=== PATIENT | female | born 1945 | race Caucasian/White ===

== ENCOUNTER 2017-01-15 17:28 | Inpatient (IN) | payer MEDICARE ==
--- NOTE | 2017-01-15 18:01 | ED ---
General Adult HPI - General Source: patient Mode of arrival: EMS Limitations: no limitations <Jerry Roblero - Last Filed: 01/15/17 18:01> <Darryl Dallas - Last Filed: 01/15/17 20:20> - General Chief complaint: Chest Pain Stated complaint: chest pain - Related Data Home Medications Medication Instructions Recorded Confirmed Metoprolol Tartrate [Lopressor] 25 mg PO BID 07/21/15 01/15/17 Previous Rx's Medication Instructions Recorded Atorvastatin [Lipitor] 40 mg PO DAILY #30 tab 04/12/15 Lisinopril [Zestril] 10 mg PO BID #60 tab 06/15/15 Aspirin EC [Ecotrin Low Dose] 81 mg PO DAILY #30 tablet. 07/23/15 Nitroglycerin Sl Tabs [Nitrostat] 0.4 mg SUBLINGUAL Q5M PRN #30 tab 07/23/15 Allergies Allergy/AdvReac Type Severity Reaction Status Date / Time No Known Allergies Allergy Verified 01/15/17 18:16 Review of Systems ROS Other: All systems not noted in ROS Statement are negative. <Jerry Roblero - Last Filed: 01/15/17 18:01> ROS Other: All systems not noted in ROS Statement are negative. <Darryl Dallas - Last Filed: 01/15/17 20:20> ROS Statement: Those systems with pertinent positive or pertinent negative responses have been documented in the HPI. Past Medical History Past Medical History: Atrial Fibrillation, Coronary Artery Disease (CAD), Cancer , Heart Failure, COPD, Diabetes Mellitus, Hyperlipidemia, Hypertension, Myocardial Infarction (ND) Additional Past Medical History / Comment(s): 06/13/15 Pt presented to [facility] ER via EMS with L sided chest pain which began around 7PM last nite. She took nig which did not provide relief. When the pain worsened she phoned EMS. Pt states she is suppose to plan to have a stent placement but nothing set up yet. Pt last admitted to [facility] on 04/05/15-04/12/15 for NSTEMI/CHF, UTI with klebsiella pneumoniae, acute kidney injury which improved, and medical debility. She had cardiac catheterization and plan at that time was to tx medically. Echo done 04/05/15 showed severely impaired L venttricular systolic function with EF 20-25%. 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 Last Myocardial Infarction Date:: 2014 History of Any Multi-Drug Resistant Organisms: None Reported Past Surgical History: Appendectomy, Bariatric Surgery, Cholecystectomy, Coronary Bypass/CABG, Heart Catheterization, Hysterectomy, Tonsillectomy Additional Past Surgical History / Comment(s): 04/11/15 cardiac cath- tx medically, 02/03/2006 CABG-5 vessel with MVR, port-a-cath insertion and removal, colonoscopies with last one about 1 yr ago which was normal, gastric bypass. Past Anesthesia/Blood Transfusion Reactions: No Reported Reaction Past Psychological History: No Psychological Hx Reported Additional Psychological History / Comment(s): Pt's son lives with her in her home. She is fairly independent. She uses no assistive device or home care agency. She no longer drives much- her children take her to her appts. Her family is very supportive. She has a glucose monitor at home. Smoking Status: Former smoker Past Alcohol Use History: None Reported Additional Past Alcohol Use History / Comment(s): Pt states she started smoking around 1960 and quit in 2012. Past Drug Use History: None Reported - Past Family History Father Family Medical History: Cancer Mother Family Medical History: Congestive Heart Failure (CHF), Coronary Artery Disease (CAD) <Jerry Roblero - Last Filed: 01/15/17 18:01> General Exam Limitations: no limitations <Jerry Roblero - Last Filed: 01/15/17 18:01> EKG Findings - EKG Comments: EKG Findings:: EKG shows sinus tachycardia rate 103, W[place] 136, QRS 100, QTC 476 <Jerry Roblero - Last Filed: 01/15/17 18:01> Medical Decision Making - Lab Data Result diagrams: 01/15/17 17:45 01/15/17 17:45 <Darryl Dallas - Last Filed: 01/15/17 20:20> - Lab Data Lab Results 03/24/17 03/24/17 03/24/17 Range/Units 17:45 17:45 17:45 WBC 7.8 (3.8-10.6) k/uL RBC 3.76 L (3.80-5.40) m/uL Hgb 9.7 L (11.4-16.0) gm/dL Hct 31.7 L (34.0-46.0) % MCV 84.4 (80.0-100.0) fL MCH 25.7 (25.0-35.0) pg MCHC 30.5 L (31.0-37.0) g/dL RDW 15.8 H (11.5-15.5) % Plt Count 259 (150-450) k/uL Neutrophils % 82 % Lymphocytes % 11 % Monocytes % 4 % Eosinophils % 2 % Basophils % 1 % Neutrophils # 6.4 (1.3-7.7) k/uL Lymphocytes # 0.8 L (1.0-4.8) k/uL Monocytes # 0.3 (0-1.0) k/uL Eosinophils # 0.1 (0-0.7) k/uL Basophils # 0.1 (0-0.2) k/uL Hypochromasia Marked PT (9.0-12.0) sec INR (<1.1) APTT (22.0-30.0) sec D-Dimer (<0.60) mg/L FEU Sodium 139 (137-145) mmol/L Potassium 3.8 (3.5-5.1) mmol/L Chloride 102 (98-107) mmol/L Carbon Dioxide 22 (22-30) mmol/L Anion Gap 15 mmol/L BUN 17 (7-17) mg/dL Creatinine 1.05 H (0.52-1.04) mg/dL Est GFR (MDRD) Af Amer >60 (>60 ml/min/1.73 sqM) Est GFR (MDRD) Non-Af 51 (>60 ml/min/1.73 sqM) Glucose 497 H* (74-99) mg/dL POC Glucose (mg/dL) (75-99) mg/dL POC Glu Senior Training Specialist ID Calcium 8.7 (8.4-10.2) mg/dL Magnesium 1.4 L (1.6-2.3) mg/dL Total Bilirubin 0.6 (0.2-1.3) mg/dL AST 15 (14-36) U/L ALT 19 (9-52) U/L Alkaline Phosphatase 95 (38-126) U/L Total Creatine Kinase 29 L (30-135) U/L CK-MB (CK-2) 1.0 (0.0-2.4) ng/mL CK-MB (CK-2) Rel Index 3.4 Troponin I <0.012 (0.000-0.034) ng/mL NT-Pro-B Natriuret Pep pg/mL Total Protein 7.4 (6.3-8.2) g/dL Albumin 3.7 (3.5-5.0) g/dL Lipase 230 (23-300) U/L 01/15/17 01/15/17 01/15/17 Range/Units 17:45 17:45 19:27 WBC (3.8-10.6) k/uL RBC (3.80-5.40) m/uL Hgb (11.4-16.0) gm/dL Hct (34.0-46.0) % MCV (80.0-100.0) fL MCH (25.0-35.0) pg MCHC (31.0-37.0) g/dL RDW (11.5-15.5) % Plt Count (150-450) k/uL Neutrophils % % Lymphocytes % % Monocytes % % Eosinophils % % Basophils % % Neutrophils # (1.3-7.7) k/uL Lymphocytes # (1.0-4.8) k/uL Monocytes # (0-1.0) k/uL Eosinophils # (0-0.7) k/uL Basophils # (0-0.2) k/uL Hypochromasia PT 10.1 (9.0-12.0) sec INR 1.0 (<1.1) APTT 21.2 L (22.0-30.0) sec D-Dimer 0.84 H (<0.60) mg/L FEU Sodium (137-145) mmol/L Potassium (3.5-5.1) mmol/L Chloride (98-107) mmol/L Carbon Dioxide (22-30) mmol/L Anion Gap mmol/L BUN (7-17) mg/dL Creatinine (0.52-1.04) mg/dL Est GFR (MDRD) Af Amer (>60 ml/min/1.73 sqM) Est GFR (MDRD) Non-Af (>60 ml/min/1.73 sqM) Glucose (74-99) mg/dL POC Glucose (mg/dL) 445 H (75-99) mg/dL POC Glu Senior Training Specialist ID Jennifer Mack Calcium (8.4-10.2) mg/dL Magnesium (1.6-2.3) mg/dL Total Bilirubin (0.2-1.3) mg/dL AST (14-36) U/L ALT (9-52) U/L Alkaline Phosphatase (38-126) U/L Total Creatine Kinase (30-135) U/L CK-MB (CK-2) (0.0-2.4) ng/mL CK-MB (CK-2) Rel Index Troponin I (0.000-0.034) ng/mL NT-Pro-B Natriuret Pep 1700 pg/mL Total Protein (6.3-8.2) g/dL Albumin (3.5-5.0) g/dL Lipase (23-300) U/L Disposition <Jerry Roblero - Last Filed: 01/15/17 18:01> <Darryl Dallas - Last Filed: 01/15/17 20:20> Clinical Impression: Chest pain Disposition: ADMITTED IP TO THIS HOSP Condition: Fair
[2017-01-15] MEDS ORDERED: SODIUM CHLORIDE 0.9% 1,000 ML IV STA (18:06)
[2017-01-15] MEDS ORDERED: MORPHINE SULFATE 4 MG/ML SYRINGE IV STA (18:06)
[2017-01-15] MEDS ORDERED: IPRATROPIUM-ALBUTEROL 3 ML NEB INHALATION STA (18:07)
[2017-01-15 18:18] LABS: Basophils # (A) 0.1 k/uL (0-0.2); Basophils % (A) 1 %; CH 25.2; CHCM 29.9; Eosinophils # (A) 0.1 k/uL (0-0.7); Eosinophils % (A) 2 %; HCT 31.7 % (34.0-46.0); HDW 3.32; HGB 9.7 gm/dL (11.4-16.0); Hypochromasia Marked; Luc # (Auto) 0.09; Luc % (Auto) 1; Lymphocytes # (A) 0.8 k/uL (1.0-4.8); Lymphocytes % (A) 11 %; MCH 25.7 pg (25.0-35.0); MCHC 30.5 g/dL (31.0-37.0); MCV 84.4 fL (80.0-100.0); Mean Platelet Volume 7.2; Monocytes # (A) 0.3 k/uL (0-1.0); Monocytes % (A) 4 %; Neutrophils # (A) 6.4 k/uL (1.3-7.7); Neutrophils % (A) 82 %; RBC 3.76 m/uL (3.80-5.40); RDW 15.8 % (11.5-15.5); WBC 7.8 k/uL (3.8-10.6); WBC (Perox) 8.12
[2017-01-15 18:32] LABS: ALT 19 U/L (9-52); AST 15 U/L (14-36); Alkaline Phosphatase 95 U/L (38-126); Anion Gap 15 mmol/L; Blood Urea Nitrogen 17 mg/dL (7-17); Calcium 8.7 mg/dL (8.4-10.2); Carbon Dioxide 22 mmol/L (22-30); Chloride 102 mmol/L (98-107); Magnesium 1.4 mg/dL (1.6-2.3); Non-African American GFR(MDRD) 51 (>60 ml/min/1.73 sqM); Potassium 3.8 mmol/L (3.5-5.1); Prothrombin Time 10.1 sec (9.0-12.0); Sodium 139 mmol/L (137-145); Total Bilirubin 0.6 mg/dL (0.2-1.3); Total Protein 7.4 g/dL (6.3-8.2)
[2017-01-15 18:34] LABS: Glucose 497 mg/dL (74-99)
[2017-01-15 18:43] LABS: Creatine Kinase 29 U/L (30-135); Partial Thromboplastin Time 21.2 sec (22.0-30.0)
[2017-01-15] MEDS ORDERED: ASPIRIN 81 MG CHEW PO STA (18:51)
[2017-01-15] MEDS ORDERED: NITROGLYCERIN SL TABS 0.4 MG TAB SUBLINGUAL PRN (18:51)
[2017-01-15] MEDS ORDERED: HEPARIN SODIUM,PORCINE 5,000 UNIT/ML 1 ML VIAL IV PRN (18:51)
[2017-01-15] MEDS ORDERED: HEPARIN SODIUM,PORCINE 5,000 UNIT/ML 1 ML VIAL IV ONE (18:51)
--- NOTE | 2017-01-15 18:51 | XR ---
EXAMINATION TYPE: XR chest 2V DATE OF EXAM: 01/15/2017 6:39 PM COMPARISON: 07/20/2015 HISTORY: Chest pain TECHNIQUE: Frontal and lateral views of the chest are obtained. FINDINGS: There is mild pulmonary vascular congestion. There are sternal wires. There is a prosthesi s. There is a left axillary pacemaker with the lead tips in the right ventricle. There are chest lead s. There is slight blunting of costophrenic angles. IMPRESSION: There is evidence of mild heart failure that is new or increased compared to last exam.
[2017-01-15] MEDS ORDERED: RX INFO: IV CONTRAST WAS GIVEN 1 EACH MISC MISCELLANE PRN (18:52)
[2017-01-15 18:55] LABS: Troponin I <0.012 ng/mL (0.000-0.034)
[2017-01-15] MEDS ORDERED: HEPARIN SODIUM,PORCINE/D5W PMX 25,000 UNIT in DEXTROSE/WATER 1 500ML.BAG IV SCH (19:00)
[2017-01-15] MEDS ORDERED: NITROGLYCERIN SL TABS 0.4 MG TAB SUBLINGUAL STA (19:18)
[2017-01-15 19:28] LABS: Glucose,Whole Blood 445 mg/dL (75-99)
[2017-01-15] MEDS: SODIUM CHLORIDE 0.9% 1,000 ML IV SCH (19:28)
[2017-01-15] MEDS: INSULIN LISPRO (humaLOG) 300 UNIT/3 ML VIAL SQ SCH ×2 (19:50→21:55)
--- NOTE | 2017-01-15 19:58 | CT ---
EXAMINATION TYPE: CT angio chest DATE OF EXAM: 01/15/2017 7:27 PM COMPARISON: 04/05/2015 HISTORY: Pt states of chest pain x1 week. CT DLP: 311.8 mGycm Automated exposure control for dose reduction was used. CONTRAST: CTA scan of the thorax is performed with IV Contrast, patient injected with 55 mL of Visipaque 320, p ulmonary embolism protocol. . FINDINGS: There are 3-D post processed images. The lungs are clear of consolidation. There is groundglass interstitial density in the mid and lower lung sims and worse on the right side. There is mild subpleural interstitial density in the lower l obes. There is no pleural effusion. Heart is enlarged. I see no filling defects in the pulmonary lisa jason. Thoracic aorta is atheromatous. There is no sign of dissection. Ascending aorta measures 4 cm. There is a hiatal hernia. There is no mediastinal adenopathy. There are no hilar masses. IMPRESSION: NO EVIDENCE OF PULMONARY EMBOLISM. 4 CM ANEURYSM OF THE ASCENDING AORTA. CARDIOMEGALY. THERE IS CLEARING OF THE PLEURAL FLUID COMPARED TO LAST EXAM. PULMONARY INTERSTITIAL PNEUMONIA. MILD FIBROTIC CHANGES.
[2017-01-15 20:23] LABS: Hemoglobin A1C 10.8 % (4.2-6.1)
[2017-01-15 21:47] LABS: Glucose,Whole Blood 446 mg/dL (75-99)
[2017-01-15 23:58] LABS: Glucose,Whole Blood 387 mg/dL (75-99)
[2017-01-16 02:10] LABS: Creatine Kinase MB 2.6 ng/mL (0.0-2.4); Troponin I 0.362 ng/mL (0.000-0.034)
[2017-01-16] MEDS ORDERED: Magnesium Replacement Protocol 1 EACH MISC MISCELLANE PRN (02:26)
[2017-01-16] MEDS: MAGNESIUM SULFATE-D5W PMX 1 GM in DEXTROSE/WATER 1 100ML.BAG IVPB SCH ×3 (03:03→05:13)
[2017-01-16 06:55] LABS: Glucose,Whole Blood 368 mg/dL (75-99)
[2017-01-16 07:12] LABS: Mean Platelet Volume 8.3
[2017-01-16 07:32] LABS: Cholesterol 104 mg/dL (<200); HDL Cholesterol 45 mg/dL (40-60); Triglycerides 54 mg/dL (<150)
[2017-01-16 08:08] LABS: Creatine Kinase MB 3.6 ng/mL (0.0-2.4); Troponin I 0.449 ng/mL (0.000-0.034)
[2017-01-16 09:01] VITALS: BMI 31.0
[2017-01-16] MEDS: LISINOPRIL 10 MG TAB PO SCH ×2 (11:07→19:59)
[2017-01-16] MEDS: FUROSEMIDE 20 MG TAB PO SCH (11:07)
[2017-01-16] MEDS: METOPROLOL TARTRATE 25 MG TAB PO SCH ×2 (11:07→19:59)
[2017-01-16] MEDS: ASPIRIN 325 MG TAB PO SCH (11:07)
[2017-01-16] MEDS: SPIRONOLACTONE 25 MG TAB PO SCH (11:07)
[2017-01-16] MEDS: ATORVASTATIN 40 MG TAB PO SCH (11:07)
[2017-01-16] MEDS: ISOSORBIDE MONONITRATE ER 60 MG TAB.ER.24H PO SCH (11:17)
[2017-01-16 12:01] LABS: Glucose,Whole Blood 333 mg/dL (75-99)
[2017-01-16] MEDS: INSULIN LISPRO (humaLOG) 300 UNIT/3 ML VIAL SQ SCH ×3 (12:36→20:35)
--- NOTE | 2017-01-16 12:53 | CONS ---
Mrs. Hernandez is a 71-year-old female who is admitted to the hospital with the complaint of epigastric discomfort. Patient has a known history of coronary artery disease with a prior history of coronary artery bypass surgery and mitral valve repair. Patient had a cardiac catheterization done in March 2015. At that time, patient was found to have vein grafts closed and FUNEZ graft to the LAD was patent. Patient's ejection fraction was 20% to 25% and has been treated medically. Patient subsequently had an AICD placed. She had been doing fairly well. She had pain at rest. Pain was in epigastric area with slight nausea. She did not have any significant shortness of breath. As the pain persisted, the patient came to the emergency room and subsequently is admitted. Patient usually is able to walk around and remains in functional class III. Past medical history includes history of appendectomy, bariatric surgery, coronary artery bypass surgery, cardiac catheterization, AICD placement. Patient also has squamous cell cancer and the patient had radiation and chemotherapy. There is a questionable history of atrial fibrillation. She not exactly aware of it, but she has not been on Coumadin. SOCIAL HISTORY: Patient is a former smoker. Physical examination at present reveals a 71-year-old female who does not appear to be in any acute distress at present. Blood pressure is 140/70 mmHg, oxygen saturation is 90%. Patient is afebrile. HEENT is negative. Neck is supple. Jugular venous pressure is mildly elevated. Both the carotid pulses are felt. There is no bruit. Chest is symmetrical. HEART: The PMI is not felt. First and second heart sounds are normal. No significant murmurs are noted. Lungs are clinically clear to auscultation and percussion. Abdomen is soft. Liver and spleen are not enlarged. Bowel sounds are heard. EXTREMITIES: Peripheral pulsations are 1+. Initial troponin was less than 0.012. Subsequent troponins are 0.49 and 0.362. Patient's electrolytes are normal. Creatinine is 1.05. Chest x-ray suggestive of possible mild congestive heart failure. CT scan was negative for pulmonary embolism. EKG shows evidence of sinus tachycardia with mild ST-T changes noted in leads I, aVL and V5 and V6, which could be suggestive of ischemia versus a strain pattern. FINAL IMPRESSION: 1. This patient has presented with epigastric discomfort with mild elevation in the troponin suggestive of a non-Q-wave myocardial infarction. 2. Patient has a history of ischemic cardiomyopathy with status post coronary artery bypass surgery. Last cardiac catheterization revealed all the vein grafts were closed and patient was not considered any candidate for any kind of intervention. 3. Patient has ischemic cardiomyopathy. RECOMMENDATIONS: We will obtain EKGs. Echo and Doppler study will be obtained and at present, I will continue the medical treatment. If patient remains stable, we will maximize the medical treatment. Patient's overall long-term prognosis is guarded.
--- NOTE | 2017-01-16 14:37 | HP ---
DATE OF ADMISSION: 01/15/2017 PRESENTING COMPLAINT: Chest pain. HISTORY OF PRESENTING COMPLAINT: This is a pleasant 71-year-old patient of Dr. Soni whose chronic stable medical conditions include atrial fibrillation, congestive heart failure; EF 20% to 25%, COPD, diabetes type 2, hyperlipidemia, hypertension. Patient also has an AICD. Last time she was here was in July 2015 with unstable angina. She was felt to be a medical management candidate. Patient presents with chest pressure, lasting for a day off and on. There is no shortness of breath. No dizziness. Patient had episodes of perspiration. No radiation. Patient did not have any nitro and decided to come in, admitted with unstable angina. REVIEW OF SYSTEMS: CONSTITUTIONAL: Tired. HEENT: None. RESPIRATORY: As above. CARDIOVASCULAR: As above. GASTROINTESTINAL: None. GENITOURINARY: None. MUSCULOSKELETAL: Pain in the joints. DERMATOLOGICAL: None. HEMATOLOGICAL: None. PSYCHIATRIC: None. LYMPHATICS: None. Past medical history of atrial fibrillation, coronary artery disease, rectal cancer treated with chemo and radiation, CHF, EF 20% to 25%, COPD, diabetes mellitus type 2, hyperlipidemia, hypertension, squamous cell cancer of the anal canal. PAST SURGICAL HISTORY: Appendectomy, bariatric surgery, cholecystectomy, hysterectomy, tonsillectomy, mitral valve replacement and also gastric bypass surgery. SOCIAL HISTORY: Son lives with her. Patient smoked up until about 6 to 7 years ago. PAST SURGICAL HISTORY: AICD, appendectomy, bariatric surgery, cholecystectomy, coronary artery bypass, cardiac cath in March 2015 to be managed medically and in 2005, the patient had a coronary artery bypass, 5 vessels with mitral valve replacement. SOCIAL HISTORY: The patient did smoke for about 53 years, stopped in 2012. FAMILY HISTORY: Cancer. HOME MEDICATIONS: 1. Nitrostat 0.4 sublingual q.5 p.r.n. 2. Lopressor 25 mg b.i.d. 3. Zestril 10 mg p.o. b.i.d. 4. Lipitor 40 mg p.o. daily. 5. Aspirin 81 mg daily. ALLERGIES: None. On examination, temperature 97.8, pulse 55, respirations 18, blood pressure 140/73, pulse ox 98% on room air. GENERAL APPEARANCE: Elderly lady lying in bed, tired-appearing. EYES: Pupils equal. Conjunctivae normal. HEENT: Oral cavity normal. NECK: JVD not raised. Mass not palpable. RESPIRATORY: Effort normal. LUNGS: Slight decreased breath sounds. CARDIOVASCULAR: First and second sounds normal. No edema. ABDOMEN: Soft, nontender. Liver and spleen not palpable. LYMPHATIC: No lymph node palpable in neck or axillae. PSYCHIATRY: Alert and oriented x3. Mood and affect normal. NEUROLOGICAL: Pupils equal. Cranial nerves grossly intact. Power and sensation grossly intact. INVESTIGATIONS: White count 7.8, hemoglobin 9.7. Potassium 3.8, glucose 497, HbA1c 10.8. Troponin 0.012, 0.362, 0.449. EKG shows ST segment depression in V5, V6, I, aVL. ASSESSMENT: 1. Acute non-Q-wave myocardial infarction in a patient with known coronary artery disease, not a candidate for coronary intervention per cardiac catheterization in 2014. 2. Coronary artery disease with prior history of coronary artery bypass. 3. History of atrial fibrillation. 4. Chronic obstructive pulmonary disease in an ex-smoker. 5. Hyperlipidemia. 6. Essential hypertension. 7. Chronic congestive heart failure from systolic dysfunction; ejection fraction 20% to 25% from underlying coronary artery disease. 8. Paroxysmal atrial fibrillation. 9. History of anal cancer. 10. Automatic implantable cardioverter-defibrillator. PLAN: Home medications are resumed. Cardiology was consulted. Patient is on VIKTOR inhibitors, Lipitor, aspirin. Overall prognosis is guarded. Patient's dose of nitrates will be increased. Will see how the patient does. Given acute ME, patient will need to be in hospital at least for 48 hours and see how she does.
--- NOTE | 2017-01-16 15:37 | ECHOF ---
Referral Reason:cp MEASUREMENTS -------- HEIGHT: 157.5 cm WEIGHT: 76.7 kg BP: 140/70 IVSd: 1.3 cm (0.6 - 1.1) LVIDd: 4.2 cm (3.9 - 5.3) LVPWd: 1.3 cm (0.6 - 1.1) LVIDs: 3.8 cm LA Diam: 3.5 cm (2.7 - 3.8) RVIDd: 3.1 cm (< 3.3) LAESV Index (A-L): 26.63 ml/m Ao Diam: 3.8 cm (2.0 - 3.7) AV Cusp: 2.0 cm (1.5 - 2.6) EPSS: 0.9 cm MV E Eulalio: 2.54 m/s MV DecT: 242 ms MV A Eulalio: 2.11 m/s MV E/A Ratio: 1.20 RAP: 5.00 mmHg RVSP: 60.31 mmHg MV EF SLOPE: 13.79 mm/s (70 - 150) MV EXCURSION: 13.88 mm (> 18.000) FINDINGS -------- Sinus rhythm. This was a technically good study. The left ventricular size is normal. There is mild concentric left ventricular hypertrophy. Overall left ventricular systolic function is mild-moderately impaired with, an EF between 40 - 45 %. Basal inferior LV wall motion is hypokinetic. Basal inferoseptal LV wall motion is hypokinetic. Apical inferior LV wall motion is hypokinetic. Apical septum LV wall motion is hypokinetic. The right ventricle is normal in size. Normal LA size by volume 22+/-6 ml/m2. The right atrium is normal in size. There is mild aortic valve sclerosis. There is mild aortic regurgitation. The mitral valve leaflets are mildly thickened. Mild mitral annular calcification present. Mild mitral regurgitation is present. The peak and mean MV gradients are 23.93mmHg 11.39mmHg as measured by doppler , with a MVA of 2.4cm (by planimetry) [id number] tricuspid regurgitation present. There is severe pulmonary hypertension. The right ventricular systolic pressure, as measured by Doppler, is 60.31mmHg. Moderate pulmonic regurgitation. The aortic root is dilated measuring 3.8cm. The inferior vena cava is mildly dilated. There is no pericardial effusion. CONCLUSIONS -------- 1. Sinus rhythm. 2. The right ventricle is normal in size. 3. Normal LA size by volume 22+/-6 ml/m2. 4. There is mild aortic valve sclerosis. 5. There is mild aortic regurgitation. 6. The mitral valve leaflets are mildly thickened. 7. Mild mitral annular calcification present. 8. Mild mitral regurgitation is present. 9. The peak and mean MV gradients are 23.93mmHg 11.39mmHg as measured by doppler. 10. , with a MVA of 2.4cm (by planimetry) 11. Gicb-ik-kjhcttnx tricuspid regurgitation present. 12. This was a technically good study. 13. There is severe pulmonary hypertension. 14. The right ventricular systolic pressure, as measured by Doppler, is 60.31mmHg. 15. Moderate pulmonic regurgitation. 16. The aortic root is dilated measuring 3.8cm. 17. The inferior vena cava is mildly dilated. 18. There is no pericardial effusion. 19. The left ventricular size is normal. 20. There is mild concentric left ventricular hypertrophy. 21. Overall left ventricular systolic function is mild-moderately impaired with, an EF between 40 - 45 %. 22. Basal inferior LV wall motion is hypokinetic. 23. Basal inferoseptal LV wall motion is hypokinetic. 24. Apical inferior LV wall motion is hypokinetic. 25. Apical septum LV wall motion is hypokinetic. COLLEGE ASSOCIATE: Sue Louis RDCS
[2017-01-16 17:05] LABS: Glucose,Whole Blood 257 mg/dL (75-99)
[2017-01-16 20:09] LABS: Glucose,Whole Blood 264 mg/dL (75-99)
[2017-01-17 07:15] LABS: Glucose,Whole Blood 269 mg/dL (75-99)
[2017-01-17 07:40] LABS: Mean Platelet Volume 7.3
[2017-01-17] MEDS: SODIUM CHLORIDE 0.9% 1,000 ML IV SCH ×2 (08:20→14:14)
[2017-01-17] MEDS: METOPROLOL TARTRATE 25 MG TAB PO SCH (08:30)
[2017-01-17] MEDS: LISINOPRIL 10 MG TAB PO SCH (08:30)
[2017-01-17] MEDS: SPIRONOLACTONE 25 MG TAB PO SCH (08:30)
[2017-01-17] MEDS: ATORVASTATIN 40 MG TAB PO SCH (08:30)
[2017-01-17] MEDS: ASPIRIN 325 MG TAB PO SCH (08:31)
[2017-01-17] MEDS: FUROSEMIDE 20 MG TAB PO SCH (08:31)
[2017-01-17] MEDS: ISOSORBIDE MONONITRATE ER 60 MG TAB.ER.24H PO SCH (08:31)
[2017-01-17] MEDS: INSULIN LISPRO (humaLOG) 300 UNIT/3 ML VIAL SQ SCH ×2 (08:31→13:51)
[2017-01-17 12:15] LABS: Glucose,Whole Blood 299 mg/dL (75-99)
[2017-01-17 12:50] VITALS: BP 118/65; PULSE 83; RESP 16; TEMP 98.1
--- NOTE | 2017-01-17 13:17 | PN ---
This patient was admitted with epigastric discomfort. Patient had a mild elevation in her troponin, which could be suggestive of possible small non-Q wave myocardial infarction. Patient is known to have ischemic cardiomyopathy with status post coronary artery bypass surgery. Medical treatment is recommended. Patient's echocardiogram shows ejection fraction in the range of 40%. Patient's vital signs are stable. She is being ambulated, her epigastric pain is improved. Patient can be discharged home on the medical treatment.
--- NOTE | 2017-01-18 18:08 | DS ---
DATE OF ADMISSION: 01/16/2017 DATE OF DISCHARGE: 01/17/2017 FINAL DIAGNOSES: 1. Acute non-Q-wave myocardial infarction. 2. Known coronary disease with prior history of coronary artery bypass grafting. 3. History of atrial fibrillation. 4. Chronic obstructive pulmonary disease in an ex-smoker. 5. Hyperlipidemia. 6. Essential hypertension. 7. Chronic congestive heart failure from systolic dysfunction; ejection fraction 20% to 25%, underlying coronary artery disease. 8. Paroxysmal atrial fibrillation. 9. History of anal cancer. 10. AICD. HOSPITAL COURSE: This patient with known coronary artery disease is not amenable to further intervention per previous cardiac cath presented with acute UT , medications being adjusted, doing better at the time of discharge, up and about. No further chest pain with ambulation. 2-D echo shows EF of 40% to 45%. CONSULTATIONS: Dr. Arsen Galicia, cardiology. On exam, lungs are clear. CARDIOVASCULAR: First and second sounds normal. DISCHARGE MEDICATIONS: 1. Zestril 10 mg b.i.d. 2. Lopressor 25 mg b.i.d. 3. Aspirin 81 mg b.i.d. 4. Lipitor 80 mg q.h.s. 5. Imdur 60 mg a day. 6. Nitrostat 0.4 sublingual q.5 p.r.n. 7. Aldactone 25 mg a day. Follow up with Dr. Yin in 2 weeks, Dr. Soni in 3 days.
== END 2017-01-17 16:05 | disposition home or self-care (01) | DRG 281 ==
LOC: EC 17:28 → 3OBS 18:51 → OBSVTOIN 01-16 17:54
PROVIDERS: ADMIT Hospitalist; ATTEND Hospitalist
DX: I21.4 Non-ST elevation (NSTEMI) myocardial infarction (principal); I50.22 Chronic systolic (congestive) heart failure; I11.0 Hypertensive heart disease with heart failure; I48.0 Paroxysmal atrial fibrillation; J44.9 Chronic obstructive pulmonary disease, unspecified; I25.110 Atherosclerotic heart disease of native coronary artery with unstable angina pectoris; I25.5 Ischemic cardiomyopathy; E11.9 Type 2 diabetes mellitus without complications; Z95.1 Presence of aortocoronary bypass graft; Z87.891 Personal history of nicotine dependence; E78.5 Hyperlipidemia, unspecified; Z95.2 Presence of prosthetic heart valve; Z85.048 Personal history of other malignant neoplasm of rectum, rectosigmoid junction, and anus; Z82.49 Family history of ischemic heart disease and other diseases of the circulatory system; Z95.810 Presence of automatic (implantable) cardiac defibrillator; Z90.49 Acquired absence of other specified parts of digestive tract; Z98.84 Bariatric surgery status; Z92.21 Personal history of antineoplastic chemotherapy; Z92.3 Personal history of irradiation; I25.2 Old myocardial infarction; Z79.82 Long term (current) use of aspirin; Z79.899 Other long term (current) drug therapy
CPT/HCPCS: 36415; 71020; 71275; 80053; 80061; 82550; 82553; 83036; 83690; 83735; 83880; 84484; 85025; 85049; 85379; 85610; 85730; 93005; 93306; 94640; 96361; 96365; 96366; 96368; 96375; 96376; 99285

== ENCOUNTER 2018-11-22 15:10 | Inpatient (IN) | payer MEDICARE ==
[2018-11-22 16:52] LABS: Albumin 3.1 g/dL (3.5-5.0); Calcium 8.8 mg/dL (8.4-10.2); Potassium 4.8 mmol/L (3.5-5.1); Total Bilirubin 0.8 mg/dL (0.2-1.3); Total Protein 6.6 g/dL (6.3-8.2)
--- NOTE | 2018-11-22 16:59 | XR ---
EXAMINATION TYPE: XR foot complete LT DATE OF EXAM: 11/22/2018 COMPARISON: NONE HISTORY: Foot pain and redness TECHNIQUE: 3 views FINDINGS: There is soft tissue swelling of the foot. There is a plantar calcaneal spur. Metatarsals a re intact. I see no fracture nor dislocation. There are vascular surgical clips. IMPRESSION: Soft tissue swelling. No evidence of osteomyelitis. No fracture.
--- NOTE | 2018-11-22 17:00 | XR ---
EXAMINATION TYPE: XR tibia fibula LT DATE OF EXAM: 11/22/2018 COMPARISON: NONE HISTORY: Nonhealing wounds. Knee redness. TECHNIQUE: 4 views FINDINGS: There is subcutaneous edema. There is surgical clips. The tibia and fibula appear intact wi thout evidence of focal bone destruction. IMPRESSION: Soft tissue extensive edema. No evidence of osteomyelitis or fracture.
[2018-11-22 17:05] LABS: Anisocytosis Moderate; Basophils % (A) 1 %; Eosinophils # (A) 0.1 k/uL (0-0.7); Eosinophils % (A) 1 %; HCT 22.3 % (34.0-46.0); Hypochromasia Marked; Lymphocytes # (A) 0.5 k/uL (1.0-4.8); Lymphocytes % (A) 7 %; MCHC 28.4 g/dL (31.0-37.0); MCV 73.9 fL (80.0-100.0); Mean Platelet Volume 6.5; Microcytosis Marked; Monocytes # (A) 0.4 k/uL (0-1.0); Monocytes % (A) 6 %; Neutrophils # (A) 5.5 k/uL (1.3-7.7); Neutrophils % (A) 83 %; Platelet Count 184 k/uL (150-450); Poikilocytosis Slight; RBC 3.01 m/uL (3.80-5.40); RDW 21.8 % (11.5-15.5); WBC 6.6 k/uL (3.8-10.6)
[2018-11-22 17:08] LABS: HGB 6.3 gm/dL (11.4-16.0)
[2018-11-22 17:18] LABS: INR 1.1 (<1.2); Partial Thromboplastin Time 23.1 sec (22.0-30.0)
[2018-11-22 17:29] LABS: Ovalocytes Present
[2018-11-22] MEDS ORDERED: VANCOMYCIN IV PER PHARMACY 1 EACH MISC MISCELLANE PRN (17:44)
[2018-11-22] MEDS ORDERED: cefTRIAXone 2,000 MG in SODIUM CHLORIDE 0.9% 100 ML IVPB STA (17:45)
--- NOTE | 2018-11-22 18:07 | ED ---
General Adult HPI - General Chief complaint: Extremity Problem,Nontraumatic Stated complaint: Swelling legs Time Seen by Provider: 11/22/18 15:19 Source: EMS Mode of arrival: EMS Limitations: physical limitation - History of Present Illness Initial comments: 73-year-old female past medical history of coronary artery disease status post CABG 2015 on aspirin, hypertension presenting today for chief complaint of ulcers of the legs bilaterally and bilateral lower extremity edema. Patient states she has had for over one month ulcers on the legs, with worsening ulcer of the left lower extremity posterior aspect. In addition patient states for over a month she has had bilateral lower extremity edema, alongside mild erythema. Patient was concerned for a developing cellulitis. Patient denies a history of peripheral artery disease, diabetes. Patient denies any numbness, tingling, loss sensation, pallor or coolness of extremities. Patient denies any pain of the lower extremities or pain with ambulation. Patient states that the ulcers "do not bug her" her however sometimes they do itch. Remainder of ROS negative, patient denies any recent fever, chills, shortness of breath, chest pain, back pain, abdominal pain, nausea or vomiting, numbness or tingling , dysuria or hematuria, constipation or diarrhea, headaches or visual changes, or any other complaints. Upon arrival patient's vital signs within acceptable limits. Patient does not appear overtly toxic. - Related Data Home Medications Medication Instructions Recorded Confirmed Metoprolol Tartrate [Lopressor] 25 mg PO BID 07/21/15 11/22/18 Aspirin EC [Ecotrin Low Dose] 81 mg PO DAILY 11/22/18 11/22/18 Furosemide [Lasix] 40 mg PO DAILY 11/22/18 11/22/18 Lisinopril [Zestril] 10 mg PO BID 11/22/18 11/22/18 Previous Rx's Medication Instructions Recorded Isosorbide Mononitrate ER [Imdur] 60 mg PO DAILY #30 tab.er.24h 01/17/17 Nitroglycerin Sl Tabs [Nitrostat] 0.4 mg SUBLINGUAL Q5M PRN #25 tab 12/04/17 Allergies Allergy/AdvReac Type Severity Reaction Status Date / Time No Known Allergies Allergy Verified 11/22/18 15:42 Review of Systems ROS Statement: Those systems with pertinent positive or pertinent negative responses have been documented in the HPI. ROS Other: All systems not noted in ROS Statement are negative. Past Medical History Past Medical History: Atrial Fibrillation, Coronary Artery Disease (CAD), Cancer , Heart Failure, COPD, Diabetes Mellitus, Hyperlipidemia, Hypertension, Myocardial Infarction ([place]) Additional Past Medical History / Comment(s): Ischemic heart disease, cardiomyopathy, MIs, chronic CHF, chronic L leg edema, cat scan today showed AAA -stable, squamous cell skin cancer with removal, anal cancer with radiation/ chemo, IDDM type II, UTI with klebsiella pneumoniae, 2015 fall with CHI. Last Myocardial Infarction Date:: 01/16/17 History of Any Multi-Drug Resistant Organisms: None Reported Past Surgical History: AICD, Appendectomy, Bariatric Surgery, Cholecystectomy, Coronary Bypass/CABG, Heart Catheterization, Hysterectomy, Tonsillectomy Additional Past Surgical History / Comment(s): 04/11/15 cardiac cath- tx medically, 02/03/2006 CABG-5 vessel with MVR, AICD 07/16/15, port-a-cath insertion and removal, colonoscopies, gastric bypass, skin cancer removal. Past Anesthesia/Blood Transfusion Reactions: No Reported Reaction Type of Cardiac Device: AICD Device Placement Date:: 2014 Past Psychological History: No Psychological Hx Reported Smoking Status: Former smoker Past Alcohol Use History: None Reported Past Drug Use History: None Reported - Past Family History Father Family Medical History: Cancer Additional Family Medical History / Comment(s): ?stomach cancer. Mother Family Medical History: Congestive Heart Failure (CHF), Coronary Artery Disease (CAD) General Exam - General Exam Comments Initial Comments: General: The patient is awake and alert, in no distress, and does not appear acutely ill. Pallor noted. Eye: Pupils are equal, round and reactive to light, extra-ocular movements are intact. No nystagmus. There is normal conjunctiva bilaterally. No signs of icterus. Ears, nose, mouth and throat: There are moist mucous membranes and no oral lesions. Neck: The neck is supple, there is no tenderness or JVD. Cardiovascular: There is a regular rate and rhythm. No murmur, rub or gallop is appreciated. Respiratory: Lungs are clear to auscultation, respirations are non-labored, breath sounds are equal. No wheezes, stridor, rales, or rhonchi. Gastrointestinal: No noted diaphoresis, jaundice, pallor, protecting postures or squirming. Symmetrical pigmentation of abdomen without signs of inflammation.. Umbilicus mildline, inverted without swelling. No dilated veins. Abdomen contour obese, no noted abdominal distention. No visible masses. No peristalsis, aortic pulsations, or ventral hernia. Bowel sounds audible in all 4 quadrants, unremarkable. No friction rubs or venous hums. No epigastic, hepatic or abdominal bruits. No tenderness to light or deep palpation. Liver edge, not palpable. Spleen edge, right and left kidney not palpable. Superior bladder margin non-tender. Special Testing: Negative [place], Rovsing, McBurney, Macho, cutaneous hyperesthesia. Iliopsoas and obturator tests negative bilaterally. Negative Heel Jar test. BHUPENDRA revealed excoration of skin surrounding rectum. Small hernia noted, external non thrombosed. Stool on pad in underwear and around rectum. No suzie blood. Negative gold turners or cullens sign Musculoskeletal: Normal ROM, no tenderness. Strength 5/5. Sensation intact. Radial pulses equal bilaterally 2+. Able to get strong posterior tibial pulses with doppler b/l. Clavicular lower extremity edema equal bilaterally. Pitting +2. No palpable DP, faint doppler DP pulses b/l. Slight coolness of RLE in comparison with right. Capillary refill intact of the great toe b/l of the feet. Neurological: A&O x 3. CN II-XII intact, There are no obvious motor or sensory deficits. Coordination appears grossly intact. Speech is normal. Skin: Skin is warm and dry. Excoriation of the upper arms bilaterally. Alternating lesions of the lower extremities, right greater than left. Eschar present. Pressure ulceration of the right heel. Mild surrounding erythema and warmth to palpation near the ulcers. Psychiatric: Cooperative, appropriate mood & affect, normal judgment. Limitations: physical limitation Course Vital Signs 11/22/18 11/22/18 15:13 18:28 Temperature 97.9 F Pulse Rate 95 98 Respiratory 18 15 Rate Blood Pressure 104/71 105/61 O2 Sat by Pulse 100 100 Oximetry Medical Decision Making - Medical Decision Making 73-year-old female presenting for ulceration of legs bilaterally as well as bilateral lower extremity edema and has been ongoing for past month. Upon physical examination is difficult to palpate dorsalis pedis or posterior tibial pulses. Doppler revealed strong posterior tibial as well as faint dorsalis pedis pulses bilaterally. I feel at this time the significant lower extremity edema is obscuring examination of dorsalis pedis pulses. Capillary refill is about 3 seconds of the lower extremities equal bilaterally. Patient does have mild coolness in comparison to right extremity of the left. Patient is intact to touch of the lower extremity is bilaterally. There is mild surrounding soft tissue erythema of the ulcerated lesions on the legs bilaterally. There is a pressure ulcer of the right posterior heel, x-ray negative for osteomyelitis. No free air or osteomyelitis noted upon foot and tibia and fibula x-ray. However lower extremity edema was noted. Upon laboratory studies this revealed significantly elevated glucose, negative urine ketones. Patient denies history of diabetes however she has not seen a primary care provider in quite some time. Patient has significant cardiac history, BNP elevated as well as creatinine. No overt signs or symptoms concerning for acute congestive heart failure exacerbation. Patient denies any shortness of breath, there is no abnormal chest x-ray findings concerning for acute exacerbation. Findings appear chronic. Creatinine elevation is only mildly increase in comparison with previous values upon chart review. Guille scrotal in addition to patient' s creatinine and BNP, hemoglobin was 6.3. Occult blood negative. Patient type and screened, received 1 unit of red blood cells. Lower extremity exam were concerning for chronic venous stasis edema with ulceration. However there is some findings concerning for lower extremity cellulitis left leg greater than right. With concurrent anemia we feel patient should be admitted for further evaluation, as well as treatment of lower extremity cellulitis. Patient was evaluated in person by attending provider Dr. Zayas, who also performed Doppler testing of posterior tibial and dorsalis pedis pulses, agrees with impression. Dr. Figueredo except admission after speaking with attending provider. Patient transferred to the floor appeared stable no further orders from attending provider or admitting addition. Pt started on intravenous abx, blood cultures pending. - Lab Data Result diagrams: 11/22/18 16:18 11/22/18 16:18 Lab Results 11/22/18 11/22/18 11/22/18 Range/Units 16:18 16:18 16:18 WBC 6.6 (3.8-10.6) k/uL RBC 3.01 L (3.80-5.40) m/uL Hgb 6.3 L* (11.4-16.0) gm/dL Hct 22.3 L (34.0-46.0) % MCV 73.9 L (80.0-100.0) fL MCH 21.0 L (25.0-35.0) pg MCHC 28.4 L (31.0-37.0) g/dL RDW 21.8 H (11.5-15.5) % Plt Count 184 (150-450) k/uL Neutrophils % 83 % Lymphocytes % 7 % Monocytes % 6 % Eosinophils % 1 % Basophils % 1 % Neutrophils # 5.5 (1.3-7.7) k/uL Lymphocytes # 0.5 L (1.0-4.8) k/uL Monocytes # 0.4 (0-1.0) k/uL Eosinophils # 0.1 (0-0.7) k/uL Basophils # 0.0 (0-0.2) k/uL Manual Slide Review Performed Hypochromasia Marked Poikilocytosis Slight Anisocytosis Moderate Microcytosis Marked Ovalocytes Present PT (9.0-12.0) sec INR (<1.2) APTT (22.0-30.0) sec Sodium 136 L (137-145) mmol/L Potassium 4.8 (3.5-5.1) mmol/L Chloride 109 H (98-107) mmol/L Carbon Dioxide 15 L (22-30) mmol/L Anion Gap 12 mmol/L BUN 61 H (7-17) mg/dL Creatinine 1.66 H (0.52-1.04) mg/dL Est GFR (CKD-EPI)AfAm 35 (>60 ml/min/1.73 sqM) Est GFR (CKD-EPI)NonAf 30 (>60 ml/min/1.73 sqM) Glucose 365 H (74-99) mg/dL Calcium 8.8 (8.4-10.2) mg/dL Total Bilirubin 0.8 (0.2-1.3) mg/dL AST 34 (14-36) U/L ALT 29 (9-52) U/L Alkaline Phosphatase 152 H (38-126) U/L NT-Pro-B Natriuret Pep 41835 pg/mL Total Protein 6.6 (6.3-8.2) g/dL Albumin 3.1 L (3.5-5.0) g/dL Stool Occult Blood (Negative) 11/22/18 11/22/18 Range/Units 16:56 17:35 WBC (3.8-10.6) k/uL RBC (3.80-5.40) m/uL Hgb (11.4-16.0) gm/dL Hct (34.0-46.0) % MCV (80.0-100.0) fL MCH (25.0-35.0) pg MCHC (31.0-37.0) g/dL RDW (11.5-15.5) % Plt Count (150-450) k/uL Neutrophils % % Lymphocytes % % Monocytes % % Eosinophils % % Basophils % % Neutrophils # (1.3-7.7) k/uL Lymphocytes # (1.0-4.8) k/uL Monocytes # (0-1.0) k/uL Eosinophils # (0-0.7) k/uL Basophils # (0-0.2) k/uL Manual Slide Review Hypochromasia Poikilocytosis Anisocytosis Microcytosis Ovalocytes PT 12.0 (9.0-12.0) sec INR 1.1 (<1.2) APTT 23.1 (22.0-30.0) sec Sodium (137-145) mmol/L Potassium (3.5-5.1) mmol/L Chloride (98-107) mmol/L Carbon Dioxide (22-30) mmol/L Anion Gap mmol/L BUN (7-17) mg/dL Creatinine (0.52-1.04) mg/dL Est GFR (CKD-EPI)AfAm (>60 ml/min/1.73 sqM) Est GFR (CKD-EPI)NonAf (>60 ml/min/1.73 sqM) Glucose (74-99) mg/dL Calcium (8.4-10.2) mg/dL Total Bilirubin (0.2-1.3) mg/dL AST (14-36) U/L ALT (9-52) U/L Alkaline Phosphatase (38-126) U/L NT-Pro-B Natriuret Pep pg/mL Total Protein (6.3-8.2) g/dL Albumin (3.5-5.0) g/dL Stool Occult Blood Negative (Negative) Disposition Clinical Impression: Stasis edema with ulcer of both lower extremities, Anemia, Elevated brain natriuretic peptide (BNP) level, Cellulitis, Pressure ulcer Disposition: ADMITTED IP TO THIS HOSP Condition: Stable Is patient prescribed a controlled substance at d/c from ED?: No Time of Disposition: 18:10 Decision to Admit Reason: Admit from EC Decision Date: 11/22/18 Decision Time: 18:10
[2018-11-22] MEDS ORDERED: NALOXONE 0.4 MG/ML 1 ML VIAL IV PRN (18:10)
[2018-11-22] MEDS ORDERED: SODIUM CHLORIDE 0.9% 1,000 ML IV SCH (18:15)
[2018-11-22] MEDS ORDERED: VANCOMYCIN 1,250 MG in SODIUM CHLORIDE 0.9% 250 ML IVPB ONE (18:30)
[2018-11-22 18:44] LABS: Appearance,Urine Cloudy (Clear); Bacteria,Urine Many /hpf; Bilirubin,Urine Negative (Negative); Blood,Urine Trace (Negative); Color,Urine Yellow; Glucose,Urine (UA) Trace (Negative); Ketones,Urine Negative (Negative); Leukocyte Esterase,Urine Large (Negative); Mucus,Urine Rare /hpf; Nitrite,Urine Negative (Negative); PH, Urine 5.5 (5.0-8.0); Protein,Urine 1+ (Negative); Specific Gravity,Urine 1.015 (1.001-1.035); Urobilinogen,Urine <2.0 mg/dL (<2.0); WBC,Urine 24 /hpf (0-5)
--- NOTE | 2018-11-22 18:53 | XR ---
EXAMINATION TYPE: XR chest 2V DATE OF EXAM: 11/22/2018 COMPARISON: December 01, 2017 HISTORY: Chest pain TECHNIQUE: Frontal and lateral views of the chest are obtained. FINDINGS: Heart is enlarged. There is no heart failure. There is left axillary pacemaker with the le ad tips in the right ventricle. There are sternal wires. There is no pleural effusion. IMPRESSION: Cardiomegaly. No heart failure. There is clearing of the pulmonary edema compared to las t exam.
[2018-11-22 21:55] LABS: Glucose,Whole Blood 302 mg/dL (75-99)
[2018-11-22] MEDS: METOPROLOL TARTRATE 25 MG TAB PO SCH (22:40)
[2018-11-22] MEDS: INSULIN ASPART 100 UNIT/ML 1 ML 10 ML VIAL SQ SCH (23:05)
[2018-11-23 07:14] LABS: Glucose,Whole Blood 187 mg/dL (75-99)
[2018-11-23] MEDS: INSULIN ASPART 100 UNIT/ML 1 ML 10 ML VIAL SQ SCH ×4 (08:05→21:47)
[2018-11-23] MEDS ORDERED: LISINOPRIL 10 MG TAB PO SCH (09:00)
[2018-11-23 09:14] LABS: Anisocytosis Moderate; Basophils % (A) 0 %; Eosinophils # (A) 0.1 k/uL (0-0.7); Eosinophils % (A) 1 %; HCT 27.8 % (34.0-46.0); Hypochromasia Marked; Lymphocytes # (A) 0.5 k/uL (1.0-4.8); Lymphocytes % (A) 4 %; MCH 21.3 pg (25.0-35.0); MCHC 27.9 g/dL (31.0-37.0); MCV 76.4 fL (80.0-100.0); Mean Platelet Volume 8.3; Microcytosis Marked; Monocytes # (A) 0.7 k/uL (0-1.0); Monocytes % (A) 6 %; Neutrophils # (A) 10.8 k/uL (1.3-7.7); Neutrophils % (A) 88 %; Platelet Count 152 k/uL (150-450); Poikilocytosis Slight; RBC 3.65 m/uL (3.80-5.40); RDW 22.8 % (11.5-15.5); WBC 12.3 k/uL (3.8-10.6)
[2018-11-23 09:19] LABS: HGB 7.8 gm/dL (11.4-16.0)
[2018-11-23 09:25] LABS: Albumin 2.5 g/dL (3.5-5.0); Calcium 8.6 mg/dL (8.4-10.2); Potassium 4.5 mmol/L (3.5-5.1); Total Protein 5.8 g/dL (6.3-8.2)
[2018-11-23] MEDS: METOPROLOL TARTRATE 25 MG TAB PO SCH ×2 (09:25→21:46)
[2018-11-23] MEDS ORDERED: FUROSEMIDE 40 MG TAB PO SCH (09:30)
--- NOTE | 2018-11-23 11:47 | ECHOF ---
Referral Reason:elev bnp, lower ext swelling MEASUREMENTS -------- HEIGHT: 157.5 cm WEIGHT: 65.8 kg BP: 94/54 RVIDd: 4.1 cm (< 3.3) IVSd: 1.8 cm (0.6 - 1.1) LVIDd: 5.1 cm (3.9 - 5.3) LVPWd: 1.4 cm (0.6 - 1.1) IVSs: 1.8 cm LVIDs: 4.8 cm LVPWs: 1.6 cm LA Diam: 4.5 cm (2.7 - 3.8) Ao Diam: 3.5 cm (2.0 - 3.7) AV Cusp: 2.3 cm (1.5 - 2.6) EPSS: 1.5 cm MV E Eulalio: 1.28 m/s MV DecT: 294 ms MV A Eulalio: 1.05 m/s MV E/A Ratio: 1.21 RAP: 15.00 mmHg RVSP: 50.17 mmHg MV EF SLOPE: 18.80 mm/s (70 - 150) MV EXCURSION: 1.30 cm (> 18.000) FINDINGS -------- Sinus rhythm. This was a technically adequate study. The left ventricular size is normal. There is severe concentric left ventricular hypertrophy. Ove rall left ventricular systolic function is severely impaired with, an EF between 20 - 25 %. The right ventricle is moderately enlarged. The left atrium is markedly dilated. The right atrium is normal in size. Aortic valve is trileaflet and is moderately thickened. The mitral valve leaflets are mildly thickened. Mild mitral annular calcification present. Modera te mitral regurgitation is present. Severe tricuspid regurgitation present. There is moderate pulmonary hypertension. Moderate pulmonic regurgitation. The aortic root size is normal. The inferior vena cava is dilated with no significant inspiratory collapse which is consistent estima radha right atrial pressure of >15 mmHg. There is no pericardial effusion. CONCLUSIONS -------- 1. Sinus rhythm. 2. This was a technically adequate study. 3. The left ventricular size is normal. 4. There is severe concentric left ventricular hypertrophy. 5. Overall left ventricular systolic function is severely impaired with, an EF between 20 - 25 %. 6. The right ventricle is moderately enlarged. 7. The left atrium is markedly dilated. 8. The right atrium is normal in size. 9. Aortic valve is trileaflet and is moderately thickened. 10. The mitral valve leaflets are mildly thickened. 11. Mild mitral annular calcification present. 12. Moderate mitral regurgitation is present. 13. Severe tricuspid regurgitation present. 14. There is moderate pulmonary hypertension. 15. Moderate pulmonic regurgitation. 16. The aortic root size is normal. 17. The inferior vena cava is dilated with no significant inspiratory collapse which is consistent es timated right atrial pressure of >15 mmHg. 18. There is no pericardial effusion. PATHOLOGY MANAGER: JUAN F Pal
[2018-11-23 11:53] LABS: Glucose,Whole Blood 217 mg/dL (75-99)
[2018-11-23] MEDS ORDERED: VANCOMYCIN 1,250 MG in SODIUM CHLORIDE 0.9% 250 ML IVPB ONE (12:00)
--- NOTE | 2018-11-23 12:51 | P.CRDCN ---
History of Present Illness History of present illness: This is a pleasant 73-year-old female past medical history significant for coronary artery disease s/p bypass grafting with severe underlying triple vessel disease and occluded SVG, ischemic cardiomyopathy s/p AICD implantation, valvular heart disease s/p mitral ring annuloplasty, hypertension, dyslipidemia, COPD, chronic systolic heart failure and chronic kidney disease. She follows in the office with Dr. Yin. We have been asked to see her for lower extremity edema and elevated NTproBNP. She presented to the hospital for bilateral lower extremity ulcerations and edema. She states these have been there for approximately 1-month. She denies any significant shortness of breath. No chest pain, dizziness, palpitations or diaphoresis. She also denies any PND, orthopnea or cough. She is seen and examined sitting up in bed in no acute distress. Chest x-ray is negative for an acute cardiopulmonary process with no evidence of acute heart failure with clearing pulmonary edema compared to last exam. Laboratory data reviewed, WBC 12.3, hemoglobin up to 7.8 from 6.3 on admission status post blood transfusion, platelets 152, sodium 136, potassium 4.5, creatinine 1.66, and Cipro BNP on admission 17,800. Most recent catheterization performed in 2014 reveals left main artery with no significant obstructive disease, LAD is totally occluded in the midsegment, proximal LAD. Calcified with a long tubular lesion 70%, circumflex is totally occluded proximally with no significant antegrade flow, RCA totally approximately with no antegrade flow. FUNEZ to LAD is patent with no evidence of stenosis. SVG occluded. Most recent echocardiogram obtained November 2017 reveals impaired LV systolic function with ejection fraction 35-40%, mitral regurgitation, tricuspid regurgitation, mitral stenosis with a mean gradient across the valve of 10 mmHg his history of mitral ring annuloplasty. At the time of my exam: CONSTITUTIONAL: Denies fever. Denies chills. EYES: Denies blurred vision. Denies vision changes. Denies eye pain. EARS, NOSE, MOUTH & THROAT: Denies headache. Denies sore throat. Denies ear pain. CARDIOVASCULAR: Denies chest pain. Denies shortness of breath. Denies orthopnea. Denies PND. Denies palpitations. RESPIRATORY: Denies cough. GASTROINTESTINAL: Denies abdominal pain. Denies diarrhea. Denies constipation. Denies nausea. Denies vomiting. MUSCULOSKELETAL: Denies myalgias. INTEGUMENTARY: Denies pruitis. Denies rash. NEUROLOGIC: Denies numbness. Denies tingling. Denies weakness. PSYCHIATRIC: Denies anxiety. Denies depression. ENDOCRINE: Denies fatigue. Denies weight change. Denies polydipsia. Denies polyurina. GENITOURINARY: Denies burning, hematuria or urgency with micturation. HEMATOLOGIC: Denies history of anemia. Denies bleeding. Blood pressure 109/68 heart rate 94 afebrile maintaining oxygen saturation on room air GENERAL: This is a 73-year-old female in no apparent distress at the time of my examination. HEENT: Head is atraumatic, normocephalic. Pupils are equal, round. Sclerae anicteric. Conjunctivae are clear. Mucous membranes of the mouth are moist. Neck is supple. There is no jugular venous distention. No carotid bruit is heard. LUNGS: Clear to auscultation no wheezes, rales or rhonchi. No chest wall tenderness is noted on palpation or with deep breathing. HEART: Regular rate and rhythm with murmur at the left sternal border, no rubs or gallops. S1 and S2 heard. ABDOMEN: Soft, nontender. Bowel sounds are heard. No organomegaly noted. EXTREMITIES: Significant 1-2+ lower extremity edema bilaterally with multiple wounds noted with scabs, no active lesion. VASCULAR: Radial and dorsalis pedis pulses palpated, no evidence of clubbing. NEUROLOGIC: Patient is awake, alert and oriented x3. ASSESSMENT Bilateral lower extremity cellulitis Leukocytosis Anemia status post blood transfusion Chronic kidney disease Ischemic cardiomyopathy Chronic systolic heart failure Status post dual-chamber ICD implantation, [facility] 2014 History of coronary artery disease status post three-vessel bypass grafting 2005 COPD Hypertension Dyslipidemia Former nicotine dependence PLAN 2-D echocardiogram obtained and reviewed. Resume lopressor and lisinopril. IV lasix can be used to decrease swelling. Clinically she does not appear to be in heart failure despite an elevated NTproBNP. Lungs are clear, there is no orthopnea or shortness of breath. Lower extremity edema related to cellulitus and venous insufficiency. Ongoing medical management per primary care team. Follow up with Dr. Yin upon discharge at next schedule appointment. Thank you kindly for this consultation. Nurse Practitioner note has been reviewed, I agree with a documented findings and plan of care. Patient was seen and examined. Past Medical History Past Medical History: Atrial Fibrillation, Coronary Artery Disease (CAD), Cancer , Heart Failure, COPD, Diabetes Mellitus, Hyperlipidemia, Hypertension, Myocardial Infarction ([place]) Additional Past Medical History / Comment(s): Ischemic heart disease, cardiomyopathy, MIs, chronic CHF, chronic L leg edema, cat scan today showed AAA -stable, squamous cell skin cancer with removal, anal cancer with radiation/ chemo, IDDM type II, UTI with klebsiella pneumoniae, 2015 fall with [facility]. Last Myocardial Infarction Date:: 01/16/17 History of Any Multi-Drug Resistant Organisms: None Reported Past Surgical History: AICD, Appendectomy, Bariatric Surgery, Cholecystectomy, Coronary Bypass/CABG, Heart Catheterization, Hysterectomy, Tonsillectomy Additional Past Surgical History / Comment(s): 04/11/15 cardiac cath- tx medically, 02/03/2006 CABG-5 vessel with MVR, AICD 07/16/15, port-a-cath insertion and removal, colonoscopies, gastric bypass, skin cancer removal. Past Anesthesia/Blood Transfusion Reactions: No Reported Reaction Type of Cardiac Device: AICD Device Placement Date:: 2014 Past Psychological History: No Psychological Hx Reported Additional Psychological History / Comment(s): Pt's son lives with her in her home. Patient reports that she no longer moves around. Patient used a cane previously. She has a glucose monitor at home. Smoking Status: Former smoker Past Alcohol Use History: None Reported Additional Past Alcohol Use History / Comment(s): Pt states she started smoking around 1960 and quit in 2012. Past Drug Use History: None Reported - Past Family History Father Family Medical History: Cancer Additional Family Medical History / Comment(s): ?stomach cancer. Mother Family Medical History: Congestive Heart Failure (CHF), Coronary Artery Disease (CAD) Medications and Allergies Home Medications Medication Instructions Recorded Confirmed Type Metoprolol Tartrate [Lopressor] 25 mg PO BID 07/21/15 11/22/18 History Isosorbide Mononitrate ER [Imdur] 60 mg PO DAILY #30 tab.er.24h 01/17/17 Rx Nitroglycerin Sl Tabs [Nitrostat] 0.4 mg SUBLINGUAL Q5M PRN #25 tab 12/04/17 Rx Aspirin EC [Ecotrin Low Dose] 81 mg PO DAILY 11/22/18 11/22/18 History Furosemide [Lasix] 40 mg PO DAILY 11/22/18 11/22/18 History Lisinopril [Zestril] 10 mg PO BID 11/22/18 11/22/18 History Allergies Allergy/AdvReac Type Severity Reaction Status Date / Time No Known Allergies Allergy Verified 11/22/18 15:42 Physical Exam Vitals: Vital Signs Temp Pulse Pulse Resp BP BP Pulse Ox 11/23/18 07:00 98.3 F 91 16 94/54 98 11/23/18 02:00 97.4 F L 14 114/74 99 11/23/18 00:45 98.3 F 94 16 109/68 97 11/22/18 23:06 97.5 F L 74 18 104/59 100 11/22/18 22:36 97.8 F 75 18 108/64 97 11/22/18 22:26 97.7 F 75 18 115/48 97 11/22/18 21:30 17 11/22/18 19:47 98.3 F 101 H 18 119/72 100 11/22/18 18:28 98 15 105/61 100 11/22/18 15:13 97.9 F 95 18 104/71 100 Intake and Output 11/22/18 11/23/18 11/23/18 22:59 06:59 14:59 Intake Total 0 310 Balance 0 310 Intake: Blood Product 0 310 Rc As-1 Unit 0 310 [id number] Other: Voiding Method Diaper Incontinent # Voids 1 2 Weight 65.771 kg Results 11/23/18 08:57 11/23/18 08:57 Cardiac Enzymes 11/22/18 Range/Units 16:18 AST 34 (14-36) U/L Coagulation 11/22/18 Range/Units 16:56 PT 12.0 (9.0-12.0) sec APTT 23.1 (22.0-30.0) sec CBC 11/22/18 Range/Units 16:18 WBC 6.6 (3.8-10.6) k/uL RBC 3.01 L (3.80-5.40) m/uL Hgb 6.3 L* (11.4-16.0) gm/dL Hct 22.3 L (34.0-46.0) % Plt Count 184 (150-450) k/uL Comprehensive Metabolic Panel 11/22/18 Range/Units 16:18 Sodium 136 L (137-145) mmol/L Potassium 4.8 (3.5-5.1) mmol/L Chloride 109 H (98-107) mmol/L Carbon Dioxide 15 L (22-30) mmol/L BUN 61 H (7-17) mg/dL Creatinine 1.66 H (0.52-1.04) mg/dL Glucose 365 H (74-99) mg/dL Calcium 8.8 (8.4-10.2) mg/dL AST 34 (14-36) U/L ALT 29 (9-52) U/L Alkaline Phosphatase 152 H (38-126) U/L Total Protein 6.6 (6.3-8.2) g/dL Albumin 3.1 L (3.5-5.0) g/dL Current Medications Generic Name Dose Route Start Last Admin Trade Name Freq PRN Reason Stop Dose Admin Vancomycin HCl 1,250 mg/ 250 mls @ 125 mls/hr 11/23/18 12:00 Sodium Chloride IVPB 11/23/18 13:59 ONCE ONE Sodium Chloride 1,000 mls @ 50 mls/hr 11/22/18 18:15 11/22/18 18:56 Saline 0.9% IV 50 mls/hr .Q20H SHREE Administration Insulin Aspart 0 unit 11/22/18 22:31 11/23/18 08:05 Novolog SQ 2 unit ACHS SHREE Administration Protocol Lisinopril 10 mg 11/23/18 09:00 11/23/18 08:11 Zestril PO Not Given BID SHREE Metoprolol Tartrate 25 mg 11/22/18 21:15 11/22/18 22:40 Lopressor PO 25 mg BID SHREE Administration Miscellaneous Information 1 each 11/22/18 17:44 Pharmacy To Dose Iv Vancomycin MISCELLANE DIRECTED PRN Per Protocol Naloxone HCl 0.2 mg 11/22/18 18:10 Narcan IV Q2M PRN Opioid Reversal Intake and Output 11/22/18 11/23/18 11/23/18 22:59 06:59 14:59 Intake Total 0 310 Balance 0 310 Intake: Blood Product 0 310 Rc As-1 Unit 0 310 [id number] Other: Voiding Method Diaper Incontinent # Voids 1 2 Weight 65.771 kg 11/22/18 16:18 11/22/18 16:18
[2018-11-23 14:32] LABS: Hemoglobin A1C 10.8 % (4.0-6.0)
--- NOTE | 2018-11-23 15:36 | P.HPIM ---
History of Present Illness 73-year-old pleasant female with baseline poor functional status lives with the her son history of coronary artery bypass grafting with saphenous venous grafts and cardiomyopathy ejection fraction of 20-25% came in with bilateral pedal edema possible cellulitis and multiple venous ulcerations in both legs and also found to be anemic, microcytic anemia probably iron deficiency. During IV Lasix. Patient doesn't have any pulmonary edema on the chest x-ray, patient denied any orthopnea or paroxysmal nocturnal dyspnea. Denied any fever chills patient does have some leukocytosis today patient is a monitor blood transfusion after which her hemoglobin went up to 7.8 I'm opting ferritin levels. Patient was initially started on vancomycin which was switched to Unasyn by infectious disease. Review of Systems REVIEW OF SYSTEMS: CONSTITUTIONAL: No fever, no malaise, no fatigue. HEENT: No recent visual problems or hearing problems. Denied any sore throat. CARDIOVASCULAR: No chest pain, orthopnea, PND, no palpitations, no syncope. PULMONARY: No shortness of breath, no cough, no hemoptysis. GASTROINTESTINAL: No diarrhea, no nausea, no vomiting, no abdominal pain. NEUROLOGICAL: No headaches, no weakness, no numbness. HEMATOLOGICAL: Denies any bleeding or petechiae. GENITOURINARY: Denies any burning micturition, frequency, or urgency. MUSCULOSKELETAL/RHEUMATOLOGICAL: Denies any joint pain, swelling, or any muscle pain. ENDOCRINE: Denies any polyuria or polydipsia. The rest of the 14-point review of systems is negative. Past Medical History Past Medical History: Atrial Fibrillation, Coronary Artery Disease (CAD), Cancer , Heart Failure, COPD, Diabetes Mellitus, Hyperlipidemia, Hypertension, Myocardial Infarction ([place]) Additional Past Medical History / Comment(s): Ischemic heart disease, cardiomyopathy, MIs, chronic CHF, chronic L leg edema, cat scan today showed AAA -stable, squamous cell skin cancer with removal, anal cancer with radiation/ chemo, IDDM type II, UTI with klebsiella pneumoniae, 2014 fall with [facility]. Last Myocardial Infarction Date:: 01/16/17 History of Any Multi-Drug Resistant Organisms: None Reported Past Surgical History: AICD, Appendectomy, Bariatric Surgery, Cholecystectomy, Coronary Bypass/CABG, Heart Catheterization, Hysterectomy, Tonsillectomy Additional Past Surgical History / Comment(s): 04/11/15 cardiac cath- tx medically, 02/03/2006 CABG-5 vessel with MVR, AICD 07/16/15, port-a-cath insertion and removal, colonoscopies, gastric bypass, skin cancer removal. Past Anesthesia/Blood Transfusion Reactions: No Reported Reaction Type of Cardiac Device: AICD Device Placement Date:: 2014 Past Psychological History: No Psychological Hx Reported Additional Psychological History / Comment(s): Pt's son lives with her in her home. Patient reports that she no longer moves around. Patient used a cane previously. She has a glucose monitor at home. Smoking Status: Former smoker Past Alcohol Use History: None Reported Additional Past Alcohol Use History / Comment(s): Pt states she started smoking around 1960 and quit in 2012. Past Drug Use History: None Reported - Past Family History Father Family Medical History: Cancer Additional Family Medical History / Comment(s): ?stomach cancer. Mother Family Medical History: Congestive Heart Failure (CHF), Coronary Artery Disease (CAD) Medications and Allergies Home Medications Medication Instructions Recorded Confirmed Type Metoprolol Tartrate [Lopressor] 25 mg PO BID 07/21/15 11/22/18 History Isosorbide Mononitrate ER [Imdur] 60 mg PO DAILY #30 tab.er.24h 01/17/17 Rx Nitroglycerin Sl Tabs [Nitrostat] 0.4 mg SUBLINGUAL Q5M PRN #25 tab 12/04/17 Rx Aspirin EC [Ecotrin Low Dose] 81 mg PO DAILY 11/22/18 11/22/18 History Furosemide [Lasix] 40 mg PO DAILY 11/22/18 11/22/18 History Lisinopril [Zestril] 10 mg PO BID 11/22/18 11/22/18 History Allergies Allergy/AdvReac Type Severity Reaction Status Date / Time No Known Allergies Allergy Verified 11/22/18 15:42 Physical Exam Vitals: Vital Signs Temp Pulse Pulse Resp BP BP Pulse Ox 11/23/18 14:03 98.5 F 90 109/68 100 11/23/18 08:30 91 16 11/23/18 07:00 98.3 F 91 16 94/54 98 11/23/18 02:00 97.4 F L 14 114/74 99 11/23/18 00:45 98.3 F 94 16 109/68 97 11/22/18 23:06 97.5 F L 74 18 104/59 100 11/22/18 22:36 97.8 F 75 18 108/64 97 11/22/18 22:26 97.7 F 75 18 115/48 97 11/22/18 21:30 17 11/22/18 19:47 98.3 F 101 H 18 119/72 100 11/22/18 18:28 98 15 105/61 100 Intake and Output 11/23/18 11/23/18 11/23/18 06:59 14:59 22:59 Intake Total 310 Balance 310 Intake: Blood Product 310 Rc As-1 Unit 310 [id number] Other: Voiding Method Diaper Incontinent # Voids 2 Weight 65.771 kg PHYSICAL EXAMINATION: GENERAL: The patient is alert and oriented x3, not in any acute distress. Well developed, well nourished. HEENT: Pupils are round and equally reacting to light. EOMI. No scleral icterus. No conjunctival pallor. Normocephalic, atraumatic. No pharyngeal erythema. No thyromegaly. CARDIOVASCULAR: S1 and S2 present. No murmurs, rubs, or gallops. PULMONARY: Chest is clear to auscultation, no wheezing or crackles. ABDOMEN: Soft, nontender, nondistended, normoactive bowel sounds. No palpable organomegaly. MUSCULOSKELETAL: No joint swelling or deformity. EXTREMITIES: No cyanosis, clubbing, NEUROLOGICAL: Gross neurological examination did not reveal any focal deficits. SKIN: Multiple venous ulcers at awaiting stages in both bilateral lower extremities with pedal edema, some venous stasis dermatosis Results CBC & Chem 7: 11/23/18 08:57 11/23/18 08:57 Labs: Abnormal Lab Results - Last 24 Hours (Table) 11/22/18 11/22/18 11/22/18 Range/Units 16:18 16:18 16:18 WBC (3.8-10.6) k/uL RBC 3.01 L (3.80-5.40) m/uL Hgb 6.3 L* (11.4-16.0) gm/dL Hct 22.3 L (34.0-46.0) % MCV 73.9 L (80.0-100.0) fL MCH 21.0 L (25.0-35.0) pg MCHC 28.4 L (31.0-37.0) g/dL RDW 21.8 H (11.5-15.5) % Neutrophils # (1.3-7.7) k/uL Lymphocytes # 0.5 L (1.0-4.8) k/uL Sodium 136 L (137-145) mmol/L Chloride 109 H (98-107) mmol/L Carbon Dioxide 15 L (22-30) mmol/L BUN 61 H (7-17) mg/dL Creatinine 1.66 H (0.52-1.04) mg/dL Glucose 365 H (74-99) mg/dL POC Glucose (mg/dL) (75-99) mg/dL Hemoglobin A1c 10.8 H (4.0-6.0) % AST (14-36) U/L ALT (9-52) U/L Alkaline Phosphatase 152 H (38-126) U/L Total Protein (6.3-8.2) g/dL Albumin 3.1 L (3.5-5.0) g/dL Urine Appearance (Clear) Urine Protein (Negative) Urine Glucose (UA) (Negative) Urine Blood (Negative) Ur Leukocyte Esterase (Negative) Urine WBC (0-5) /hpf Urine Bacteria (None) /hpf Urine Mucus (None) /hpf Crossmatch 11/22/18 11/22/18 11/22/18 Range/Units 18:25 18:25 21:53 WBC (3.8-10.6) k/uL RBC (3.80-5.40) m/uL Hgb (11.4-16.0) gm/dL Hct (34.0-46.0) % MCV (80.0-100.0) fL MCH (25.0-35.0) pg MCHC (31.0-37.0) g/dL RDW (11.5-15.5) % Neutrophils # (1.3-7.7) k/uL Lymphocytes # (1.0-4.8) k/uL Sodium (137-145) mmol/L Chloride (98-107) mmol/L Carbon Dioxide (22-30) mmol/L BUN (7-17) mg/dL Creatinine (0.52-1.04) mg/dL Glucose (74-99) mg/dL POC Glucose (mg/dL) 302 H (75-99) mg/dL Hemoglobin A1c (4.0-6.0) % AST (14-36) U/L ALT (9-52) U/L Alkaline Phosphatase (38-126) U/L Total Protein (6.3-8.2) g/dL Albumin (3.5-5.0) g/dL Urine Appearance Cloudy H (Clear) Urine Protein 1+ H (Negative) Urine Glucose (UA) Trace H (Negative) Urine Blood Trace H (Negative) Ur Leukocyte Esterase Large H (Negative) Urine WBC 24 H (0-5) /hpf Urine Bacteria Many H (None) /hpf Urine Mucus Rare H (None) /hpf Crossmatch See Detail 11/23/18 11/23/18 11/23/18 Range/Units 07:12 08:57 08:57 WBC 12.3 H (3.8-10.6) k/uL RBC 3.65 L (3.80-5.40) m/uL Hgb 7.8 L D (11.4-16.0) gm/dL Hct 27.8 L (34.0-46.0) % MCV 76.4 L (80.0-100.0) fL MCH 21.3 L (25.0-35.0) pg MCHC 27.9 L (31.0-37.0) g/dL RDW 22.8 H (11.5-15.5) % Neutrophils # 10.8 H (1.3-7.7) k/uL Lymphocytes # 0.5 L (1.0-4.8) k/uL Sodium 136 L (137-145) mmol/L Chloride 111 H (98-107) mmol/L Carbon Dioxide 17 L (22-30) mmol/L BUN 58 H (7-17) mg/dL Creatinine 1.66 H (0.52-1.04) mg/dL Glucose 207 H (74-99) mg/dL POC Glucose (mg/dL) 187 H (75-99) mg/dL Hemoglobin A1c (4.0-6.0) % AST 107 H (14-36) U/L ALT 73 H (9-52) U/L Alkaline Phosphatase 238 H (38-126) U/L Total Protein 5.8 L (6.3-8.2) g/dL Albumin 2.5 L (3.5-5.0) g/dL Urine Appearance (Clear) Urine Protein (Negative) Urine Glucose (UA) (Negative) Urine Blood (Negative) Ur Leukocyte Esterase (Negative) Urine WBC (0-5) /hpf Urine Bacteria (None) /hpf Urine Mucus (None) /hpf Crossmatch 11/23/18 Range/Units 11:51 WBC (3.8-10.6) k/uL RBC (3.80-5.40) m/uL Hgb (11.4-16.0) gm/dL Hct (34.0-46.0) % MCV (80.0-100.0) fL MCH (25.0-35.0) pg MCHC (31.0-37.0) g/dL RDW (11.5-15.5) % Neutrophils # (1.3-7.7) k/uL Lymphocytes # (1.0-4.8) k/uL Sodium (137-145) mmol/L Chloride (98-107) mmol/L Carbon Dioxide (22-30) mmol/L BUN (7-17) mg/dL Creatinine (0.52-1.04) mg/dL Glucose (74-99) mg/dL POC Glucose (mg/dL) 217 H (75-99) mg/dL Hemoglobin A1c (4.0-6.0) % AST (14-36) U/L ALT (9-52) U/L Alkaline Phosphatase (38-126) U/L Total Protein (6.3-8.2) g/dL Albumin (3.5-5.0) g/dL Urine Appearance (Clear) Urine Protein (Negative) Urine Glucose (UA) (Negative) Urine Blood (Negative) Ur Leukocyte Esterase (Negative) Urine WBC (0-5) /hpf Urine Bacteria (None) /hpf Urine Mucus (None) /hpf Crossmatch Thrombosis Risk Factor Assmnt - Choose All That Apply Any of the Below Risk Factors Present?: Yes Each Factor Represents 1 point: Abnormal pulmonary function (COPD), Obesity ( BMI >25) Other Risk Factors: Yes Each Risk Factor Represents 3 Points: Age 75 years or older Thrombosis Risk Factor Assessment Total Risk Factor Score: 5 Thrombosis Risk Factor Assessment Level: High Risk Assessment and Plan Plan: -Multiple venous ulcers, with possible cellulitis surrounding it wound cultures were obtained: Infectious disease is following the patient antibiotics as per them patient was started on Lasix. -Bilateral pedal edema secondary to venous stasis rather than congestive heart failure exacerbation patient will be continued on IV Lasix -Congestive heart chronic systolic dysfunction ischemic cardiomyopathy not in acute exacerbation -Anemia chronic appears to be iron deficiency we'll obtain ferritin levels -Coronary artery disease with CABG in the past -Chronic kidney disease stage III y patient's creatinine is at her baseline of 11.6 -Hypertension -COPD without any acute exacerbation -Metabolic acidosis secondary to hyperchloremia Will need pharmacologic GI and DVT prophylaxis
[2018-11-23 16:50] LABS: Glucose,Whole Blood 233 mg/dL (75-99)
[2018-11-23] MEDS: AMPICILLIN-SULBACTAM 3 GM in SODIUM CHLORIDE 0.9% 100 ML IVPB SCH (17:01)
[2018-11-23 21:23] LABS: Glucose,Whole Blood 194 mg/dL (75-99)
[2018-11-23] MEDS ORDERED: INSULIN ASPART 100 UNIT/ML 1 ML 10 ML VIAL SQ SCH (21:38)
[2018-11-23] MEDS: FUROSEMIDE 10 MG/ML 4 ML VIAL IV SCH (21:46)
[2018-11-23] MEDS: FAMOTIDINE 20 MG TAB PO SCH (21:46)
[2018-11-23] MEDS: HEPARIN SODIUM,PORCINE 5,000 UNIT/ML 1 ML VIAL SQ SCH (21:46)
[2018-11-24] MEDS: AMPICILLIN-SULBACTAM 3 GM in SODIUM CHLORIDE 0.9% 100 ML IVPB SCH ×3 (00:11→21:12)
--- NOTE | 2018-11-24 06:17 | CONS ---
CONSULTATION DATE OF SERVICE: 11/23/2018 REASON FOR CONSULTATION: Bilateral lower extremity wound and cellulitis. HISTORY OF PRESENT ILLNESS: The patient is a 73-year-old female presenting to the ER at [facility] yesterday afternoon with chief complaints of increasing swelling in her legs and wounds. The patient has been complaining of the legs have been getting more swollen with some superficial ulceration from ruptured blister that had been going on for almost a month now. The patient had been complaining of pain to the leg wound area. Pain is described to be of a more dull aching to sharp 6 to 7 out of 10 and no radiation with some surrounding redness, minimal drainage though. The patient did have some chills but denies any high-grade fever with concern for worsening swelling, redness and pain. The patient presented to the [facility] ER. The patient was evaluated by the ER physician. The patient did have x-rays of the foot, right tibia and fibula that showed some soft tissue swelling but no evidence of osteomyelitis or bony fracture. The patient on admission has been afebrile. However, her white count was elevated to 12.3. The patient also noticed to have a positive UA with large leukocyte esterase with many bacteria and the patient did have slight elevated liver enzymes as well as creatinine. The patient was started on vancomycin pharmacy to dose. Infectious Disease was consulted for further recommendation regarding antibiotic therapy. REVIEW OF SYSTEMS: Positive points have been mentioned in HPI. Rest of the systems has been negative. PAST MEDICAL HISTORY: Coronary artery disease, atrial fibrillation, heart failure, COPD, diabetes mellitus, hypertension, hyperlipidemia, ND. PAST SURGICAL HISTORY: AICD, appendectomy, bariatric surgery, cholecystectomy, coronary artery bypass grafting, heart catheterization, hysterectomy, tonsillectomy. SOCIAL HISTORY: Remote history of smoking. Quit back in 2012. No drinking or drug use. FAMILY HISTORY: Father history of stomach cancer. Mother history of coronary artery disease. ALLERGIES: No known drug allergies. MEDICATIONS: The patient is currently on vancomycin pharmacy to dose. She is on Narcan, Lopressor, NovoLog, heparin, Lasix, Pepcid. PHYSICAL EXAMINATION: On examination, blood pressure is 109/68 with a pulse of 90, temperature 98.5. She is 100% on room air. General description is an elderly female, lying in bed in no distress. No tachypnea or accessory muscle of respiration use. HEENT examination shows pallor no scleral icterus. Oral mucous membrane is dry. No pharyngeal erythema or thrush. NECK: Trachea central. No thyromegaly. LUNGS: Unlabored breathing with decreased breath sounds at the bases. No wheeze or crackle. HEART: S1, S2. Regular rate and rhythm. ABDOMEN: Soft, no tenderness. EXTREMITIES: Bilateral extremity with 2+ edema of feet. The patient did have some superficial wounds with slough tissue at the base. Minimal surrounding erythema. Also the wound to the left posterior heel area. No foul smelling drainage. NEUROLOGICAL: Patient is awake, alert, oriented x3. Mood and affect normal. LABS: Hemoglobin 7.8, white count 12.3 with a BUN of 58, creatinine 1.66. Mildly elevated liver enzymes. UA has been positive. DIAGNOSTIC IMPRESSION AND PLAN: 1. Patient admitted to the hospital with extensive swelling in both legs, more likely cardiac in etiology with some superficial ulceration, more likely from ruptured blister with secondary cellulitis with significant slough tissue at the base of these wounds, the likely organism gram-positive skin amie less likely gram- negative infection. 2. The patient noted to have positive with concern for possibly a gram-negative urinary tract infection, likely from enteric gram-negative pathogen. 3. Patient who did have a borderline kidney function is high risk of nephrotoxicity from vancomycin and clinical suspicion for methicillin-resistant Staphylococcus aureus. PLAN: 1. We will discontinue the vancomycin. 2. Will do Medihoney to wound with slough tissue followed by Neno wrap to keep the swelling down. 3. We will add Unasyn 3 gram q.8 hours to cover both for cellulitis and possible UTI. 4. We will follow up on clinical condition and culture to further adjust medication if needed. Thank you for this consultation. Will follow this patient along with you. MMODL / IJN: [id number] /
[2018-11-24 07:05] LABS: Glucose,Whole Blood 127 mg/dL (75-99)
[2018-11-24 07:58] LABS: Anisocytosis Moderate; HCT 30.9 % (34.0-46.0); HGB 8.4 gm/dL (11.4-16.0); Hypochromasia Marked; MCH 21.1 pg (25.0-35.0); MCHC 27.2 g/dL (31.0-37.0); MCV 77.6 fL (80.0-100.0); Microcytosis Moderate; Platelet Count 188 k/uL (150-450); Poikilocytosis Slight; RBC 3.98 m/uL (3.80-5.40); RDW 22.8 % (11.5-15.5)
[2018-11-24 08:08] LABS: Calcium 8.8 mg/dL (8.4-10.2); Potassium 4.6 mmol/L (3.5-5.1)
[2018-11-24 09:05] LABS: Vancomycin,Random 15.3 ug/mL
[2018-11-24] MEDS: INSULIN ASPART 100 UNIT/ML 1 ML 10 ML VIAL SQ SCH ×4 (09:53→21:12)
[2018-11-24] MEDS: FUROSEMIDE 10 MG/ML 4 ML VIAL IV SCH ×2 (09:54→21:11)
[2018-11-24] MEDS: HEPARIN SODIUM,PORCINE 5,000 UNIT/ML 1 ML VIAL SQ SCH ×2 (09:54→21:11)
[2018-11-24] MEDS: METOPROLOL TARTRATE 25 MG TAB PO SCH ×2 (09:55→21:12)
[2018-11-24] MEDS: FAMOTIDINE 20 MG TAB PO SCH (09:55)
[2018-11-24 11:29] LABS: Glucose,Whole Blood 152 mg/dL (75-99)
[2018-11-24] MEDS: SPIRONOLACTONE 25 MG TAB PO SCH (16:09)
[2018-11-24 16:27] LABS: Glucose,Whole Blood 319 mg/dL (75-99)
[2018-11-24] MEDS: traMADol 50 MG TAB PO PRN (19:01)
[2018-11-24 20:50] LABS: Glucose,Whole Blood 290 mg/dL (75-99)
--- NOTE | 2018-11-24 21:04 | P.PN ---
Subjective Progress Note Date: 11/24/18 Interval history: 73-year-old pleasant female with baseline poor functional status lives with the her son history of coronary artery bypass grafting with saphenous venous grafts and cardiomyopathy ejection fraction of 20-25% came in with bilateral pedal edema possible cellulitis and multiple venous ulcerations in both legs and also found to be anemic, microcytic anemia probably iron deficiency. During IV Lasix. Patient doesn't have any pulmonary edema on the chest x-ray, patient denied any orthopnea or paroxysmal nocturnal dyspnea. Denied any fever chills patient does have some leukocytosis today patient is a monitor blood transfusion after which her hemoglobin went up to 7.8 I'm opting ferritin levels. Patient was initially started on vancomycin which was switched to Unasyn by infectious disease. 11/24/2018 Evaluated by infectious disease, maintained on Unasyn. Medihoney to leg wounds. afebrile, WBC 12. Diuresing well on Lasix IV push with 24-hour I& O reflecting a negative fluid balance. Creatinine remains at 1.66. Hemoglobin 8.4. Denies chest pain, palpitations or increasing shortness of breath. Maintaining O2 sats in the high 90s on room air. Diet intake poor, consuming 25 -50%. Blood sugars uncontrolled. Requires 1 person assist. REVIEW OF SYSTEMS: CONSTITUTIONAL: No fever, no malaise, no fatigue. HEENT: No recent visual problems or hearing problems. Denied any sore throat. CARDIOVASCULAR: No chest pain, orthopnea, PND, no palpitations, no syncope. PULMONARY: No shortness of breath, no cough, no hemoptysis. GASTROINTESTINAL: No diarrhea, no nausea, no vomiting, no abdominal pain. NEUROLOGICAL: No headaches, no weakness, no numbness. HEMATOLOGICAL: Denies any bleeding or petechiae. GENITOURINARY: Denies any burning micturition, frequency, or urgency. MUSCULOSKELETAL/RHEUMATOLOGICAL: Denies any joint pain, swelling, or any muscle pain. ENDOCRINE: Denies any polyuria or polydipsia. The rest of the 14-point review of systems is negative. Active Medications Famotidine (Pepcid) 20 mg PO DAILY SHREE Furosemide (Lasix) 40 mg IV Q12HR [facility] Last Admin: 11/24/18 09:54 Dose: 40 mg Heparin Sodium (Porcine) (Heparin) 5,000 unit SQ Q12HR [facility] Last Admin: 11/24/18 09:54 Dose: 5,000 unit Ampicillin Sodium/Sulbactam (Sodium 3 gm/ Sodium Chloride) 100 mls @ 200 mls/ hr IVPB Q12HR [facility] Insulin Aspart (Novolog) 0 unit SQ ACHS [facility]; Protocol Last Admin: 11/24/18 17:43 Dose: 5 unit Isosorbide Mononitrate (Imdur) 60 mg PO DAILY [facility] Metoprolol Tartrate (Lopressor) 25 mg PO BID [facility] Last Admin: 11/24/18 09:55 Dose: 25 mg Naloxone HCl (Narcan) 0.2 mg IV Q2M PRN PRN Reason: Opioid Reversal Spironolactone (Aldactone) 25 mg PO DAILY [facility] Last Admin: 11/24/18 16:09 Dose: 25 mg Tramadol HCl (Ultram) 50 mg PO TID PRN PRN Reason: Mild to Moderate Pain Last Admin: 11/24/18 19:01 Dose: 50 mg Objective - Vital Signs Vital signs: Vital Signs Temp 98.0 F 11/24/18 15:00 Pulse 91 11/24/18 15:00 Resp 18 11/24/18 16:15 BP 100/62 11/24/18 15:00 Pulse Ox 97 11/24/18 15:00 Intake & Output 11/24/18 11/24/18 11/25/18 06:59 18:59 06:59 Intake Total 350 718 Output Total 1300 700 Balance -950 18 Weight 52 kg Intake: Intake, IV Titration 100 Amount Ampicillin-Sulbactam 3 gm 100 In Sodium Chloride 0.9% 100 ml @ 200 mls/hr IVPB Q8HR [facility] Rx#:[id number] Oral 250 718 Output: Urine 1300 700 Other: # Voids 2 # Bowel Movements 2 - Exam GENERAL: The patient is sitting up in bed, alert and oriented x3, no acute distress. HEENT: Pupils are round and equally reacting to light. EOMI. No scleral icterus. No conjunctival pallor. Normocephalic, atraumatic. CARDIOVASCULAR: S1 and S2 present. Systolic murmur,no rubs, or gallops. PULMONARY: Chest is clear to auscultation, no wheezing or crackles. ABDOMEN: Soft, nontender, nondistended, normoactive bowel sounds. No palpable organomegaly. MUSCULOSKELETAL: No joint swelling or deformity. EXTREMITIES: No cyanosis, clubbing, NEUROLOGICAL: Gross neurological examination did not reveal any focal deficits. SKIN: Bilateral lower extremity Neno wraps clean dry and intact - Labs CBC & Chem 7: 11/24/18 07:09 11/24/18 07:09 Labs: Abnormal Lab Results - Last 24 Hours (Table) 11/23/18 11/24/18 11/24/18 Range/Units 21:22 07:03 07:09 WBC (3.8-10.6) k/uL Hgb (11.4-16.0) gm/dL Hct (34.0-46.0) % MCV (80.0-100.0) fL MCH (25.0-35.0) pg MCHC (31.0-37.0) g/dL RDW (11.5-15.5) % Chloride 113 H (98-107) mmol/L Carbon Dioxide 14 L (22-30) mmol/L BUN 55 H (7-17) mg/dL Creatinine 1.66 H (0.52-1.04) mg/dL Glucose 120 H (74-99) mg/dL POC Glucose (mg/dL) 194 H 127 H (75-99) mg/dL 11/24/18 11/24/18 11/24/18 Range/Units 07:09 11:28 16:25 WBC 12.0 H (3.8-10.6) k/uL Hgb 8.4 L (11.4-16.0) gm/dL Hct 30.9 L (34.0-46.0) % MCV 77.6 L (80.0-100.0) fL MCH 21.1 L (25.0-35.0) pg MCHC 27.2 L (31.0-37.0) g/dL RDW 22.8 H (11.5-15.5) % Chloride (98-107) mmol/L Carbon Dioxide (22-30) mmol/L BUN (7-17) mg/dL Creatinine (0.52-1.04) mg/dL Glucose (74-99) mg/dL POC Glucose (mg/dL) 152 H 319 H (75-99) mg/dL Microbiology - Last 24 Hours (Table) 11/22/18 16:18 Blood Culture - Preliminary Blood No Growth after 24 hours Assessment and Plan Assessment: -Multiple venous ulcers, with possible cellulitis. -Possible acute UTI -Bilateral pedal edema secondary to venous stasis rather than congestive heart failure exacerbation -Congestive heart chronic systolic dysfunction ischemic cardiomyopathy not in acute exacerbation -Anemia chronic appears to be iron deficiency -Coronary artery disease with CABG in the past -Chronic kidney disease stage III , patient's creatinine is at her baseline of 1.6 -Hypertension -COPD without any acute exacerbation -Metabolic acidosis secondary to hyperchloremia -Diabetes mellitus, uncontrolled, hyperglycemic, hemoglobin A1c 10.8 Plan: Continue current medication regime ,monitoring and symptomatic treatment. Maintain IV antibiotic/Wound Care as per infectious disease. PT/OT ordered. Potential subacute rehab at discharge. Close monitoring of renal function,hgb, lfts and electrolytes with repeat labs ordered for a.m. GI and DVT prophylaxis in place. Levemir added to diabetic med regime, Close monitoring of Accu-Cheks. The impression and plan of care has been dictated as directed. : I performed a history and examination of this patient, discussed the same with the dictator. I agree with the dictator's note ,documented as a scribe. Any additional findings or plans will be noted.
[2018-11-24] MEDS: INSULIN DETEMIR 100 UNIT/ML 10 ML VIAL SQ SCH (21:48)
--- NOTE | 2018-11-24 22:35 | PN ---
PROGRESS NOTE DATE OF SERVICE: 11/24/2018. REASON FOR FOLLOWUP: Bilateral lower extremity wound and cellulitis. INTERVAL HISTORY: The patient is currently afebrile. She is breathing comfortably. The patient neck swelling and pain has improved significantly. Denies any chest pain, shortness of breath or cough. No abdominal pain, no diarrhea. PHYSICAL EXAMINATION: Blood pressure 100/52, pulse of 90, temperature 98, she is 97% on room air. GENERAL DESCRIPTION: An elderly female lying in bed in no distress. RESPIRATORY SYSTEM: Unlabored breathing. Clear to auscultation anteriorly. HEART: S1, S2. ABDOMEN: Soft. LEGS: No edema. LABS: Hemoglobin 8.4, white count 9.0, BUN 55, creatinine 1.66. Blood culture so far negative. DIAGNOSTIC IMPRESSION AND PLAN: Patient with bilateral lower extremity wound cellulitis and also possibly component of urinary tract infection. Patient is currently covered with Unasyn. Waiting for the culture to finalize. Continue local wound care with Medihoney. Continue supportive care. MMODL / IJN: [id number] /
[2018-11-25 02:47] LABS: Glucose,Whole Blood 221 mg/dL (75-99)
[2018-11-25 06:56] LABS: Glucose,Whole Blood 221 mg/dL (75-99)
[2018-11-25] MEDS: INSULIN ASPART 100 UNIT/ML 1 ML 10 ML VIAL SQ SCH ×4 (07:38→21:02)
[2018-11-25] MEDS: AMPICILLIN-SULBACTAM 3 GM in SODIUM CHLORIDE 0.9% 100 ML IVPB SCH ×2 (08:50→21:03)
[2018-11-25] MEDS: FUROSEMIDE 10 MG/ML 4 ML VIAL IV SCH ×2 (08:51→21:02)
[2018-11-25] MEDS: ISOSORBIDE MONONITRATE ER 60 MG TAB.ER.24H PO SCH (08:51)
[2018-11-25] MEDS: HEPARIN SODIUM,PORCINE 5,000 UNIT/ML 1 ML VIAL SQ SCH ×2 (08:51→21:02)
[2018-11-25] MEDS: METOPROLOL TARTRATE 25 MG TAB PO SCH ×2 (08:51→21:03)
[2018-11-25] MEDS: FAMOTIDINE 20 MG TAB PO SCH (08:51)
[2018-11-25] MEDS: SPIRONOLACTONE 25 MG TAB PO SCH (08:51)
[2018-11-25 09:05] LABS: Anisocytosis Moderate; Basophils # (A) 0.1 k/uL (0-0.2); Basophils % (A) 1 %; Eosinophils # (A) 0.1 k/uL (0-0.7); Eosinophils % (A) 1 %; HCT 29.9 % (34.0-46.0); HGB 8.6 gm/dL (11.4-16.0); Hypochromasia Marked; Lymphocytes # (A) 0.8 k/uL (1.0-4.8); Lymphocytes % (A) 7 %; MCHC 28.9 g/dL (31.0-37.0); MCV 75.9 fL (80.0-100.0); Mean Platelet Volume 6.8; Microcytosis Marked; Monocytes # (A) 0.8 k/uL (0-1.0); Monocytes % (A) 7 %; Neutrophils # (A) 9.3 k/uL (1.3-7.7); Neutrophils % (A) 81 %; Platelet Count 202 k/uL (150-450); Poikilocytosis Slight; RBC 3.94 m/uL (3.80-5.40); RDW 22.7 % (11.5-15.5); WBC 11.5 k/uL (3.8-10.6)
[2018-11-25 09:07] LABS: Albumin 2.7 g/dL (3.5-5.0); Calcium 8.7 mg/dL (8.4-10.2); Total Bilirubin 0.7 mg/dL (0.2-1.3); Total Protein 6.1 g/dL (6.3-8.2)
[2018-11-25 11:47] LABS: Glucose,Whole Blood 258 mg/dL (75-99)
[2018-11-25] MEDS: traMADol 50 MG TAB PO PRN (14:14)
--- NOTE | 2018-11-25 15:14 | P.DS ---
Providers Date of admission: 11/22/18 17:58 Attending physician: Dallas Figueredo Consults: 11/22/18 18:10 Consult Physician Routine Consulting Provider: Jadon Mcgee Consult Reason/Comments: history of CABG b/l edema with elevation of BNP Do you want consulting provider notified?: Yes 11/23/18 09:18 Consult Physician Routine Consulting Provider: Veronica Mayers Consult Reason/Comments: venous ulcers bilateral lower extremities and coccyx Do you want consulting provider notified?: Yes Primary care physician: [facility] Course: 73-year-old pleasant female with baseline poor functional status lives with the her son history of coronary artery bypass grafting with saphenous venous grafts and cardiomyopathy ejection fraction of 20-25% came in with bilateral pedal edema possible cellulitis and multiple venous ulcerations in both legs and also found to be anemic, microcytic anemia probably iron deficiency. During IV Lasix. Patient doesn't have any pulmonary edema on the chest x-ray, patient denied any orthopnea or paroxysmal nocturnal dyspnea. Denied any fever chills patient does have some leukocytosis today patient is a monitor blood transfusion after which her hemoglobin went up to 7.8 I'm opting ferritin levels. Patient was initially started on vancomycin which was switched to Unasyn by infectious disease. 11/24/2018 Evaluated by infectious disease, maintained on Unasyn. Medihoney to leg wounds. afebrile, WBC 12. Diuresing well on Lasix IV push with 24-hour I& O reflecting a negative fluid balance. Creatinine remains at 1.66. Hemoglobin 8.4. Denies chest pain, palpitations or increasing shortness of breath. Maintaining O2 sats in the high 90s on room air. Diet intake poor, consuming 25 -50%. Blood sugars uncontrolled. Requires 1 person assist. 11/25/2018 Patient is clinically doing well overnight events patient will be discharged today patient's Lasix will be switched to 40 oral twice a day. Patient has poor ejection fraction of 20-25%. Bilateral venous ulcerations. Patient's potassium is 5 because of which I cannot start the patient on lisinopril patient is already on Aldactone which she will continue and recheck basic metabolic profile in the 2-3 days at long-term. Patient is already on isosorbide mononitrate, will add hydralazine instead of VIKTOR inhibitor. Patient will be discharged on Augmentin so far wound cultures are negative patient will follow-up with infectious disease as an outpatient and cardiology as an outpatient PHYSICAL EXAMINATION: GENERAL: The patient is alert and oriented x3, not in any acute distress. Well developed, well nourished. HEENT: Pupils are round and equally reacting to light. EOMI. No scleral icterus. No conjunctival pallor. Normocephalic, atraumatic. No pharyngeal erythema. No thyromegaly. CARDIOVASCULAR: S1 and S2 present. No murmurs, rubs, or gallops. PULMONARY: Chest is clear to auscultation, no wheezing or crackles. ABDOMEN: Soft, nontender, nondistended, normoactive bowel sounds. No palpable organomegaly. MUSCULOSKELETAL: No joint swelling or deformity. EXTREMITIES: No cyanosis, clubbing, NEUROLOGICAL: Gross neurological examination did not reveal any focal deficits. SKIN: Multiple venous ulcers at awaiting stages in both bilateral lower extremities with pedal edema, some venous stasis dermatosis Assessment and Plan Plan: -Multiple venous ulcers, with possible cellulitis surrounding it wound cultures were obtained: -Bilateral pedal edema secondary to venous stasis rather than congestive heart failure exacerbation -Congestive heart chronic systolic dysfunction ischemic cardiomyopathy not in acute exacerbation -Anemia chronic appears to be iron deficiency we'll obtain ferritin levels -Coronary artery disease with CABG in the past -Chronic kidney disease stage III y patient's creatinine is at her baseline of 11.6 -Hypertension -COPD without any acute exacerbation -Metabolic acidosis secondary to hyperchloremia Will need pharmacologic GI and DVT prophylaxis Patient Condition at Discharge: Stable Plan - Discharge Summary Discharge Rx Participant: Yes New Discharge Prescriptions: New Amoxic-Pot Clav 875-125Mg [Augmentin 875-125] 1 tab PO Q12HR #20 tablet Famotidine [Pepcid] 20 mg PO DAILY tab hydrALAZINE HCL [Apresoline] 25 mg PO QID #1 tab Insulin Detemir [Levemir] 15 unit SQ HS syr Spironolactone [Aldactone] 25 mg PO DAILY tab Continue Metoprolol Tartrate [Lopressor] 25 mg PO BID Isosorbide Mononitrate ER [Imdur] 60 mg PO DAILY #30 tab.er.24h Nitroglycerin Sl Tabs [Nitrostat] 0.4 mg SUBLINGUAL Q5M PRN #25 tab PRN Reason: Chest Pain Aspirin EC [Ecotrin Low Dose] 81 mg PO DAILY Changed Furosemide [Lasix] 40 mg PO BID #0 Discontinued Lisinopril [Zestril] 10 mg PO BID Discharge Medication List Metoprolol Tartrate [Lopressor] 25 mg PO BID 07/21/15 [History] Isosorbide Mononitrate ER [Imdur] 60 mg PO DAILY #30 tab.er.24h 01/17/17 [Rx] Nitroglycerin Sl Tabs [Nitrostat] 0.4 mg SUBLINGUAL Q5M PRN #25 tab 12/04/17 [Rx ] Aspirin EC [Ecotrin Low Dose] 81 mg PO DAILY 11/22/18 [History] Amoxic-Pot Clav 875-125Mg [Augmentin 875-125] 1 tab PO Q12HR #20 tablet [Rx] Famotidine [Pepcid] 20 mg PO DAILY tab 11/25/18 [Rx] Furosemide [Lasix] 40 mg PO BID #0 11/25/18 [Rx] Insulin Detemir [Levemir] 15 unit SQ HS syr 11/25/18 [Rx] Spironolactone [Aldactone] 25 mg PO DAILY tab 11/25/18 [Rx] hydrALAZINE HCL [Apresoline] 25 mg PO QID #1 tab 11/25/18 [Rx] Follow up Appointment(s)/Referral(s): Shaina Yin MD [STAFF PHYSICIAN] - 3 Weeks [facility], [NON-STAFF] - Ed Soni DO [Primary Care Provider] - 1-2 days Activity/Diet/Wound Care/Special Instructions: BMP in 2 days Discharge Disposition: TRANSFER TO SNF/ECF
--- NOTE | 2018-11-25 16:12 | PN ---
PROGRESS NOTE DATE OF SERVICE: 11/25/2018 REASON FOR FOLLOWUP: 1. Bilateral leg wounds with secondary cellulitis. 2. UTI. INTERVAL HISTORY: The patient is currently afebrile. She is breathing comfortably. Denies having any chest pain or cough. No abdominal pain or any worsening pain to the leg area. Rather, she said she has improvement in her pain to the legs. PHYSICAL EXAMINATION: Blood pressure 113/70 with a pulse of 85, temperature 98.1. She is 98% on room air. General description is an elderly female lying in bed in no distress. RESPIRATORY SYSTEM: Unlabored breathing. Clear to auscultation anteriorly. HEART: S1, S2. Regular rate and rhythm. ABDOMEN: Soft. No tenderness. BILATERAL LEGS: The redness has improved. She does have dried-out lesions on the anterior of the legs; however, on her left posterior leg the patient did have an elongated wound with slough tissue. No surrounding redness or any drainage. LABS: Hemoglobin is 8.6, white count 11.5 with a BUN of 58, creatinine 1.61. No urine cultures were done. Blood culture has been negative. DIAGNOSTIC IMPRESSION AND PLAN: Patient with bilateral lower extremity venostasis ulcers with secondary cellulitis. Overall improvement in cellulitis. The wounds on the anterior of the leg are drying out. They should be left alone without any local treatment. However, the left posterior leg wound did have slough tissue. That will be treated with Medihoney followed by moist dressing and Neno wrap. Antibiotic can be transitioned to Augmentin on discharge with close outpatient followup. Plan of care was discussed in detail with the admitting team. MMODL / IJN: [id number] /
[2018-11-25 16:59] LABS: Glucose,Whole Blood 275 mg/dL (75-99)
[2018-11-25 20:00] LABS: Glucose,Whole Blood 260 mg/dL (75-99)
[2018-11-25] MEDS: INSULIN DETEMIR 100 UNIT/ML 10 ML VIAL SQ SCH (21:02)
[2018-11-26 02:24] LABS: Glucose,Whole Blood 237 mg/dL (75-99)
[2018-11-26 06:56] LABS: Glucose,Whole Blood 278 mg/dL (75-99)
[2018-11-26] MEDS: HEPARIN SODIUM,PORCINE 5,000 UNIT/ML 1 ML VIAL SQ SCH ×2 (07:15→20:28)
[2018-11-26] MEDS: INSULIN ASPART 100 UNIT/ML 1 ML 10 ML VIAL SQ SCH ×4 (07:15→20:28)
[2018-11-26] MEDS: FAMOTIDINE 20 MG TAB PO SCH (07:17)
[2018-11-26] MEDS: METOPROLOL TARTRATE 25 MG TAB PO SCH ×2 (07:17→20:28)
[2018-11-26] MEDS: SPIRONOLACTONE 25 MG TAB PO SCH (07:17)
[2018-11-26] MEDS: AMPICILLIN-SULBACTAM 3 GM in SODIUM CHLORIDE 0.9% 100 ML IVPB SCH ×2 (07:17→20:27)
[2018-11-26] MEDS: ISOSORBIDE MONONITRATE ER 60 MG TAB.ER.24H PO SCH (07:17)
[2018-11-26] MEDS: FUROSEMIDE 10 MG/ML 4 ML VIAL IV SCH (07:17)
[2018-11-26 11:46] LABS: Glucose,Whole Blood 287 mg/dL (75-99)
--- NOTE | 2018-11-26 14:41 | P.PN ---
Subjective 73-year-old pleasant female with baseline poor functional status lives with the her son history of coronary artery bypass grafting with saphenous venous grafts and cardiomyopathy ejection fraction of 20-25% came in with bilateral pedal edema possible cellulitis and multiple venous ulcerations in both legs and also found to be anemic, microcytic anemia probably iron deficiency. During IV Lasix. Patient doesn't have any pulmonary edema on the chest x-ray, patient denied any orthopnea or paroxysmal nocturnal dyspnea. Denied any fever chills patient does have some leukocytosis today patient is a monitor blood transfusion after which her hemoglobin went up to 7.8 I'm opting ferritin levels. Patient was initially started on vancomycin which was switched to Unasyn by infectious disease. 11/24/2018 Evaluated by infectious disease, maintained on Unasyn. Medihoney to leg wounds. afebrile, WBC 12. Diuresing well on Lasix IV push with 24-hour I& O reflecting a negative fluid balance. Creatinine remains at 1.66. Hemoglobin 8.4. Denies chest pain, palpitations or increasing shortness of breath. Maintaining O2 sats in the high 90s on room air. Diet intake poor, consuming 25 -50%. Blood sugars uncontrolled. Requires 1 person assist. 11/25/2018 Patient is clinically doing well overnight events patient will be discharged today patient's Lasix will be switched to 40 oral twice a day. Patient has poor ejection fraction of 20-25%. Bilateral venous ulcerations. Patient's potassium is 5 because of which I cannot start the patient on lisinopril patient is already on Aldactone which she will continue and recheck basic metabolic profile in the 2-3 days at half-way. Patient is already on isosorbide mononitrate, will add hydralazine instead of VIKTOR inhibitor. Patient will be discharged on Augmentin so far wound cultures are negative patient will follow-up with infectious disease as an outpatient and cardiology as an outpatient 11/26/2018 No overnight events. Patient is awaiting disposition to subacute rehabilitation patient will be switched to oral Lasix will obtain a basic metabolic profile tomorrow. Constitutional: Denied any fatigue denied any fever. Cardio vascular: denied any chest pain, palpitations Gastrointestinal denied any nausea vomiting Pulmonary: Denied any shortness of breath cough Neurologic denied any new focal deficits All inpatient medications were reviewed and appropriate changes in these medications as dictated in the interval history and assessment and plan. Objective - Vital Signs Vital signs: Vital Signs Temp 97.4 F L 11/26/18 06:48 Pulse 96 11/26/18 06:48 Resp 18 11/26/18 07:24 BP 121/69 11/26/18 06:48 Pulse Ox 95 11/26/18 06:48 Intake & Output 11/25/18 11/26/18 11/26/18 18:59 06:59 18:59 Intake Total 550 890 240 Output Total 1300 600 Balance 550 -410 -360 Weight 70.4 kg Intake: Intake, IV Titration 100 100 Amount Ampicillin-Sulbactam 3 gm 100 100 In Sodium Chloride 0.9% 100 ml @ 200 mls/hr IVPB Q12HR [facility] Rx#:[id number] Oral 450 790 240 Output: Urine 1300 600 Other: Voiding Method Diaper Diaper Diaper Incontinent Incontinent Incontinent # Voids 900 # Bowel Movements 1 - Exam PHYSICAL EXAMINATION: GENERAL: The patient is alert and oriented x3, not in any acute distress. Well developed, well nourished. HEENT: Pupils are round and equally reacting to light. EOMI. No scleral icterus. No conjunctival pallor. Normocephalic, atraumatic. No pharyngeal erythema. No thyromegaly. CARDIOVASCULAR: S1 and S2 present. No murmurs, rubs, or gallops. PULMONARY: Chest is clear to auscultation, no wheezing or crackles. ABDOMEN: Soft, nontender, nondistended, normoactive bowel sounds. No palpable organomegaly. MUSCULOSKELETAL: No joint swelling or deformity. EXTREMITIES: No cyanosis, clubbing, NEUROLOGICAL: Gross neurological examination did not reveal any focal deficits. SKIN: Multiple venous ulcers at various stages in both bilateral lower extremities with pedal edema, some venous stasis dermatosis - Labs CBC & Chem 7: 11/25/18 07:13 11/25/18 07:13 Labs: Abnormal Lab Results - Last 24 Hours (Table) 11/25/18 11/25/18 11/26/18 Range/Units 16:45 19:59 02:23 POC Glucose (mg/dL) 275 H 260 H 237 H (75-99) mg/dL 11/26/18 11/26/18 Range/Units 06:54 11:45 POC Glucose (mg/dL) 278 H 287 H (75-99) mg/dL Microbiology - Last 24 Hours (Table) 11/22/18 16:18 Blood Culture - Preliminary Blood No Growth after 72 hours Assessment and Plan Plan: -Multiple venous ulcers, with possible cellulitis surrounding it wound cultures were obtained: Infectious disease is following the patient antibiotics as per them patient is on Lasix. -Bilateral pedal edema secondary to venous stasis rather than congestive heart failure exacerbation patient is on oral Lasix -Congestive heart chronic systolic dysfunction ischemic cardiomyopathy not in acute exacerbation -Anemia chronic appears to be iron deficiency, ferritin is low 22. Patient will require oral iron supplementation -Coronary artery disease with CABG in the past -Chronic kidney disease stage III y patient's creatinine is at her baseline of 11.6 -Hypertension -COPD without any acute exacerbation -Metabolic acidosis secondary to hyperchloremia Will need pharmacologic GI and DVT prophylaxis
[2018-11-26 16:48] LABS: Glucose,Whole Blood 305 mg/dL (75-99)
[2018-11-26] MEDS: FUROSEMIDE 40 MG TAB PO SCH (16:57)
[2018-11-26 20:05] LABS: Glucose,Whole Blood 306 mg/dL (75-99)
[2018-11-26] MEDS: INSULIN DETEMIR 100 UNIT/ML 10 ML VIAL SQ SCH (20:28)
[2018-11-27] MEDS: traMADol 50 MG TAB PO PRN ×2 (01:32→20:56)
[2018-11-27 01:37] LABS: Glucose,Whole Blood 188 mg/dL (75-99)
--- NOTE | 2018-11-27 02:16 | PN ---
PROGRESS NOTE DATE OF SERVICE: 11/26/2018. REASON FOR FOLLOWUP: Bilateral lower extremity venous stasis ulcer with cellulitis. INTERVAL HISTORY: The patient is currently afebrile. She is breathing comfortably. Denies any chest pain. No cough. No abdominal pain or any worsening pain to the leg area. PHYSICAL EXAMINATION: Blood pressure is 114/55 with a pulse of 104, temperature 98.2. She is 94% on room air. General description is an elderly female lying in bed in no distress. Respiratory system: Unlabored breathing. Clear to auscultation anteriorly. Heart S1, S2. Regular rate and rhythm. Abdomen soft, no tenderness. The legs are currently dressed up. No obvious drainage on the dressing. LABS: No new labs have been obtained today. Blood culture negative. DIAGNOSTIC IMPRESSION AND PLAN: Patient with bilateral lower extremity venous stasis ulcer with secondary cellulitis. The patient is currently covered with to continue to transition antibiotic to oral on discharge. Medihoney to the posterior leg wound area along with Neno wrap to keep the swelling down. Continue supportive care. MMODL / IJN: [id number] /
[2018-11-27 06:48] LABS: Glucose,Whole Blood 151 mg/dL (75-99)
[2018-11-27] MEDS: INSULIN ASPART 100 UNIT/ML 1 ML 10 ML VIAL SQ SCH ×4 (08:05→20:54)
[2018-11-27] MEDS: AMPICILLIN-SULBACTAM 3 GM in SODIUM CHLORIDE 0.9% 100 ML IVPB SCH ×2 (08:05→20:53)
[2018-11-27 08:59] LABS: Calcium 8.8 mg/dL (8.4-10.2); Potassium 5.3 mmol/L (3.5-5.1)
[2018-11-27] MEDS ORDERED: FUROSEMIDE 40 MG TAB PO SCH (09:00)
[2018-11-27] MEDS: ISOSORBIDE MONONITRATE ER 60 MG TAB.ER.24H PO SCH (09:37)
[2018-11-27] MEDS: METOPROLOL TARTRATE 25 MG TAB PO SCH ×2 (09:37→20:54)
[2018-11-27] MEDS: FAMOTIDINE 20 MG TAB PO SCH (09:37)
[2018-11-27] MEDS: SPIRONOLACTONE 25 MG TAB PO SCH (09:37)
[2018-11-27] MEDS: HEPARIN SODIUM,PORCINE 5,000 UNIT/ML 1 ML VIAL SQ SCH ×2 (09:38→20:54)
[2018-11-27] MEDS: FUROSEMIDE 40 MG TAB PO SCH ×2 (09:38→17:47)
--- NOTE | 2018-11-27 11:26 | P.PN ---
Subjective 73-year-old pleasant female with baseline poor functional status lives with the her son history of coronary artery bypass grafting with saphenous venous grafts and cardiomyopathy ejection fraction of 20-25% came in with bilateral pedal edema possible cellulitis and multiple venous ulcerations in both legs and also found to be anemic, microcytic anemia probably iron deficiency. During IV Lasix. Patient doesn't have any pulmonary edema on the chest x-ray, patient denied any orthopnea or paroxysmal nocturnal dyspnea. Denied any fever chills patient does have some leukocytosis today patient is a monitor blood transfusion after which her hemoglobin went up to 7.8 I'm opting ferritin levels. Patient was initially started on vancomycin which was switched to Unasyn by infectious disease. 11/24/2018 Evaluated by infectious disease, maintained on Unasyn. Medihoney to leg wounds. afebrile, WBC 12. Diuresing well on Lasix IV push with 24-hour I& O reflecting a negative fluid balance. Creatinine remains at 1.66. Hemoglobin 8.4. Denies chest pain, palpitations or increasing shortness of breath. Maintaining O2 sats in the high 90s on room air. Diet intake poor, consuming 25 -50%. Blood sugars uncontrolled. Requires 1 person assist. 11/25/2018 Patient is clinically doing well overnight events patient will be discharged today patient's Lasix will be switched to 40 oral twice a day. Patient has poor ejection fraction of 20-25%. Bilateral venous ulcerations. Patient's potassium is 5 because of which I cannot start the patient on lisinopril patient is already on Aldactone which she will continue and recheck basic metabolic profile [facility]. Patient is already on isosorbide mononitrate, will add hydralazine instead of VIKTOR inhibitor. Patient will be discharged on Augmentin so far wound cultures are negative patient will follow-up with infectious disease as an outpatient and cardiology as an outpatient 11/26/2018 No overnight events. Patient is awaiting disposition to subacute rehabilitation patient will be switched to oral Lasix will obtain a basic metabolic profile tomorrow. 11/27/2018 No overnight events patient has improved creatinine to 1.31. Patient was started on Aldactone and her potassium is 5.3 today continue with Aldactone repeat basic metabolic profile tomorrow if doesn't continue to go up Aldactone will be discontinued and patient was given Kayexalate Constitutional: Denied any fatigue denied any fever. Cardio vascular: denied any chest pain, palpitations Gastrointestinal denied any nausea vomiting Pulmonary: Denied any shortness of breath cough Neurologic denied any new focal deficits All inpatient medications were reviewed and appropriate changes in these medications as dictated in the interval history and assessment and plan. Objective - Vital Signs Vital signs: Vital Signs Temp 98.1 F 11/27/18 08:07 Pulse 99 11/27/18 08:07 Resp 16 11/27/18 08:07 BP 119/69 11/27/18 08:07 Pulse Ox 99 11/27/18 08:07 Intake & Output 11/26/18 11/27/18 11/27/18 18:59 06:59 18:59 Intake Total 1026 100 236 Output Total 2100 Balance -1074 100 236 Intake: Intake, IV Titration 100 100 Amount Ampicillin-Sulbactam 3 gm 100 100 In Sodium Chloride 0.9% 100 ml @ 200 mls/hr IVPB Q12HR [facility] Rx#:[id number] Oral 926 236 Output: Urine 2100 Other: Voiding Method Diaper Diaper Incontinent Incontinent # Voids 2 # Bowel Movements 2 - Exam PHYSICAL EXAMINATION: GENERAL: The patient is alert and oriented x3, not in any acute distress. Well developed, well nourished. HEENT: Pupils are round and equally reacting to light. EOMI. No scleral icterus. No conjunctival pallor. Normocephalic, atraumatic. No pharyngeal erythema. No thyromegaly. CARDIOVASCULAR: S1 and S2 present. No murmurs, rubs, or gallops. PULMONARY: Chest is clear to auscultation, no wheezing or crackles. ABDOMEN: Soft, nontender, nondistended, normoactive bowel sounds. No palpable organomegaly. MUSCULOSKELETAL: No joint swelling or deformity. EXTREMITIES: No cyanosis, clubbing, NEUROLOGICAL: Gross neurological examination did not reveal any focal deficits. SKIN: Multiple venous ulcers at various stages in both bilateral lower extremities with pedal edema, some venous stasis dermatosis - Labs CBC & Chem 7: 11/25/18 07:13 11/27/18 07:52 Labs: Abnormal Lab Results - Last 24 Hours (Table) 11/26/18 11/26/18 11/26/18 Range/Units 11:45 16:47 20:03 Potassium (3.5-5.1) mmol/L Chloride (98-107) mmol/L Carbon Dioxide (22-30) mmol/L BUN (7-17) mg/dL Creatinine (0.52-1.04) mg/dL Glucose (74-99) mg/dL POC Glucose (mg/dL) 287 H 305 H 306 H (75-99) mg/dL 11/27/18 11/27/18 11/27/18 Range/Units 01:35 06:46 07:52 Potassium 5.3 H (3.5-5.1) mmol/L Chloride 109 H (98-107) mmol/L Carbon Dioxide 20 L (22-30) mmol/L BUN 47 H (7-17) mg/dL Creatinine 1.31 H (0.52-1.04) mg/dL Glucose 163 H (74-99) mg/dL POC Glucose (mg/dL) 188 H 151 H (75-99) mg/dL Microbiology - Last 24 Hours (Table) 11/22/18 16:18 Blood Culture - Preliminary Blood No Growth after 96 hours Assessment and Plan Plan: -Multiple venous ulcers, with possible cellulitis surrounding it wound cultures were obtained: Infectious disease is following the patient antibiotics as per them patient is on Lasix. -Bilateral pedal edema secondary to venous stasis rather than congestive heart failure exacerbation patient is on oral Lasix -Congestive heart chronic systolic dysfunction ischemic cardiomyopathy not in acute exacerbation -Anemia chronic appears to be iron deficiency, ferritin is low 22. Patient will require oral iron supplementation -Coronary artery disease with CABG in the past -hyperkalemia: Secondary to Aldactone further management as mentioned above -Chronic kidney disease stage III y patient's creatinine is at her baseline -Hypertension -COPD without any acute exacerbation -Metabolic acidosis secondary to hyperchloremia Will need pharmacologic GI and DVT prophylaxis
[2018-11-27 11:53] LABS: Glucose,Whole Blood 203 mg/dL (75-99)
[2018-11-27 17:21] LABS: Glucose,Whole Blood 236 mg/dL (75-99)
[2018-11-27 20:01] LABS: Glucose,Whole Blood 255 mg/dL (75-99)
[2018-11-27] MEDS: INSULIN DETEMIR 100 UNIT/ML 10 ML VIAL SQ SCH (20:54)
--- NOTE | 2018-11-28 00:17 | PN ---
PROGRESS NOTE DATE OF SERVICE: 11/27/2018. REASON FOR FOLLOW UP: Bilateral lower extremity cellulitis. INTERVAL HISTORY: The patient is currently afebrile. She is breathing comfortably. Denies having any chest pain, cough. No abdominal pain or any worsening pain to the left leg area. No diarrhea with antibiotic therapy. PHYSICAL EXAMINATION: Blood pressure 118/67 with a pulse of 101, temperature 97.9. She is 94% on room air. General description is an elderly female, lying in bed in no distress. Respiratory system: Unlabored breathing. Clear to auscultation anteriorly. Heart S1, S2. Regular rate and rhythm. Abdomen soft, no tenderness. EXTREMITIES: Both legs are currently wrapped up. No obvious drainage on the dressing. LABS: BUN of 47, creatinine 1.31. DIAGNOSTIC IMPRESSION AND PLAN: Patient with bilateral lower extremity venous stasis ulcer with cellulitis mostly marked in the left leg with left posterior leg does have open area currently being treated with Medihoney. Keep the area off the pressure. On Unasyn short course of oral Augmentin with close outpatient followup. MMODL / IJN: [id number] /
[2018-11-28 01:43] LABS: Glucose,Whole Blood 202 mg/dL (75-99)
[2018-11-28 06:47] LABS: Glucose,Whole Blood 162 mg/dL (75-99)
[2018-11-28 06:59] LABS: Calcium 8.6 mg/dL (8.4-10.2); Potassium 4.5 mmol/L (3.5-5.1)
[2018-11-28 07:39] VITALS: BP 124/74; PULSE 99; RESP 17; TEMP 98.1
[2018-11-28] MEDS: SPIRONOLACTONE 25 MG TAB PO SCH (07:39)
[2018-11-28] MEDS: METOPROLOL TARTRATE 25 MG TAB PO SCH (07:40)
[2018-11-28] MEDS: FAMOTIDINE 20 MG TAB PO SCH (07:40)
[2018-11-28] MEDS: FUROSEMIDE 40 MG TAB PO SCH (07:40)
[2018-11-28] MEDS: INSULIN ASPART 100 UNIT/ML 1 ML 10 ML VIAL SQ SCH ×2 (07:40→11:58)
[2018-11-28] MEDS: ISOSORBIDE MONONITRATE ER 60 MG TAB.ER.24H PO SCH (07:40)
[2018-11-28] MEDS: HEPARIN SODIUM,PORCINE 5,000 UNIT/ML 1 ML VIAL SQ SCH (07:40)
[2018-11-28] MEDS: AMPICILLIN-SULBACTAM 3 GM in SODIUM CHLORIDE 0.9% 100 ML IVPB SCH (07:41)
[2018-11-28] MEDS: traMADol 50 MG TAB PO PRN (10:40)
[2018-11-28 11:17] LABS: Glucose,Whole Blood 222 mg/dL (75-99)
[2018-11-28 11:44] VITALS: BMI 25.2
--- NOTE | 2018-11-28 14:09 | PN ---
PROGRESS NOTE DATE OF SERVICE: 11/28/2018 REASON FOR FOLLOWUP: Bilateral lower extremity wound cellulitis. INTERVAL HISTORY: The patient is currently afebrile. She is breathing comfortably, did have some pain to the left leg after dressing changes, but no worsening, no chest pain. No abdominal pain and no diarrhea. PHYSICAL EXAMINATION: Blood pressure 124/74, pulse of 99, temperature 98.1, she is 95% on room air. General description is an elderly female, lying in bed in no distress. RESPIRATORY SYSTEM: Unlabored breathing, clear to auscultation anteriorly. HEART: S1, S2. Regular rate and rhythm. ABDOMEN: Soft, no tenderness. Left leg is currently dressed up, no obvious drainage on the dressing. LABS: BUN of 38, creatinine 1.40. DIAGNOSTIC IMPRESSION AND PLAN: Patient with left leg wound with secondary cellulitis. The patient seems to have shown clinical improvement as well as leg was reviewed earlier. Patient to continue local wound care to the left posterior leg with Medihoney, antibiotic transition to Augmentin for short course and close outpatient followup. MMODL / IJN: [id number] /
--- NOTE | 2018-11-28 15:51 | DS ---
DISCHARGE SUMMARY DATE OF ADMISSION: November 22, 2018. DATE OF DISCHARGE: November 28, 2018. FINAL DIAGNOSES: 1. Acute left lower extremity cellulitis secondary to venous stasis ulcers. 2. Left lower extremity venous stasis ulcer. 3. Coronary artery disease with prior history of myocardial infarction and bypass. 4. Chronic kidney disease stage 3 from nephrosclerosis. 5. Chronic congestive heart failure from systolic dysfunction EF 20-25% from underlying coronary artery disease. 6. Hypertensive heart disease with severe concentric left ventricular hypertrophy on 2D echo. 7. Moderate mitral regurgitation, severe tricuspid regurgitation, moderate pulmonic regurgitation, nonrheumatic. 8. Secondary pulmonary hypertension. 9. Persistent atrial fibrillation. 10.Essential hypertension. 11.Hyperlipidemia. 12.Diabetes mellitus type 2. 13.Abdominal aortic aneurysm. 14.AICD. 15.DO NOT RESUSCITATE. CONSULTATIONS: Dr. Mayers from Infectious Disease, Dr. Solis from Cardiology. HOSPITAL COURSE: This patient presented with left lower extremity venous ulcer secondary cellulitis. Blood cultures were negative. The wound doing much better. Treated with IV Unasyn. Seen by Dr. Mayers today who switched the patient to oral antibiotic. Okayed the patient's discharge. PHYSICAL EXAMINATION: Temperature 98.1, pulse 99, respiration 17, blood pressure 125/74, pulse ox 95% on room air. INVESTIGATIONS: BUN 38, creatinine 1.40. 2D echocardiogram EF of 20-25 percent, moderate mitral regurgitation, severe tricuspid regurgitation, moderate pulmonic regurgitation. DISCHARGE MEDICATIONS: 1. Lopressor 25 mg p.o. b.i.d. 2. Imdur ER 60 mg p.o. daily. 3. Nitrostat 0.4 sublingual q.5 p.r.n. 4. Aspirin 81 mg daily. 5. Augmentin 875 1 tablet p.o. q.12h, 20 tablets. 6. Pepcid 20 mg daily. 7. Lasix 40 mg b.i.d. 8. Levemir 15 units subcu at bedtime. 9. Aldactone 25 mg daily. 10.Hydralazine 25 mg p.o. q.i.d. 11.VIKTOR inhibitor held because of hyperkalemia. Care was discussed with the patient. DISPOSITION: [facility], labs, BMP in 2 days. FOLLOWUP: Follow up with Dr. Yin in 3 weeks. Follow up with Dr. Mayers in 1 week. Follow up with Dr. Soni after DC from the ECF. Follow up with Dr. Stafford at the [facility]. Copy to Dr. Stafford Discussion and discharge planning more than [address] Soni. MMODL / IJN: [id number] /
== END 2018-11-28 17:12 | DRG 603 ==
LOC: EC 15:10 → 4MS4W 17:58 → 4SSUR 18:28
PROVIDERS: ADMIT Hospitalist; ATTEND Hospitalist
DX: L03.116 Cellulitis of left lower limb (principal); L97.929 Non-pressure chronic ulcer of unspecified part of left lower leg with unspecified severity; I13.0 Hypertensive heart and chronic kidney disease with heart failure and stage 1 through stage 4 chronic kidney disease, or unspecified chronic kidney disease; I50.22 Chronic systolic (congestive) heart failure; I48.1 Persistent atrial fibrillation; E87.2 Acidosis; I25.810 Atherosclerosis of coronary artery bypass graft(s) without angina pectoris; N39.0 Urinary tract infection, site not specified; L97.919 Non-pressure chronic ulcer of unspecified part of right lower leg with unspecified severity; L03.115 Cellulitis of right lower limb; I87.2 Venous insufficiency (chronic) (peripheral); N18.3 Chronic kidney disease, stage 3 (moderate); E11.22 Type 2 diabetes mellitus with diabetic chronic kidney disease; I25.10 Atherosclerotic heart disease of native coronary artery without angina pectoris; I34.0 Nonrheumatic mitral (valve) insufficiency; I37.1 Nonrheumatic pulmonary valve insufficiency; I36.1 Nonrheumatic tricuspid (valve) insufficiency; Z92.3 Personal history of irradiation; E11.65 Type 2 diabetes mellitus with hyperglycemia; E78.5 Hyperlipidemia, unspecified; I25.82 Chronic total occlusion of coronary artery; I27.29 Other secondary pulmonary hypertension; I71.4 Abdominal aortic aneurysm, without rupture; I25.5 Ischemic cardiomyopathy; Z66 Do not resuscitate; J44.9 Chronic obstructive pulmonary disease, unspecified; D50.9 Iron deficiency anemia, unspecified; L89.622 Pressure ulcer of left heel, stage 2; I25.2 Old myocardial infarction; Z95.810 Presence of automatic (implantable) cardiac defibrillator; Z87.440 Personal history of urinary (tract) infections; Z98.84 Bariatric surgery status; Z90.710 Acquired absence of both cervix and uterus; Z85.828 Personal history of other malignant neoplasm of skin; Z80.0 Family history of malignant neoplasm of digestive organs; Z85.048 Personal history of other malignant neoplasm of rectum, rectosigmoid junction, and anus; Z92.21 Personal history of antineoplastic chemotherapy; Z79.899 Other long term (current) drug therapy; Z79.82 Long term (current) use of aspirin; Z79.4 Long term (current) use of insulin; Z82.49 Family history of ischemic heart disease and other diseases of the circulatory system
CPT/HCPCS: 36415; 71046; 80048; 80053; 80202; 81001; 82272; 82728; 83036; 83880; 85025; 85027; 85610; 85730; 86850; 86900; 86901; 86920; 87040; 93306; 99284

== ENCOUNTER 2018-12-25 02:39 | Emergency (ER) | payer MEDICARE ==
[2018-12-25 02:45] VITALS: TEMP 98
--- NOTE | 2018-12-25 02:52 | ED ---
Recheck HPI - General Chief Complaint: Recheck/Abnormal Lab/Rx Stated Complaint: GI Bleed Time Seen by Provider: 12/25/18 02:51 Source: patient Mode of arrival: EMS Limitations: no limitations - History of Present Illness Initial Comments: Belen is a pleasant 73-year-old female who presents the emergency department today via EMS from [facility]. Per EMS they were called for "large volume rectal bleeding" when they arrived the nurse was unable to quantify the amount of bleeding. Patient states that she had an itch in her perineum and scratched it, she believes that caused some bleeding. Patient is on aspirin. The patient denies any complaints aside from being annoyed that she had to come to the emergency department today. - Related Data Home Medications Medication Instructions Recorded Confirmed Metoprolol Tartrate [Lopressor] 25 mg PO BID 07/21/15 11/22/18 Aspirin EC [Ecotrin Low Dose] 81 mg PO DAILY 11/22/18 11/22/18 Previous Rx's Medication Instructions Recorded Isosorbide Mononitrate ER [Imdur] 60 mg PO DAILY #30 tab.er.24h 01/17/17 Nitroglycerin Sl Tabs [Nitrostat] 0.4 mg SUBLINGUAL Q5M PRN #25 tab 12/04/17 Amoxic-Pot Clav 875-125Mg 1 tab PO Q12HR #20 tablet 11/25/18 [Augmentin 875-125] Famotidine [Pepcid] 20 mg PO DAILY tab 11/25/18 Furosemide [Lasix] 40 mg PO BID #0 11/25/18 Insulin Detemir (Levemir) [Levemir] 15 unit SQ HS syr 11/25/18 Spironolactone [Aldactone] 25 mg PO DAILY tab 11/25/18 hydrALAZINE HCL [Apresoline] 25 mg PO QID #1 tab 11/25/18 Allergies Allergy/AdvReac Type Severity Reaction Status Date / Time No Known Allergies Allergy Verified 11/22/18 15:42 Review of Systems ROS Statement: Those systems with pertinent positive or pertinent negative responses have been documented in the HPI. ROS Other: All systems not noted in ROS Statement are negative. Past Medical History Past Medical History: Atrial Fibrillation, Coronary Artery Disease (CAD), Cancer , Heart Failure, COPD, Diabetes Mellitus, Hyperlipidemia, Hypertension, Myocardial Infarction (IA) Additional Past Medical History / Comment(s): Ischemic heart disease, cardiomyopathy, MIs, chronic CHF, chronic L leg edema, cat scan today showed AAA -stable, squamous cell skin cancer with removal, anal cancer with radiation/ chemo, IDDM type II, UTI with klebsiella pneumoniae, 2015 fall with [facility]. Last Myocardial Infarction Date:: 01/16/17 History of Any Multi-Drug Resistant Organisms: MRSA Date of last positivie culture/infection: 12/06/18 MDRO Source:: LEG Past Surgical History: AICD, Appendectomy, Bariatric Surgery, Cholecystectomy, Coronary Bypass/CABG, Heart Catheterization, Hysterectomy, Tonsillectomy Additional Past Surgical History / Comment(s): 04/11/15 cardiac cath- tx medically, 02/03/2006 CABG-5 vessel with MVR, AICD 07/16/15, port-a-cath insertion and removal, colonoscopies, gastric bypass, skin cancer removal. Past Anesthesia/Blood Transfusion Reactions: No Reported Reaction Type of Cardiac Device: AICD Device Placement Date:: 2014 Past Psychological History: No Psychological Hx Reported Smoking Status: Former smoker Past Alcohol Use History: None Reported Past Drug Use History: None Reported - Past Family History Father Family Medical History: Cancer Additional Family Medical History / Comment(s): ?stomach cancer. Mother Family Medical History: Congestive Heart Failure (CHF), Coronary Artery Disease (CAD) General Exam - General Exam Comments Initial Comments: Physical Exam GENERAL: Chronically ill-appearing elderly female in no acute distress HENT: Normocephalic, Atraumatic. EYES: PERRL, EOMI PULMONARY: Unlabored respirations. CARDIOVASCULAR: There is a regular rate and rhythm without any murmurs gallops or rubs. ABDOMEN: Soft and nontender with normal bowel sounds. SKIN: Perineum is noted to have some macerated skin and skin breakdown There is a small laceration approximately 3 mm in length at the 12 o'clock position of the anus, this is consistent with patient's history that she was itching and scratch this area : Normal external genitalia NEUROLOGIC: Patient is alert and oriented x3. Moving all extremities spontaneously MUSCULOSKELETAL: Normal extremities with adequate strength and full range of motion. No lower extremity swelling or edema. No calf tenderness. PSYCHIATRIC: Normal psychiatric evaluation. Limitations: no limitations Limitations: no limitations Course Vital Signs 12/25/18 12/25/18 02:42 03:20 Temperature 98.0 F Pulse Rate 81 89 Respiratory 13 16 Rate Blood Pressure 109/62 127/75 O2 Sat by Pulse 93 L 96 Oximetry Medical Decision Making - Medical Decision Making Patient was seen and evaluated history was obtained from EMS and the patient Patient was evaluated she was noted to have some bright red blood in her diaper , she does have a small laceration of the perineum consistent with her history of having scratched the area Rectal exam normal tone, there is firm stool in the rectal vault stool is dark in color Stool guaiac was negative Patient also has some skin breakdown of the perineum I did discuss this with the patient. The nurse did apply skin barrier and a clean diaper. At this time the patient hemodynamically stable I don't feel she would benefit from any further interventions patient is agreeable with the plan for discharge home. Disposition Clinical Impression: Abrasion Disposition: HOME SELF-CARE Condition: Good Instructions (If sedation given, give patient instructions): Abrasion (ED) Additional Instructions: Patient has maceration of the skin in the perineum with a very small laceration consistent with the patient's history of having scratched herself. There is mild venous oozing. This will resolve with time. I recommend better skin care of the perineum. Is patient prescribed a controlled substance at d/c from ED?: No Referrals: Parish Vasquez MD [Primary Care Provider] - 1-2 days
[2018-12-25 03:50] VITALS: BP 127/75; PULSE 89; RESP 16
== END 2018-12-25 03:47 | disposition home or self-care (01) ==
LOC: EC 02:39
DX: S31.831A Laceration without foreign body of anus, initial encounter (principal); I48.91 Unspecified atrial fibrillation; I25.10 Atherosclerotic heart disease of native coronary artery without angina pectoris; I11.0 Hypertensive heart disease with heart failure; I50.9 Heart failure, unspecified; I25.2 Old myocardial infarction; Z79.82 Long term (current) use of aspirin; Z79.899 Other long term (current) drug therapy; Z87.891 Personal history of nicotine dependence; Z95.810 Presence of automatic (implantable) cardiac defibrillator; Z95.1 Presence of aortocoronary bypass graft; Z98.84 Bariatric surgery status; Z85.828 Personal history of other malignant neoplasm of skin; Z85.048 Personal history of other malignant neoplasm of rectum, rectosigmoid junction, and anus; Z92.3 Personal history of irradiation; Z92.21 Personal history of antineoplastic chemotherapy; X58.XXXA Exposure to other specified factors, initial encounter
CPT/HCPCS: 99283

== ENCOUNTER 2019-04-27 15:28 | Inpatient (IN) | payer MEDICARE ==
[2019-04-27] MEDS ORDERED: SODIUM CHLORIDE 0.9% 1,000 ML IV ONE (16:01)
[2019-04-27] MEDS ORDERED: MORPHINE SULFATE 4 MG/ML SYRINGE IVP STA (16:01)
[2019-04-27] MEDS ORDERED: ONDANSETRON 4 MG/2 ML VIAL IVP STA (16:01)
--- NOTE | 2019-04-27 16:10 | ED ---
Female Urogenital HPI - General Chief complaint: Vaginal Bleeding Stated complaint: VAGINAL BLEEDING Time Seen by Provider: 04/27/19 15:44 Source: EMS, RN notes reviewed, old records reviewed Mode of arrival: EMS Limitations: physical limitation - History of Present Illness Initial comments: Patient is a 73-year-old female with history of complete hysterectomy. She presents emergency department today with vaginal bleeding and lower abdominal discomfort starting at 2 PM today. Patient reports she's never had these symptoms before. Patient reports that she is and neurological rehab for bilateral leg weakness. She also reports that she has an controllable bowel habits and incontinent. Patient states that she is not on any blood thinners. She denies any significant history of cancers. Patient states that she's had no vomiting fevers or chills. Patient states she's had a large amount of bleeding noted for the past 2 hours prior to arrival. Patient is a DO NOT RESUSCITATE. She was treated in October for left lower extremity venous stasis ulcers with cellulitis. Patient has a history of coronary artery disease, chronic kidney disease, CHF, hyperlipidemia, diabetes and abdominal aortic aneurysm. - Related Data Home Medications Medication Instructions Recorded Confirmed Metoprolol Tartrate [Lopressor] 25 mg PO BID 07/21/15 04/27/19 Aspirin EC [Ecotrin Low Dose] 81 mg PO DAILY 11/22/18 04/27/19 Acetaminophen-Codeine 300-30mg 1 tab PO Q8H PRN 04/27/19 04/27/19 [Tylenol w/codeine #3] Bisacodyl [Dulcolax] 10 mg RECTAL DAILY PRN 04/27/19 04/27/19 Dronabinol [Marinol] 2.5 mg PO BID 04/27/19 04/27/19 Ferrous Sulfate [Feosol] 325 mg PO BID 04/27/19 04/27/19 INSULIN LISPRO (humaLOG) [humaLOG] 5 units SQ AC-LUNCH 04/27/19 04/27/19 INSULIN LISPRO (humaLOG) [humaLOG] 7 units SQ AC-BRKFST 04/27/19 04/27/19 INSULIN LISPRO (humaLOG) [humaLOG] 8 units SQ AC-SUPPER 04/27/19 04/27/19 Lactulose 10 gm PO BID 04/27/19 04/27/19 Lidocaine 5% Cream 1 applic TOPICAL DAILY PRN 04/27/19 04/27/19 Mag Hydrox/Al Hydrox/Simeth 30 ml PO Q6H PRN 04/27/19 04/27/19 [Maalox] Magnesium Hydroxide [Milk of 7,200 mg PO DAILY PRN 04/27/19 04/27/19 Magnesia Concentrate] Menthol-Zinc Oxide Oint 1 applic TOPICAL Q6H PRN 04/27/19 04/27/19 [Calmoseptine Oint] Menthol-Zinc Oxide Oint 1 applic TOPICAL TID 04/27/19 04/27/19 [Calmoseptine Oint] Multivitamins, Thera [Multivitamin 1 tab PO DAILY 04/27/19 04/27/19 (formulary)] Na Phos,M-B/Na Phos,Di-Ba [Fleet 133 ml RECTAL ONCE PRN 04/27/19 04/27/19 Adult] Previous Rx's Medication Instructions Recorded Isosorbide Mononitrate ER [Imdur] 60 mg PO DAILY #30 tab.er.24h 01/17/17 Nitroglycerin Sl Tabs [Nitrostat] 0.4 mg SUBLINGUAL Q5M PRN #25 tab 12/04/17 Famotidine [Pepcid] 20 mg PO DAILY tab 11/25/18 Furosemide [Lasix] 40 mg PO BID #0 11/25/18 Insulin Detemir (Levemir) [Levemir] 15 unit SQ HS syr 11/25/18 Spironolactone [Aldactone] 25 mg PO DAILY tab 11/25/18 hydrALAZINE HCL [Apresoline] 25 mg PO QID #1 tab 11/25/18 Allergies Allergy/AdvReac Type Severity Reaction Status Date / Time No Known Allergies Allergy Verified 04/27/19 16:23 Review of Systems ROS Statement: Those systems with pertinent positive or pertinent negative responses have been documented in the HPI. ROS Other: All systems not noted in ROS Statement are negative. Past Medical History Past Medical History: Atrial Fibrillation, Coronary Artery Disease (CAD), Cancer, Heart Failure, COPD, Diabetes Mellitus, Hyperlipidemia, Hypertension, My ocardial Infarction ([place]) Additional Past Medical History / Comment(s): Ischemic heart disease, cardiomyopathy, MIs, chronic CHF, chronic L leg edema, cat scan today showed AAA -stable, squamous cell skin cancer with removal, anal cancer with radiation/chemo, IDDM type II, UTI with klebsiella pneumoniae, 2014 fall with [facility]. Last Myocardial Infarction Date:: 01/16/17 History of Any Multi-Drug Resistant Organisms: MRSA Date of last positivie culture/infection: 12/06/18 MDRO Source:: LEG Past Surgical History: AICD, Appendectomy, Bariatric Surgery, Cholecystectomy, Coronary Bypass/CABG, Heart Catheterization, Hysterectomy, Tonsillectomy Additional Past Surgical History / Comment(s): 04/11/15 cardiac cath- tx medically, 02/03/2006 CABG-5 vessel with MVR, AICD 07/16/15, port-a-cath insertion and removal, colonoscopies, gastric bypass, skin cancer removal. Past Anesthesia/Blood Transfusion Reactions: No Reported Reaction Type of Cardiac Device: AICD Device Placement Date:: 2014 Past Psychological History: No Psychological Hx Reported Smoking Status: Former smoker Past Alcohol Use History: None Reported Past Drug Use History: None Reported - Past Family History Father Family Medical History: Cancer Additional Family Medical History / Comment(s): ?stomach cancer. Mother Family Medical History: Congestive Heart Failure (CHF), Coronary Artery Disease (CAD) General Exam - General Exam Comments Initial Comments: This is a 73-year-old female. Alert and oriented 3. No significant distress. Limitations: physical limitation General appearance: alert, in no apparent distress Head exam: Present: atraumatic, normocephalic, normal inspection Eye exam: Present: normal appearance, PERRL, EOMI. Absent: scleral icterus, conjunctival injection, periorbital swelling ENT exam: Present: normal exam, mucous membranes moist Neck exam: Present: normal inspection. Absent: tenderness, meningismus, lymphadenopathy Respiratory exam: Present: normal lung sounds bilaterally. Absent: respiratory distress, wheezes, rales, rhonchi, stridor Cardiovascular Exam: Present: regular rate, normal rhythm, normal heart sounds. Absent: systolic murmur, diastolic murmur, rubs, gallop, clicks GI/Abdominal exam: Present: soft, normal bowel sounds, other (Lower abdominal mass.). Absent: distended, tenderness, guarding, rebound, rigid External exam: Present: normal external exam Speculum exam: Present: vaginal bleeding (Patient had clotting noted in vaginal vault. Patient had significant amount of bleeding when speculum was inserted. She appears to be bleeding from the urethra. ). Absent: normal speculum exam Extremities exam: Present: normal inspection, full ROM, normal capillary refill. Absent: tenderness, pedal edema, joint swelling, calf tenderness Back exam: Present: normal inspection Neurological exam: Present: alert, oriented X3, CN II-XII intact Psychiatric exam: Present: normal affect, normal mood Skin exam: Present: warm, dry, intact, normal color. Absent: rash Course Vital Signs 04/27/19 04/27/19 04/27/19 15:44 18:18 20:11 Temperature 98.6 F Pulse Rate 109 H 103 H 103 H Respiratory 18 18 18 Rate Blood Pressure 160/84 126/60 126/61 O2 Sat by Pulse 99 95 97 Oximetry 04/27/19 21:18 Temperature Pulse Rate 104 H Respiratory 18 Rate Blood Pressure 127/62 O2 Sat by Pulse 99 Oximetry Medical Decision Making - Medical Decision Making Is a 73-year-old female currently at [facility] presents emergency department for vaginal bleeding and lower suprapubic pain for 2 hours. Patient was found to have a large clot in the vaginal vault. This seemed to be obstructing near the urethra. Was removed Patient started to urinate and significant amount of blood was noted. Patient blood work was reviewed. Hemoglobin is 9.1. This is increased from her previous studies. Patient kidney function was reviewed and show some signs of dehydration. Patient reports she's had a hysterectomy many years ago does not know who her surgeon was. Computed tomography scan was completed without contrast. There is evidence of bilateral hydronephrosis with possible bladder mass. Likely Patient is bleeding from the bladder mass and clotting was to cause some urinary retention. After catheter is inserted Patient had approximate 500 mL of bloody urine removed. She didn't case with Dr. Snow. Stephen the Patient to urology for bladder mass hydronephrosis. - Lab Data Result diagrams: 04/27/19 15:34 04/27/19 15:34 Lab Results 04/27/19 04/27/19 04/27/19 Range/Units 15:34 15:34 15:34 WBC 11.3 H (3.8-10.6) k/uL RBC 3.08 L (3.80-5.40) m/uL Hgb 9.1 L (11.4-16.0) gm/dL Hct 27.4 L (34.0-46.0) % MCV 89.0 (80.0-100.0) fL MCH 29.4 (25.0-35.0) pg MCHC 33.1 (31.0-37.0) g/dL RDW 16.5 H (11.5-15.5) % Plt Count 390 (150-450) k/uL Neutrophils % 77 % Lymphocytes % 12 % Monocytes % 7 % Eosinophils % 1 % Basophils % 1 % Neutrophils # 8.6 H (1.3-7.7) k/uL Lymphocytes # 1.4 (1.0-4.8) k/uL Monocytes # 0.8 (0-1.0) k/uL Eosinophils # 0.2 (0-0.7) k/uL Basophils # 0.1 (0-0.2) k/uL Anisocytosis Slight PT 10.0 (9.0-12.0) sec INR 0.9 (<1.2) APTT 21.3 L (22.0-30.0) sec Sodium 135 L (137-145) mmol/L Potassium 5.0 (3.5-5.1) mmol/L Chloride 101 (98-107) mmol/L Carbon Dioxide 20 L (22-30) mmol/L Anion Gap 14 mmol/L BUN 61 H (7-17) mg/dL Creatinine 1.47 H (0.52-1.04) mg/dL Est GFR (CKD-EPI)AfAm 40 (>60 ml/min/1.73 sqM) Est GFR (CKD-EPI)NonAf 35 (>60 ml/min/1.73 sqM) Glucose 213 H (74-99) mg/dL Calcium 9.7 (8.4-10.2) mg/dL Total Bilirubin 0.4 (0.2-1.3) mg/dL AST 43 H (14-36) U/L ALT 39 (9-52) U/L Alkaline Phosphatase 250 H (38-126) U/L Total Protein 7.4 (6.3-8.2) g/dL Albumin 3.7 (3.5-5.0) g/dL Amylase 95 (30-110) U/L Lipase 125 (23-300) U/L Urine Color Urine Appearance (Clear) Urine RBC (0-5) /hpf Urine WBC (0-5) /hpf 04/27/19 Range/Units 18:21 WBC (3.8-10.6) k/uL RBC (3.80-5.40) m/uL Hgb (11.4-16.0) gm/dL Hct (34.0-46.0) % MCV (80.0-100.0) fL MCH (25.0-35.0) pg MCHC (31.0-37.0) g/dL RDW (11.5-15.5) % Plt Count (150-450) k/uL Neutrophils % % Lymphocytes % % Monocytes % % Eosinophils % % Basophils % % Neutrophils # (1.3-7.7) k/uL Lymphocytes # (1.0-4.8) k/uL Monocytes # (0-1.0) k/uL Eosinophils # (0-0.7) k/uL Basophils # (0-0.2) k/uL Anisocytosis PT (9.0-12.0) sec INR (<1.2) APTT (22.0-30.0) sec Sodium (137-145) mmol/L Potassium (3.5-5.1) mmol/L Chloride (98-107) mmol/L Carbon Dioxide (22-30) mmol/L Anion Gap mmol/L BUN (7-17) mg/dL Creatinine (0.52-1.04) mg/dL Est GFR (CKD-EPI)AfAm (>60 ml/min/1.73 sqM) Est GFR (CKD-EPI)NonAf (>60 ml/min/1.73 sqM) Glucose (74-99) mg/dL Calcium (8.4-10.2) mg/dL Total Bilirubin (0.2-1.3) mg/dL AST (14-36) U/L ALT (9-52) U/L Alkaline Phosphatase (38-126) U/L Total Protein (6.3-8.2) g/dL Albumin (3.5-5.0) g/dL Amylase (30-110) U/L Lipase (23-300) U/L Urine Color Red Urine Appearance Bloody H (Clear) Urine RBC >182 H (0-5) /hpf Urine WBC >182 H (0-5) /hpf 04/27/19 20:31 EKG performed at 1730 when she is sinus tachycardia with ventricular purchase the, degenerative 107 bpm. Since his most x-ray castration 120 ms. QT QTC 372/4 and 96 most seconds. - Radiology Data Radiology results: report reviewed Bilateral hydronephrosis and hydroureter new compared old exam. I attenuation dependent urinary bladder could relate hemorrhage in the bladder bladder mass that she can change compared old exam. Follow-up recommended. Extensive atherosclerotic vascular disease, previous abdominal wall surgery with vaginal hernia. Small amount of air within the biliary tree consistent with reflux. There is focal atelectasis in the right posterior lung base compared old exam. Hiatal hernia is unchanged. Disposition Clinical Impression: Bladder mass, Hematuria, Anemia, Coronary artery disease, CHF (congestive heart failure), Diabetes, Impaired ambulation Disposition: ADMITTED IP TO THIS HOSP Condition: Stable Is patient prescribed a controlled substance at d/c from ED?: No Time of Disposition: 20:13
[2019-04-27] MEDS: SODIUM CHLORIDE 0.9% 1,000 ML IV SCH (16:15)
[2019-04-27 16:31] LABS: Anisocytosis Slight; Basophils # (A) 0.1 k/uL (0-0.2); Basophils % (A) 1 %; Eosinophils # (A) 0.2 k/uL (0-0.7); Eosinophils % (A) 1 %; HCT 27.4 % (34.0-46.0); HGB 9.1 gm/dL (11.4-16.0); Lymphocytes # (A) 1.4 k/uL (1.0-4.8); Lymphocytes % (A) 12 %; MCH 29.4 pg (25.0-35.0); MCHC 33.1 g/dL (31.0-37.0); Mean Platelet Volume 7.1; Monocytes # (A) 0.8 k/uL (0-1.0); Monocytes % (A) 7 %; Neutrophils # (A) 8.6 k/uL (1.3-7.7); Neutrophils % (A) 77 %; Platelet Count 390 k/uL (150-450); RBC 3.08 m/uL (3.80-5.40); RDW 16.5 % (11.5-15.5); WBC 11.3 k/uL (3.8-10.6)
[2019-04-27 16:36] LABS: Albumin 3.7 g/dL (3.5-5.0); Calcium 9.7 mg/dL (8.4-10.2); Total Bilirubin 0.4 mg/dL (0.2-1.3); Total Protein 7.4 g/dL (6.3-8.2)
[2019-04-27 16:42] LABS: INR 0.9 (<1.2)
[2019-04-27 16:50] LABS: Partial Thromboplastin Time 21.3 sec (22.0-30.0)
[2019-04-27] MEDS ORDERED: HYDROmorphone 1 MG/ML 1 ML SYRINGE IVP STA (17:00)
--- NOTE | 2019-04-27 17:28 | CT ---
EXAMINATION TYPE: CT abdomen pelvis wo con DATE OF EXAM: 04/27/2019 COMPARISON: 02/03/2012 HISTORY: Lower abdominal pain. vaginal bleeding CT DLP: 389.4 mGycm Automated exposure control for dose reduction was used. TECHNIQUE: Helical acquisition of images was performed from the lung bases through the pelvis. FINDINGS: There is subsegmental atelectasis at the right lung base. There is hiatal hernia. Heart is enlarged. There is no pericardial effusion. There are surgical clips from apparent bariatric surgery on the sto mach. Spleen appears normal. There is extensive atherosclerotic vascular calcification. There are nani cified splenic granulomata. There is no evidence of pancreatic mass. Liver shows no focal defect. Clay e ducts are not dilated. There is small amount of air in the biliary tree. Gallbladder is absent. There is no adrenal mass. There is bilateral hydronephrosis and hydroureter. There is high attenuatio n in the deep ended urinary bladder. There are multiple diverticula in the sigmoid colon. There is mi ld perirectal fat stranding. Uterus appears absent. There is no free fluid in the pelvis. There is no mesenteric edema. There is ventral hernia that contains fat. There is previous surgery on the anteri or abdominal wall. There are some spondylotic changes in the lumbar spine. There is 15% anterior wedg ing of T12 vertebra . Unchanged compared to 02/03/2012 exam. IMPRESSION: THERE IS BILATERAL HYDRONEPHROSIS AND HYDROURETER THAT IS NEW COMPARED TO OLD EXAM. HIGH ATTENUATION IN THE DEPENDENT URINARY BLADDER COULD RELATE TO HEMORRHAGE IN THE BLADDER AND BLADDER MASS THAT IS A CHANGE COMPARED TO OLD EXAM. FOLLOW-UP RECOMMENDED. EXTENSIVE ATHEROSCLEROTIC VASCULAR DISEASE. PREVIOUS ABDOMINAL WALL SURGERY WITH VENTRAL HERNIA NOT S IGNIFICANTLY DIFFERENT. SMALL AMOUNT OF AIR IN THE BILIARY TREE CONSISTENT WITH REFLUX. THERE IS NEW MILD FOCAL ATELECTASIS R IGHT POSTERIOR LUNG BASE COMPARED TO OLD EXAM. HIATAL HERNIA UNCHANGED.
[2019-04-27 18:34] LABS: Color,Urine Red; RBC,Urine >182 /hpf (0-5); WBC,Urine >182 /hpf (0-5)
[2019-04-27 18:35] LABS: Appearance,Urine Bloody (Clear)
[2019-04-27] MEDS ORDERED: METOCLOPRAMIDE 5 MG/ML 2 ML VIAL IVP STA (18:54)
[2019-04-27] MEDS ORDERED: diphenhydrAMINE 50 MG/ML 1 ML VIAL IVP STA (18:54)
[2019-04-27] MEDS ORDERED: HYDROmorphone 0.5 MG/0.5 ML SYRINGE IVP PRN (20:13)
[2019-04-27] MEDS ORDERED: NALOXONE 0.4 MG/ML 1 ML VIAL IV PRN (20:13)
[2019-04-27] MEDS ORDERED: IBUPROFEN 400 MG TAB PO PRN (20:13)
[2019-04-27] MEDS ORDERED: ACETAMINOPHEN TAB 325 MG TAB PO PRN (20:13)
[2019-04-27] MEDS ORDERED: LORazepam 2 MG/ML INJ IV PRN (20:13)
[2019-04-27] MEDS ORDERED: ONDANSETRON 4 MG/2 ML VIAL IVP PRN (20:13)
--- NOTE | 2019-04-27 21:29 | P.GSCN ---
History of Present Illness Consult date: 04/27/19 History of present illness: The patient is in the 73-year-old female who came to the hospital today because of weakness abdominal pain and what she thought was vaginal bleeding. She was evaluated in the emergency room and found to have gross hematuria. The patient is status post hysterectomy for benign disease many years ago. She was evaluated with a computed tomography scan which showed a full bladder, bilateral hydronephrosis secondarily and a possible mass in the bladder be a clot or tumor. For this reason we are asked see the patient. She had a urinalysis identifying 187 White 187 reds. She has no history of infections. She has not been on anticoagulation. There is no urinary tract history. There is no history of stones. She has had a hysterectomy. She states that she's been urinating without difficulty. She does have chronic anemia. She was in the hospital back in October and received 3 transfusions. She states she does not have a primary doctor and did not follow-up since then. However reliability of this history is indeterminate and there is no other family member with her. Review of Systems - Constitutional Reports anorexia, Reports chronic pain, Reports lethargy - Gastrointestinal Reports bloating - Genitourinary Genitourinary: Reports as per HPI Past Medical History Past Medical History: Atrial Fibrillation, Coronary Artery Disease (CAD), Cancer, Heart Failure, COPD, Diabetes Mellitus, Hyperlipidemia, Hypertension, Myocardial Infarction ([place]) Additional Past Medical History / Comment(s): Ischemic heart disease, cardiomyopathy, MIs, chronic CHF, chronic L leg edema, cat scan today showed AAA-stable, squamous cell skin cancer with removal, anal cancer with radiation/chemo, IDDM type II, UTI with klebsiella pneumoniae, 2014 fall with [facility]. Last Myocardial Infarction Date:: 01/16/17 History of Any Multi-Drug Resistant Organisms: MRSA Year Discovered:: 12/06/18 MDRO Source:: LEG Past Surgical History: AICD, Appendectomy, Bariatric Surgery, Cholecystectomy, Coronary Bypass/CABG, Heart Catheterization, Hysterectomy, Tonsillectomy Additional Past Surgical History / Comment(s): 04/11/15 cardiac cath- tx medically, 02/03/2006 CABG-5 vessel with MVR, AICD 07/16/15, port-a-cath insertion and removal, colonoscopies, gastric bypass, skin cancer removal. Past Anesthesia/Blood Transfusion Reactions: No Reported Reaction Type of Cardiac Device: AICD Device Placement Date:: 2014 Past Psychological History: No Psychological Hx Reported Smoking Status: Former smoker Past Alcohol Use History: None Reported Past Drug Use History: None Reported - Past Family History Father Family Medical History: Cancer Additional Family Medical History / Comment(s): ?stomach cancer. Mother Family Medical History: Congestive Heart Failure (CHF), Coronary Artery Disease (CAD) Medications and Allergies Home Medications Medication Instructions Recorded Confirmed Type Metoprolol Tartrate [Lopressor] 25 mg PO BID 07/21/15 04/27/19 History Isosorbide Mononitrate ER [Imdur] 60 mg PO DAILY #30 tab.er.24h 01/17/17 04/27/19 Rx Nitroglycerin Sl Tabs [Nitrostat] 0.4 mg SUBLINGUAL Q5M PRN #25 tab 12/04/17 04/27/19 Rx Aspirin EC [Ecotrin Low Dose] 81 mg PO DAILY 11/22/18 04/27/19 History Famotidine [Pepcid] 20 mg PO DAILY tab 11/25/18 04/27/19 Rx Furosemide [Lasix] 40 mg PO BID #0 11/25/18 04/27/19 Rx Insulin Detemir (Levemir) [Levemir] 15 unit SQ HS syr 11/25/18 04/27/19 Rx Spironolactone [Aldactone] 25 mg PO DAILY tab 11/25/18 04/27/19 Rx hydrALAZINE HCL [Apresoline] 25 mg PO QID #1 tab 11/25/18 04/27/19 Rx Acetaminophen-Codeine 300-30mg 1 tab PO Q8H PRN 04/27/19 04/27/19 History [Tylenol w/codeine #3] Bisacodyl [Dulcolax] 10 mg RECTAL DAILY PRN 04/27/19 04/27/19 History Dronabinol [Marinol] 2.5 mg PO BID 04/27/19 04/27/19 History Ferrous Sulfate [Feosol] 325 mg PO BID 04/27/19 04/27/19 History INSULIN LISPRO (humaLOG) [humaLOG] 5 units SQ AC-LUNCH 04/27/19 04/27/19 History INSULIN LISPRO (humaLOG) [humaLOG] 7 units SQ AC-BRKFST 04/27/19 04/27/19 History INSULIN LISPRO (humaLOG) [humaLOG] 8 units SQ AC-SUPPER 04/27/19 04/27/19 History Lactulose 10 gm PO BID 04/27/19 04/27/19 History Lidocaine 5% Cream 1 applic TOPICAL DAILY PRN 04/27/19 04/27/19 History Mag Hydrox/Al Hydrox/Simeth 30 ml PO Q6H PRN 04/27/19 04/27/19 History [Maalox] Magnesium Hydroxide [Milk of 7,200 mg PO DAILY PRN 04/27/19 04/27/19 History Magnesia Concentrate] Menthol-Zinc Oxide Oint 1 applic TOPICAL Q6H PRN 04/27/19 04/27/19 History [Calmoseptine Oint] Menthol-Zinc Oxide Oint 1 applic TOPICAL TID 04/27/19 04/27/19 History [Calmoseptine Oint] Multivitamins, Thera [Multivitamin 1 tab PO DAILY 04/27/19 04/27/19 History (formulary)] Na Phos,M-B/Na Phos,Di-Ba [Fleet 133 ml RECTAL ONCE PRN 04/27/19 04/27/19 History Adult] Allergies Allergy/AdvReac Type Severity Reaction Status Date / Time No Known Allergies Allergy Verified 04/27/19 16:23 Surgical - Exam Vital Signs Temp Pulse Resp BP Pulse Ox 98.6 F 109 H 18 160/84 99 04/27/19 15:44 04/27/19 15:44 04/27/19 15:44 04/27/19 15:44 04/27/19 15:44 - General well developed, cachectic, chronically ill - Eyes PERRL - ENT no hearing loss - Neck no masses - Respiratory normal expansion, normal respiratory effort - Cardiovascular Rhythm: regular - Abdomen Abdomen: soft, non tender - Integumentary no growths - Neurologic normal coordination, normal sensation - Musculoskeletal normal posture - Psychiatric oriented to time, oriented to person, oriented to place, speech is normal, memory intact Results - Labs 04/27/19 15:34 04/27/19 15:34 Abnormal Lab Results - Last 24 Hours (Table) 04/27/19 04/27/19 04/27/19 Range/Units 15:34 15:34 15:34 WBC 11.3 H (3.8-10.6) k/uL RBC 3.08 L (3.80-5.40) m/uL Hgb 9.1 L (11.4-16.0) gm/dL Hct 27.4 L (34.0-46.0) % RDW 16.5 H (11.5-15.5) % Neutrophils # 8.6 H (1.3-7.7) k/uL APTT 21.3 L (22.0-30.0) sec Sodium 135 L (137-145) mmol/L Carbon Dioxide 20 L (22-30) mmol/L BUN 61 H (7-17) mg/dL Creatinine 1.47 H (0.52-1.04) mg/dL Glucose 213 H (74-99) mg/dL AST 43 H (14-36) U/L Alkaline Phosphatase 250 H (38-126) U/L Urine Appearance (Clear) Urine RBC (0-5) /hpf Urine WBC (0-5) /hpf 04/27/19 Range/Units 18:21 WBC (3.8-10.6) k/uL RBC (3.80-5.40) m/uL Hgb (11.4-16.0) gm/dL Hct (34.0-46.0) % RDW (11.5-15.5) % Neutrophils # (1.3-7.7) k/uL APTT (22.0-30.0) sec Sodium (137-145) mmol/L Carbon Dioxide (22-30) mmol/L BUN (7-17) mg/dL Creatinine (0.52-1.04) mg/dL Glucose (74-99) mg/dL AST (14-36) U/L Alkaline Phosphatase (38-126) U/L Urine Appearance Bloody H (Clear) Urine RBC >182 H (0-5) /hpf Urine WBC >182 H (0-5) /hpf Diabetes panel 04/27/19 Range/Units 15:34 Sodium 135 L (137-145) mmol/L Potassium 5.0 (3.5-5.1) mmol/L Chloride 101 (98-107) mmol/L Carbon Dioxide 20 L (22-30) mmol/L BUN 61 H (7-17) mg/dL Creatinine 1.47 H (0.52-1.04) mg/dL Glucose 213 H (74-99) mg/dL Calcium 9.7 (8.4-10.2) mg/dL AST 43 H (14-36) U/L ALT 39 (9-52) U/L Alkaline Phosphatase 250 H (38-126) U/L Total Protein 7.4 (6.3-8.2) g/dL Albumin 3.7 (3.5-5.0) g/dL Calcium panel 04/27/19 Range/Units 15:34 Calcium 9.7 (8.4-10.2) mg/dL Albumin 3.7 (3.5-5.0) g/dL Pituitary panel 04/27/19 Range/Units 15:34 Sodium 135 L (137-145) mmol/L Potassium 5.0 (3.5-5.1) mmol/L Chloride 101 (98-107) mmol/L Carbon Dioxide 20 L (22-30) mmol/L BUN 61 H (7-17) mg/dL Creatinine 1.47 H (0.52-1.04) mg/dL Glucose 213 H (74-99) mg/dL Calcium 9.7 (8.4-10.2) mg/dL Adrenal panel 04/27/19 Range/Units 15:34 Sodium 135 L (137-145) mmol/L Potassium 5.0 (3.5-5.1) mmol/L Chloride 101 (98-107) mmol/L Carbon Dioxide 20 L (22-30) mmol/L BUN 61 H (7-17) mg/dL Creatinine 1.47 H (0.52-1.04) mg/dL Glucose 213 H (74-99) mg/dL Calcium 9.7 (8.4-10.2) mg/dL Total Bilirubin 0.4 (0.2-1.3) mg/dL AST 43 H (14-36) U/L ALT 39 (9-52) U/L Alkaline Phosphatase 250 H (38-126) U/L Total Protein 7.4 (6.3-8.2) g/dL Albumin 3.7 (3.5-5.0) g/dL - Imaging CT scan - abdomen: report reviewed, image reviewed CT scan - pelvis: report reviewed, image reviewed Assessment and Plan Assessment: Impression: Gross hematuria with urine retention and secondary bilateral hydronephrosis. Bladder mass possibly clot or tumor. Possible urinary tract infection. Multiple medical illnesses. Recommendation: The urine has old blood within. I reviewed the computed tomography scan and the hydronephrosis is secondary to the retention. Whether this is a tumor or clot is indeterminate. There may be a urine infection as th ere are a lot of white blood cells as well as red blood cells in the urine. I will repeat his CBC in the morning. I will culture her urine and start her on antibiotics. Depending on how the urine clears as to when she did require cystoscopy. Hemoglobin of 9 is probably as much chronic as it is acute.
[2019-04-27] MEDS: HYDROmorphone 1 MG/ML 1 ML SYRINGE IVP PRN (22:37)
[2019-04-27 23:32] LABS: Glucose,Whole Blood 391 mg/dL (75-99)
[2019-04-28] MEDS: INSULIN DETEMIR (LEVEMIR) 100 UNIT/ML SYR SQ SCH ×2 (00:49→22:13)
[2019-04-28] MEDS: INSULIN ASPART (NovoLOG) 100 UNIT/ML VIAL SQ SCH ×7 (00:49→22:13)
[2019-04-28] MEDS: SODIUM CHLORIDE 0.9% 1,000 ML IV SCH ×3 (02:52→22:14)
[2019-04-28] MEDS: HYDROmorphone 1 MG/ML 1 ML SYRINGE IVP PRN (06:17)
[2019-04-28 07:11] LABS: Glucose,Whole Blood 253 mg/dL (75-99)
[2019-04-28] MEDS ORDERED: PANTOPRAZOLE 40 MG/10 ML VIAL IV SCH (09:00)
[2019-04-28 09:45] LABS: Anisocytosis Slight; Basophils # (A) 0.1 k/uL (0-0.2); Basophils % (A) 0 %; Eosinophils % (A) 0 %; HCT 20.6 % (34.0-46.0); Hypochromasia Moderate; Lymphocytes # (A) 0.9 k/uL (1.0-4.8); Lymphocytes % (A) 5 %; MCH 28.2 pg (25.0-35.0); MCHC 30.5 g/dL (31.0-37.0); MCV 92.4 fL (80.0-100.0); Mean Platelet Volume 7.9; Monocytes # (A) 1.2 k/uL (0-1.0); Monocytes % (A) 8 %; Neutrophils # (A) 13.6 k/uL (1.3-7.7); Neutrophils % (A) 85 %; Platelet Count 344 k/uL (150-450); RBC 2.23 m/uL (3.80-5.40); RDW 16.5 % (11.5-15.5)
[2019-04-28 10:05] LABS: HGB 6.3 gm/dL (11.4-16.0)
[2019-04-28 11:35] LABS: Glucose,Whole Blood 236 mg/dL (75-99)
--- NOTE | 2019-04-28 11:54 | P.PN ---
Subjective Progress Note Date: 04/28/19 The patients catheter has clotted off HEr hgb has dropped to 6.3 Shew is going to be transfused. I will do an anesthetic cysto, evacuation of clot , fulgaration of bleeding or resection of bladder tumor this afternoon. Objective - Vital Signs Vital signs: Vital Signs Temp 97.7 F 04/28/19 05:48 Pulse 104 H 04/28/19 05:48 Resp 16 04/28/19 05:48 BP 120/72 04/28/19 05:48 Pulse Ox 97 04/28/19 05:48 Intake & Output 04/27/19 04/28/19 04/28/19 18:59 06:59 18:59 Intake Total 800 Output Total 200 400 Balance -200 400 Weight 58.513 kg Intake: Intake, IV Titration 800 Amount Sodium Chloride 0.9% 1, 800 000 ml @ 100 mls/hr IV . Q10H [facility] Rx#:[id number] Output: Urine 200 400 Coude 200 - Labs CBC & Chem 7: 04/28/19 09:31 04/27/19 15:34 Labs: Abnormal Lab Results - Last 24 Hours (Table) 04/27/19 04/27/19 04/27/19 Range/Units 15:34 15:34 15:34 WBC 11.3 H (3.8-10.6) k/uL RBC 3.08 L (3.80-5.40) m/uL Hgb 9.1 L (11.4-16.0) gm/dL Hct 27.4 L (34.0-46.0) % MCHC (31.0-37.0) g/dL RDW 16.5 H (11.5-15.5) % Neutrophils # 8.6 H (1.3-7.7) k/uL Lymphocytes # (1.0-4.8) k/uL Monocytes # (0-1.0) k/uL APTT 21.3 L (22.0-30.0) sec Sodium 135 L (137-145) mmol/L Carbon Dioxide 20 L (22-30) mmol/L BUN 61 H (7-17) mg/dL Creatinine 1.47 H (0.52-1.04) mg/dL Glucose 213 H (74-99) mg/dL POC Glucose (mg/dL) (75-99) mg/dL AST 43 H (14-36) U/L Alkaline Phosphatase 250 H (38-126) U/L Urine Appearance (Clear) Urine RBC (0-5) /hpf Urine WBC (0-5) /hpf 04/27/19 04/27/19 04/28/19 Range/Units 18:21 23:31 06:56 WBC (3.8-10.6) k/uL RBC (3.80-5.40) m/uL Hgb (11.4-16.0) gm/dL Hct (34.0-46.0) % MCHC (31.0-37.0) g/dL RDW (11.5-15.5) % Neutrophils # (1.3-7.7) k/uL Lymphocytes # (1.0-4.8) k/uL Monocytes # (0-1.0) k/uL APTT (22.0-30.0) sec Sodium (137-145) mmol/L Carbon Dioxide (22-30) mmol/L BUN (7-17) mg/dL Creatinine (0.52-1.04) mg/dL Glucose (74-99) mg/dL POC Glucose (mg/dL) 391 H 253 H (75-99) mg/dL AST (14-36) U/L Alkaline Phosphatase (38-126) U/L Urine Appearance Bloody H (Clear) Urine RBC >182 H (0-5) /hpf Urine WBC >182 H (0-5) /hpf 04/28/19 04/28/19 Range/Units 09:31 11:23 WBC 16.0 H (3.8-10.6) k/uL RBC 2.23 L (3.80-5.40) m/uL Hgb 6.3 L* D (11.4-16.0) gm/dL Hct 20.6 L (34.0-46.0) % MCHC 30.5 L (31.0-37.0) g/dL RDW 16.5 H (11.5-15.5) % Neutrophils # 13.6 H (1.3-7.7) k/uL Lymphocytes # 0.9 L (1.0-4.8) k/uL Monocytes # 1.2 H (0-1.0) k/uL APTT (22.0-30.0) sec Sodium (137-145) mmol/L Carbon Dioxide (22-30) mmol/L BUN (7-17) mg/dL Creatinine (0.52-1.04) mg/dL Glucose (74-99) mg/dL POC Glucose (mg/dL) 236 H (75-99) mg/dL AST (14-36) U/L Alkaline Phosphatase (38-126) U/L Urine Appearance (Clear) Urine RBC (0-5) /hpf Urine WBC (0-5) /hpf
[2019-04-28] MEDS ORDERED: LIDOCAINE 2% GEL 30 ML TUBE TOPICAL PRN (12:28)
[2019-04-28] MEDS ORDERED: MAG HYDROX/AL HYDROX/SIMETH 30 ML CUP PO PRN (12:28)
[2019-04-28] MEDS ORDERED: MAGNESIUM HYDROXIDE 2,400 MG/10 ML CUP PO PRN (12:28)
--- NOTE | 2019-04-28 12:33 | P.HPIM ---
History of Present Illness This is a pleasant 73 years old female with past medical history of cardiomyopathy, coronary artery disease, atrial fibrillation, COPD, diabetes mellitus, hypertension, chronic leg edema history of anal cancer status post radiation and chemotherapy. History of hysterectomy for benign reasons. sHe presents with lower abdominal pain and tenderness and hematuria. Patient found to have urinary retention and bilateral hydronephrosis her creatinine is on admission is 1.4 which is at baseline of 1.3-1.6. However she has drop of her hemoglobin from 9 down to 6.3 today. She is getting 1 unit of blood transfusion. Her leukocytosis elevated at 11.3 and today 16 K. Urine cultures pending and patient was started on Rocephin already. Platelet within normal limits. INR 0.9. Sugar but on the high side. EKG: Sinus tachycardia at 107, LVH. CT of the abdomen: Bilateral hydronephrosis and hydroureter and attenuation in the lower bladder could be a clot or mass. Review of Systems CONSTITUTIONAL: No fever, no malaise, no fatigue. HEENT: No recent visual problems or hearing problems. Denied any sore throat. CARDIOVASCULAR: No orthopnea, PND, no palpitations, no syncope. PULMONARY: No shortness of breath, no cough, no hemoptysis. GASTROINTESTINAL: No diarrhea, no nausea, no vomiting, no abdominal pain. Normoactive bowel sounds. NEUROLOGICAL: No headaches, no weakness, no numbness. HEMATOLOGICAL: Denies any bleeding or petechiae. GENITOURINARY: Denies any burning micturition, frequency, or urgency. MUSCULOSKELETAL/RHEUMATOLOGICAL: Denies any joint pain, swelling, or any muscle pain. ENDOCRINE: Denies any polyuria or polydipsia. 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 Last Myocardial Infarction Date:: 01/16/17 History of Any Multi-Drug Resistant Organisms: MRSA Date of last positivie culture/infection: 12/06/18 MDRO Source:: LEG Past Surgical History: AICD, Appendectomy, Bariatric Surgery, Cholecystectomy, Coronary Bypass/CABG, Heart Catheterization, Hysterectomy, Tonsillectomy Additional Past Surgical History / Comment(s): 04/11/15 cardiac cath- tx medically, 02/03/2006 CABG-5 vessel with MVR, AICD 07/16/15, port-a-cath insertion and removal, colonoscopies, gastric bypass, skin cancer removal. Past Anesthesia/Blood Transfusion Reactions: No Reported Reaction Type of Cardiac Device: AICD Device Placement Date:: 2014 Past Psychological History: No Psychological Hx Reported Additional Psychological History / Comment(s): Pt's son lives with her in her home. Patient reports that she no longer moves around. Patient used a cane previously. She has a glucose monitor at home. Smoking Status: Former smoker Past Alcohol Use History: None Reported Additional Past Alcohol Use History / Comment(s): Pt states she started smoking around 1960 and quit in 2012. Past Drug Use History: None Reported - Past Family History Father Family Medical History: Cancer Additional Family Medical History / Comment(s): ?stomach cancer. Mother Family Medical History: Congestive Heart Failure (CHF), Coronary Artery Disease (CAD) Medications and Allergies Home Medications Medication Instructions Recorded Confirmed Type Metoprolol Tartrate [Lopressor] 25 mg PO BID 07/21/15 04/27/19 History Isosorbide Mononitrate ER [Imdur] 60 mg PO DAILY #30 tab.er.24h 01/17/17 04/27/19 Rx Nitroglycerin Sl Tabs [Nitrostat] 0.4 mg SUBLINGUAL Q5M PRN #25 tab 12/04/17 04/27/19 Rx Aspirin EC [Ecotrin Low Dose] 81 mg PO DAILY 11/22/18 04/27/19 History Famotidine [Pepcid] 20 mg PO DAILY tab 11/25/18 04/27/19 Rx Furosemide [Lasix] 40 mg PO BID #0 11/25/18 04/27/19 Rx Insulin Detemir (Levemir) [Levemir] 15 unit SQ HS syr 11/25/18 04/27/19 Rx Spironolactone [Aldactone] 25 mg PO DAILY tab 11/25/18 04/27/19 Rx hydrALAZINE HCL [Apresoline] 25 mg PO QID #1 tab 11/25/18 04/27/19 Rx Acetaminophen-Codeine 300-30mg 1 tab PO Q8H PRN 04/27/19 04/27/19 History [Tylenol w/codeine #3] Bisacodyl [Dulcolax] 10 mg RECTAL DAILY PRN 04/27/19 04/27/19 History Dronabinol [Marinol] 2.5 mg PO BID 04/27/19 04/27/19 History Ferrous Sulfate [Feosol] 325 mg PO BID 04/27/19 04/27/19 History INSULIN LISPRO (humaLOG) [humaLOG] 5 units SQ AC-LUNCH 04/27/19 04/27/19 History INSULIN LISPRO (humaLOG) [humaLOG] 7 units SQ AC-BRKFST 04/27/19 04/27/19 History INSULIN LISPRO (humaLOG) [humaLOG] 8 units SQ AC-SUPPER 04/27/19 04/27/19 History Lactulose 10 gm PO BID 04/27/19 04/27/19 History Lidocaine 5% Cream 1 applic TOPICAL DAILY PRN 04/27/19 04/27/19 History Mag Hydrox/Al Hydrox/Simeth 30 ml PO Q6H PRN 04/27/19 04/27/19 History [Maalox] Magnesium Hydroxide [Milk of 7,200 mg PO DAILY PRN 04/27/19 04/27/19 History Magnesia Concentrate] Menthol-Zinc Oxide Oint 1 applic TOPICAL Q6H PRN 04/27/19 04/27/19 History [Calmoseptine Oint] Menthol-Zinc Oxide Oint 1 applic TOPICAL TID 04/27/19 04/27/19 History [Calmoseptine Oint] Multivitamins, Thera [Multivitamin 1 tab PO DAILY 04/27/19 04/27/19 History (formulary)] Na Phos,M-B/Na Phos,Di-Ba [Fleet 133 ml RECTAL ONCE PRN 04/27/19 04/27/19 History Adult] Allergies Allergy/AdvReac Type Severity Reaction Status Date / Time No Known Allergies Allergy Verified 04/27/19 16:23 Physical Exam Vitals: Vital Signs Temp Pulse Pulse Resp BP BP Pulse Ox 04/28/19 05:48 97.7 F 104 H 16 120/72 97 04/27/19 23:50 106 H 16 04/27/19 22:29 97.4 F L 106 H 16 129/77 98 04/27/19 21:18 104 H 18 127/62 99 04/27/19 20:11 103 H 18 126/61 97 04/27/19 18:18 103 H 18 126/60 95 04/27/19 15:44 98.6 F 109 H 18 160/84 99 Intake and Output 04/27/19 04/28/19 04/28/19 22:59 06:59 14:59 Intake Total 800 Output Total 200 400 Balance -200 400 Intake: Intake, IV Titration 800 Amount Sodium Chloride 0.9% 1, 800 000 ml @ 100 mls/hr IV . Q10H [facility] Rx#:[id number] Output: Urine 200 400 Coude 200 Other: Weight 58.513 kg GENERAL: The patient is alert and oriented x3, not in any acute distress. Well developed, well nourished. HEENT: Pupils are round and equally reacting to light. EOMI. No scleral icterus. No conjunctival pallor. Normocephalic, atraumatic. No pharyngeal erythema. No t hyromegaly. CARDIOVASCULAR: S1 and S2 present. No murmurs, rubs, or gallops. PULMONARY: Chest is clear to auscultation, no wheezing or crackles. -ABDOMEN: Soft, suprapubic tenderness, nondistended, normoactive bowel sounds. No palpable organomegaly. Wood catheter is in place MUSCULOSKELETAL: No joint swelling or deformity. EXTREMITIES: No cyanosis, clubbing, or pedal edema. NEUROLOGICAL: Gross neurological examination did not reveal any focal deficits. SKIN: No rashes. Results CBC & Chem 7: 04/28/19 09:31 04/27/19 15:34 Labs: Abnormal Lab Results - Last 24 Hours (Table) 04/27/19 04/27/19 04/27/19 Range/Units 15:34 15:34 15:34 WBC 11.3 H (3.8-10.6) k/uL RBC 3.08 L (3.80-5.40) m/uL Hgb 9.1 L (11.4-16.0) gm/dL Hct 27.4 L (34.0-46.0) % MCHC (31.0-37.0) g/dL RDW 16.5 H (11.5-15.5) % Neutrophils # 8.6 H (1.3-7.7) k/uL Lymphocytes # (1.0-4.8) k/uL Monocytes # (0-1.0) k/uL APTT 21.3 L (22.0-30.0) sec Sodium 135 L (137-145) mmol/L Carbon Dioxide 20 L (22-30) mmol/L BUN 61 H (7-17) mg/dL Creatinine 1.47 H (0.52-1.04) mg/dL Glucose 213 H (74-99) mg/dL POC Glucose (mg/dL) (75-99) mg/dL AST 43 H (14-36) U/L Alkaline Phosphatase 250 H (38-126) U/L Urine Appearance (Clear) Urine RBC (0-5) /hpf Urine WBC (0-5) /hpf 04/27/19 04/27/19 04/28/19 Range/Units 18:21 23:31 06:56 WBC (3.8-10.6) k/uL RBC (3.80-5.40) m/uL Hgb (11.4-16.0) gm/dL Hct (34.0-46.0) % MCHC (31.0-37.0) g/dL RDW (11.5-15.5) % Neutrophils # (1.3-7.7) k/uL Lymphocytes # (1.0-4.8) k/uL Monocytes # (0-1.0) k/uL APTT (22.0-30.0) sec Sodium (137-145) mmol/L Carbon Dioxide (22-30) mmol/L BUN (7-17) mg/dL Creatinine (0.52-1.04) mg/dL Glucose (74-99) mg/dL POC Glucose (mg/dL) 391 H 253 H (75-99) mg/dL AST (14-36) U/L Alkaline Phosphatase (38-126) U/L Urine Appearance Bloody H (Clear) Urine RBC >182 H (0-5) /hpf Urine WBC >182 H (0-5) /hpf 04/28/19 04/28/19 Range/Units 09:31 11:23 WBC 16.0 H (3.8-10.6) k/uL RBC 2.23 L (3.80-5.40) m/uL Hgb 6.3 L* D (11.4-16.0) gm/dL Hct 20.6 L (34.0-46.0) % MCHC 30.5 L (31.0-37.0) g/dL RDW 16.5 H (11.5-15.5) % Neutrophils # 13.6 H (1.3-7.7) k/uL Lymphocytes # 0.9 L (1.0-4.8) k/uL Monocytes # 1.2 H (0-1.0) k/uL APTT (22.0-30.0) sec Sodium (137-145) mmol/L Carbon Dioxide (22-30) mmol/L BUN (7-17) mg/dL Creatinine (0.52-1.04) mg/dL Glucose (74-99) mg/dL POC Glucose (mg/dL) 236 H (75-99) mg/dL AST (14-36) U/L Alkaline Phosphatase (38-126) U/L Urine Appearance (Clear) Urine RBC (0-5) /hpf Urine WBC (0-5) /hpf Microbiology - Last 24 Hours (Table) 04/27/19 18:21 Urine Culture - Preliminary Urine,Catheterized Thrombosis Risk Factor Assmnt - Choose All That Apply Any of the Below Risk Factors Present?: No Each Risk Factor Represents 2 Points: Malignancy Each Risk Factor Represents 3 Points: Age 75 years or older Other congenital or acquired thrombophilia - If yes, enter type in comment: No Thrombosis Risk Factor Assessment Total Risk Factor Score: 5 Thrombosis Risk Factor Assessment Level: High Risk Assessment and Plan Assessment: Acute urinary retention, with urinary bladder hemorrhage or mass Bilateral hydroureter and hydronephrosis Acute hematuria Acute blood loss anemia secondary to above History of cardiomyopathy, coronary artery disease and atrial fibrillation on anticoagulation. COPD, not in acute exacerbation Diabetes mellitus Hypertension Chronic leg edema History of anal cancer status post radiochemotherapy History of hysterectomy Plan: This is a pleasant 73 years old female who presents with hematuria with possible urinary bladder mass and bilateral Chaplin nephrosis. Urology has already evaluated the patient and then 4 cystoscopy. Patient has Wood catheter. Transfuse blood to keep hemoglobin more than 7. Continue with antibiotics and follow-up urine culture. Labs and medication were reviewed.. Continue same treatment. Continue with symptomatic treatment. Resume home medication. Monitor lytes and vitals. DVT and GI prophylaxis. Further recommendations of the clinical course of the patient DVT prophylaxis: No heparin in view of hematuria GI Prophylaxis: Pepcid CODE STATUS, DO NOT RESUSCITATE, confirmed with patient Prognosis is guarded
[2019-04-28] MEDS: hydrALAZINE HCL 25 MG TAB PO SCH ×3 (13:53→22:38)
[2019-04-28] MEDS ORDERED: SODIUM CHLORIDE 0.9% 1,000 ML IV ONE (14:56)
[2019-04-28 15:19] LABS: Glucose,Whole Blood 215 mg/dL (75-99)
[2019-04-28] MEDS ORDERED: MIDAZOLAM 2 MG/2 ML VIAL ONE (15:30)
[2019-04-28] MEDS ORDERED: ALBUMIN HUMAN 5% (12.5gm) 250 ML BOTTLE IVPB ONE (15:30)
[2019-04-28] MEDS ORDERED: PROPOFOL 10 MG/ML 20 ML VIAL IV ONE (15:30)
[2019-04-28] MEDS ORDERED: fentaNYL (PF) 50 MCG/ML 2 ML AMP ONE (15:30)
[2019-04-28] MEDS ORDERED: PHENYLEPHRINE-0.9% NACL SYG 1 MG/10 ML SYRINGE ONE (15:30)
[2019-04-28] MEDS ORDERED: SUCCINYLCHOLINE CHLORIDE 100 MG/5 ML SYR IV ONE (15:30)
[2019-04-28] MEDS ORDERED: SODIUM CHLORIDE 0.9% 500 ML 500 ML IV ONE (16:11)
--- NOTE | 2019-04-28 17:04 | P.OP ---
Date of Procedure: 04/28/19 Preoperative Diagnosis: Gross hematuria with clot urinary retention and secondary anemia Postoperative Diagnosis: Same secondary to hemorrhagic cystitis possible radiation cystitis Procedure(s) Performed: Cystoscopy evacuation of large amount of clot, fulguration of bleeding, biopsy multiple of bladder wall, placement of 3-way irrigation Anesthesia: EDUARDO Surgeon: Lukas Chow Estimated Blood Loss (ml): 250 Pathology: other (Biopsies of bladder) Condition: critical Disposition: ICU Indications for Procedure: The patient is 73. She is admitted to the hospital by medical staff with gross hematuria and clot retention. I saw the patient and found that her bladder urine was quite inflamed however hemoglobin the by this morning it dropped a 6. She still had a large amount of grossly bloody urine in the catheter. She has bilateral hydronephrosis due to retention. Due to her anemia of 6 the persistent bleeding she will come for cystoscopy evacuation of clot and assessment of her lower urinary tract. Operative Findings: The patient large amount of clot, greater than 2 L. Diffuse cystitis hemorrhagic Description of Procedure: The patient is brought to the operating suite. She is given a general anesthetic. She's been transfused 1 unit and is receiving a second unit. I first passed the resectoscope into the bladder. Through the sheath I irrigate a very large volume of clot out of the bladder. Over 2 L of clot is obtained. I finally evacuated the bladder of clot. I inspect the bladder in its entirety and there is diffuse hemorrhagic bleeding throughout which is worse on the floor the bladder. Whether this is due to radiation or not is indeterminate.. There is a history of anal carcinoma with urination therapy. 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 I resected several areas of surface epithelium to see if this would help control bleeding as well as biopsies to see if this is just a hemorrhagic cystitis or is this due to perhaps carcinoma in situ. I finally elected terminate the procedure. I'm not going to control the bleeding completely. A 22-Vietnamese three-way catheter introduced the bladder with a medium rate irrigation with pink urine return. The patient's is awakened and returned abril very room. She'll go to ICU. Her condition is serious. Pending the biopsies and clinical course as to further recommendations.
[2019-04-28] MEDS: FUROSEMIDE 40 MG TAB PO SCH (17:56)
--- NOTE | 2019-04-28 18:03 | XR ---
EXAMINATION TYPE: XR chest 1V portable DATE OF EXAM: 04/28/2019 COMPARISON: 11/22/2018 HISTORY: Central line placement TECHNIQUE: Single frontal view of the chest is obtained. FINDINGS: There is a right subclavian catheter with the tip in the superior vena cava. There is left axillary pacemaker. Heart is enlarged. There is no pneumothorax. There are sternal wires. There is n o gross heart failure. IMPRESSION: No active cardiopulmonary disease. Cardiomegaly. No change compared to old exam.
[2019-04-28 18:16] LABS: Glucose,Whole Blood 187 mg/dL (75-99)
[2019-04-28 18:57] LABS: Glucose,Whole Blood 200 mg/dL (75-99)
[2019-04-28] MEDS ORDERED: LACTULOSE 200 GM/300 ML (FROM 1/2 GAL JUG) PO SCH (21:00)
[2019-04-28 21:25] LABS: Glucose,Whole Blood 212 mg/dL (75-99)
[2019-04-28] MEDS: LACTULOSE 20 GM/30 ML CUP PO SCH (22:00)
[2019-04-28] MEDS: DRONABINOL 2.5 MG CAP PO SCH (22:00)
[2019-04-28] MEDS: FERROUS SULFATE 325 MG TAB PO SCH (22:00)
[2019-04-28] MEDS: FAMOTIDINE 20 MG/2 ML VIAL IV SCH (22:00)
[2019-04-28] MEDS: METOPROLOL TARTRATE 25 MG TAB PO SCH (22:00)
[2019-04-28 23:16] LABS: Anisocytosis Slight; Basophils # (A) 0.1 k/uL (0-0.2); Basophils % (A) 0 %; Eosinophils % (A) 0 %; HCT 23.5 % (34.0-46.0); HGB 7.6 gm/dL (11.4-16.0); Hypochromasia Slight; Lymphocytes # (A) 0.9 k/uL (1.0-4.8); Lymphocytes % (A) 6 %; MCH 28.5 pg (25.0-35.0); MCHC 32.5 g/dL (31.0-37.0); MCV 87.7 fL (80.0-100.0); Mean Platelet Volume 7.7; Monocytes % (A) 7 %; Neutrophils # (A) 12.8 k/uL (1.3-7.7); Neutrophils % (A) 86 %; Platelet Count 248 k/uL (150-450); RBC 2.68 m/uL (3.80-5.40); RDW 16.8 % (11.5-15.5)
[2019-04-29 06:29] LABS: Anisocytosis Slight; HCT 21.2 % (34.0-46.0); Hypochromasia Slight; MCH 29.2 pg (25.0-35.0); MCHC 33.2 g/dL (31.0-37.0); MCV 87.8 fL (80.0-100.0); Mean Platelet Volume 7.7; Platelet Count 216 k/uL (150-450); RBC 2.42 m/uL (3.80-5.40); RDW 16.9 % (11.5-15.5); WBC 13.1 k/uL (3.8-10.6)
[2019-04-29 06:36] LABS: Albumin 2.7 g/dL (3.5-5.0); Potassium 4.8 mmol/L (3.5-5.1); Total Bilirubin 0.4 mg/dL (0.2-1.3); Total Protein 5.6 g/dL (6.3-8.2)
[2019-04-29] MEDS ORDERED: PANTOPRAZOLE 40 MG TABLET PO SCH (07:30)
[2019-04-29 08:51] LABS: Glucose,Whole Blood 99 mg/dL (75-99)
[2019-04-29] MEDS: INSULIN ASPART (NovoLOG) 100 UNIT/ML VIAL SQ SCH ×7 (08:59→21:55)
[2019-04-29] MEDS: FUROSEMIDE 40 MG TAB PO SCH ×2 (09:26→17:24)
[2019-04-29] MEDS: SPIRONOLACTONE 25 MG TAB PO SCH (09:26)
[2019-04-29] MEDS: hydrALAZINE HCL 25 MG TAB PO SCH ×4 (09:26→22:06)
[2019-04-29] MEDS: FERROUS SULFATE 325 MG TAB PO SCH ×2 (09:26→21:49)
[2019-04-29] MEDS: METOPROLOL TARTRATE 25 MG TAB PO SCH ×2 (09:26→21:49)
[2019-04-29] MEDS: ASPIRIN 81 MG PO SCH (09:26)
[2019-04-29] MEDS: SODIUM CHLORIDE 0.9% 1,000 ML IV SCH ×2 (09:27→21:50)
[2019-04-29] MEDS: FAMOTIDINE 20 MG/2 ML VIAL IV SCH (09:27)
[2019-04-29] MEDS: LACTULOSE 20 GM/30 ML CUP PO SCH ×2 (09:27→21:48)
[2019-04-29] MEDS: DRONABINOL 2.5 MG CAP PO SCH ×2 (09:27→21:49)
[2019-04-29] MEDS ORDERED: SODIUM CHLORIDE 0.9% IRRIGATIO 3,000 ML IRRIGATION PRN (10:00)
--- NOTE | 2019-04-29 12:02 | P.PN ---
Subjective Progress Note Date: 04/29/19 The patient underwent a cystoscopy evacuation of a large volume of blood clot and fulguration of bleeding and biopsy of bladder yesterday. There is no distinct tumor. The patient is awake and alert this morning. I asked her about the radiation therapy that was mentioned in the chart. She states she has never had any radiation therapy. She has not had anal carcinoma. Her urine culture grew strep agalactia which is of questionable significance. Her urine is clearing up. I will continue with irrigation another 24 hours. Hemoglobin was 7. Her white count is down to 13,000. We'll see if the biopsies show. Objective - Vital Signs Vital signs: Vital Signs Temp 97.9 F 04/29/19 04:00 Pulse 63 04/29/19 11:00 Resp 17 04/29/19 11:00 BP 85/46 04/29/19 11:00 Pulse Ox 97 04/29/19 11:00 Intake & Output 04/28/19 04/29/19 04/29/19 18:59 06:59 18:59 Intake Total 2730 2020 650 Output Total 2 2710 2500 Balance 2728 -690 -1850 Weight 59.3 kg Intake: IV 1000 2020 650 Bladder irrigation fluid 770 650 Sodium Chloride 0.9% 1, 1200 000 ml @ 100 mls/hr IV . Q10H [facility] Rx#:[id number] cefTRIAXone 1 gm In 50 Sodium Chloride 0.9% 50 ml @ 100 mls/hr IVPB Q12HR [facility] Rx#:[id number] Intake, IV Titration 800 Amount Sodium Chloride 0.9% 1, 750 000 ml @ 100 mls/hr IV . Q10H [facility] Rx#:[id number] cefTRIAXone 1 gm In 50 Sodium Chloride 0.9% 50 ml @ 100 mls/hr IVPB Q12HR [facility] Rx#:[id number] Blood Product 930 Rc As-1 Unit 310 [id number] Rc As-3 Unit 310 [id number] Output: Urine 2710 2500 Estimated Blood Loss 2 Other: Voiding Method Indwelling Catheter Indwelling Catheter - Labs CBC & Chem 7: 04/29/19 06:10 04/29/19 06:10 Labs: Abnormal Lab Results - Last 24 Hours (Table) 04/28/19 04/28/19 04/28/19 Range/Units 11:46 14:52 18:13 WBC (3.8-10.6) k/uL RBC (3.80-5.40) m/uL Hgb (11.4-16.0) gm/dL Hct (34.0-46.0) % RDW (11.5-15.5) % Neutrophils # (1.3-7.7) k/uL Lymphocytes # (1.0-4.8) k/uL Chloride (98-107) mmol/L Carbon Dioxide (22-30) mmol/L BUN (7-17) mg/dL Creatinine (0.52-1.04) mg/dL POC Glucose (mg/dL) 215 H 187 H (75-99) mg/dL Calcium (8.4-10.2) mg/dL Alkaline Phosphatase (38-126) U/L Total Protein (6.3-8.2) g/dL Albumin (3.5-5.0) g/dL Crossmatch See Detail 04/28/19 04/28/19 04/28/19 Range/Units 18:41 21:20 23:07 WBC 15.0 H (3.8-10.6) k/uL RBC 2.68 L (3.80-5.40) m/uL Hgb 7.6 L (11.4-16.0) gm/dL Hct 23.5 L (34.0-46.0) % RDW 16.8 H (11.5-15.5) % Neutrophils # 12.8 H (1.3-7.7) k/uL Lymphocytes # 0.9 L (1.0-4.8) k/uL Chloride (98-107) mmol/L Carbon Dioxide (22-30) mmol/L BUN (7-17) mg/dL Creatinine (0.52-1.04) mg/dL POC Glucose (mg/dL) 200 H 212 H (75-99) mg/dL Calcium (8.4-10.2) mg/dL Alkaline Phosphatase (38-126) U/L Total Protein (6.3-8.2) g/dL Albumin (3.5-5.0) g/dL Crossmatch 04/29/19 04/29/19 Range/Units 06:10 06:10 WBC 13.1 H (3.8-10.6) k/uL RBC 2.42 L (3.80-5.40) m/uL Hgb 7.0 L (11.4-16.0) gm/dL Hct 21.2 L (34.0-46.0) % RDW 16.9 H (11.5-15.5) % Neutrophils # (1.3-7.7) k/uL Lymphocytes # (1.0-4.8) k/uL Chloride 109 H (98-107) mmol/L Carbon Dioxide 21 L (22-30) mmol/L BUN 52 H (7-17) mg/dL Creatinine 1.56 H (0.52-1.04) mg/dL POC Glucose (mg/dL) (75-99) mg/dL Calcium 8.0 L (8.4-10.2) mg/dL Alkaline Phosphatase 128 H (38-126) U/L Total Protein 5.6 L (6.3-8.2) g/dL Albumin 2.7 L (3.5-5.0) g/dL Crossmatch Microbiology - Last 24 Hours (Table) 04/27/19 18:21 Urine Culture - Final Urine,Catheterized Strep agalactiae - (group b)
[2019-04-29 12:53] LABS: Glucose,Whole Blood 87 mg/dL (75-99)
[2019-04-29] MEDS: ISOSORBIDE MONONITRATE ER 60 MG TAB.ER.24H PO SCH (13:01)
--- NOTE | 2019-04-29 13:26 | P.CNPUL ---
History of Present Illness Consult date: 04/29/19 Chief complaint: Hematuria History of present illness: The patient is in the 73-year-old female who came to the hospital today because of weakness abdominal pain and what she thought was vaginal bleeding. She was evaluated in the emergency room and found to have gross hematuria. The patient is status post hysterectomy for benign disease many years ago. She was evaluated with a computed tomography scan which showed a full bladder, bilateral hydronephrosis secondarily and a possible mass in the bladder be a clot or tumor. She had a urinalysis identifying 187 White 187 reds. She has no history of infections. She has not been on anticoagulation. There is no urinary tract history. There is no history of stones. She has had a hys terectomy. She states that she's been urinating without difficulty. She does have chronic anemia. She was in the hospital back in October and received 3 transfusions. She states she does not have a primary doctor and did not follow- up since then. The patient was taken to the operating room for gross hematuria with clots and secondary anemia. The patient underwent a cystoscopy evaluation where large amount of blood was identified. Biopsies of the bladder was also taken and 3 way irrigation system was applied. Following that the patient was brought back to the intensive care unit. A triple lumen catheter was inserted. On today's evaluation the patient is feeling better. The output from the Wood catheter is minimally blood-tinged. The urine is growing strep agalactiae,. The urine itself is clearing up. Hemodynamically stable. She is got an extensive cardiac history including coronary artery bypass surgery, ischemic cardiomyopathy with ejection fraction of less than 20% and previous history of mitral valve repair and the patient has a pacer/AICD in place. She is also pawan betic. Review of Systems Constitutional: Reports weakness Eyes: denies blurred vision, denies bulging eye, denies decreased vision Ears: deny: decreased hearing, ear discharge, earache, tinnitus Ears, nose, mouth and throat: Reports as per HPI Cardiovascular: Reports decreased exercise tolerance Respiratory: Reports dyspnea Gastrointestinal: Reports as per HPI Genitourinary: Reports hematuria Menstruation: Reports as per HPI Musculoskeletal: Reports as per HPI Musculoskeletal: absent: ankle pain, ankle stiffness, ankle swelling Integumentary: Reports as per HPI Neurological: Reports as per HPI Psychiatric: Reports as per HPI Endocrine: Reports as per HPI Past Medical History Past Medical History: Atrial Fibrillation, Coronary Artery Disease (CAD), Cancer, Heart Failure, COPD, Diabetes Mellitus, Hyperlipidemia, Hypertension, Myocardial Infarction (SC) Additional Past Medical History / Comment(s): Coronary artery disease, previous bypass surgery, ischemic cardiomyopathy with an ejection fraction of less than 20%, history of mitral valve repair, history of chronic kidney disease, ascending aortic aneurysm measuring 4.2 cm, squamous cell carcinoma of the skin resected, insulin-dependent diabetes mellitus, previous history of UTI with subsequent on pneumoniae, history of fall, hyperlipidemia, hypertension Last Myocardial Infarction Date:: 01/16/17 History of Any Multi-Drug Resistant Organisms: MRSA Date of last positivie culture/infection: 12/06/18 MDRO Source:: LEG Past Surgical History: AICD, Appendectomy, Bariatric Surgery, Cholecystectomy, Coronary Bypass/CABG, Heart Catheterization, Hysterectomy, Tonsillectomy Additional Past Surgical History / Comment(s): 04/11/15 cardiac cath- tx medically, 02/03/2006 CABG-5 vessel with MVR, AICD 07/16/15, port-a-cath insertion and removal, colonoscopies, gastric bypass, skin cancer removal. Past Anesthesia/Blood Transfusion Reactions: No Reported Reaction Type of Cardiac Device: AICD Device Placement Date:: 2014 Past Psychological History: No Psychological Hx Reported Additional Psychological History / Comment(s): Pt's son lives with her in her home. Patient reports that she no longer moves around. Patient used a cane previously. She has a glucose monitor at home. Smoking Status: Former smoker Past Alcohol Use History: None Reported Additional Past Alcohol Use History / Comment(s): Pt states she started smoking around 1960 and quit in 2012. Past Drug Use History: None Reported - Past Family History Father Family Medical History: Cancer Additional Family Medical History / Comment(s): ?stomach cancer. Mother Family Medical History: Congestive Heart Failure (CHF), Coronary Artery Disease (CAD) Medications and Allergies Home Medications Medication Instructions Recorded Confirmed Type Metoprolol Tartrate [Lopressor] 25 mg PO BID 07/21/15 04/27/19 History Isosorbide Mononitrate ER [Imdur] 60 mg PO DAILY #30 tab.er.24h 01/17/17 04/27/19 Rx Nitroglycerin Sl Tabs [Nitrostat] 0.4 mg SUBLINGUAL Q5M PRN #25 tab 12/04/17 04/27/19 Rx Aspirin EC [Ecotrin Low Dose] 81 mg PO DAILY 11/22/18 04/27/19 History Famotidine [Pepcid] 20 mg PO DAILY tab 11/25/18 04/27/19 Rx Furosemide [Lasix] 40 mg PO BID #0 11/25/18 04/27/19 Rx Insulin Detemir (Levemir) [Levemir] 15 unit SQ HS syr 11/25/18 04/27/19 Rx Spironolactone [Aldactone] 25 mg PO DAILY tab 11/25/18 04/27/19 Rx hydrALAZINE HCL [Apresoline] 25 mg PO QID #1 tab 11/25/18 04/27/19 Rx Acetaminophen-Codeine 300-30mg 1 tab PO Q8H PRN 04/27/19 04/27/19 History [Tylenol w/codeine #3] Bisacodyl [Dulcolax] 10 mg RECTAL DAILY PRN 04/27/19 04/27/19 History Dronabinol [Marinol] 2.5 mg PO BID 04/27/19 04/27/19 History Ferrous Sulfate [Feosol] 325 mg PO BID 04/27/19 04/27/19 History INSULIN LISPRO (humaLOG) [humaLOG] 5 units SQ AC-LUNCH 04/27/19 04/27/19 History INSULIN LISPRO (humaLOG) [humaLOG] 7 units SQ AC-BRKFST 04/27/19 04/27/19 History INSULIN LISPRO (humaLOG) [humaLOG] 8 units SQ AC-SUPPER 04/27/19 04/27/19 History Lactulose 10 gm PO BID 04/27/19 04/27/19 History Lidocaine 5% Cream 1 applic TOPICAL DAILY PRN 04/27/19 04/27/19 History Mag Hydrox/Al Hydrox/Simeth 30 ml PO Q6H PRN 04/27/19 04/27/19 History [Maalox] Magnesium Hydroxide [Milk of 7,200 mg PO DAILY PRN 04/27/19 04/27/19 History Magnesia Concentrate] Menthol-Zinc Oxide Oint 1 applic TOPICAL Q6H PRN 04/27/19 04/27/19 History [Calmoseptine Oint] Menthol-Zinc Oxide Oint 1 applic TOPICAL TID 04/27/19 04/27/19 History [Calmoseptine Oint] Multivitamins, Thera [Multivitamin 1 tab PO DAILY 04/27/19 04/27/19 History (formulary)] Na Phos,M-B/Na Phos,Di-Ba [Fleet 133 ml RECTAL ONCE PRN 04/27/19 04/27/19 History Adult] Allergies Allergy/AdvReac Type Severity Reaction Status Date / Time No Known Allergies Allergy Verified 04/27/19 16:23 Physical Exam Vitals: Vital Signs Temp Pulse Pulse Pulse Resp BP BP 04/29/19 13:00 87 23 92/62 04/29/19 12:00 98.7 F 91 18 90/45 04/29/19 11:00 63 17 85/46 04/29/19 10:00 87 10 L 97/55 04/29/19 09:00 91 19 96/45 04/29/19 08:00 91 15 90/46 04/29/19 07:39 04/29/19 07:00 89 20 96/42 04/29/19 06:00 91 19 100/53 04/29/19 05:00 101 H 17 89/45 04/29/19 04:00 97.9 F 90 20 90/45 04/29/19 03:00 86 20 93/56 04/29/19 02:00 84 16 92/40 04/29/19 01:00 85 12 92/40 04/29/19 00:00 98.2 F 98 12 93/46 04/28/19 23:00 105 H 14 110/51 04/28/19 22:00 97 13 116/55 04/28/19 21:01 93 04/28/19 20:00 97.6 F 74 15 107/47 04/28/19 19:00 79 14 134/56 04/28/19 18:40 37 H 04/28/19 18:17 85 16 133/63 04/28/19 18:01 82 18 138/62 04/28/19 17:45 82 16 145/64 04/28/19 17:24 97.2 F L 86 16 176/73 04/28/19 14:45 97.9 F 110 H 18 119/58 04/28/19 14:29 111 H 16 111/67 04/28/19 14:02 113 H 16 116/69 04/28/19 13:59 111 H 18 113/68 04/28/19 13:49 98 F 111 H 18 113/67 04/28/19 13:47 97.8 F 111 H 18 113/68 Pulse Ox 04/29/19 13:00 96 04/29/19 12:00 97 04/29/19 11:00 97 04/29/19 10:00 95 04/29/19 09:00 94 L 04/29/19 08:00 93 L 04/29/19 07:39 93 L 04/29/19 07:00 93 L 04/29/19 06:00 94 L 04/29/19 05:00 94 L 04/29/19 04:00 94 L 04/29/19 03:00 97 04/29/19 02:00 96 04/29/19 01:00 96 04/29/19 00:00 95 04/28/19 23:00 98 04/28/19 22:00 100 04/28/19 21:01 04/28/19 20:00 100 04/28/19 19:00 100 04/28/19 18:40 04/28/19 18:17 97 04/28/19 18:01 95 04/28/19 17:45 100 04/28/19 17:24 100 04/28/19 14:45 97 04/28/19 14:29 99 04/28/19 14:02 97 04/28/19 13:59 97 04/28/19 13:49 99 04/28/19 13:47 99 Intake and Output 04/28/19 04/29/19 04/29/19 22:59 06:59 14:59 Intake Total 2660 1290 650 Output Total 1302 1410 2500 Balance 1358 -120 -1850 Intake: IV 1730 1290 650 Bladder irrigation fluid 280 490 650 Sodium Chloride 0.9% 1, 400 800 000 ml @ 100 mls/hr IV . Q10H [facility] Rx#:[id number] cefTRIAXone 1 gm In 50 Sodium Chloride 0.9% 50 ml @ 100 mls/hr IVPB Q12HR [facility] Rx#:[id number] Blood Product 930 Rc As-1 Unit 310 [id number] Rc As-3 Unit 310 [id number] Output: Urine 1300 1410 2500 Estimated Blood Loss 2 Other: Voiding Method Indwelling Catheter Indwelling Catheter Indwelling Catheter Weight 59.3 kg Gen. appearance, comfortable likely distress Head exam was generally normal. There was no scleral icterus or corneal arcus. Mucous membranes were moist. Neck was supple and without jugular venous distension, thyromegaly, or carotid bruits. Carotids were easily palpable bilaterally. There was no adenopathy. Lungs sounds are diminished bilaterally along with some crackles at lung bases. The patient's sternum stable clean and intact. The patient has an ASV over the left anterior chest area. Cardiac exam revealed the PMI to be normally situated and sized. The rhythm was regular and no extrasystoles were noted during several minutes of auscultation. The first and second heart sounds were normal and physiologic splitting of the second heart sound was noted. There were no murmurs, rubs, clicks, or gallops. Abdominal exam revealed normal bowel sounds. The abdomen was soft, non-tender, and without masses, organomegaly, or appreciable enlargement of the abdominal aorta. Examination of the extremities revealed easily palpable radial, femoral and pedal pulses. There was no cyanosis, clubbing or edema. Examination of the skin revealed no evidence of significant rashes, suspicious appearing nevi or other concerning lesions. Neurologically awake and alert and there is no focal neurological deficit. Results - Laboratory Findings CBC and BMP: 04/29/19 06:10 04/29/19 06:10 PT/INR, D-dimer PT 10.0 sec (9.0-12.0) 04/27/19 15:34 INR 0.9 (<1.2) 04/27/19 15:34 Abnormal lab findings: Abnormal Labs 04/27/19 04/27/19 04/27/19 15:34 15:34 15:34 WBC 11.3 H RBC 3.08 L Hgb 9.1 L Hct 27.4 L MCHC RDW 16.5 H Neutrophils # 8.6 H Lymphocytes # Monocytes # APTT 21.3 L Sodium 135 L Chloride Carbon Dioxide 20 L BUN 61 H Creatinine 1.47 H Glucose 213 H POC Glucose (mg/dL) Calcium AST 43 H Alkaline Phosphatase 250 H Total Protein Albumin Urine Appearance Urine RBC Urine WBC Crossmatch 0704/27/19 04/28/19 18:21 23:31 06:56 WBC RBC Hgb Hct MCHC RDW Neutrophils # Lymphocytes # Monocytes # APTT Sodium Chloride Carbon Dioxide BUN Creatinine Glucose POC Glucose (mg/dL) 391 H 253 H Calcium AST Alkaline Phosphatase Total Protein Albumin Urine Appearance Bloody H Urine RBC >182 H Urine WBC >182 H Crossmatch 04/28/19 04/28/19 04/28/19 09:31 11:23 11:46 WBC 16.0 H RBC 2.23 L Hgb 6.3 L* D Hct 20.6 L MCHC 30.5 L RDW 16.5 H Neutrophils # 13.6 H Lymphocytes # 0.9 L Monocytes # 1.2 H APTT Sodium Chloride Carbon Dioxide BUN Creatinine Glucose POC Glucose (mg/dL) 236 H Calcium AST Alkaline Phosphatase Total Protein Albumin Urine Appearance Urine RBC Urine WBC Crossmatch See Detail 04/28/19 04/28/19 04/28/19 14:52 18:13 18:41 WBC RBC Hgb Hct MCHC RDW Neutrophils # Lymphocytes # Monocytes # APTT Sodium Chloride Carbon Dioxide BUN Creatinine Glucose POC Glucose (mg/dL) 215 H 187 H 200 H Calcium AST Alkaline Phosphatase Total Protein Albumin Urine Appearance Urine RBC Urine WBC Crossmatch 04/28/19 04/28/19 04/29/19 21:20 23:07 06:10 WBC 15.0 H 13.1 H RBC 2.68 L 2.42 L Hgb 7.6 L 7.0 L Hct 23.5 L 21.2 L MCHC RDW 16.8 H 16.9 H Neutrophils # 12.8 H Lymphocytes # 0.9 L Monocytes # APTT Sodium Chloride Carbon Dioxide BUN Creatinine Glucose POC Glucose (mg/dL) 212 H Calcium AST Alkaline Phosphatase Total Protein Albumin Urine Appearance Urine RBC Urine WBC Crossmatch 04/29/19 06:10 WBC RBC Hgb Hct MCHC RDW Neutrophils # Lymphocytes # Monocytes # APTT Sodium Chloride 109 H Carbon Dioxide 21 L BUN 52 H Creatinine 1.56 H Glucose POC Glucose (mg/dL) Calcium 8.0 L AST Alkaline Phosphatase 128 H Total Protein 5.6 L Albumin 2.7 L Urine Appearance Urine RBC Urine WBC Crossmatch Assessment and Plan Plan: 1 hematuria under investigation. Consider underlying urinary tract infection. The patient had large clot burden that was evacuated and the patient has a Simple Way, Wood catheter in place with constant medication. Urine is clearing and the patient is covered with empiric antibiotic. Biopsies of the bladder were done. 2 obstructive uropathy with bilateral hydroureter and hydronephrosis, likely secondary to above 3 acute hematuria, improving 4 acute blood loss anemia secondary to above 5 COPD 6 coronary artery disease with previous bypass surgery 7 mitral valve repair 8 diabetes mellitus 9 hypertension 10 lower extremity edema 11 previous history of hysterectomy 12 hyperlipidemia Plan Continue the bladder irrigation. Continue same antibiotic coverage. Awaiting bladder biopsies. Keep patient ICU for further monitoring. Monitor hemoglobin. Will make further recommendations based on her progress. Outpatient indication be resumed. Her condition is stable. A triple-lumen catheter has been inserted in the right subclavian.
[2019-04-29 16:18] LABS: Anisocytosis Slight; Hypochromasia Slight; MCH 29.3 pg (25.0-35.0); MCHC 33.4 g/dL (31.0-37.0); MCV 87.7 fL (80.0-100.0); Mean Platelet Volume 7.3; Platelet Count 189 k/uL (150-450); RBC 2.14 m/uL (3.80-5.40); RDW 16.9 % (11.5-15.5); WBC 12.2 k/uL (3.8-10.6)
[2019-04-29 16:20] LABS: HCT 18.8 % (34.0-46.0); HGB 6.3 gm/dL (11.4-16.0)
[2019-04-29 17:16] LABS: Glucose,Whole Blood 128 mg/dL (75-99)
--- NOTE | 2019-04-29 18:40 | P.PN ---
Subjective This is a pleasant 73 years old female with past medical history of cardiomyopathy, coronary artery disease, atrial fibrillation, COPD, diabetes giovana litus, hypertension, chronic leg edema history of anal cancer status post radiation and chemotherapy. History of hysterectomy for benign reasons. sHe presents with lower abdominal pain and tenderness and hematuria. Patient found to have urinary retention and bilateral hydronephrosis her creatinine is on admission is 1.4 which is at baseline of 1.3-1.6. However she has drop of her hemoglobin from 9 down to 6.3 today. She is getting 1 unit of blood transfusion. Her leukocytosis elevated at 11.3 and today 16 K. Urine cultures pending and patient was started on Rocephin already. Platelet within normal limits. INR 0.9. Sugar but on the high side. EKG: Sinus tachycardia at 107, LVH. CT of the abdomen: Bilateral hydronephrosis and hydroureter and attenuation in the lower bladder could be a clot or mass. 04/29/2019 pt is status post cystoscopy by urology team where many clot were evacuated from her bladder , biopsy were taken and part of the mucosa in hope to stop the bleeding , which is improved but not stopped completely , after the procedure pt was sent to the ICU, pt is awake , with no significant abdominal pain or distress, her rockwell catheter still draining bloody urine but is becoming more pinkish with possible improvment , however repeat Hemoglobin is 6.3 , i discusse d with the pt and she agrees for blood transfusion. pt remains on antibiotic for possible infectious elements in her bladder. review of systems CONSTITUTIONAL: No fever, no malaise, no fatigue. HEENT: No recent visual problems or hearing problems. Denied any sore throat. CARDIOVASCULAR: No orthopnea, PND, no palpitations, no syncope. PULMONARY: No shortness of breath, no cough, no hemoptysis. GASTROINTESTINAL: No diarrhea, no nausea, no vomiting, no abdominal pain. Normoactive bowel sounds. NEUROLOGICAL: No headaches, no weakness, no numbness. HEMATOLOGICAL: Denies any bleeding or petechiae. MUSCULOSKELETAL/RHEUMATOLOGICAL: Denies any joint pain, swelling, or any muscle pain. ENDOCRINE: Denies any polyuria or polydipsia. medication: ceftriaxone 1 gm, asa 81 mg, morinol 2.5 mg, pepcid 20 mg, ferrous sulfate 325 mg, lasix 40 mg, dilaudid 0.5 mg, novolog insulin 5 and 7 units, l evemir insulin 15 Units, imdur 60 mg, lactulose 10 gm, ativan 0.5 mg, MOM 2400 mg, metoporolol 25 mg, aldactone 25 mg , zofran 4 mg, normal saline at 100 ml/hr Objective - Vital Signs Vital signs: Vital Signs Temp 98.4 F 04/29/19 17:31 Pulse 92 04/29/19 17:31 Resp 16 04/29/19 17:31 BP 96/61 04/29/19 17:31 Pulse Ox 95 04/29/19 17:00 Intake & Output 04/28/19 04/29/19 04/29/19 18:59 06:59 18:59 Intake Total 2730 2020 5600 Output Total 2 2710 6400 Balance 2728 -690 -800 Weight 59.3 kg Intake: IV 1000 2020 5600 Bladder irrigation fluid 770 4500 Sodium Chloride 0.9% 1, 1200 1100 000 ml @ 100 mls/hr IV . Q10H [facility] Rx#:[id number] cefTRIAXone 1 gm In 50 Sodium Chloride 0.9% 50 ml @ 100 mls/hr IVPB Q12HR [facility] Rx#:[id number] Intake, IV Titration 800 Amount Sodium Chloride 0.9% 1, 750 000 ml @ 100 mls/hr IV . Q10H [facility] Rx#:[id number] cefTRIAXone 1 gm In 50 Sodium Chloride 0.9% 50 ml @ 100 mls/hr IVPB Q12HR [facility] Rx#:[id number] Blood Product 930 0 Rc As-1 Unit 0 [id number] Rc As-1 Unit 310 [id number] Rc As-3 Unit 310 [id number] Output: Urine 2710 6400 Estimated Blood Loss 2 Other: Voiding Method Indwelling Catheter Indwelling Catheter Indwelling Catheter - Exam GENERAL: The patient is alert and oriented x3, not in any acute distress. Well developed, well nourished. HEENT: Pupils are round and equally reacting to light. EOMI. No scleral icterus. No conjunctival pallor. Normocephalic, atraumatic. No pharyngeal erythema. No thyromegaly. CARDIOVASCULAR: S1 and S2 present. No murmurs, rubs, or gallops. PULMONARY: Chest is clear to auscultation, no wheezing or crackles. -ABDOMEN: Soft, suprapubic tenderness, nondistended, normoactive bowel sounds. No palpable organomegaly. Rockwell catheter is in place MUSCULOSKELETAL: No joint swelling or deformity. EXTREMITIES: No cyanosis, clubbing, or pedal edema. NEUROLOGICAL: Gross neurological examination did not reveal any focal deficits. SKIN: No rashes. - Labs CBC & Chem 7: 04/29/19 15:20 04/29/19 06:10 Labs: Abnormal Lab Results - Last 24 Hours (Table) 04/28/19 04/28/19 04/28/19 Range/Units 11:46 18:41 21:20 WBC (3.8-10.6) k/uL RBC (3.80-5.40) m/uL Hgb (11.4-16.0) gm/dL Hct (34.0-46.0) % RDW (11.5-15.5) % Neutrophils # (1.3-7.7) k/uL Lymphocytes # (1.0-4.8) k/uL Chloride (98-107) mmol/L Carbon Dioxide (22-30) mmol/L BUN (7-17) mg/dL Creatinine (0.52-1.04) mg/dL POC Glucose (mg/dL) 200 H 212 H (75-99) mg/dL Calcium (8.4-10.2) mg/dL Alkaline Phosphatase (38-126) U/L Total Protein (6.3-8.2) g/dL Albumin (3.5-5.0) g/dL Crossmatch See Detail 04/28/19 04/29/19 04/29/19 Range/Units 23:07 06:10 06:10 WBC 15.0 H 13.1 H (3.8-10.6) k/uL RBC 2.68 L 2.42 L (3.80-5.40) m/uL Hgb 7.6 L 7.0 L (11.4-16.0) gm/dL Hct 23.5 L 21.2 L (34.0-46.0) % RDW 16.8 H 16.9 H (11.5-15.5) % Neutrophils # 12.8 H (1.3-7.7) k/uL Lymphocytes # 0.9 L (1.0-4.8) k/uL Chloride 109 H (98-107) mmol/L Carbon Dioxide 21 L (22-30) mmol/L BUN 52 H (7-17) mg/dL Creatinine 1.56 H (0.52-1.04) mg/dL POC Glucose (mg/dL) (75-99) mg/dL Calcium 8.0 L (8.4-10.2) mg/dL Alkaline Phosphatase 128 H (38-126) U/L Total Protein 5.6 L (6.3-8.2) g/dL Albumin 2.7 L (3.5-5.0) g/dL Crossmatch 04/29/19 04/29/19 Range/Units 15:20 17:12 WBC 12.2 H (3.8-10.6) k/uL RBC 2.14 L (3.80-5.40) m/uL Hgb 6.3 L* (11.4-16.0) gm/dL Hct 18.8 L* (34.0-46.0) % RDW 16.9 H (11.5-15.5) % Neutrophils # (1.3-7.7) k/uL Lymphocytes # (1.0-4.8) k/uL Chloride (98-107) mmol/L Carbon Dioxide (22-30) mmol/L BUN (7-17) mg/dL Creatinine (0.52-1.04) mg/dL POC Glucose (mg/dL) 128 H (75-99) mg/dL Calcium (8.4-10.2) mg/dL Alkaline Phosphatase (38-126) U/L Total Protein (6.3-8.2) g/dL Albumin (3.5-5.0) g/dL Crossmatch Microbiology - Last 24 Hours (Table) 04/27/19 18:21 Urine Culture - Final Urine,Catheterized Strep agalactiae - (group b) Assessment and Plan Assessment: Acute urinary retention, with urinary bladder hemorrhage s/p cystoscopy Bilateral hydroureter and hydronephrosis Acute hematuria Acute blood loss anemia secondary to above. status post blood transfusion History of cardiomyopathy, coronary artery disease and atrial fibrillation on anticoagulation. COPD, not in acute exacerbation Diabetes mellitus Hypertension Chronic leg edema History of anal cancer status post radiochemotherapy History of hysterectomy Plan: This is a pleasant 73 years old female who presents with hematuria with possible urinary bladder mass and bilateral [place] nephrosis. Urology has already eval uated the patient and then for cystoscopy. Patient has Rockwell catheter. Transfuse blood to keep hemoglobin more than 7. Continue with antibiotics and follow-up urine culture. Labs and medication were reviewed.. Continue same treatment. Continue with symptomatic treatment. Resume home medication. Monitor lytes and vitals. DVT and GI prophylaxis. Further recommendations of the clinical course of the patient DVT prophylaxis: No heparin in view of hematuria GI Prophylaxis: Pepcid CODE STATUS, DO NOT RESUSCITATE, confirmed with patient Prognosis is guarded
--- NOTE | 2019-04-29 20:54 | XR ---
EXAMINATION TYPE: XR chest 1V DATE OF EXAM: 04/29/2019 COMPARISON: Yesterday HISTORY: Central line placement TECHNIQUE: Single frontal view of the chest is obtained. FINDINGS: There is right central venous catheter with the tip in the superior vena cava. There is le ft axillary pacemaker. There is no heart failure. Heart appears enlarged. There are sternal wires. Th ere is no sign of pleural effusion. IMPRESSION: Cardiomegaly. No acute lung disease. No change.
[2019-04-29] MEDS: INSULIN DETEMIR (LEVEMIR) 100 UNIT/ML SYR SQ SCH ×2 (21:56→21:58)
[2019-04-29 21:58] LABS: Glucose,Whole Blood 108 mg/dL (75-99)
[2019-04-30 02:33] LABS: Anisocytosis Slight; HCT 23.7 % (34.0-46.0); HGB 7.5 gm/dL (11.4-16.0); Hypochromasia Slight; MCH 28.6 pg (25.0-35.0); MCHC 31.8 g/dL (31.0-37.0); Mean Platelet Volume 7.5; Platelet Count 170 k/uL (150-450); RBC 2.64 m/uL (3.80-5.40); RDW 17.4 % (11.5-15.5); WBC 10.4 k/uL (3.8-10.6)
[2019-04-30 03:50] LABS: Calcium 7.7 mg/dL (8.4-10.2); Potassium 3.8 mmol/L (3.5-5.1)
[2019-04-30 06:57] LABS: Anisocytosis Slight; HCT 23.7 % (34.0-46.0); Hypochromasia Slight; MCHC 33.7 g/dL (31.0-37.0); MCV 89.1 fL (80.0-100.0); Mean Platelet Volume 8.3; Platelet Count 151 k/uL (150-450); Poikilocytosis Slight; RBC 2.66 m/uL (3.80-5.40); RDW 16.7 % (11.5-15.5); WBC 10.6 k/uL (3.8-10.6)
[2019-04-30 07:12] LABS: Glucose,Whole Blood 81 mg/dL (75-99)
[2019-04-30] MEDS: INSULIN ASPART (NovoLOG) 100 UNIT/ML VIAL SQ SCH ×7 (07:12→21:42)
[2019-04-30 07:24] LABS: Calcium 7.8 mg/dL (8.4-10.2)
[2019-04-30] MEDS: LACTULOSE 20 GM/30 ML CUP PO SCH ×2 (10:34→20:24)
[2019-04-30] MEDS: SODIUM CHLORIDE 0.9% 1,000 ML IV SCH ×3 (10:34→23:42)
[2019-04-30] MEDS: FERROUS SULFATE 325 MG TAB PO SCH ×2 (10:35→20:24)
[2019-04-30] MEDS: ASPIRIN 81 MG PO SCH (10:35)
[2019-04-30] MEDS: DRONABINOL 2.5 MG CAP PO SCH ×2 (10:35→21:30)
[2019-04-30] MEDS: METOPROLOL TARTRATE 25 MG TAB PO SCH ×2 (10:36→20:24)
[2019-04-30] MEDS: hydrALAZINE HCL 25 MG TAB PO SCH ×4 (10:36→23:49)
[2019-04-30] MEDS: FAMOTIDINE 20 MG TAB PO SCH (10:36)
[2019-04-30] MEDS: FUROSEMIDE 40 MG TAB PO SCH ×2 (11:07→16:11)
[2019-04-30 11:56] LABS: Glucose,Whole Blood 87 mg/dL (75-99)
[2019-04-30] MEDS: ISOSORBIDE MONONITRATE ER 60 MG TAB.ER.24H PO SCH (12:02)
[2019-04-30] MEDS: SPIRONOLACTONE 25 MG TAB PO SCH (12:02)
--- NOTE | 2019-04-30 12:38 | P.PN ---
Subjective Progress Note Date: 04/30/19 The patient continues to progress after her cystoscopy, evacuation of clot and fulguration of bleeding and bladder biopsies. The urine is clear to minimally pink with minimal irrigation. Irrigation will be discontinued. We'll put bladder catheter to drainage. Pending the biopsy report as to further re commendations. From urologic standpoint she can be transferred to the floor. Objective - Vital Signs Vital signs: Vital Signs Temp 98.1 F 04/30/19 12:00 Pulse 86 04/30/19 12:00 Resp 17 04/30/19 12:00 BP 98/81 04/30/19 12:00 Pulse Ox 95 04/30/19 12:00 Intake & Output 04/29/19 04/30/19 04/30/19 18:59 06:59 18:59 Intake Total 5700 4660 3600 Output Total 6400 4950 2100 Balance -700 -290 1500 Weight 61.1 kg Intake: IV 5700 4350 3600 Bladder irrigation fluid 4500 3000 3000 Sodium Chloride 0.9% 1, 1200 1300 500 000 ml @ 100 mls/hr IV . Q10H [facility] Rx#:[id number] cefTRIAXone 1 gm In 50 100 Sodium Chloride 0.9% 50 ml @ 100 mls/hr IVPB Q12HR [facility] Rx#:[id number] Blood Product 0 310 Rc As-1 Unit 0 310 [id number] Output: Urine 6400 4950 2100 Other: Voiding Method Indwelling Catheter Indwelling Catheter Indwelling Catheter - Labs CBC & Chem 7: 04/30/19 06:45 04/30/19 06:45 Labs: Abnormal Lab Results - Last 24 Hours (Table) 04/28/19 04/29/19 04/29/19 Range/Units 11:46 15:20 17:12 WBC 12.2 H (3.8-10.6) k/uL RBC 2.14 L (3.80-5.40) m/uL Hgb 6.3 L* (11.4-16.0) gm/dL Hct 18.8 L* (34.0-46.0) % RDW 16.9 H (11.5-15.5) % Sodium (137-145) mmol/L Chloride (98-107) mmol/L Carbon Dioxide (22-30) mmol/L BUN (7-17) mg/dL Creatinine (0.52-1.04) mg/dL Glucose (74-99) mg/dL POC Glucose (mg/dL) 128 H (75-99) mg/dL Calcium (8.4-10.2) mg/dL Crossmatch See Detail 04/29/19 04/30/19 04/30/19 Range/Units 21:53 01:42 01:47 WBC (3.8-10.6) k/uL RBC 2.64 L (3.80-5.40) m/uL Hgb 7.5 L (11.4-16.0) gm/dL Hct 23.7 L (34.0-46.0) % RDW 17.4 H (11.5-15.5) % Sodium 134 L (137-145) mmol/L Chloride (98-107) mmol/L Carbon Dioxide 17 L (22-30) mmol/L BUN 42 H (7-17) mg/dL Creatinine 1.29 H (0.52-1.04) mg/dL Glucose 100 H (74-99) mg/dL POC Glucose (mg/dL) 108 H (75-99) mg/dL Calcium 7.7 L (8.4-10.2) mg/dL Crossmatch 04/30/19 04/30/19 Range/Units 06:45 06:45 WBC (3.8-10.6) k/uL RBC 2.66 L (3.80-5.40) m/uL Hgb 8.0 L (11.4-16.0) gm/dL Hct 23.7 L (34.0-46.0) % RDW 16.7 H (11.5-15.5) % Sodium (137-145) mmol/L Chloride 108 H (98-107) mmol/L Carbon Dioxide 20 L (22-30) mmol/L BUN 40 H (7-17) mg/dL Creatinine 1.32 H (0.52-1.04) mg/dL Glucose 72 L (74-99) mg/dL POC Glucose (mg/dL) (75-99) mg/dL Calcium 7.8 L (8.4-10.2) mg/dL Crossmatch Microbiology - Last 24 Hours (Table) 04/27/19 18:21 Urine Culture - Final Urine,Catheterized Strep agalactiae - (group b)
--- NOTE | 2019-04-30 13:18 | P.PN ---
Subjective Progress Note Date: 04/30/19 On today's evaluation of 04/30/2019, the patient is post cystoscopy and evacuation of a clot and fulguration of bleeding and biopsies were obtained. The urine is clear and minimally pink on today's evaluation the patient is still receiving irrigation. The patient was seen by urology this morning. Irrigation was discontinued. The bladder catheter was placed to dependent drainage. Otherwise, the patient is doing well. No specific complaints for now. The hemoglobin stable at 8.0. Renal function stable with a creatinine of 1.3. The urine culture showing strep agalactiae, group B and the patient is currently on IV Rocephin. Objective - Vital Signs Vital signs: Vital Signs Temp 98.1 F 04/30/19 12:00 Pulse 86 04/30/19 12:00 Resp 17 04/30/19 12:00 BP 98/81 04/30/19 12:00 Pulse Ox 95 04/30/19 12:00 Intake & Output 04/29/19 04/30/19 04/30/19 18:59 06:59 18:59 Intake Total 5700 4660 3600 Output Total 6400 4950 2100 Balance -700 -290 1500 Weight 61.1 kg Intake: IV 5700 4350 3600 Bladder irrigation fluid 4500 3000 3000 Sodium Chloride 0.9% 1, 1200 1300 500 000 ml @ 100 mls/hr IV . Q10H [facility] Rx#:[id number] cefTRIAXone 1 gm In 50 100 Sodium Chloride 0.9% 50 ml @ 100 mls/hr IVPB Q12HR [facility] Rx#:[id number] Blood Product 0 310 Rc As-1 Unit 0 310 [id number] Output: Urine 6400 4950 2100 Other: Voiding Method Indwelling Catheter Indwelling Catheter Indwelling Catheter - Exam Gen. appearance, comfortable likely distress Head exam was generally normal. There was no scleral icterus or corneal arcus. Mucous membranes were moist. Neck was supple and without jugular venous distension, thyromegaly, or carotid bruits. Carotids were easily palpable bilaterally. There was no adenopathy. Lungs sounds are diminished bilaterally along with some crackles at lung bases. The patient's sternum stable clean and intact. The patient has an ASV over the left anterior chest area. Cardiac exam revealed the PMI to be normally situated and sized. The rhythm was regular and no extrasystoles were noted during several minutes of auscultation. The first and second heart sounds were normal and physiologic splitting of the second heart sound was noted. There were no murmurs, rubs, clicks, or gallops. Abdominal exam revealed normal bowel sounds. The abdomen was soft, non-tender, and without masses, organomegaly, or appreciable enlargement of the abdominal a ryan. Examination of the extremities revealed easily palpable radial, femoral and pedal pulses. There was no cyanosis, clubbing or edema. Examination of the skin revealed no evidence of significant rashes, suspicious appearing nevi or other concerning lesions. Neurologically awake and alert and there is no focal neurological deficit. - Labs CBC & Chem 7: 04/30/19 06:45 04/30/19 06:45 Labs: Abnormal Lab Results - Last 24 Hours (Table) 04/28/19 04/29/19 04/29/19 Range/Units 11:46 15:20 17:12 WBC 12.2 H (3.8-10.6) k/uL RBC 2.14 L (3.80-5.40) m/uL Hgb 6.3 L* (11.4-16.0) gm/dL Hct 18.8 L* (34.0-46.0) % RDW 16.9 H (11.5-15.5) % Sodium (137-145) mmol/L Chloride (98-107) mmol/L Carbon Dioxide (22-30) mmol/L BUN (7-17) mg/dL Creatinine (0.52-1.04) mg/dL Glucose (74-99) mg/dL POC Glucose (mg/dL) 128 H (75-99) mg/dL Calcium (8.4-10.2) mg/dL Crossmatch See Detail 04/29/19 04/30/19 04/30/19 Range/Units 21:53 01:42 01:47 WBC (3.8-10.6) k/uL RBC 2.64 L (3.80-5.40) m/uL Hgb 7.5 L (11.4-16.0) gm/dL Hct 23.7 L (34.0-46.0) % RDW 17.4 H (11.5-15.5) % Sodium 134 L (137-145) mmol/L Chloride (98-107) mmol/L Carbon Dioxide 17 L (22-30) mmol/L BUN 42 H (7-17) mg/dL Creatinine 1.29 H (0.52-1.04) mg/dL Glucose 100 H (74-99) mg/dL POC Glucose (mg/dL) 108 H (75-99) mg/dL Calcium 7.7 L (8.4-10.2) mg/dL Crossmatch 04/30/19 04/30/19 Range/Units 06:45 06:45 WBC (3.8-10.6) k/uL RBC 2.66 L (3.80-5.40) m/uL Hgb 8.0 L (11.4-16.0) gm/dL Hct 23.7 L (34.0-46.0) % RDW 16.7 H (11.5-15.5) % Sodium (137-145) mmol/L Chloride 108 H (98-107) mmol/L Carbon Dioxide 20 L (22-30) mmol/L BUN 40 H (7-17) mg/dL Creatinine 1.32 H (0.52-1.04) mg/dL Glucose 72 L (74-99) mg/dL POC Glucose (mg/dL) (75-99) mg/dL Calcium 7.8 L (8.4-10.2) mg/dL Crossmatch Microbiology - Last 24 Hours (Table) 04/27/19 18:21 Urine Culture - Final Urine,Catheterized Strep agalactiae - (group b) Assessment and Plan Plan: 1 hematuria under investigation. Consider underlying urinary tract infection. The patient had large clot burden that was evacuated and the patient a three-way Wood catheter in place with constant medication. Urine is clearing and the patient is covered with empiric antibiotic. Biopsies of the bladder were done. 2 obstructive uropathy with bilateral hydroureter and hydronephrosis, likely secondary to above 3 acute hematuria, improving 4 acute blood loss anemia secondary to above 5 COPD 6 coronary artery disease with previous bypass surgery 7 mitral valve repair 8 diabetes mellitus 9 hypertension 10 lower extremity edema 11 previous history of hysterectomy 12 hyperlipidemia Plan Monitor hemoglobin. Stop bladder irrigation. Hematuria has subsided. Hemodynamically stable. Treated with IV Rocephin. We'll continue to follow. Renal function is improving and the creatinine is down to 1.3.
--- NOTE | 2019-04-30 13:30 | P.PN ---
Subjective This is a pleasant 73 years old female with past medical history of cardiomyopathy, coronary artery disease, atrial fibrillation, COPD, diabetes giovana litus, hypertension, chronic leg edema history of anal cancer status post radiation and chemotherapy. History of hysterectomy for benign reasons. sHe presents with lower abdominal pain and tenderness and hematuria. Patient found to have urinary retention and bilateral hydronephrosis her creatinine is on admission is 1.4 which is at baseline of 1.3-1.6. However she has drop of her hemoglobin from 9 down to 6.3 today. She is getting 1 unit of blood transfusion. Her leukocytosis elevated at 11.3 and today 16 K. Urine cultures pending and patient was started on Rocephin already. Platelet within normal limits. INR 0.9. Sugar but on the high side. EKG: Sinus tachycardia at 107, LVH. CT of the abdomen: Bilateral hydronephrosis and hydroureter and attenuation in the lower bladder could be a clot or mass. 04/29/2019 pt is status post cystoscopy by urology team where many clot were evacuated from her bladder , biopsy were taken and part of the mucosa in hope to stop the bleeding , which is improved but not stopped completely , after the procedure pt was sent to the ICU, pt is awake , with no significant abdominal pain or distress, her rockwell catheter still draining bloody urine but is becoming more pinkish with possible improvment , however repeat Hemoglobin is 6.3 , i discusse d with the pt and she agrees for blood transfusion. pt remains on antibiotic for possible infectious elements in her bladder. 04/30/2019 Patient remains in the ICU, she is fully awake and oriented and she is not in distress or complaining of from any pain. No suprapubic pain and tenderness. She still have the Rockwell catheter and her urine is more clear today almost yellowish in color. was at bedside and she clarified to me the patient has history of anal cancer about 5 years ago at that time she got 38 doses of radiotherapy, she got 3 rounds of chemotherapy at that time and then they told her she's been cleared. Patient vitals stable, blood pressure on the low side but stable. She is not tachycardic or febrile. Patient got 1 unit of blood transfusion and her hemoglobin went up to 7.5 and 8.0 today. Platelets 151, other class are normal, creatinine is stable at 1.3 which is at her baseline. Urine culture is growing Streptococcus agalactiae. Patient remains on ceftriaxone and normal saline at 100 mL per hour. Neurologist following the case and biopsy are still pending. review of systems CONSTITUTIONAL: No fever, no malaise, no fatigue. HEENT: No recent visual problems or hearing problems. Denied any sore throat. CARDIOVASCULAR: No orthopnea, PND, no palpitations, no syncope. PULMONARY: No shortness of breath, no cough, no hemoptysis. GASTROINTESTINAL: No diarrhea, no nausea, no vomiting, no abdominal pain. Normoactive bowel sounds. NEUROLOGICAL: No headaches, no weakness, no numbness. HEMATOLOGICAL: Denies any bleeding or petechiae. MUSCULOSKELETAL/RHEUMATOLOGICAL: Denies any joint pain, swelling, or any muscle pain. ENDOCRINE: Denies any polyuria or polydipsia. medication: ceftriaxone 1 gm, asa 81 mg, morinol 2.5 mg, pepcid 20 mg, ferrous sulfate 325 mg, lasix 40 mg, dilaudid 0.5 mg, novolog insulin 5 and 7 units, levemir insulin 15 Units, imdur 60 mg, lactulose 10 gm, ativan 0.5 mg, MOM 2400 mg, metoporolol 25 mg, aldactone 25 mg , zofran 4 mg, normal saline at 100 ml/hr Objective - Vital Signs Vital signs: Vital Signs Temp 98.1 F 04/30/19 12:00 Pulse 81 04/30/19 13:00 Resp 22 04/30/19 13:00 BP 94/56 04/30/19 13:00 Pulse Ox 97 04/30/19 13:00 Intake & Output 04/29/19 04/30/19 04/30/19 18:59 06:59 18:59 Intake Total 5700 4660 3700 Output Total 6400 4950 2350 Balance -700 -290 1350 Weight 61.1 kg Intake: IV 5700 4350 3700 Bladder irrigation fluid 4500 3000 3000 Sodium Chloride 0.9% 1, 1200 1300 600 000 ml @ 100 mls/hr IV . Q10H [facility] Rx#:[id number] cefTRIAXone 1 gm In 50 100 Sodium Chloride 0.9% 50 ml @ 100 mls/hr IVPB Q12HR [facility] Rx#:[id number] Blood Product 0 310 Rc As-1 Unit 0 310 [id number] Output: Urine 6400 0147 2350 Other: Voiding Method Indwelling Catheter Indwelling Catheter Indwelling Catheter - Exam GENERAL: The patient is alert and oriented x3, not in any acute distress. Well developed, well nourished. HEENT: Pupils are round and equally reacting to light. EOMI. No scleral icterus. No conjunctival pallor. Normocephalic, atraumatic. No pharyngeal erythema. No thyromegaly. CARDIOVASCULAR: S1 and S2 present. No murmurs, rubs, or gallops. PULMONARY: Chest is clear to auscultation, no wheezing or crackles. -ABDOMEN: Soft, suprapubic tenderness, nondistended, normoactive bowel sounds. No palpable organomegaly. Rockwell catheter is in place MUSCULOSKELETAL: No joint swelling or deformity. EXTREMITIES: No cyanosis, clubbing, or pedal edema. NEUROLOGICAL: Gross neurological examination did not reveal any focal deficits. SKIN: No rashes. - Labs CBC & Chem 7: 04/30/19 06:45 04/30/19 06:45 Labs: Abnormal Lab Results - Last 24 Hours (Table) 04/28/19 04/29/19 04/29/19 Range/Units 11:46 15:20 17:12 WBC 12.2 H (3.8-10.6) k/uL RBC 2.14 L (3.80-5.40) m/uL Hgb 6.3 L* (11.4-16.0) gm/dL Hct 18.8 L* (34.0-46.0) % RDW 16.9 H (11.5-15.5) % Sodium (137-145) mmol/L Chloride (98-107) mmol/L Carbon Dioxide (22-30) mmol/L BUN (7-17) mg/dL Creatinine (0.52-1.04) mg/dL Glucose (74-99) mg/dL POC Glucose (mg/dL) 128 H (75-99) mg/dL Calcium (8.4-10.2) mg/dL Crossmatch See Detail 04/29/19 04/30/19 04/30/19 Range/Units 21:53 01:42 01:47 WBC (3.8-10.6) k/uL RBC 2.64 L (3.80-5.40) m/uL Hgb 7.5 L (11.4-16.0) gm/dL Hct 23.7 L (34.0-46.0) % RDW 17.4 H (11.5-15.5) % Sodium 134 L (137-145) mmol/L Chloride (98-107) mmol/L Carbon Dioxide 17 L (22-30) mmol/L BUN 42 H (7-17) mg/dL Creatinine 1.29 H (0.52-1.04) mg/dL Glucose 100 H (74-99) mg/dL POC Glucose (mg/dL) 108 H (75-99) mg/dL Calcium 7.7 L (8.4-10.2) mg/dL Crossmatch 04/30/19 04/30/19 Range/Units 06:45 06:45 WBC (3.8-10.6) k/uL RBC 2.66 L (3.80-5.40) m/uL Hgb 8.0 L (11.4-16.0) gm/dL Hct 23.7 L (34.0-46.0) % RDW 16.7 H (11.5-15.5) % Sodium (137-145) mmol/L Chloride 108 H (98-107) mmol/L Carbon Dioxide 20 L (22-30) mmol/L BUN 40 H (7-17) mg/dL Creatinine 1.32 H (0.52-1.04) mg/dL Glucose 72 L (74-99) mg/dL POC Glucose (mg/dL) (75-99) mg/dL Calcium 7.8 L (8.4-10.2) mg/dL Crossmatch Microbiology - Last 24 Hours (Table) 04/27/19 18:21 Urine Culture - Final Urine,Catheterized Strep agalactiae - (group b) Assessment and Plan Assessment: Acute urinary retention, with urinary bladder hemorrhage s/p cystoscopy Bilateral hydroureter and hydronephrosis Acute hematuria Acute blood loss anemia secondary to above. status post blood transfusion History of cardiomyopathy, coronary artery disease and atrial fibrillation on anticoagulation. COPD, not in acute exacerbation Diabetes mellitus Hypertension Chronic leg edema History of anal cancer status post radiochemotherapy History of hysterectomy Plan: This is a pleasant 73 years old female who presents with hematuria with possible urinary bladder mass and bilateral [place] nephrosis. Urology has already evaluated the patient and then for cystoscopy. Patient has Rockwell catheter. Transfuse blood to keep hemoglobin more than 7. Continue with antibiotics and follow-up urine culture. Labs and medication were reviewed.. Continue same treatment. Continue with symptomatic treatment. Resume home medication. Monitor lytes and vitals. DVT and GI prophylaxis. Further recommendations of the clinical course of the patient DVT prophylaxis: No heparin in view of hematuria GI Prophylaxis: Pepcid CODE STATUS, DO NOT RESUSCITATE, confirmed with patient Prognosis is guarded
[2019-04-30 17:07] LABS: Glucose,Whole Blood 106 mg/dL (75-99)
[2019-04-30] MEDS: INSULIN DETEMIR (LEVEMIR) 100 UNIT/ML SYR SQ SCH (21:43)
[2019-04-30 21:54] LABS: Glucose,Whole Blood 128 mg/dL (75-99)
--- NOTE | 2019-05-01 07:43 | P.PN ---
Subjective Progress Note Date: 05/01/19 The patient is now on the floor after an ICU run post surgery. Her vital signs are stable. The urine is tea colored with some old clot. Vital signs are stable. I will await the pathology report. Objective - Vital Signs Vital signs: Vital Signs Temp 98 F 05/01/19 02:15 Pulse 86 05/01/19 02:15 Resp 20 05/01/19 02:15 BP 122/69 05/01/19 02:15 Pulse Ox 97 05/01/19 02:15 Intake & Output 04/30/19 05/01/19 05/01/19 18:59 06:59 18:59 Intake Total 4100 1100 Output Total 2900 1000 Balance 1200 100 Intake: IV 4100 Bladder irrigation fluid 3000 Sodium Chloride 0.9% 1, 800 000 ml @ 100 mls/hr IV . Q10H [facility] Rx#:[id number] cefTRIAXone 1 gm In 300 Sodium Chloride 0.9% 50 ml @ 100 mls/hr IVPB Q12HR [facility] Rx#:[id number] Oral 1100 Output: Urine 2900 1000 Coude 1000 Other: Voiding Method Indwelling Catheter Indwelling Catheter - Labs CBC & Chem 7: 04/30/19 06:45 04/30/19 06:45 Labs: Abnormal Lab Results - Last 24 Hours (Table) 04/30/19 04/30/19 Range/Units 17:04 21:41 POC Glucose (mg/dL) 106 H 128 H (75-99) mg/dL
[2019-05-01 07:56] LABS: Glucose,Whole Blood 56 mg/dL (75-99)
[2019-05-01] MEDS: INSULIN ASPART (NovoLOG) 100 UNIT/ML VIAL SQ SCH ×7 (08:02→20:53)
[2019-05-01] MEDS: hydrALAZINE HCL 25 MG TAB PO SCH ×2 (08:04→11:38)
[2019-05-01] MEDS: ISOSORBIDE MONONITRATE ER 60 MG TAB.ER.24H PO SCH (08:04)
[2019-05-01] MEDS: ASPIRIN 81 MG PO SCH (08:11)
[2019-05-01] MEDS: FERROUS SULFATE 325 MG TAB PO SCH ×2 (08:11→20:53)
[2019-05-01] MEDS: SPIRONOLACTONE 25 MG TAB PO SCH (08:11)
[2019-05-01] MEDS: DRONABINOL 2.5 MG CAP PO SCH ×2 (08:11→21:17)
[2019-05-01] MEDS: METOPROLOL TARTRATE 25 MG TAB PO SCH ×2 (08:11→20:53)
[2019-05-01] MEDS: FAMOTIDINE 20 MG TAB PO SCH (08:11)
[2019-05-01] MEDS: FUROSEMIDE 40 MG TAB PO SCH ×2 (08:11→15:08)
[2019-05-01] MEDS: LACTULOSE 20 GM/30 ML CUP PO SCH ×2 (08:12→20:53)
[2019-05-01] MEDS: SODIUM CHLORIDE 0.9% 1,000 ML IV SCH (08:13)
[2019-05-01 08:16] LABS: Glucose,Whole Blood 79 mg/dL (75-99)
[2019-05-01 11:37] LABS: Glucose,Whole Blood 85 mg/dL (75-99)
[2019-05-01] MEDS ORDERED: FUROSEMIDE 10 MG/ML 4 ML VIAL IV STA (11:54)
[2019-05-01 12:59] LABS: Anisocytosis Slight; HCT 27.4 % (34.0-46.0); HGB 8.7 gm/dL (11.4-16.0); Hypochromasia Slight; MCH 29.1 pg (25.0-35.0); MCHC 31.8 g/dL (31.0-37.0); MCV 91.4 fL (80.0-100.0); Mean Platelet Volume 7.2; Platelet Count 245 k/uL (150-450); RDW 18.2 % (11.5-15.5); WBC 12.5 k/uL (3.8-10.6)
--- NOTE | 2019-05-01 13:13 | XR ---
EXAMINATION TYPE: XR chest 2V DATE OF EXAM: 05/01/2019 COMPARISON: 04/29/2019 TECHNIQUE: PA and lateral views submitted. HISTORY: Shortness of breath FINDINGS: Cardiac device is seen and there are small bilateral effusions and basilar consolidation. Interstitiu m appears to be slightly increased. Heart size is enlarged and there is postoperative change. Atheros clerotic change aorta. No pneumothorax. Diffuse osteopenia and arthropathy left shoulder. Underlying COPD suggested. Degenerative changes of the spine noted. IMPRESSION: 1. Cardiomegaly with small bilateral effusion and basilar consolidation correlate for CHF. Otherwise consider pneumonia.
[2019-05-01] MEDS: CEPHALEXIN 250 MG CAP PO SCH ×3 (13:18→20:54)
--- NOTE | 2019-05-01 13:45 | P.PN ---
Subjective Progress Note Date: 05/01/19 Principal diagnosis: Hematuria, obstructive uropathy with bilateral hydroureter and hydronephrosis On today's evaluation of 04/30/2019, the patient is post cystoscopy and evacuati on of a clot and fulguration of bleeding and biopsies were obtained. The urine is clear and minimally pink on today's evaluation the patient is still receiving irrigation. The patient was seen by urology this morning. Irrigation was discontinued. The bladder catheter was placed to dependent drainage. Otherwise, the patient is doing well. No specific complaints for now. The hemoglobin stable at 8.0. Renal function stable with a creatinine of 1.3. The urine culture showing strep agalactiae, group B and the patient is currently on IV Rocephin. On 05/01/2019 patient seen in follow-up on medical surgical floor. She is sitting up in the chair in no acute distress, currently on room air, with pulse ox of 99%, afebrile, hemodynamically patient is stable, denies any shortness of breath, denies any chest pain, no fever or chills. Lung sounds reveal diminished breath sounds at the bases, with a few crackles at the bases. Patient has a Wood catheter in place, and still having some dietetic intern colored hematuria. Patient states she is feeling better today, more awake, not colitis lethargic. These labs have been reviewed, showing white blood cell, 12.5, hemoglobin of 8.7, platelet count is 245. Patient is status post transfusion with 3 units of packed red blood cells, 2 units on 04/28/2019 with 1 unit of packed red blood cells on 04/29/2019. Cultures showed strep agalactiae group B. Current antibiotic is Keflex. Clinically stable, tolerating her oral diet. His chest x-ray has been reviewed showing cardiomegaly with small bilateral effusions and basilar consolidation, patient is on oral diuretics, and was given additional dose of IV Lasix. Objective - Vital Signs Vital signs: Vital Signs Temp 97.9 F 05/01/19 07:00 Pulse 80 05/01/19 11:39 Resp 16 05/01/19 11:39 BP 124/74 05/01/19 11:39 Pulse Ox 99 05/01/19 11:39 Intake & Output 04/30/19 05/01/19 05/01/19 18:59 06:59 18:59 Intake Total 4100 1100 Output Total 2900 1000 Balance 1200 100 Intake: IV 4100 Bladder irrigation fluid 3000 Sodium Chloride 0.9% 1, 800 000 ml @ 100 mls/hr IV . Q10H [facility] Rx#:[id number] cefTRIAXone 1 gm In 300 Sodium Chloride 0.9% 50 ml @ 100 mls/hr IVPB Q12HR [facility] Rx#:[id number] Oral 1100 Output: Urine 2900 1000 Coude 1000 Other: Voiding Method Indwelling Catheter Indwelling Catheter Indwelling Catheter # Bowel Movements 0 - Exam GENERAL EXAM: Alert, pleasant, 73-year-old white female, sitting up in the recliner, on room air, the pulse ox of 99% comfortable in no apparent distress. HEAD: Normocephalic/atraumatic. EYES: Normal reaction of pupils, equal size. Conjunctiva pink, sclera white. NOSE: Clear with pink turbinates. THROAT: No erythema or exudates. NECK: No masses, no JVD, no thyroid enlargement, no adenopathy. CHEST: No chest wall deformity. Symmetrical expansion. LUNGS: Equal air entry with diffuse crackles at posterior bases, but no wheeze, rhonchi or dullness. CVS: Regular rate and rhythm, normal S1 and S2, no gallops, no murmurs, no rubs ABDOMEN: Soft, nontender. No hepatosplenomegaly, normal bowel sounds, no guarding or rigidity. EXTREMITIES: No clubbing, 1+ edema, no cyanosis, 2+ pulses and upper and lower extremities. MUSCULOSKELETAL: Muscle strength and tone normal. SPINE: No scoliosis or deformity SKIN: No rashes CENTRAL NERVOUS SYSTEM: Alert and oriented -3. No focal deficits, tone is normal in all 4 extremities. PSYCHIATRIC: Alert and oriented -3. Appropriate affect. Intact judgment and i nsight. - Labs CBC & Chem 7: 05/01/19 12:33 04/30/19 06:45 Labs: Abnormal Lab Results - Last 24 Hours (Table) 04/30/19 04/30/19 05/01/19 Range/Units 17:04 21:41 07:54 WBC (3.8-10.6) k/uL RBC (3.80-5.40) m/uL Hgb (11.4-16.0) gm/dL Hct (34.0-46.0) % RDW (11.5-15.5) % POC Glucose (mg/dL) 106 H 128 H 56 L (75-99) mg/dL 05/01/19 Range/Units 12:33 WBC 12.5 H (3.8-10.6) k/uL RBC 3.00 L (3.80-5.40) m/uL Hgb 8.7 L (11.4-16.0) gm/dL Hct 27.4 L (34.0-46.0) % RDW 18.2 H (11.5-15.5) % POC Glucose (mg/dL) (75-99) mg/dL Assessment and Plan Plan: 1 hematuria under investigation. Consider underlying urinary tract infection. The patient had large clot burden that was evacuated and the patient a three-way Wood catheter in place with constant medication. Urine is clearing, urine culture was positive for strep agalactiae and patient is covered with antibiotics. Biopsies of the bladder were done. 2 obstructive uropathy with bilateral hydroureter and hydronephrosis, likely secondary to above 3 acute hematuria, improving 4 acute blood loss anemia secondary to above 5 COPD 6 coronary artery disease with previous bypass surgery 7 mitral valve repair 8 diabetes mellitus 9 hypertension 10 lower extremity edema 11 previous history of hysterectomy 12 hyperlipidemia Plan: Continue with current medical treatment, oral Lasix, patient did receive an additional dose of IV Lasix today, incentive spirometry, encourage deep breathing and coughing, hemodynamically stable, no fever or chills, surgical biopsy of the bladder are still pending at this time, urine cultures showed strep agalactiae, patient is covered with antibiotics. Urine is clearing. She denies any shortness of breath, today's chest x-ray has been reviewed, showing cardiomegaly with small bilateral pleural effusions and basilar consolidation, increased interstitium related to fluid overload/CHF. Additional dose of IV Lasix today was already ordered. I performed a history & physical examination of the patient and discussed their management with my nurse practitioner, Cha Pardo. I reviewed the nurse practitioner's note and agree with the documented findings and plan of care. Lung sounds are positive for coarse crackles. The findings and the impression was discussed with the patient. I attest to the documentation by the nurse practitioner. Time with Patient: Less than 30
[2019-05-01 17:01] LABS: Glucose,Whole Blood 119 mg/dL (75-99)
[2019-05-01 20:21] LABS: Glucose,Whole Blood 159 mg/dL (75-99)
[2019-05-01] MEDS: INSULIN DETEMIR (LEVEMIR) 100 UNIT/ML SYR SQ SCH (20:53)
--- NOTE | 2019-05-02 00:25 | P.PN ---
Progress Note - Text Progress Note Date: 05/01/19 Presenting complaint: Hematuria Interval history: Admitted with gross hematuria. Did have bladder irrigation. Status post cystoscopy. Large blood clot was found. All of bladder mucosa wall was hemorrhagic. Some biopsies were sent off. Patient also was being treated for UTI. Patient did receive a total of 3 units of blood Today-sitting up in a chair. Tired. Wood catheter in place. Still the urinalysis blood tinged Review of systems: Was done for constitutional, cardiovascular, GI, pulmonary. Genitourinary relevant finding as above. Current medications reviewed that included: IV ceftriaxone On examination: VITAL SIGNS: 97.9, 94, 15, 136/62, 99% room air GENERAL APPEARANCE: Sitting up in a chair, tired appearing. HEENT: Normal external appearance of nose and ear. Oral cavity normal EYES: Pupils equal. Conjunctiva pale. NECK: JVD not raised. Mass not palpable. RESPIRATORY: Respiratory effort increased. Lungs some basilar crackles. CARDIOVASCULAR: First and second sounds normal. No edema. ABDOMEN: Soft. Liver and spleen not palpable. No tenderness. No mass palpable. Wood catheter in place with blood-tinged urine PSYCHIATRY: Alert and oriented x3. Mood and affect normal. Investigations: White count 12.5, hemoglobin 8.7, platelets 245 Chest x-ray showing fluid prominence Assessment: -Severe hematuria, cause unclear at this point, status post cystoscopy and biopsy -Acute severe blood loss anemia status post 3 units of blood -Coronary artery disease a prior history of bypass -COPD -Diabetes mellitus type 2 -Essential hypertension -Hyperlipidemia -Acute on Chronic congestive heart failure from ischemic cardiomyopathy EF less than 20%, to get IV Lasix today -Ascending aortic aneurysm 4.2 cm -AICD -Chronic kidney disease stage III from nephrosclerosis and diabetic nephropathy -Obstructive uropathy with bilateral hydroureter and hydronephrosis likely secondary to blood clots Plan: Discussed with Dr. Hutson. Await biopsy results. Patient did get IV Lasix. Keep a close eye on hemoglobin. Search about antibiotics to Keflex. Accu-Cheks are being followed. Add BNP to labs for the morning
[2019-05-02 07:04] LABS: Glucose,Whole Blood 76 mg/dL (75-99)
[2019-05-02] MEDS: INSULIN ASPART (NovoLOG) 100 UNIT/ML VIAL SQ SCH ×7 (08:06→20:25)
[2019-05-02] MEDS: LACTULOSE 20 GM/30 ML CUP PO SCH ×2 (08:19→20:50)
[2019-05-02] MEDS: ASPIRIN 81 MG PO SCH (08:20)
[2019-05-02] MEDS: ISOSORBIDE MONONITRATE ER 60 MG TAB.ER.24H PO SCH (08:20)
[2019-05-02] MEDS: CEPHALEXIN 250 MG CAP PO SCH ×4 (08:20→20:51)
[2019-05-02] MEDS: SPIRONOLACTONE 25 MG TAB PO SCH (08:20)
[2019-05-02] MEDS: METOPROLOL TARTRATE 25 MG TAB PO SCH ×2 (08:20→20:50)
[2019-05-02] MEDS: FAMOTIDINE 20 MG TAB PO SCH (08:20)
[2019-05-02] MEDS: FUROSEMIDE 40 MG TAB PO SCH ×2 (08:20→17:21)
[2019-05-02] MEDS: FERROUS SULFATE 325 MG TAB PO SCH ×2 (08:20→20:51)
[2019-05-02] MEDS: DRONABINOL 2.5 MG CAP PO SCH ×2 (09:45→20:50)
[2019-05-02 11:35] LABS: Glucose,Whole Blood 109 mg/dL (75-99)
[2019-05-02 16:57] LABS: Glucose,Whole Blood 120 mg/dL (75-99)
[2019-05-02 20:00] LABS: Glucose,Whole Blood 198 mg/dL (75-99)
[2019-05-02] MEDS: INSULIN DETEMIR (LEVEMIR) 100 UNIT/ML SYR SQ SCH (20:25)
--- NOTE | 2019-05-02 20:58 | P.PN ---
Subjective Progress Note Date: 05/02/19 The biopsy showed hemorrhagic cystitis. I therefore guess she had a bad infection leading to the bleeding albeit unusual to this degree. The catheter can come out SHe should follow up in my office in about 2 weeks Objective - Vital Signs Vital signs: Vital Signs Temp 98.1 F 05/02/19 19:34 Pulse 81 05/02/19 19:34 Resp 15 05/02/19 19:34 BP 112/53 05/02/19 19:34 Pulse Ox 98 05/02/19 19:34 Intake & Output 05/02/19 05/02/19 05/03/19 06:59 18:59 06:59 Intake Total 935 Output Total 1700 900 240 Balance -1700 35 -240 Intake: Oral 935 Output: Urine 1700 900 240 Other: Voiding Method Indwelling Catheter Indwelling Catheter # Voids 3 - Labs CBC & Chem 7: 05/01/19 12:33 04/30/19 06:45 Labs: Abnormal Lab Results - Last 24 Hours (Table) 05/02/19 05/02/19 05/02/19 Range/Units 11:33 16:55 19:56 POC Glucose (mg/dL) 109 H 120 H 198 H (75-99) mg/dL
--- NOTE | 2019-05-03 01:34 | P.PN ---
Progress Note - Text Progress Note Date: 05/02/19 Presenting complaint: Hematuria Interval history: Admitted with gross hematuria. Did have bladder irrigation. Status post cystoscopy. Large blood clot was found. All of bladder mucosa wall was hemorrhagic. Some biopsies were sent off. Patient also was being treated for UTI. Patient did receive a total of 3 units of blood Today-hematuria slowly clearing up. Follow hemoglobin. Did tolerate some diet. Biopsy suggestive of hemorrhagic cystitis. Review of systems: Was done for constitutional, cardiovascular, GI, pulmonary. Genitourinary relevant finding as above. Current medications reviewed that included: IV ceftriaxone On examination: VITAL SIGNS: 96.8, 80, 18, 98 / 55, 99% room air GENERAL APPEARANCE: Sitting up in a chair, tired appearing. HEENT: Normal external appearance of nose and ear. Oral cavity normal EYES: Pupils equal. Conjunctiva pale. NECK: JVD not raised. Mass not palpable. RESPIRATORY: Respiratory effort increased. Lungs some basilar crackles. CARDIOVASCULAR: First and second sounds normal. No edema. ABDOMEN: Soft. Liver and spleen not palpable. No tenderness. No mass palpable. Wood catheter in place with blood-tinged urine PSYCHIATRY: Alert and oriented x3. Mood and affect normal. Investigations: Accu-Cheks noted Chest x-ray showing fluid prominence Assessment: -Severe hematuria, from hemorrhagic cystitis -Acute severe blood loss anemia status post 3 units of blood -Coronary artery disease a prior history of bypass -COPD -Diabetes mellitus type 2 -Essential hypertension -Hyperlipidemia -Acute on Chronic congestive heart failure from ischemic cardiomyopathy EF less than 20%, to get IV Lasix today -Ascending aortic aneurysm 4.2 cm -AICD -Chronic kidney disease stage III from nephrosclerosis and diabetic nephropathy -Obstructive uropathy with bilateral hydroureter and hydronephrosis likely secondary to blood clots Plan: Overall feeling a bit better. We will recheck her hemoglobin the morning. If remains stable and blood pressure is decent and patient could possibly discharge.
[2019-05-03 06:47] LABS: Glucose,Whole Blood 53 mg/dL (75-99)
[2019-05-03 07:06] LABS: Glucose,Whole Blood 73 mg/dL (75-99)
[2019-05-03] MEDS: INSULIN ASPART (NovoLOG) 100 UNIT/ML VIAL SQ SCH ×4 (07:14→11:36)
[2019-05-03] MEDS: METOPROLOL TARTRATE 25 MG TAB PO SCH (08:55)
[2019-05-03] MEDS: ISOSORBIDE MONONITRATE ER 60 MG TAB.ER.24H PO SCH (08:55)
[2019-05-03] MEDS: SPIRONOLACTONE 25 MG TAB PO SCH (08:55)
[2019-05-03] MEDS: CEPHALEXIN 250 MG CAP PO SCH ×2 (08:55→13:11)
[2019-05-03] MEDS: DRONABINOL 2.5 MG CAP PO SCH (08:55)
[2019-05-03] MEDS: FERROUS SULFATE 325 MG TAB PO SCH (08:55)
[2019-05-03] MEDS: FAMOTIDINE 20 MG TAB PO SCH (08:55)
[2019-05-03] MEDS: LACTULOSE 20 GM/30 ML CUP PO SCH (08:55)
[2019-05-03] MEDS: FUROSEMIDE 40 MG TAB PO SCH (08:55)
[2019-05-03] MEDS: ASPIRIN 81 MG PO SCH (08:56)
[2019-05-03 09:05] LABS: Anisocytosis Slight; Basophils % (A) 0 %; Eosinophils # (A) 0.1 k/uL (0-0.7); Eosinophils % (A) 1 %; HCT 27.8 % (34.0-46.0); HGB 9.3 gm/dL (11.4-16.0); Lymphocytes # (A) 0.5 k/uL (1.0-4.8); Lymphocytes % (A) 4 %; MCH 30.2 pg (25.0-35.0); MCHC 33.6 g/dL (31.0-37.0); Mean Platelet Volume 7.3; Monocytes # (A) 0.7 k/uL (0-1.0); Monocytes % (A) 7 %; Neutrophils % (A) 87 %; Platelet Count 233 k/uL (150-450); Poikilocytosis Slight; RBC 3.09 m/uL (3.80-5.40); RDW 19.3 % (11.5-15.5); WBC 10.4 k/uL (3.8-10.6)
[2019-05-03 11:11] LABS: Glucose,Whole Blood 123 mg/dL (75-99)
--- NOTE | 2019-05-03 14:13 | P.DS ---
Providers Date of admission: 04/27/19 19:31 Expected date of discharge: 05/03/19 Attending physician: Mj Lara Consults: 04/27/19 20:13 Consult Physician Stat Consulting Provider: Lukas Chow Consult Reason/Comments: bladder mass Do you want consulting provider notified?: Yes, Notify in am 04/28/19 19:00 Consult Physician Routine Consulting Provider: Brennon Plaza Consult Reason/Comments: ICU post surgery Do you want consulting provider notified?: Already Contacted Primary care physician: [facility] Hospital Course: Interval history: Admitted with gross hematuria. Did have bladder irrigation. Status post cystoscopy. Large blood clot was found. All of bladder mucosa wall was hemorrhagic. Some biopsies were sent off. Patient also was being treated for UTI. Patient did receive a total of 3 units of blood Biopsy suggestive of hemorrhagic cystitis. . Otherwise patient stable. Feels a bit tired. Starting a diet. Consultants: Dr. Hutson from urology Dr. rudd and colleagues from pulmonary On examination: VITAL SIGNS: 96.4, 61, 24, 116/57, 98% room air GENERAL APPEARANCE: Sitting up in a chair, comfortable HEENT: Normal external appearance of nose and ear. Oral cavity normal EYES: Pupils equal. Conjunctiva pale. NECK: JVD not raised. Mass not palpable. RESPIRATORY: Respiratory effort increased. Lungs some basilar crackles. CARDIOVASCULAR: First and second sounds normal. No edema. ABDOMEN: Soft. Liver and spleen not palpable. No tenderness. No mass palpable. Wood catheter in place with blood-tinged urine PSYCHIATRY: Alert and oriented x3. Mood and affect normal. Investigations: Hemoglobin 9.3 Discharge diagnoses: -Severe hematuria, from hemorrhagic cystitis -Acute severe blood loss anemia status post 3 units of blood -Coronary artery disease a prior history of bypass -COPD -Diabetes mellitus type 2 -Essential hypertension -Hyperlipidemia -Acute on Chronic congestive heart failure from ischemic cardiomyopathy EF less than 20%, to get IV Lasix today -Ascending aortic aneurysm 4.2 cm -AICD -Chronic kidney disease stage III from nephrosclerosis and diabetic nephropathy -Obstructive uropathy with bilateral hydroureter and hydronephrosis likely secondary to blood clots Disposition: [facility] [place] Patient Condition at Discharge: Stable Plan - Discharge Summary Discharge Rx Participant: Yes New Discharge Prescriptions: New Cephalexin [Keflex] 250 mg PO QID #20 cap INSULIN ASPART (NovoLOG) [NovoLOG (formulary)] 0 unit SQ ACHS vial Continue Metoprolol Tartrate [Lopressor] 25 mg PO BID Isosorbide Mononitrate ER [Imdur] 60 mg PO DAILY #30 tab.er.24h Nitroglycerin Sl Tabs [Nitrostat] 0.4 mg SUBLINGUAL Q5M PRN #25 tab PRN Reason: Chest Pain Aspirin EC [Ecotrin Low Dose] 81 mg PO DAILY Famotidine [Pepcid] 20 mg PO DAILY tab Insulin Detemir (Levemir) [Levemir] 15 unit SQ HS syr Spironolactone [Aldactone] 25 mg PO DAILY tab Furosemide [Lasix] 40 mg PO BID #0 Multivitamins, Thera [Multivitamin (formulary)] 1 tab PO DAILY Magnesium Hydroxide [Milk of Magnesia Concentrate] 7,200 mg PO DAILY PRN PRN Reason: Constipation Mag Hydrox/Al Hydrox/Simeth [Maalox] 30 ml PO Q6H PRN PRN Reason: Nausea INSULIN LISPRO (humaLOG) [humaLOG] 7 units SQ AC-BRKFST INSULIN LISPRO (humaLOG) [humaLOG] 8 units SQ AC-SUPPER INSULIN LISPRO (humaLOG) [humaLOG] 5 units SQ AC-LUNCH Lactulose 10 gm PO BID Ferrous Sulfate [Iron (65 MG Elemental)] 325 mg PO BID Menthol-Zinc Oxide Oint [Calmoseptine Oint] 1 applic TOPICAL TID Bisacodyl [Dulcolax] 10 mg RECTAL DAILY PRN PRN Reason: Constipation Lidocaine 5% Cream 1 applic TOPICAL DAILY PRN #1 PRN Reason: PROCEDURE Dronabinol [Marinol] 2.5 mg PO BID #6 cap Acetaminophen-Codeine 300-30mg [Tylenol w/codeine #3] 1 tab PO Q8H PRN #7 tab PRN Reason: Pain Discontinued hydrALAZINE HCL [Apresoline] 25 mg PO QID #1 tab Na Phos,M-B/Na Phos,Di-Ba [Fleet Adult] 133 ml RECTAL ONCE PRN PRN Reason: Constipation Menthol-Zinc Oxide Oint [Calmoseptine Oint] 1 applic TOPICAL Q6H PRN PRN Reason: EXCORIATION Discharge Medication List Metoprolol Tartrate [Lopressor] 25 mg PO BID 07/21/15 [History] Isosorbide Mononitrate ER [Imdur] 60 mg PO DAILY #30 tab.er.24h 01/17/17 [Rx] Nitroglycerin Sl Tabs [Nitrostat] 0.4 mg SUBLINGUAL Q5M PRN #25 tab 12/04/17 [Rx] Aspirin EC [Ecotrin Low Dose] 81 mg PO DAILY 11/22/18 [History] Famotidine [Pepcid] 20 mg PO DAILY tab 11/25/18 [Rx] Furosemide [Lasix] 40 mg PO BID #0 11/25/18 [Rx] Insulin Detemir (Levemir) [Levemir] 15 unit SQ HS syr 11/25/18 [Rx] Spironolactone [Aldactone] 25 mg PO DAILY tab 11/25/18 [Rx] Bisacodyl [Dulcolax] 10 mg RECTAL DAILY PRN 04/27/19 [History] Ferrous Sulfate [Iron (65 MG Elemental)] 325 mg PO BID 04/27/19 [History] INSULIN LISPRO (humaLOG) [humaLOG] 5 units SQ AC-LUNCH 04/27/19 [History] INSULIN LISPRO (humaLOG) [humaLOG] 7 units SQ AC-BRKFST 04/27/19 [History] INSULIN LISPRO (humaLOG) [humaLOG] 8 units SQ AC-SUPPER 04/27/19 [History] Lactulose 10 gm PO BID 04/27/19 [History] Mag Hydrox/Al Hydrox/Simeth [Maalox] 30 ml PO Q6H PRN 04/27/19 [History] Magnesium Hydroxide [Milk of Magnesia Concentrate] 7,200 mg PO DAILY PRN 04/27/19 [History] Menthol-Zinc Oxide Oint [Calmoseptine Oint] 1 applic TOPICAL TID 04/27/19 [History] Multivitamins, Thera [Multivitamin (formulary)] 1 tab PO DAILY 04/27/19 [History] Acetaminophen-Codeine 300-30mg [Tylenol w/codeine #3] 1 tab PO Q8H PRN #7 tab 05/03/19 [Rx] Cephalexin [Keflex] 250 mg PO QID #20 cap 05/03/19 [Rx] Dronabinol [Marinol] 2.5 mg PO BID #6 cap 05/03/19 [Rx] INSULIN ASPART (NovoLOG) [NovoLOG (formulary)] 0 unit SQ ACHS vial 05/03/19 [Rx] Lidocaine 5% Cream 1 applic TOPICAL DAILY PRN #1 05/03/19 [Rx] Follow up Appointment(s)/Referral(s): Parish Vasquez MD [Primary Care Provider] - 05/04/19
[2019-05-03 15:25] VITALS: BP 119/57; PULSE 82; RESP 18; TEMP 94.7
--- NOTE | 2019-05-04 12:31 | CDI ---
Documentation Clarification Form Date: 05/04/19 From: Zhane Garcia Phone: If you have a question regarding this query, please contact Cici Mathews at [phone] between 8am and 5pm. Admit Date: 04/27/2019 7:31:00 PM Patient Name: Belen Hernandez Visit Number: [id number] Discharge Date: 05/03/2019 4:02:00 PM ATTENTION: The Clinical Documentation Specialists (CDI) and [facility] Coding Staff appreciate your assistance in clarifying documentation. Please respond to the clarification below the line at the bottom and electronically sign. The CDI & [facility] Coding staff will review the response and follow-up if needed. Please note: Queries are made part of the Legal Health Record. If you have any questions, please contact the author of this message via ITS. Dr. Mj Lara Hemorrhagic cystitis was documented in the discharge summary, op note and 05/01 thru 05/03 progress notes. History/Risk Factors: History of UTIs and history of radiation therapy for anal cancer Clinical Indicators: Hematuria, hydronephrosis, obstructive uropathy Vital Signs: T. 98.6, P. 109, R. 18, Bp 160.84 WBC: 11.3 Urinalysis: Bloody, RBC >182, WBC >182 Urine Culture: Strep agalactiae Antibiotics: IV Ceftriaxone, PO Keflex In your professional opinion, can you please clarify the acuity of the hemorrhagic cystitis. Acute Chronic Other, please specify Unable to determine Unable to determine MTDD
== END 2019-05-03 16:02 | DRG 662 ==
LOC: EC 15:28 → 3NMEDONC 19:31 → 2SICU 04-28 16:39 → 4SSUR 04-30 16:56
PROVIDERS: ADMIT Hospitalist; ATTEND Hospitalist
PROC: 30233N1 Transfusion of Nonautologous Red Blood Cells into Peripheral Vein, Percutaneous Approach (ICD-10-PCS; 2019-04-26)
PROC: 0TCB8ZZ Extirpation of Matter from Bladder, Via Natural or Artificial Opening Endoscopic (ICD-10-PCS; 2019-04-28)
PROC: 0TBB8ZX Excision of Bladder, Via Natural or Artificial Opening Endoscopic, Diagnostic (ICD-10-PCS; 2019-04-28)
PROC: 0W3R8ZZ Control Bleeding in Genitourinary Tract, Via Natural or Artificial Opening Endoscopic (ICD-10-PCS; principal; 2019-04-28 15:00)
DX: N30.91 Cystitis, unspecified with hematuria (principal); I50.23 Acute on chronic systolic (congestive) heart failure; D62 Acute posthemorrhagic anemia; I13.0 Hypertensive heart and chronic kidney disease with heart failure and stage 1 through stage 4 chronic kidney disease, or unspecified chronic kidney disease; J98.11 Atelectasis; N13.30 Unspecified hydronephrosis; N13.9 Obstructive and reflux uropathy, unspecified; I48.91 Unspecified atrial fibrillation; J44.9 Chronic obstructive pulmonary disease, unspecified; E86.0 Dehydration; E11.22 Type 2 diabetes mellitus with diabetic chronic kidney disease; I25.5 Ischemic cardiomyopathy; I71.2 Thoracic aortic aneurysm, without rupture; R15.9 Full incontinence of feces; N18.3 Chronic kidney disease, stage 3 (moderate); I71.4 Abdominal aortic aneurysm, without rupture; I87.8 Other specified disorders of veins; E78.5 Hyperlipidemia, unspecified; I25.10 Atherosclerotic heart disease of native coronary artery without angina pectoris; I25.2 Old myocardial infarction; K21.9 Gastro-esophageal reflux disease without esophagitis; K44.9 Diaphragmatic hernia without obstruction or gangrene; R33.9 Retention of urine, unspecified; Z66 Do not resuscitate; Z79.01 Long term (current) use of anticoagulants; Z79.4 Long term (current) use of insulin; Z79.82 Long term (current) use of aspirin; Z79.899 Other long term (current) drug therapy; Z98.84 Bariatric surgery status; Z85.048 Personal history of other malignant neoplasm of rectum, rectosigmoid junction, and anus; Z85.828 Personal history of other malignant neoplasm of skin; Z95.810 Presence of automatic (implantable) cardiac defibrillator; Z95.1 Presence of aortocoronary bypass graft; Z92.3 Personal history of irradiation; Z92.21 Personal history of antineoplastic chemotherapy; Z90.710 Acquired absence of both cervix and uterus; Z87.440 Personal history of urinary (tract) infections; Z87.891 Personal history of nicotine dependence; Z86.14 Personal history of Methicillin resistant Staphylococcus aureus infection; Z90.49 Acquired absence of other specified parts of digestive tract; Z80.0 Family history of malignant neoplasm of digestive organs; Z82.49 Family history of ischemic heart disease and other diseases of the circulatory system
CPT/HCPCS: 36415; 71045; 71046; 74176; 80048; 80053; 81001; 82150; 83690; 85025; 85027; 85610; 85730; 86850; 86900; 86901; 86920; 87086; 88305; 93005; 96361; 96374; 96375; 99285

== ENCOUNTER 2019-08-13 18:37 | Inpatient (IN) | payer MEDICARE ==
[2019-08-13] MEDS ORDERED: SODIUM CHLORIDE 0.9% 1,000 ML IV STA (18:50)
[2019-08-13] MEDS ORDERED: PANTOPRAZOLE 40 MG/10 ML VIAL IVP STA (18:52)
[2019-08-13 19:11] LABS: Anisocytosis Slight; Basophils # (A) 0.1 k/uL (0-0.2); Basophils % (A) 1 %; Eosinophils # (A) 0.1 k/uL (0-0.7); Eosinophils % (A) 0 %; Hypochromasia Slight; Lymphocytes # (A) 1.2 k/uL (1.0-4.8); Lymphocytes % (A) 7 %; MCHC 31.9 g/dL (31.0-37.0); Mean Platelet Volume 5.8; Monocytes # (A) 0.7 k/uL (0-1.0); Monocytes % (A) 4 %; Neutrophils # (A) 15.3 k/uL (1.3-7.7); Neutrophils % (A) 87 %; Platelet Count 416 k/uL (150-450); Poikilocytosis Slight; RBC 2.87 m/uL (3.80-5.40); RDW 16.5 % (11.5-15.5); WBC 17.6 k/uL (3.8-10.6)
[2019-08-13 19:15] LABS: HGB 8.6 gm/dL (11.4-16.0)
--- NOTE | 2019-08-13 19:18 | ED ---
GI Bleed HPI - General Chief complaint: GI Bleed Stated complaint: vaginal bleeding Time Seen by Provider: 08/13/19 18:37 Source: patient, EMS, RN notes reviewed, old records reviewed Mode of arrival: EMS Limitations: no limitations - History of Present Illness Initial comments: This is a 74-year-old female history of multiple medical problems that can be obtained from the presenting charting who [facility] with complaints of blood per Ely found her breathing today. Apparently was a somewhat large amount of dark red blood in her brief period per report however she does not look any more pale than usual per family members were with the patient at the [facility]. She complains of some mild lower abdominal pain. No fevers chills sweats no nausea vomiting no diarrhea. No other modifying factors at this time she was reported have a hypotensive episode per paramedics 83/50 blood pressure this didn't improve to 1:15/76 after 250 mL of IV saline. complaint: other - Related Data Home Medications Medication Instructions Recorded Confirmed Metoprolol Tartrate [Lopressor] 25 mg PO BID@0800,1700 07/21/15 08/13/19 Aspirin EC [Ecotrin Low Dose] 81 mg PO DAILY@1700 11/22/18 08/13/19 Bisacodyl [Dulcolax] 10 mg RECTAL DAILY PRN 04/27/19 08/13/19 Ferrous Sulfate [Iron (65 MG 325 mg PO BID@0800,1700 04/27/19 08/13/19 Elemental)] Mag Hydrox/Al Hydrox/Simeth 30 ml PO Q6H PRN 04/27/19 08/13/19 [Maalox] Magnesium Hydroxide [Milk of 7,200 mg PO DAILY PRN 04/27/19 08/13/19 Magnesia Concentrate] Menthol-Zinc Oxide Oint 1 applic TOPICAL TID@0800,1200,1700 04/27/19 08/13/19 [Calmoseptine Oint] Multivitamins, Thera [Multivitamin 1 tab PO DAILY@1700 04/27/19 08/13/19 (formulary)] Acetaminophen Tab [Tylenol Tab] 650 mg PO Q4H PRN 08/13/19 08/13/19 Furosemide [Lasix] 40 mg PO BID@0800,1700 08/13/19 08/13/19 Glucerna Shake 120 ml PO AC-BID@1200,1700 08/13/19 08/13/19 Glucerna Shake 237 ml PO AC-BRKFST@0800 08/13/19 08/13/19 INSULIN ASPART (NovoLOG) [NovoLOG 7 unit SQ AC-BID@0800,1100 08/13/19 08/13/19 (formulary)] INSULIN ASPART (NovoLOG) [NovoLOG 8 unit SQ AC-SUPPER@1730 08/13/19 08/13/19 (formulary)] Insulin Detemir (Levemir) [Levemir] 10 unit SQ HS 08/13/19 08/13/19 Lidocaine 2% Gel [Xylocaine Jelly 1 applic TOPICAL DAILY PRN 08/13/19 08/13/19 2%] Loperamide HCl [Imodium A-D] 2 - 4 mg PO QID PRN 08/13/19 08/13/19 Menthol/Zinc Oxide [Calmoseptine 1 applic TOPICAL Q6H PRN 08/13/19 08/13/19 Ointment] Na Phos,M-B/Na Phos,Di-Ba [Fleet 133 ml RECTAL ONCE PRN 08/13/19 08/13/19 Adult] Previous Rx's Medication Instructions Recorded Isosorbide Mononitrate ER [Imdur] 60 mg PO DAILY #30 tab.er.24h 01/17/17 Nitroglycerin Sl Tabs [Nitrostat] 0.4 mg SUBLINGUAL Q5M PRN #25 tab 12/04/17 Famotidine [Pepcid] 20 mg PO DAILY tab 11/25/18 Spironolactone [Aldactone] 25 mg PO DAILY tab 11/25/18 Acetaminophen-Codeine 300-30mg 1 tab PO Q8H PRN #7 tab 05/03/19 [Tylenol w/codeine #3] Allergies Allergy/AdvReac Type Severity Reaction Status Date / Time No Known Allergies Allergy Verified 08/13/19 18:42 Review of Systems ROS Statement: Those systems with pertinent positive or pertinent negative responses have been documented in the HPI. ROS Other: All systems not noted in ROS Statement are negative. Past Medical History Past Medical History: Atrial Fibrillation, Coronary Artery Disease (CAD), Ca ncer, Heart Failure, COPD, Diabetes Mellitus, Hyperlipidemia, Hypertension, Myocardial Infarction ([place]) Additional Past Medical History / Comment(s): Coronary artery disease, previous bypass surgery, ischemic cardiomyopathy with an ejection fraction of less than 20%, history of mitral valve repair, history of chronic kidney disease, ascending aortic aneurysm measuring 4.2 cm, squamous cell carcinoma of the skin resected, insulin-dependent diabetes mellitus, previous history of UTI with subsequent on pneumoniae, history of fall, hyperlipidemia, hypertension Last Myocardial Infarction Date:: 01/16/17 History of Any Multi-Drug Resistant Organisms: MRSA Date of last positivie culture/infection: 12/06/18 MDRO Source:: LEG Past Surgical History: AICD, Appendectomy, Bariatric Surgery, Cholecystectomy, Coronary Bypass/CABG, Heart Catheterization, Hysterectomy, Tonsillectomy Additional Past Surgical History / Comment(s): 04/11/15 cardiac cath- tx medically, 02/03/2006 CABG-5 vessel with MVR, AICD 07/16/15, port-a-cath ins ertion and removal, colonoscopies, gastric bypass, skin cancer removal. Past Anesthesia/Blood Transfusion Reactions: No Reported Reaction Type of Cardiac Device: AICD Device Placement Date:: 2014 Past Psychological History: No Psychological Hx Reported Smoking Status: Former smoker Past Alcohol Use History: None Reported Past Drug Use History: None Reported - Past Family History Father Family Medical History: Cancer Additional Family Medical History / Comment(s): ?stomach cancer. Mother Family Medical History: Congestive Heart Failure (CHF), Coronary Artery Disease (CAD) General Exam - General Exam Comments Initial Comments: This is a well-developed sec appearing female who is awake alert but mildly confused. Limitations: no limitations General appearance: alert, in no apparent distress Head exam: Present: atraumatic, normocephalic, normal inspection Eye exam: Present: normal appearance, PERRL, EOMI. Absent: scleral icterus, conjunctival injection, periorbital swelling ENT exam: Present: normal exam, mucous membranes moist Neck exam: Present: normal inspection. Absent: tenderness, meningismus, lymphadenopathy Respiratory exam: Present: normal lung sounds bilaterally. Absent: respiratory distress, wheezes, rales, rhonchi, stridor Cardiovascular Exam: Present: normal rhythm, tachycardia, normal heart sounds. Absent: systolic murmur, diastolic murmur, rubs, gallop, clicks GI/Abdominal exam: Present: soft, normal bowel sounds. Absent: distended, tenderness, guarding, rebound, rigid, bruit, pulsatile mass Rectal exam: Present: black stool External exam: Present: normal external exam, other (Watery appearing discharge noted from the vagina vaginal exam reveals a small amount of blood in the vaginal vault on speculum exam. Wood catheters placed her does appear to be gross hematuria.) Extremities exam: Present: normal inspection, full ROM, normal capillary refill. Absent: tenderness, pedal edema, joint swelling, calf tenderness Back exam: Present: normal inspection Neurological exam: Present: alert, CN II-XII intact Psychiatric exam: Present: normal affect, normal mood Skin exam: Present: warm, dry, intact, pallor. Absent: rash Course Vital Signs 08/13/19 08/13/19 08/13/19 19:04 20:30 20:40 Temperature 97.3 F L 98.2 F 98.4 F Pulse Rate 106 H 108 H 112 H Respiratory 20 16 16 Rate Blood Pressure 111/62 117/53 128/84 O2 Sat by Pulse 100 100 100 Oximetry 08/13/19 08/13/19 21:10 22:30 Temperature 98.0 F 98.3 F Pulse Rate 108 H 108 H Respiratory 18 16 Rate Blood Pressure 144/68 131/68 O2 Sat by Pulse 99 98 Oximetry - Reevaluation(s) Reevaluation #1: 08/13/19 22:36 Reevaluation patient reveals that she improved after IV fluids. She's also ordered due to the hypotensive episode in the a.m. was in route. Medical Decision Making - Lab Data Result diagrams: 08/13/19 19:00 08/13/19 19:00 Lab Results 08/13/19 08/13/19 08/13/19 Range/Units 19:00 19:00 19:00 WBC 17.6 H (3.8-10.6) k/uL RBC 2.87 L (3.80-5.40) m/uL Hgb 8.6 L D (11.4-16.0) gm/dL Hct 27.0 L (34.0-46.0) % MCV 94.0 (80.0-100.0) fL MCH 30.0 (25.0-35.0) pg MCHC 31.9 (31.0-37.0) g/dL RDW 16.5 H (11.5-15.5) % Plt Count 416 (150-450) k/uL Neutrophils % 87 % Lymphocytes % 7 % Monocytes % 4 % Eosinophils % 0 % Basophils % 1 % Neutrophils # 15.3 H (1.3-7.7) k/uL Lymphocytes # 1.2 (1.0-4.8) k/uL Monocytes # 0.7 (0-1.0) k/uL Eosinophils # 0.1 (0-0.7) k/uL Basophils # 0.1 (0-0.2) k/uL Hypochromasia Slight Poikilocytosis Slight Anisocytosis Slight PT (9.0-12.0) sec INR (<1.2) APTT (22.0-30.0) sec Sodium 130 L (137-145) mmol/L Potassium 5.9 H (3.5-5.1) mmol/L Chloride 97 L (98-107) mmol/L Carbon Dioxide 16 L (22-30) mmol/L Anion Gap 17 mmol/L BUN 68 H (7-17) mg/dL Creatinine 2.16 H (0.52-1.04) mg/dL Est GFR (CKD-EPI)AfAm 25 (>60 ml/min/1.73 sqM) Est GFR (CKD-EPI)NonAf 22 (>60 ml/min/1.73 sqM) Glucose 296 H (74-99) mg/dL Calcium 9.0 (8.4-10.2) mg/dL Magnesium 1.9 (1.6-2.3) mg/dL Total Bilirubin 0.5 (0.2-1.3) mg/dL AST 25 (14-36) U/L ALT 22 (9-52) U/L Alkaline Phosphatase 155 H (38-126) U/L Creatine Kinase <20 L (30-135) U/L Troponin I (0.000-0.034) ng/mL Total Protein 6.9 (6.3-8.2) g/dL Albumin 3.3 L (3.5-5.0) g/dL Lipase 139 (23-300) U/L Urine Color Urine Appearance (Clear) Urine RBC (0-5) /hpf Urine WBC (0-5) /hpf Urine WBC Clumps (None) /hpf Stool Occult Blood (Negative) Blood Type A Positive Blood Type Recheck A Pos Bld Type Recheck Status No Antibody Screen NEGATIVE Crossmatch See Detail Spec Expiration Date 08/16/2019 - 229908/13/19 08/13/19 08/13/19 Range/Units 19:00 19:00 19:00 WBC (3.8-10.6) k/uL RBC (3.80-5.40) m/uL Hgb (11.4-16.0) gm/dL Hct (34.0-46.0) % MCV (80.0-100.0) fL MCH (25.0-35.0) pg MCHC (31.0-37.0) g/dL RDW (11.5-15.5) % Plt Count (150-450) k/uL Neutrophils % % Lymphocytes % % Monocytes % % Eosinophils % % Basophils % % Neutrophils # (1.3-7.7) k/uL Lymphocytes # (1.0-4.8) k/uL Monocytes # (0-1.0) k/uL Eosinophils # (0-0.7) k/uL Basophils # (0-0.2) k/uL Hypochromasia Poikilocytosis Anisocytosis PT 10.2 (9.0-12.0) sec INR 0.9 (<1.2) APTT 16.5 L (22.0-30.0) sec Sodium (137-145) mmol/L Potassium (3.5-5.1) mmol/L Chloride (98-107) mmol/L Carbon Dioxide (22-30) mmol/L Anion Gap mmol/L BUN (7-17) mg/dL Creatinine (0.52-1.04) mg/dL Est GFR (CKD-EPI)AfAm (>60 ml/min/1.73 sqM) Est GFR (CKD-EPI)NonAf (>60 ml/min/1.73 sqM) Glucose (74-99) mg/dL Calcium (8.4-10.2) mg/dL Magnesium (1.6-2.3) mg/dL Total Bilirubin (0.2-1.3) mg/dL AST (14-36) U/L ALT (9-52) U/L Alkaline Phosphatase (38-126) U/L Creatine Kinase (30-135) U/L Troponin I 0.031 (0.000-0.034) ng/mL Total Protein (6.3-8.2) g/dL Albumin (3.5-5.0) g/dL Lipase (23-300) U/L Urine Color Urine Appearance (Clear) Urine RBC (0-5) /hpf Urine WBC (0-5) /hpf Urine WBC Clumps (None) /hpf Stool Occult Blood Negative (Negative) Blood Type Blood Type Recheck Bld Type Recheck Status Antibody Screen Crossmatch Spec Expiration Date 08/13/19 Range/Units 19:00 WBC (3.8-10.6) k/uL RBC (3.80-5.40) m/uL Hgb (11.4-16.0) gm/dL Hct (34.0-46.0) % MCV (80.0-100.0) fL MCH (25.0-35.0) pg MCHC (31.0-37.0) g/dL RDW (11.5-15.5) % Plt Count (150-450) k/uL Neutrophils % % Lymphocytes % % Monocytes % % Eosinophils % % Basophils % % Neutrophils # (1.3-7.7) k/uL Lymphocytes # (1.0-4.8) k/uL Monocytes # (0-1.0) k/uL Eosinophils # (0-0.7) k/uL Basophils # (0-0.2) k/uL Hypochromasia Poikilocytosis Anisocytosis PT (9.0-12.0) sec INR (<1.2) APTT (22.0-30.0) sec Sodium (137-145) mmol/L Potassium (3.5-5.1) mmol/L Chloride (98-107) mmol/L Carbon Dioxide (22-30) mmol/L Anion Gap mmol/L BUN (7-17) mg/dL Creatinine (0.52-1.04) mg/dL Est GFR (CKD-EPI)AfAm (>60 ml/min/1.73 sqM) Est GFR (CKD-EPI)NonAf (>60 ml/min/1.73 sqM) Glucose (74-99) mg/dL Calcium (8.4-10.2) mg/dL Magnesium (1.6-2.3) mg/dL Total Bilirubin (0.2-1.3) mg/dL AST (14-36) U/L ALT (9-52) U/L Alkaline Phosphatase (38-126) U/L Creatine Kinase (30-135) U/L Troponin I (0.000-0.034) ng/mL Total Protein (6.3-8.2) g/dL Albumin (3.5-5.0) g/dL Lipase (23-300) U/L Urine Color Red Urine Appearance Bloody H (Clear) Urine RBC >182 H (0-5) /hpf Urine WBC >182 H (0-5) /hpf Urine WBC Clumps Many H (None) /hpf Stool Occult Blood (Negative) Blood Type Blood Type Recheck Bld Type Recheck Status Antibody Screen Crossmatch Spec Expiration Date - EKG Data -: EKG Interpreted by Me (Sinus tachycardia of 116 DC interval 172 QRS adventist 80 QT/QTC 320/444 ) - Radiology Data Radiology results: report reviewed (I did review the imaging and report no acute findings hydronephrosis is noted with some improvement is noted also.), image reviewed Critical Care Time Critical Care Time: Yes Critical Care Time: 35 minutes of critical care time which includes initial presentation with history physical labs x-rays discussed with paramedics. Review of old charting. Reevaluation of the patient. Discussion with the family and with the admitting physician Dr. Lara. Also discussion with Dr. Chow. Initial orders and documentation of the above Disposition Clinical Impression: Gross hematuria, Hemorrhagic cystitis, Anemia, Symptomatic anemia, Hypotensive episode, Renal insufficiency Disposition: ADMITTED IP TO THIS HOSP Condition: Fair Referrals: Parish Vasquez MD [Primary Care Provider] - 1-2 days
[2019-08-13 19:24] LABS: ALT 22 U/L (9-52); AST 25 U/L (14-36); African American GFR (CKD) 25 (>60 ml/min/1.73 sqM); Albumin 3.3 g/dL (3.5-5.0); Alkaline Phosphatase 155 U/L (38-126); Anion Gap 17 mmol/L; Blood Urea Nitrogen 68 mg/dL (7-17); Carbon Dioxide 16 mmol/L (22-30); Chloride 97 mmol/L (98-107); Creatine Kinase <20 U/L (30-135); Glucose 296 mg/dL (74-99); Magnesium 1.9 mg/dL (1.6-2.3); Potassium 5.9 mmol/L (3.5-5.1); Sodium 130 mmol/L (137-145); Total Bilirubin 0.5 mg/dL (0.2-1.3); Total Protein 6.9 g/dL (6.3-8.2)
[2019-08-13 19:25] LABS: RBC,Urine >182 /hpf (0-5); WBC,Urine >182 /hpf (0-5)
[2019-08-13 19:31] LABS: Appearance,Urine Bloody (Clear); Color,Urine Red
--- NOTE | 2019-08-13 19:34 | XR ---
EXAMINATION TYPE: XR chest 1V portable DATE OF EXAM: 08/13/2019 COMPARISON: 05/01/2019 HISTORY: Possible GI bleed TECHNIQUE: Single frontal view of the chest is obtained. FINDINGS: Heart is normal. Lungs are clear of consolidation. There is a left axillary pacemaker. The re is no heart failure. Costophrenic angles are clear. There are sternal wires. IMPRESSION: No active cardiopulmonary disease. Heart appears much smaller than last exam. There is c learing of pleural effusions compared to old exam.
[2019-08-13 19:56] LABS: INR 0.9 (<1.2); Prothrombin Time 10.2 sec (9.0-12.0)
[2019-08-13 19:58] LABS: Partial Thromboplastin Time 16.5 sec (22.0-30.0)
--- NOTE | 2019-08-13 20:32 | CT ---
EXAMINATION TYPE: CT abdomen pelvis wo con DATE OF EXAM: 08/13/2019 COMPARISON: 04/27/2019 HISTORY: Hematuria CT DLP: 436.3 mGycm Automated exposure control for dose reduction was used. TECHNIQUE: Helical acquisition of images was performed from the lung bases through the pelvis. FINDINGS: Lung bases are clear of consolidation. There is no pleural effusion. There is no pericardial effusion . There is small hiatal hernia. There are apparent surgical clips at the lesser curvature of the stom ach. Stomach is large. Spleen shows no focal defect. There is atherosclerotic moderate vascular calci fication. Liver shows no discrete mass. There is cholecystectomy. The bile ducts are not dilated. The re is tiny amount of air in the biliary tree consistent with reflux. There is pancreatic atrophy. The re is no sign of pancreatic mass. There is no adrenal mass. There is extensive renal vascular calcification. There is left-sided hydron ephrosis and hydroureter. There is Wood catheter in the urinary bladder. There is hypoattenuation th roughout the urinary bladder consistent with hemorrhage. There is urinary bladder wall thickening. Th ere are numerous diverticula in the sigmoid colon. There is perirectal fluid. There is presacral flui d. There is some retained fecal material in the large bowel. There is no evidence of pneumoperitoneum . There is multilevel spondylotic change in the lumbar spine. There is 20% anterior wedging of L1 rm tebra that is unchanged. There is previous anterior abdominal wall hernia surgery in the mid abdomen. IMPRESSION: LEFT-SIDED HYDRONEPHROSIS AND HYDROURETER UNCHANGED. THERE IS IMPROVEMENT IN THE RIGHT SIDE HYDRONEPH ROSIS AND HYDROURETER COMPARED TO OLD EXAM. HIGH ATTENUATION THROUGHOUT THE URINARY BLADDER CONSISTENT WITH HEMORRHAGE THAT IS INCREASED COMPARED TO OLD CT SCAN. TUMOR IS POSSIBLE. PERIRECTAL EDEMA UNCHANGED. SIGMOID DIVERTICULOSIS UNCHANGED. NO SIGN OF DIVERTICULITIS. Extensive atherosclerotic vascular disease.
[2019-08-13] MEDS ORDERED: cefTRIAXone IN SWFI 1,000 MG/10 ML SYRINGE IVP STA (22:04)
[2019-08-13] MEDS ORDERED: LIDOCAINE 2% GEL 30 ML TUBE TOPICAL PRN (22:44)
[2019-08-13] MEDS ORDERED: NITROGLYCERIN SL TABS 0.4 MG TAB SUBLINGUAL PRN (22:44)
[2019-08-13] MEDS ORDERED: MENTHOL-ZINC OXIDE OINT 113 GM TUBE TOPICAL PRN (22:44)
[2019-08-13] MEDS ORDERED: Acetaminophen-Codeine 300-30mg TAB PO PRN (22:44)
[2019-08-13] MEDS ORDERED: MAGNESIUM HYDROXIDE 2,400 MG/10 ML CUP PO PRN (23:00)
[2019-08-13] MEDS ORDERED: NALOXONE 0.4 MG/ML 1 ML VIAL IV PRN (23:00)
[2019-08-13] MEDS ORDERED: ACETAMINOPHEN TAB 325 MG TAB PO PRN (23:00)
[2019-08-13] MEDS ORDERED: MAG HYDROX/AL HYDROX/SIMETH 30 ML CUP PO PRN (23:00)
[2019-08-14] MEDS ORDERED: NA PHOS,M-B/NA PHOS,DI-BA 133 ML ENEMA RECTAL PRN
[2019-08-14 00:01] LABS: Glucose,Whole Blood 347 mg/dL (75-99)
[2019-08-14] MEDS: SODIUM CHLORIDE 0.9% 1,000 ML IV SCH ×2 (00:20→23:20)
[2019-08-14] MEDS: INSULIN DETEMIR (LEVEMIR) 100 UNIT/ML SYR SQ SCH ×2 (00:57→21:22)
[2019-08-14 07:15] LABS: Glucose,Whole Blood 228 mg/dL (75-99)
[2019-08-14] MEDS ORDERED: INSULIN ASPART (NovoLOG) 100 UNIT/ML VIAL SQ SCH ×2 (08:00→17:30)
[2019-08-14] MEDS ORDERED: NON FORMULARY DRUG (Glucerna Shake 237 ML) PO SCH (08:00)
[2019-08-14] MEDS: INSULIN ASPART (NovoLOG) 100 UNIT/ML VIAL SQ SCH ×4 (08:03→21:04)
[2019-08-14] MEDS: SPIRONOLACTONE 25 MG TAB PO SCH (08:44)
[2019-08-14] MEDS: PANTOPRAZOLE 40 MG/10 ML VIAL IV SCH (08:44)
[2019-08-14] MEDS: ISOSORBIDE MONONITRATE ER 60 MG TAB.ER.24H PO SCH (08:44)
[2019-08-14] MEDS: METOPROLOL TARTRATE 25 MG TAB PO SCH ×2 (08:44→18:03)
[2019-08-14] MEDS: FERROUS SULFATE 325 MG TAB PO SCH ×2 (08:45→18:03)
[2019-08-14] MEDS: FUROSEMIDE 40 MG TAB PO SCH ×2 (08:45→18:03)
[2019-08-14] MEDS: FAMOTIDINE 20 MG TAB PO SCH (08:45)
[2019-08-14] MEDS: MENTHOL-ZINC OXIDE OINT 113 GM TUBE TOPICAL SCH ×3 (08:45→18:05)
[2019-08-14] MEDS ORDERED: BISACODYL 10 MG SUPP RECTAL PRN (09:00)
--- NOTE | 2019-08-14 10:32 | P.GSCN ---
History of Present Illness Consult date: 08/14/19 History of present illness: This is a 74-year-old female whom we have been asked to see for a probable hemorrhagic cystitis. I saw this patient back in April for anemia secondary to hemorrhagic cystitis. The cystitis probably was due to bleeding from radiation therapy for her anal carcinoma treated in the past. Eventually required cystoscopy evacuation of clot and fulguration of bleeding. She had biopsy just identifying inflammatory tissue. Unfortunately the patient's history is limited. She lives in a group home. She states that she's had blood per vagina. She has a Wood catheter in place this morning and it shows old blood in the catheter tubing. Her urinalysis showed 180 whites cells 180 red cells. Review of Systems - Constitutional Reports lethargy, Reports weakness - Gastrointestinal Reports abdominal pain Past Medical History Past Medical History: Atrial Fibrillation, Coronary Artery Disease (CAD), Cancer, Heart Failure, COPD, Diabetes Mellitus, Hyperlipidemia, Hypertension, Myocardial Infarction ([place]) Additional Past Medical History / Comment(s): Coronary artery disease, previous bypass surgery, ischemic cardiomyopathy with an ejection fraction of less than 20%, history of mitral valve repair, history of chronic kidney disease, ascending aortic aneurysm measuring 4.2 cm, squamous cell carcinoma of the skin resected, insulin-dependent diabetes mellitus, previous history of UTI with subsequent on pneumoniae, history of fall, hyperlipidemia, hypertension Last Myocardial Infarction Date:: 01/16/17 History of Any Multi-Drug Resistant Organisms: MRSA Year Discovered:: 12/06/18 MDRO Source:: LEG Past Surgical History: AICD, Appendectomy, Bariatric Surgery, Cholecystectomy, Coronary Bypass/CABG, Heart Catheterization, Hysterectomy, Tonsillectomy Additional Past Surgical History / Comment(s): 04/11/15 cardiac cath- tx medically, 02/03/2006 CABG-5 vessel with MVR, AICD 07/16/15, port-a-cath insertion and removal, colonoscopies, gastric bypass, skin cancer removal. Past Anesthesia/Blood Transfusion Reactions: No Reported Reaction Type of Cardiac Device: AICD Device Placement Date:: 2014 Past Psychological History: No Psychological Hx Reported Additional Psychological History / Comment(s): Pt's son lives with her in her home. Patient reports that she no longer moves around. Patient used a cane previously. She has a glucose monitor at home. Smoking Status: Never smoker Past Alcohol Use History: None Reported Additional Past Alcohol Use History / Comment(s): Pt states she started smoking around 89 and quit in 2012. Past Drug Use History: None Reported - Past Family History Father Family Medical History: Cancer Additional Family Medical History / Comment(s): ?stomach cancer. Mother Family Medical History: Congestive Heart Failure (CHF), Coronary Artery Disease (CAD) Medications and Allergies Home Medications Medication Instructions Recorded Confirmed Type Metoprolol Tartrate [Lopressor] 25 mg PO BID@0800,1700 07/21/15 08/13/19 History Isosorbide Mononitrate ER [Imdur] 60 mg PO DAILY #30 tab.er.24h 01/17/17 08/13/19 Rx Nitroglycerin Sl Tabs [Nitrostat] 0.4 mg SUBLINGUAL Q5M PRN #25 tab 12/04/17 08/13/19 Rx Aspirin EC [Ecotrin Low Dose] 81 mg PO DAILY@1700 11/22/18 08/13/19 History Famotidine [Pepcid] 20 mg PO DAILY tab 11/25/18 08/13/19 Rx Spironolactone [Aldactone] 25 mg PO DAILY tab 11/25/18 08/13/19 Rx Bisacodyl [Dulcolax] 10 mg RECTAL DAILY PRN 04/27/19 08/13/19 History Ferrous Sulfate [Iron (65 MG 325 mg PO BID@0800,1700 04/27/19 08/13/19 History Elemental)] Mag Hydrox/Al Hydrox/Simeth 30 ml PO Q6H PRN 04/27/19 08/13/19 History [Maalox] Magnesium Hydroxide [Milk of 7,200 mg PO DAILY PRN 04/27/19 08/13/19 History Magnesia Concentrate] Menthol-Zinc Oxide Oint 1 applic TOPICAL TID@0800,1200,1700 04/27/19 08/13/19 History [Calmoseptine Oint] Multivitamins, Thera [Multivitamin 1 tab PO DAILY@1700 04/27/19 08/13/19 History (formulary)] Acetaminophen-Codeine 300-30mg 1 tab PO Q8H PRN #7 tab 05/03/19 08/13/19 Rx [Tylenol w/codeine #3] Acetaminophen Tab [Tylenol Tab] 650 mg PO Q4H PRN 08/13/19 08/13/19 History Furosemide [Lasix] 40 mg PO BID@0800,1700 08/13/19 08/13/19 History Glucerna Shake 120 ml PO AC-BID@1200,1700 08/13/19 08/13/19 History Glucerna Shake 237 ml PO AC-BRKFST@0800 08/13/19 08/13/19 History INSULIN ASPART (NovoLOG) [NovoLOG 7 unit SQ AC-BID@0800,1100 08/13/19 08/13/19 History (formulary)] INSULIN ASPART (NovoLOG) [NovoLOG 8 unit SQ AC-SUPPER@1730 08/13/19 08/13/19 History (formulary)] Insulin Detemir (Levemir) [Levemir] 10 unit SQ HS 08/13/19 08/13/19 History Lidocaine 2% Gel [Xylocaine Jelly 1 applic TOPICAL DAILY PRN 08/13/19 08/13/19 History 2%] Loperamide HCl [Imodium A-D] 2 - 4 mg PO QID PRN 08/13/19 08/13/19 History Menthol/Zinc Oxide [Calmoseptine 1 applic TOPICAL Q6H PRN 08/13/19 08/13/19 History Ointment] Na Phos,M-B/Na Phos,Di-Ba [Fleet 133 ml RECTAL ONCE PRN 08/13/19 08/13/19 History Adult] Allergies Allergy/AdvReac Type Severity Reaction Status Date / Time No Known Allergies Allergy Verified 08/13/19 18:42 Surgical - Exam Vital Signs Temp Pulse Resp BP Pulse Ox 97.3 F L 106 H 20 111/62 100 08/13/19 19:04 08/13/19 19:04 08/13/19 19:04 08/13/19 19:04 08/13/19 19:04 - General well developed, chronically ill - Eyes PERRL - ENT no hearing loss - Neck trachea midline - Respiratory normal expansion, normal respiratory effort - Cardiovascular Rhythm: irregularly irregular - Abdomen Abdomen: soft, non tender - Integumentary no rash, no growths - Neurologic normal coordination, normal sensation - Musculoskeletal normal posture - Psychiatric oriented to time, oriented to person, oriented to place, speech is normal, memory intact Results - Labs 08/13/19 19:00 08/13/19 19:00 Abnormal Lab Results - Last 24 Hours (Table) 08/13/19 08/13/19 08/13/19 Range/Units 19:00 19:00 19:00 WBC 17.6 H (3.8-10.6) k/uL RBC 2.87 L (3.80-5.40) m/uL Hgb 8.6 L D (11.4-16.0) gm/dL Hct 27.0 L (34.0-46.0) % RDW 16.5 H (11.5-15.5) % Neutrophils # 15.3 H (1.3-7.7) k/uL APTT (22.0-30.0) sec Sodium 130 L (137-145) mmol/L Potassium 5.9 H (3.5-5.1) mmol/L Chloride 97 L (98-107) mmol/L Carbon Dioxide 16 L (22-30) mmol/L BUN 68 H (7-17) mg/dL Creatinine 2.16 H (0.52-1.04) mg/dL Glucose 296 H (74-99) mg/dL POC Glucose (mg/dL) (75-99) mg/dL Alkaline Phosphatase 155 H (38-126) U/L Creatine Kinase <20 L (30-135) U/L Albumin 3.3 L (3.5-5.0) g/dL Urine Appearance (Clear) Urine RBC (0-5) /hpf Urine WBC (0-5) /hpf Urine WBC Clumps (None) /hpf Crossmatch See Detail 08/13/19 08/13/19 08/13/19 Range/Units 19:00 19:00 23:59 WBC (3.8-10.6) k/uL RBC (3.80-5.40) m/uL Hgb (11.4-16.0) gm/dL Hct (34.0-46.0) % RDW (11.5-15.5) % Neutrophils # (1.3-7.7) k/uL APTT 16.5 L (22.0-30.0) sec Sodium (137-145) mmol/L Potassium (3.5-5.1) mmol/L Chloride (98-107) mmol/L Carbon Dioxide (22-30) mmol/L BUN (7-17) mg/dL Creatinine (0.52-1.04) mg/dL Glucose (74-99) mg/dL POC Glucose (mg/dL) 347 H (75-99) mg/dL Alkaline Phosphatase (38-126) U/L Creatine Kinase (30-135) U/L Albumin (3.5-5.0) g/dL Urine Appearance Bloody H (Clear) Urine RBC >182 H (0-5) /hpf Urine WBC >182 H (0-5) /hpf Urine WBC Clumps Many H (None) /hpf Crossmatch 08/14/19 Range/Units 07:14 WBC (3.8-10.6) k/uL RBC (3.80-5.40) m/uL Hgb (11.4-16.0) gm/dL Hct (34.0-46.0) % RDW (11.5-15.5) % Neutrophils # (1.3-7.7) k/uL APTT (22.0-30.0) sec Sodium (137-145) mmol/L Potassium (3.5-5.1) mmol/L Chloride (98-107) mmol/L Carbon Dioxide (22-30) mmol/L BUN (7-17) mg/dL Creatinine (0.52-1.04) mg/dL Glucose (74-99) mg/dL POC Glucose (mg/dL) 228 H (75-99) mg/dL Alkaline Phosphatase (38-126) U/L Creatine Kinase (30-135) U/L Albumin (3.5-5.0) g/dL Urine Appearance (Clear) Urine RBC (0-5) /hpf Urine WBC (0-5) /hpf Urine WBC Clumps (None) /hpf Crossmatch Diabetes panel 08/13/19 Range/Units 19:00 Sodium 130 L (137-145) mmol/L Potassium 5.9 H (3.5-5.1) mmol/L Chloride 97 L (98-107) mmol/L Carbon Dioxide 16 L (22-30) mmol/L BUN 68 H (7-17) mg/dL Creatinine 2.16 H (0.52-1.04) mg/dL Glucose 296 H (74-99) mg/dL Calcium 9.0 (8.4-10.2) mg/dL AST 25 (14-36) U/L ALT 22 (9-52) U/L Alkaline Phosphatase 155 H (38-126) U/L Total Protein 6.9 (6.3-8.2) g/dL Albumin 3.3 L (3.5-5.0) g/dL Calcium panel 08/13/19 Range/Units 19:00 Calcium 9.0 (8.4-10.2) mg/dL Albumin 3.3 L (3.5-5.0) g/dL Pituitary panel 08/13/19 Range/Units 19:00 Sodium 130 L (137-145) mmol/L Potassium 5.9 H (3.5-5.1) mmol/L Chloride 97 L (98-107) mmol/L Carbon Dioxide 16 L (22-30) mmol/L BUN 68 H (7-17) mg/dL Creatinine 2.16 H (0.52-1.04) mg/dL Glucose 296 H (74-99) mg/dL Calcium 9.0 (8.4-10.2) mg/dL Adrenal panel 08/13/19 Range/Units 19:00 Sodium 130 L (137-145) mmol/L Potassium 5.9 H (3.5-5.1) mmol/L Chloride 97 L (98-107) mmol/L Carbon Dioxide 16 L (22-30) mmol/L BUN 68 H (7-17) mg/dL Creatinine 2.16 H (0.52-1.04) mg/dL Glucose 296 H (74-99) mg/dL Calcium 9.0 (8.4-10.2) mg/dL Total Bilirubin 0.5 (0.2-1.3) mg/dL AST 25 (14-36) U/L ALT 22 (9-52) U/L Alkaline Phosphatase 155 H (38-126) U/L Total Protein 6.9 (6.3-8.2) g/dL Albumin 3.3 L (3.5-5.0) g/dL - Imaging CT scan - abdomen: report reviewed, image reviewed CT scan - pelvis: report reviewed, image reviewed Assessment and Plan Assessment: Impression: Gross hematuria, possible urine infection. History of a radiation cystitis. History of anal carcinoma treated with radiation. Multiple medical illnesses Recommendations: The catheters in place. See how she responds to this. We'll see if the culture shows an infection. I will follow this patient.
[2019-08-14 11:52] LABS: Glucose,Whole Blood 130 mg/dL (75-99)
[2019-08-14] MEDS ORDERED: NON FORMULARY DRUG (Glucerna Shake 120 ML) PO SCH (12:00)
[2019-08-14 16:41] LABS: Glucose,Whole Blood 102 mg/dL (75-99)
[2019-08-14] MEDS: MULTIVITAMINS, THERA 1 EACH TAB PO SCH (18:03)
--- NOTE | 2019-08-14 20:41 | P.HPIM ---
History of Present Illness H&P Date: 08/14/19 Chief Complaint: Blood in the diaper History of presenting complaint: This is a pleasant 74 year patient was a resident of [facility]. Chronic stable medical conditions include coronary artery disease with prior bypass, COPD, diabetes mellitus type 2, hypertension, hyperlipidemia, congestive heart failure with EF less than 20%, ascending aortic aneurysm 4.2 cm, AICD, chronic kidney disease stage III,. Patient was here in the hospital in April of this year with severe hematuria. Blood clots were present. Did undergo cystoscopy by Dr. Hutson. Found to have hemorrhagic cystitis. Cytology came back to be negative. Patient now presents with blood clot in the Wood catheter. And in the diaper. Blood pressure was found to be low by the EMS. Patient also has history of ra diation cystitis that was treated with radiation for anal carcinoma. Empirically started on antibiotics for possible UTI. Patient also had some lower abdominal pain. Review of systems: GEN.: Tired EYES: None HEENT: None NECK: None RESPIRATORY: None CARDIOVASCULAR: None GASTROINTESTINAL: None GENITOURINARY: As above MUSCULOSKELETAL: Pain in the joints LYMPHATICS: None HEMATOLOGICAL: None PSYCHIATRY: Bit forgetful NEUROLOGICAL: Does use a wheelchair Social history: Patient does use a wheelchair. Lives at home with her son. Patient smoked from 1961 and stopped in 2012. No alcohol. Physical examination: VITAL SIGNS: 97.3, 106, 20, 11 , her percent room air GENERAL: BMI 27.8, laying in bed awake. EYES: [Pupils equal. Conjunctiva pale. HEENT: External appearance of nose and ears normal, oral cavity grossly normal. NECK: JVD not raised; masses not palpable. HEART: First and second heart sounds are normal; no edema. LUNGS: Respiratory rate normal; decreased breath sounds. ABDOMEN: Soft, mild suprapubic tenderness no guarding rigidity, liver spleen not palpable, no masses palpable. PSYCH: [Awake answering simple questions l. NEUROLOGICAL: Cranial nerves grossly intact; no facial asymmetry, power and sensation grossly intact. LYMPHATICS: No lymph nodes palpable in the axilla and neck INVESTIGATIONS, reviewed in the clinical context: White count 7.6 hemoglobin 8.6 platelets 46 potassium 5.9 BUN 68 creatinine 2.16 BUNs 68 creatinine 2.16 Patient's bun was 84 creatinine 1.85 on July 31 EKG tracing personally reviewed by me shows-sinus rhythm with some ST segment depression in inferolateral leads CT [id number] hydronephrosis and hydroureter, with improvement of the same on the right side from the previous exam. Numerous diverticula of the sigmoid colon. L1 vertebra anterior wedging 20% Chest x-ray film personally reviewed by me-no infiltrates Assessment: -Acute hematuria in a patient with known hemorrhagic cystitis,. Bladder cytology being negative for malignancy in March of this year. 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 Continue with antibiotics. Home medications reviewed. Wood catheter is in place. We'll see how the patient does clinically per urology. Care was discussed with the patient. Past Medical History Past Medical History: Atrial Fibrillation, Coronary Artery Disease (CAD), Cancer, Heart Failure, COPD, Diabetes Mellitus, Hyperlipidemia, Hypertension, Myocardial Infarction ([place]) Additional Past Medical History / Comment(s): Coronary artery disease, previous bypass surgery, ischemic cardiomyopathy with an ejection fraction of less than 20%, history of mitral valve repair, history of chronic kidney disease, ascending aortic aneurysm measuring 4.2 cm, squamous cell carcinoma of the skin resected, insulin-dependent diabetes mellitus, previous history of UTI with subsequent on pneumoniae, history of fall, hyperlipidemia, hypertension Last Myocardial Infarction Date:: 01/16/17 History of Any Multi-Drug Resistant Organisms: MRSA Date of last positivie culture/infection: 12/06/18 MDRO Source:: LEG Past Surgical History: AICD, Appendectomy, Bariatric Surgery, Cholecystectomy, Coronary Bypass/CABG, Heart Catheterization, Hysterectomy, Tonsillectomy Additional Past Surgical History / Comment(s): 04/11/15 cardiac cath- tx medically, 02/03/2006 CABG-5 vessel with MVR, AICD 07/16/15, port-a-cath insertion and removal, colonoscopies, gastric bypass, skin cancer removal. Past Anesthesia/Blood Transfusion Reactions: No Reported Reaction Type of Cardiac Device: AICD Device Placement Date:: 2014 Past Psychological History: No Psychological Hx Reported Additional Psychological History / Comment(s): Pt's son lives with her in her home. Patient reports that she no longer moves around. Patient used a cane previously. She has a glucose monitor at home. Smoking Status: Never smoker Past Alcohol Use History: None Reported Additional Past Alcohol Use History / Comment(s): Pt states she started smoking around 1960 and quit in 2012. Past Drug Use History: None Reported - Past Family History Father Family Medical History: Cancer Additional Family Medical History / Comment(s): ?stomach cancer. Mother Family Medical History: Congestive Heart Failure (CHF), Coronary Artery Disease (CAD) Medications and Allergies Home Medications Medication Instructions Recorded Confirmed Type Metoprolol Tartrate [Lopressor] 25 mg PO BID@0800,1700 07/21/15 08/13/19 History Isosorbide Mononitrate ER [Imdur] 60 mg PO DAILY #30 tab.er.24h 01/17/17 08/13/19 Rx Nitroglycerin Sl Tabs [Nitrostat] 0.4 mg SUBLINGUAL Q5M PRN #25 tab 12/04/17 08/13/19 Rx Aspirin EC [Ecotrin Low Dose] 81 mg PO DAILY@1700 11/22/18 08/13/19 History Famotidine [Pepcid] 20 mg PO DAILY tab 11/25/18 08/13/19 Rx Spironolactone [Aldactone] 25 mg PO DAILY tab 11/25/18 08/13/19 Rx Bisacodyl [Dulcolax] 10 mg RECTAL DAILY PRN 04/27/19 08/13/19 History Ferrous Sulfate [Iron (65 MG 325 mg PO BID@0800,1700 04/27/19 08/13/19 History Elemental)] Mag Hydrox/Al Hydrox/Simeth 30 ml PO Q6H PRN 04/27/19 08/13/19 History [Maalox] Magnesium Hydroxide [Milk of 7,200 mg PO DAILY PRN 04/27/19 08/13/19 History Magnesia Concentrate] Menthol-Zinc Oxide Oint 1 applic TOPICAL TID@0800,1200,1700 04/27/19 08/13/19 History [Calmoseptine Oint] Multivitamins, Thera [Multivitamin 1 tab PO DAILY@1700 04/27/19 08/13/19 History (formulary)] Acetaminophen-Codeine 300-30mg 1 tab PO Q8H PRN #7 tab 05/03/19 08/13/19 Rx [Tylenol w/codeine #3] Acetaminophen Tab [Tylenol Tab] 650 mg PO Q4H PRN 08/13/19 08/13/19 History Furosemide [Lasix] 40 mg PO BID@0800,1700 08/13/19 08/13/19 History Glucerna Shake 120 ml PO AC-BID@1200,1700 08/13/19 08/13/19 History Glucerna Shake 237 ml PO AC-BRKFST@0800 08/13/19 08/13/19 History INSULIN ASPART (NovoLOG) [NovoLOG 7 unit SQ AC-BID@0800,1100 08/13/19 08/13/19 History (formulary)] INSULIN ASPART (NovoLOG) [NovoLOG 8 unit SQ AC-SUPPER@1730 08/13/19 08/13/19 History (formulary)] Insulin Detemir (Levemir) [Levemir] 10 unit SQ HS 08/13/19 08/13/19 History Lidocaine 2% Gel [Xylocaine Jelly 1 applic TOPICAL DAILY PRN 08/13/19 08/13/19 History 2%] Loperamide HCl [Imodium A-D] 2 - 4 mg PO QID PRN 08/13/19 08/13/19 History Menthol/Zinc Oxide [Calmoseptine 1 applic TOPICAL Q6H PRN 08/13/19 08/13/19 History Ointment] Na Phos,M-B/Na Phos,Di-Ba [Fleet 133 ml RECTAL ONCE PRN 08/13/19 08/13/19 History Adult] Allergies Allergy/AdvReac Type Severity Reaction Status Date / Time No Known Allergies Allergy Verified 08/13/19 18:42 Physical Exam Vitals: Vital Signs Temp Pulse Pulse Resp BP BP Pulse Ox 08/14/19 07:00 97.7 F 94 16 114/65 99 08/14/19 01:40 97.9 F 94 99/62 99 08/13/19 23:55 97.8 F 107 H 16 109/56 99 08/13/19 22:30 98.3 F 108 H 16 131/68 98 08/13/19 21:10 98.0 F 108 H 18 144/68 99 08/13/19 20:40 98.4 F 112 H 16 128/84 100 08/13/19 20:30 98.2 F 108 H 16 117/53 100 08/13/19 19:04 97.3 F L 106 H 20 111/62 100 Intake and Output 08/13/19 08/14/19 08/14/19 22:59 06:59 14:59 Intake Total 310 600 Output Total 250 Balance 310 350 Intake: Intake, IV Titration 120 Amount Sodium Chloride 0.9% 1, 120 000 ml @ 20 mls/hr IV . Q24H [facility] Rx#:[id number] Oral 480 Blood Product 310 Rc As-1 Unit 310 [id number] Output: Urine 250 Other: Voiding Method Indwelling Catheter Indwelling Catheter Weight 68.946 kg Results CBC & Chem 7: 08/13/19 19:00 08/13/19 19:00 Labs: Abnormal Lab Results - Last 24 Hours (Table) 08/13/19 08/13/19 08/13/19 Range/Units 19:00 19:00 19:00 WBC 17.6 H (3.8-10.6) k/uL RBC 2.87 L (3.80-5.40) m/uL Hgb 8.6 L D (11.4-16.0) gm/dL Hct 27.0 L (34.0-46.0) % RDW 16.5 H (11.5-15.5) % Neutrophils # 15.3 H (1.3-7.7) k/uL APTT (22.0-30.0) sec Sodium 130 L (137-145) mmol/L Potassium 5.9 H (3.5-5.1) mmol/L Chloride 97 L (98-107) mmol/L Carbon Dioxide 16 L (22-30) mmol/L BUN 68 H (7-17) mg/dL Creatinine 2.16 H (0.52-1.04) mg/dL Glucose 296 H (74-99) mg/dL POC Glucose (mg/dL) (75-99) mg/dL Alkaline Phosphatase 155 H (38-126) U/L Creatine Kinase <20 L (30-135) U/L Albumin 3.3 L (3.5-5.0) g/dL Urine Appearance (Clear) Urine RBC (0-5) /hpf Urine WBC (0-5) /hpf Urine WBC Clumps (None) /hpf Crossmatch See Detail 08/13/19 08/13/19 08/13/19 Range/Units 19:00 19:00 23:59 WBC (3.8-10.6) k/uL RBC (3.80-5.40) m/uL Hgb (11.4-16.0) gm/dL Hct (34.0-46.0) % RDW (11.5-15.5) % Neutrophils # (1.3-7.7) k/uL APTT 16.5 L (22.0-30.0) sec Sodium (137-145) mmol/L Potassium (3.5-5.1) mmol/L Chloride (98-107) mmol/L Carbon Dioxide (22-30) mmol/L BUN (7-17) mg/dL Creatinine (0.52-1.04) mg/dL Glucose (74-99) mg/dL POC Glucose (mg/dL) 347 H (75-99) mg/dL Alkaline Phosphatase (38-126) U/L Creatine Kinase (30-135) U/L Albumin (3.5-5.0) g/dL Urine Appearance Bloody H (Clear) Urine RBC >182 H (0-5) /hpf Urine WBC >182 H (0-5) /hpf Urine WBC Clumps Many H (None) /hpf Crossmatch 08/14/19 Range/Units 07:14 WBC (3.8-10.6) k/uL RBC (3.80-5.40) m/uL Hgb (11.4-16.0) gm/dL Hct (34.0-46.0) % RDW (11.5-15.5) % Neutrophils # (1.3-7.7) k/uL APTT (22.0-30.0) sec Sodium (137-145) mmol/L Potassium (3.5-5.1) mmol/L Chloride (98-107) mmol/L Carbon Dioxide (22-30) mmol/L BUN (7-17) mg/dL Creatinine (0.52-1.04) mg/dL Glucose (74-99) mg/dL POC Glucose (mg/dL) 228 H (75-99) mg/dL Alkaline Phosphatase (38-126) U/L Creatine Kinase (30-135) U/L Albumin (3.5-5.0) g/dL Urine Appearance (Clear) Urine RBC (0-5) /hpf Urine WBC (0-5) /hpf Urine WBC Clumps (None) /hpf Crossmatch Thrombosis Risk Factor Assmnt - Choose All That Apply Each Risk Factor Represents 3 Points: Age 75 years or older Thrombosis Risk Factor Assessment Total Risk Factor Score: 3 Thrombosis Risk Factor Assessment Level: Moderate Risk
[2019-08-14] MEDS ORDERED: INSULIN DETEMIR (LEVEMIR) 100 UNIT/ML SYR SQ SCH (21:00)
[2019-08-14 21:04] LABS: Glucose,Whole Blood 122 mg/dL (75-99)
[2019-08-15 07:08] LABS: Glucose,Whole Blood 117 mg/dL (75-99)
[2019-08-15] MEDS: INSULIN ASPART (NovoLOG) 100 UNIT/ML VIAL SQ SCH ×4 (07:47→20:41)
--- NOTE | 2019-08-15 09:42 | CDI ---
Documentation Clarification Form Date: 08/15/2019 9:31:55 AM From: Celia HarrisonRyanKALPANA jeff, CCDS Admit Date: 08/13/2019 10:45:00 PM Patient Name: Belen Hernandez Visit Number: [id number] Discharge Date: ATTENTION: The Clinical Documentation Specialists (CDI) and [facility] Coding Staff appreciate your assistance in clarifying documentation. Please respond to the clarification below the line at the bottom and electronically sign. The CDI & [facility] Coding staff will review the response and follow-up if needed. Please note: Queries are made part of the Legal Health Record. If you have any questions, please contact the author of this message via ITS. Dr. Mj Lara: Per the History & Physical: "Chronic congestive heart failure from ischemic cardio myopathy EF is 20%. Ascending aortic aneurysm 4.2 cm," History/Risk Factors: Heart Failure, Atrial fibrillation, CAD, COPD, IDDM II, Hyperlipidemia, Hypertension, ND. Home Rx: Aldactone, Nitro sl, Lopressor, Imdur, Insulin sq, Lasix 40 mg BID, Iron, Ecotrin low dose. Clinical Indicators: Presented from senior living with vaginal bleeding & blood clot in Wood catheter. History of radiation cystitis, previous radiation for anal carcinoma. VS: T 97.3*, P 106^, R 20, BP 111/62, PO 100 RA BNP: not drawn this admission Echocardiogram Results 11/23/2018: Severe concentric LVH, Systolic function severely impaired w/EF 20-25%, Right ventricle is moderately enlarged, Mod MR, Severe TR, moderate pulmonary hypertension, Mod pulmonic regurgitation. Chest X Ray: No active cardiopulmonary disease. Heart appears much smaller than last exam. Clearing of pleural effusion compared to old exam. Treatment: IV fl 100, IV PPI, IV rocephin, Nitro sl, po Lasix. In your professional opinion, can you please clarify the acuity and type of CHF if known? Heart failure ruled out Systolic Heart Failure: o Acute o Chronic o Acute on Chronic o Other type of heart failure Unable to Determine Other, please specify (Last Revision: January 2018) addresed in discharge summary. No change in documentation. MTDD
[2019-08-15] MEDS: MENTHOL-ZINC OXIDE OINT 113 GM TUBE TOPICAL SCH ×3 (11:14→17:47)
[2019-08-15] MEDS: PANTOPRAZOLE 40 MG/10 ML VIAL IV SCH (11:20)
[2019-08-15] MEDS: METOPROLOL TARTRATE 25 MG TAB PO SCH ×2 (11:21→17:48)
[2019-08-15] MEDS: FERROUS SULFATE 325 MG TAB PO SCH ×2 (11:21→17:48)
[2019-08-15] MEDS: SPIRONOLACTONE 25 MG TAB PO SCH (11:21)
[2019-08-15] MEDS: ISOSORBIDE MONONITRATE ER 60 MG TAB.ER.24H PO SCH (11:21)
[2019-08-15] MEDS: FUROSEMIDE 40 MG TAB PO SCH ×2 (11:21→17:48)
[2019-08-15] MEDS: FAMOTIDINE 20 MG TAB PO SCH (11:22)
[2019-08-15 12:04] LABS: Glucose,Whole Blood 136 mg/dL (75-99)
[2019-08-15 16:56] LABS: Appearance,Urine Turbid (Clear); Bacteria,Urine Moderate /hpf; Bilirubin,Urine Negative (Negative); Blood,Urine Large (Negative); Color,Urine Dark Red; Glucose,Urine (UA) Negative (Negative); Ketones,Urine Negative (Negative); Leukocyte Esterase,Urine Large (Negative); Nitrite,Urine Negative (Negative); PH, Urine 5.5 (5.0-8.0); Protein,Urine 2+ (Negative); RBC,Urine >182 /hpf (0-5); Specific Gravity,Urine 1.018 (1.001-1.035); Urobilinogen,Urine <2.0 mg/dL (<2.0); WBC,Urine >182 /hpf (0-5)
[2019-08-15 17:23] LABS: Glucose,Whole Blood 172 mg/dL (75-99)
[2019-08-15] MEDS: MULTIVITAMINS, THERA 1 EACH TAB PO SCH (17:48)
[2019-08-15] MEDS: SODIUM CHLORIDE 0.9% 1,000 ML IV SCH (17:58)
[2019-08-15 20:33] LABS: Glucose,Whole Blood 221 mg/dL (75-99)
[2019-08-15 20:33] LABS: Hemoglobin A1C 5.6 % (4.0-6.0)
[2019-08-15] MEDS: INSULIN DETEMIR (LEVEMIR) 100 UNIT/ML SYR SQ SCH (20:42)
--- NOTE | 2019-08-16 00:05 | P.PN ---
Progress Note - Text Progress Note Date: 08/15/19 Chief Complaint: Blood in the diaper History of presenting complaint: This is a pleasant 74 year patient was a resident of [facility]. Chronic stable medical conditions include coronary artery disease with prior bypass, COPD, diabetes mellitus type 2, hypertension, hyperlipidemia, congestive heart failure with EF less than 20%, ascending aortic aneurysm 4.2 cm, AICD, chronic kidney disease stage III,. Patient was here in the hospital in April of this year with severe hematuria. Blood clots were present. Did undergo cystoscopy by Dr. Hutson. Found to have hemorrhagic cystitis. Cytology came back to be negative. Patient now presents with blood clot in the Wood catheter. And in the diaper. Blood pressure was found to be low by the EMS. 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 Empirically started on antibiotics for possible UTI. Patient also had some lower abdominal pain. Today-Wood catheter remains in place. Just some bloody urine. Patient feels tired. Did tolerate some diet. Review of systems: Was done for constitutional, cardiovascular, GI, pulmonary. relevant finding as above Active Medications Acetaminophen (Tylenol Tab) 650 mg PO Q6HR PRN PRN Reason: Mild Pain or Fever > 100.5 Acetaminophen/Codeine Phosphate (Tylenol #3) 1 each PO Q8H PRN PRN Reason: Pain Al Hydroxide/Mg Hydroxide (Maalox) 30 ml PO Q6H PRN PRN Reason: Nausea Bisacodyl (Dulcolax) 10 mg RECTAL DAILY PRN PRN Reason: Constipation Calamine/Phenol (Calmoseptine Oint) 1 applic TOPICAL Q6H PRN PRN Reason: EXCORIATION Calamine/Phenol (Calmoseptine Oint) 1 applic TOPICAL TID@0800,1200,1700 [facility] Last Admin: 08/15/19 17:47 Dose: 1 applic Documented by: Famotidine (Pepcid) 20 mg PO DAILY [facility] Last Admin: 08/15/19 11:22 Dose: 20 mg Documented by: Ferrous Sulfate (Feosol) 325 mg PO BID@0800,1700 [facility] Last Admin: 08/15/19 17:48 Dose: 325 mg Documented by: Furosemide (Lasix) 40 mg PO BID@0800,1700 [facility] Last Admin: 08/15/19 17:48 Dose: 40 mg Documented by: Sodium Chloride (Saline 0.9%) 1,000 mls @ 20 mls/hr IV .Q24H [facility] Last Admin: 08/15/19 17:58 Dose: 20 mls/hr Documented by: Insulin Aspart (Novolog) 0 unit SQ ACHS [facility]; Protocol Last Admin: 08/15/19 20:41 Dose: 3 unit Documented by: Insulin Detemir (Levemir) 15 unit SQ HS [facility] Last Admin: 08/15/19 20:42 Dose: Not Given Documented by: Isosorbide Mononitrate (Imdur) 60 mg PO DAILY [facility] Last Admin: 08/15/19 11:21 Dose: 60 mg Documented by: Lidocaine HCl (Xylocaine Jelly 2%) 1 applic TOPICAL DAILY PRN PRN Reason: BLE HEELS BEFORE PROCEDURE Magnesium Hydroxide (Milk Of Magnesia) 2,400 mg PO DAILY PRN PRN Reason: Constipation Metoprolol Tartrate (Lopressor) 25 mg PO BID@0800,1700 [facility] Last Admin: 08/15/19 17:48 Dose: 25 mg Documented by: Multivitamins (Theragran) 1 each PO DAILY@1700 [facility] Last Admin: 08/15/19 17:48 Dose: 1 each Documented by: Naloxone HCl (Narcan) 0.2 mg IV Q2M PRN PRN Reason: Opioid Reversal Nitroglycerin (Nitrostat) 0.4 mg SUBLINGUAL Q5M PRN PRN Reason: Chest Pain Pantoprazole Sodium (Protonix) 40 mg IV DAILY [facility] Last Admin: 08/15/19 11:20 Dose: 40 mg Documented by: Sodium Biphosphate/Sodium Phosphate (Fleet Adult) 133 ml RECTAL ONCE PRN PRN Reason: Constipation Spironolactone (Aldactone) 25 mg PO DAILY [facility] Last Admin: 08/15/19 11:21 Dose: 25 mg Documented by: Physical examination: VITAL SIGNS: 97.2, 82, 16, 11 5/57, 96% room air GENERAL: Laying in bed, awake but tired. EYES: [Pupils equal. Conjunctiva pale. HEENT: External appearance of nose and ears normal, oral cavity grossly normal. NECK: JVD not raised; masses not palpable. HEART: First and second heart sounds are normal; no edema. LUNGS: Respiratory rate normal; decreased breath sounds. ABDOMEN: Soft, mild suprapubic tenderness no guarding rigidity, liver spleen not palpable, no masses palpable. PSYCH: [Awake answering simple questions INVESTIGATIONS, reviewed in the clinical context: White count 7.6 hemoglobin 8.6 platelets 46 potassium 5.9 BUN 68 creatinine 2.16 BUNs 68 creatinine 2.16 Patient's bun was 84 creatinine 1.85 on July 31 EKG tracing personally reviewed by me shows-sinus rhythm with some ST segment depression in inferolateral leads CT [id number] hydronephrosis and hydroureter, with improvement of the same on the right side from the previous exam. Numerous diverticula of the sigmoid colon. L1 vertebra anterior wedging 20% Chest x-ray film personally reviewed by me-no infiltrates Assessment: -Acute hematuria in a patient with known hemorrhagic cystitis,. Bladder cytology being negative for malignancy in March of this year. 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 Follow H&H. Continue with antibiotic.
[2019-08-16 06:56] LABS: Glucose,Whole Blood 155 mg/dL (75-99)
[2019-08-16] MEDS: METOPROLOL TARTRATE 25 MG TAB PO SCH ×2 (07:25→17:06)
[2019-08-16] MEDS: ISOSORBIDE MONONITRATE ER 60 MG TAB.ER.24H PO SCH (07:49)
[2019-08-16] MEDS: FUROSEMIDE 40 MG TAB PO SCH ×2 (07:49→17:20)
[2019-08-16] MEDS: FERROUS SULFATE 325 MG TAB PO SCH ×2 (07:49→17:20)
[2019-08-16] MEDS: INSULIN ASPART (NovoLOG) 100 UNIT/ML VIAL SQ SCH ×4 (07:49→20:44)
[2019-08-16] MEDS: SPIRONOLACTONE 25 MG TAB PO SCH (07:49)
[2019-08-16] MEDS: FAMOTIDINE 20 MG TAB PO SCH (07:49)
[2019-08-16] MEDS: MENTHOL-ZINC OXIDE OINT 113 GM TUBE TOPICAL SCH ×3 (07:50→17:25)
[2019-08-16] MEDS: PANTOPRAZOLE 40 MG/10 ML VIAL IV SCH (07:50)
[2019-08-16 09:30] LABS: Anisocytosis Slight; HCT 30.7 % (34.0-46.0); HGB 9.9 gm/dL (11.4-16.0); Hypochromasia Moderate; MCHC 32.2 g/dL (31.0-37.0); MCV 96.4 fL (80.0-100.0); Mean Platelet Volume 5.6; Platelet Count 355 k/uL (150-450); Poikilocytosis Slight; RBC 3.19 m/uL (3.80-5.40); WBC 17.1 k/uL (3.8-10.6)
[2019-08-16 09:37] LABS: Calcium 9.1 mg/dL (8.4-10.2); Potassium 4.4 mmol/L (3.5-5.1)
--- NOTE | 2019-08-16 09:46 | P.PN ---
Subjective Progress Note Date: 08/16/19 The urine is clearing. The hemoglobin is 9.9. A culture was obtained but after antibiotics. We will continue to observe Objective - Vital Signs Vital signs: Vital Signs Temp 98.1 F 08/16/19 06:49 Pulse 110 H 08/16/19 06:49 Resp 15 08/16/19 06:49 BP 95/60 08/16/19 06:49 Pulse Ox 98 08/16/19 06:49 Intake & Output 08/15/19 08/16/19 08/16/19 18:59 06:59 18:59 Intake Total 500 190 Output Total 475 Balance 500 -285 Weight 55 kg Intake: Intake, IV Titration 140 Amount Sodium Chloride 0.9% 1, 140 000 ml @ 20 mls/hr IV . Q24H [facility] Rx#:[id number] Oral 360 190 Output: Urine 475 Coude 325 Other: Voiding Method Indwelling Catheter Indwelling Catheter - Labs CBC & Chem 7: 08/16/19 08:45 08/16/19 08:45 Labs: Abnormal Lab Results - Last 24 Hours (Table) 08/15/19 08/15/19 08/15/19 Range/Units 12:02 16:30 17:22 WBC (3.8-10.6) k/uL RBC (3.80-5.40) m/uL Hgb (11.4-16.0) gm/dL Hct (34.0-46.0) % RDW (11.5-15.5) % Sodium (137-145) mmol/L Carbon Dioxide (22-30) mmol/L BUN (7-17) mg/dL Creatinine (0.52-1.04) mg/dL Glucose (74-99) mg/dL POC Glucose (mg/dL) 136 H 172 H (75-99) mg/dL Urine Appearance Turbid H (Clear) Urine Protein 2+ H (Negative) Urine Blood Large H (Negative) Ur Leukocyte Esterase Large H (Negative) Urine RBC >182 H (0-5) /hpf Urine WBC >182 H (0-5) /hpf Urine WBC Clumps Many H (None) /hpf Urine Bacteria Moderate H (None) /hpf 08/15/19 08/16/19 08/16/19 Range/Units 20:32 06:51 08:45 WBC 17.1 H (3.8-10.6) k/uL RBC 3.19 L (3.80-5.40) m/uL Hgb 9.9 L (11.4-16.0) gm/dL Hct 30.7 L (34.0-46.0) % RDW 16.0 H (11.5-15.5) % Sodium (137-145) mmol/L Carbon Dioxide (22-30) mmol/L BUN (7-17) mg/dL Creatinine (0.52-1.04) mg/dL Glucose (74-99) mg/dL POC Glucose (mg/dL) 221 H 155 H (75-99) mg/dL Urine Appearance (Clear) Urine Protein (Negative) Urine Blood (Negative) Ur Leukocyte Esterase (Negative) Urine RBC (0-5) /hpf Urine WBC (0-5) /hpf Urine WBC Clumps (None) /hpf Urine Bacteria (None) /hpf 08/16/19 Range/Units 08:45 WBC (3.8-10.6) k/uL RBC (3.80-5.40) m/uL Hgb (11.4-16.0) gm/dL Hct (34.0-46.0) % RDW (11.5-15.5) % Sodium 133 L (137-145) mmol/L Carbon Dioxide 18 L (22-30) mmol/L BUN 55 H (7-17) mg/dL Creatinine 1.92 H (0.52-1.04) mg/dL Glucose 160 H (74-99) mg/dL POC Glucose (mg/dL) (75-99) mg/dL Urine Appearance (Clear) Urine Protein (Negative) Urine Blood (Negative) Ur Leukocyte Esterase (Negative) Urine RBC (0-5) /hpf Urine WBC (0-5) /hpf Urine WBC Clumps (None) /hpf Urine Bacteria (None) /hpf Microbiology - Last 24 Hours (Table) 08/15/19 16:30 Urine Culture - Preliminary Urine,Catheterized
[2019-08-16] MEDS ORDERED: diphenhydrAMINE 50 MG/ML 1 ML VIAL IVP STA (11:10)
[2019-08-16] MEDS ORDERED: diphenhydrAMINE 25 MG CAP PO STA (11:47)
[2019-08-16 12:19] LABS: Glucose,Whole Blood 163 mg/dL (75-99)
[2019-08-16 17:05] LABS: Glucose,Whole Blood 145 mg/dL (75-99)
[2019-08-16] MEDS: MULTIVITAMINS, THERA 1 EACH TAB PO SCH (17:20)
[2019-08-16] MEDS: diphenhydrAMINE 50 MG/ML 1 ML VIAL IVP SCH (17:24)
[2019-08-16 20:28] LABS: Glucose,Whole Blood 124 mg/dL (75-99)
[2019-08-16] MEDS: INSULIN DETEMIR (LEVEMIR) 100 UNIT/ML SYR SQ SCH (20:44)
[2019-08-16] MEDS: SODIUM CHLORIDE 0.9% 1,000 ML IV SCH (21:56)
--- NOTE | 2019-08-16 22:13 | P.PN ---
Progress Note - Text Progress Note Date: 08/16/19 Chief Complaint: Blood in the diaper History of presenting complaint: This is a pleasant 74 year patient was a resident of [facility]. Chronic stable medical conditions include coronary artery disease with prior bypass, COPD, diabetes mellitus type 2, hypertension, hyperlipidemia, congestive heart failure with EF less than 20%, ascending aortic aneurysm 4.2 cm, AICD, chronic kidney disease stage III,. Patient was here in the hospital in April of this year with severe hematuria. Blood clots were present. Did undergo cystoscopy by Dr. Hutson. Found to have hemorrhagic cystitis. Cytology came back to be negative. Patient now presents with blood clot in the Wood catheter. And in the diaper. Blood pressure was found to be low by the EMS. 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 Empirically started on antibiotics for possible UTI. Patient also had some lower abdominal pain. Today-continues to have hematuria. Has a superficial rash. Did use some Benadryl. Review of systems: Was done for constitutional, cardiovascular, GI, pulmonary. relevant finding as above Active Medications Acetaminophen (Tylenol Tab) 650 mg PO Q6HR PRN PRN Reason: Mild Pain or Fever > 100.5 Acetaminophen/Codeine Phosphate (Tylenol #3) 1 each PO Q8H PRN PRN Reason: Pain Last Admin: 08/16/19 20:42 Dose: 1 each Documented by: Al Hydroxide/Mg Hydroxide (Maalox) 30 ml PO Q6H PRN PRN Reason: Nausea Bisacodyl (Dulcolax) 10 mg RECTAL DAILY PRN PRN Reason: Constipation Calamine/Phenol (Calmoseptine Oint) 1 applic TOPICAL Q6H PRN PRN Reason: EXCORIATION Calamine/Phenol (Calmoseptine Oint) 1 applic TOPICAL TID@0800,1200,1700 [facility] Last Admin: 08/16/19 17:25 Dose: 1 applic Documented by: Diphenhydramine HCl (Benadryl) 25 mg IVP Q6HR [facility] Last Admin: 08/16/19 17:24 Dose: 25 mg Documented by: Famotidine (Pepcid) 20 mg PO DAILY [facility] Last Admin: 08/16/19 07:49 Dose: 20 mg Documented by: Ferrous Sulfate (Feosol) 325 mg PO BID@0800,1700 [facility] Last Admin: 08/16/19 17:20 Dose: 325 mg Documented by: Furosemide (Lasix) 40 mg PO BID@0800,1700 [facility] Last Admin: 08/16/19 17:20 Dose: 40 mg Documented by: Sodium Chloride (Saline 0.9%) 1,000 mls @ 20 mls/hr IV .Q24H [facility] Last Admin: 08/16/19 21:56 Dose: Not Given Documented by: Ceftriaxone Sodium 1 gm/ (Sodium Chloride) 50 mls @ 100 mls/hr IVPB Q24H [facility] Last Admin: 08/16/19 01:10 Dose: 100 mls/hr Documented by: Insulin Aspart (Novolog) 0 unit SQ ACHS [facility]; Protocol Last Admin: 08/16/19 20:44 Dose: Not Given Documented by: Insulin Detemir (Levemir) 15 unit SQ HS [facility] Last Admin: 08/16/19 20:44 Dose: Not Given Documented by: Isosorbide Mononitrate (Imdur) 60 mg PO DAILY [facility] Last Admin: 08/16/19 07:49 Dose: 60 mg Documented by: Lidocaine HCl (Xylocaine Jelly 2%) 1 applic TOPICAL DAILY PRN PRN Reason: BLE HEELS BEFORE PROCEDURE Magnesium Hydroxide (Milk Of Magnesia) 2,400 mg PO DAILY PRN PRN Reason: Constipation Metoprolol Tartrate (Lopressor) 25 mg PO BID@0800,1700 [facility] Last Admin: 08/16/19 17:06 Dose: Not Given Documented by: Multivitamins (Theragran) 1 each PO DAILY@1700 [facility] Last Admin: 08/16/19 17:20 Dose: 1 each Documented by: Naloxone HCl (Narcan) 0.2 mg IV Q2M PRN PRN Reason: Opioid Reversal Nitroglycerin (Nitrostat) 0.4 mg SUBLINGUAL Q5M PRN PRN Reason: Chest Pain Pantoprazole Sodium (Protonix) 40 mg IV DAILY [facility] Last Admin: 08/16/19 07:50 Dose: 40 mg Documented by: Sodium Biphosphate/Sodium Phosphate (Fleet Adult) 133 ml RECTAL ONCE PRN PRN Reason: Constipation Spironolactone (Aldactone) 25 mg PO DAILY [facility] Last Admin: 08/16/19 07:49 Dose: 25 mg Documented by: Physical examination: VITAL SIGNS: 30.3, 101, 15, anti-4/59, 96% room air GENERAL: propped up in bed, awake. EYES: [Pupils equal. Conjunctiva pale. HEENT: External appearance of nose and ears normal, oral cavity grossly normal. NECK: JVD not raised; masses not palpable. HEART: First and second heart sounds are normal; no edema. LUNGS: Respiratory rate normal; decreased breath sounds. ABDOMEN: Soft, mild suprapubic tenderness no guarding rigidity, liver spleen not palpable, no masses palpable. PSYCH: [Awake answering simple questions DERMATOLOGICAL: superficial rash on the back INVESTIGATIONS, reviewed in the clinical context: White count 17.1 hemoglobin 9.9 bun 55 crit 1.9 to urine culture-group D enterococcus Previous testing White count 7.6 hemoglobin 8.6 platelets 46 potassium 5.9 BUN 68 creatinine 2.16 BUNs 68 creatinine 2.16 Patient's bun was 84 creatinine 1.85 on July 31 EKG tracing personally reviewed by me shows-sinus rhythm with some ST segment depression in inferolateral leads CT [id number] hydronephrosis and hydroureter, with improvement of the same on the right side from the previous exam. Numerous diverticula of the sigmoid colon. L1 vertebra anterior wedging 20% Chest x-ray film personally reviewed by me-no infiltrates Assessment: -Acute hematuria in a patient with known hemorrhagic cystitis,. Bladder cytology being negative for malignancy in March of this year. 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 Start the patient on amoxicillin 1 g every 12 because of enterococcus. Repeat hemoglobin the morning. Hematuria persist.
[2019-08-16] MEDS: AMOXICILLIN 500 MG CAP PO SCH (22:34)
[2019-08-17] MEDS: diphenhydrAMINE 50 MG/ML 1 ML VIAL IVP SCH ×4 (00:18→17:32)
[2019-08-17 06:39] LABS: Glucose,Whole Blood 121 mg/dL (75-99)
[2019-08-17 08:03] LABS: Anisocytosis Slight; HCT 27.8 % (34.0-46.0); HGB 9.3 gm/dL (11.4-16.0); MCH 31.5 pg (25.0-35.0); MCHC 33.3 g/dL (31.0-37.0); MCV 94.4 fL (80.0-100.0); Mean Platelet Volume 6.2; Platelet Count 332 k/uL (150-450); Poikilocytosis Slight; RBC 2.94 m/uL (3.80-5.40); RDW 16.4 % (11.5-15.5); WBC 16.5 k/uL (3.8-10.6)
[2019-08-17] MEDS: INSULIN ASPART (NovoLOG) 100 UNIT/ML VIAL SQ SCH ×4 (08:53→20:41)
[2019-08-17] MEDS: PANTOPRAZOLE 40 MG/10 ML VIAL IV SCH (09:06)
[2019-08-17] MEDS: FAMOTIDINE 20 MG TAB PO SCH (09:07)
[2019-08-17] MEDS: ISOSORBIDE MONONITRATE ER 60 MG TAB.ER.24H PO SCH (09:07)
[2019-08-17] MEDS: SPIRONOLACTONE 25 MG TAB PO SCH (09:07)
[2019-08-17] MEDS: METOPROLOL TARTRATE 25 MG TAB PO SCH ×2 (09:07→17:31)
[2019-08-17] MEDS: FUROSEMIDE 40 MG TAB PO SCH ×2 (09:08→17:31)
[2019-08-17] MEDS: MENTHOL-ZINC OXIDE OINT 113 GM TUBE TOPICAL SCH ×3 (09:08→17:32)
[2019-08-17] MEDS: FERROUS SULFATE 325 MG TAB PO SCH ×2 (09:08→17:31)
--- NOTE | 2019-08-17 11:15 | P.PN ---
Subjective Progress Note Date: 08/17/19 The patient is in the hospital with hematuria secondary to hemorrhagic cystitis. She also has a history of radiation cystitis. She is growing a group D strep. The urine is clearing nicely. Nothing further urologic needs to be done. Objective - Vital Signs Vital signs: Vital Signs Temp 98 F 08/17/19 07:00 Pulse 104 H 08/17/19 07:00 Resp 16 08/17/19 07:00 BP 124/83 08/17/19 07:00 Pulse Ox 99 08/17/19 07:00 Intake & Output 08/16/19 08/17/19 08/17/19 18:59 06:59 18:59 Intake Total 560 20 Output Total 400 400 Balance 160 -380 Weight 54.5 kg Intake: Oral 560 20 Output: Urine 400 400 Other: Voiding Method Indwelling Catheter Indwelling Catheter Indwelling Catheter - Labs CBC & Chem 7: 08/17/19 07:31 08/16/19 08:45 Labs: Abnormal Lab Results - Last 24 Hours (Table) 08/16/19 08/16/19 08/16/19 Range/Units 12:07 17:02 20:17 WBC (3.8-10.6) k/uL RBC (3.80-5.40) m/uL Hgb (11.4-16.0) gm/dL Hct (34.0-46.0) % RDW (11.5-15.5) % POC Glucose (mg/dL) 163 H 145 H 124 H (75-99) mg/dL 08/17/19 08/17/19 Range/Units 06:37 07:31 WBC 16.5 H (3.8-10.6) k/uL RBC 2.94 L (3.80-5.40) m/uL Hgb 9.3 L (11.4-16.0) gm/dL Hct 27.8 L (34.0-46.0) % RDW 16.4 H (11.5-15.5) % POC Glucose (mg/dL) 121 H (75-99) mg/dL Microbiology - Last 24 Hours (Table) 08/15/19 16:30 Urine Culture - Preliminary Urine,Catheterized Group D Enterococcus 08/15/19 14:09 Blood Culture - Preliminary Blood No Growth after 24 hours
[2019-08-17 12:09] LABS: Glucose,Whole Blood 178 mg/dL (75-99)
[2019-08-17] MEDS: AMOXICILLIN 500 MG CAP PO SCH ×2 (14:37→21:13)
[2019-08-17 17:10] LABS: Glucose,Whole Blood 181 mg/dL (75-99)
[2019-08-17] MEDS: MULTIVITAMINS, THERA 1 EACH TAB PO SCH (17:31)
--- NOTE | 2019-08-17 19:35 | P.PN ---
Progress Note - Text Progress Note Date: 08/17/19 Chief Complaint: Blood in the diaper Interval history: This is a pleasant 74 year patient was a resident of [facility]. Chronic stable medical conditions include coronary artery disease with prior bypass, COPD, diabetes mellitus type 2, hypertension, hyperlipidemia, congestive heart failure with EF less than 20%, ascending aortic aneurysm 4.2 cm, AICD, chronic kidney disease stage III,. Patient was here in the hospital in April of this year with severe hematuria. Blood clots were present. Did undergo cystoscopy by Dr. Hutson. Found to have hemorrhagic cystitis. Cytology came back to be negative. Patient now presents with blood clot in the Wood catheter. And in the diaper. Blood pressure was found to be low by the EMS. 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 Empirically started on antibiotics for possible UTI. Patient also had some lower abdominal pain. Urine culture did come back growing enterococcus D. Antibiotic was switched to amoxicillin. Today-Hematuria clearing up. Feeling better. No new issues. Rash is improving. Review of systems: Was done for constitutional, cardiovascular, GI, pulmonary. relevant finding as above Active Medications Acetaminophen (Tylenol Tab) 650 mg PO Q6HR PRN PRN Reason: Mild Pain or Fever > 100.5 Acetaminophen/Codeine Phosphate (Tylenol #3) 1 each PO Q8H PRN PRN Reason: Pain Last Admin: 08/16/19 20:42 Dose: 1 each Documented by: Al Hydroxide/Mg Hydroxide (Maalox) 30 ml PO Q6H PRN PRN Reason: Nausea Amoxicillin (Amoxicillin) 1,000 mg PO Q12H [facility] Last Admin: 08/17/19 14:37 Dose: 1,000 mg Documented by: Bisacodyl (Dulcolax) 10 mg RECTAL DAILY PRN PRN Reason: Constipation Calamine/Phenol (Calmoseptine Oint) 1 applic TOPICAL Q6H PRN PRN Reason: EXCORIATION Calamine/Phenol (Calmoseptine Oint) 1 applic TOPICAL TID@0800,1200,1700 [facility] Last Admin: 08/17/19 17:32 Dose: 1 applic Documented by: Diphenhydramine HCl (Benadryl) 25 mg IVP Q6HR [facility] Last Admin: 08/17/19 17:32 Dose: 25 mg Documented by: Ferrous Sulfate (Feosol) 325 mg PO BID@0800,1700 [facility] Last Admin: 08/17/19 17:31 Dose: 325 mg Documented by: Furosemide (Lasix) 40 mg PO BID@0800,1700 [facility] Last Admin: 08/17/19 17:31 Dose: 40 mg Documented by: Sodium Chloride (Saline 0.9%) 1,000 mls @ 20 mls/hr IV .Q24H [facility] Last Admin: 08/16/19 21:56 Dose: Not Given Documented by: Insulin Aspart (Novolog) 0 unit SQ ACHS [facility]; Protocol Last Admin: 08/17/19 17:32 Dose: 2 unit Documented by: Insulin Detemir (Levemir) 15 unit SQ HS [facility] Last Admin: 08/16/19 20:44 Dose: Not Given Documented by: Isosorbide Mononitrate (Imdur) 60 mg PO DAILY [facility] Last Admin: 08/17/19 09:07 Dose: 60 mg Documented by: Lidocaine HCl (Xylocaine Jelly 2%) 1 applic TOPICAL DAILY PRN PRN Reason: BLE HEELS BEFORE PROCEDURE Magnesium Hydroxide (Milk Of Magnesia) 2,400 mg PO DAILY PRN PRN Reason: Constipation Metoprolol Tartrate (Lopressor) 25 mg PO BID@0800,1700 [facility] Last Admin: 08/17/19 17:31 Dose: 25 mg Documented by: Multivitamins (Theragran) 1 each PO DAILY@1700 [facility] Last Admin: 08/17/19 17:31 Dose: 1 each Documented by: Naloxone HCl (Narcan) 0.2 mg IV Q2M PRN PRN Reason: Opioid Reversal Nitroglycerin (Nitrostat) 0.4 mg SUBLINGUAL Q5M PRN PRN Reason: Chest Pain Pantoprazole Sodium (Protonix) 40 mg PO AC-BRKFST [facility] Sodium Biphosphate/Sodium Phosphate (Fleet Adult) 133 ml RECTAL ONCE PRN PRN Reason: Constipation Spironolactone (Aldactone) 25 mg PO DAILY [facility] Last Admin: 08/17/19 09:07 Dose: 25 mg Documented by: Physical examination: VITAL SIGNS: 98, 104, 16, 124/83, 99% room air GENERAL: propped up in bed, comfortable. EYES: [Pupils equal. Conjunctiva pale. HEENT: External appearance of nose and ears normal, oral cavity grossly normal. NECK: JVD not raised; masses not palpable. HEART: First and second heart sounds are normal; no edema. LUNGS: Respiratory rate normal; decreased breath sounds. ABDOMEN: Soft, mild suprapubic tenderness no guarding rigidity, liver spleen not palpable, no masses palpable. Wood catheter, with complected she urine PSYCH: [Awake answering simple questions DERMATOLOGICAL: superficial rash on the back INVESTIGATIONS, reviewed in the clinical context: White count 16.5 hemoglobin 9.3 Previous testing White count 7.6 hemoglobin 8.6 platelets 46 potassium 5.9 BUN 68 creatinine 2.16 BUNs 68 creatinine 2.16 Patient's bun was 84 creatinine 1.85 on July 31 EKG tracing personally reviewed by me shows-sinus rhythm with some ST segment depression in inferolateral leads CT [id number] hydronephrosis and hydroureter, with improvement of the same on the right from the previous exam. Numerous diverticula of the sigmoid colon. L1 vertebra anterior wedging 20% Chest x-ray film personally reviewed by me-no infiltrates urine culture-group D enterococcus Assessment: -Acute hematuria in a patient with known hemorrhagic cystitis,. Bladder cytology being negative for malignancy in March of this year. 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 Discussed with Dr. Hutson from urology. DC Wood catheter today. Continue with amoxicillin. If patient makes urine. We'll DC the patient to the ECF tomorrow.
[2019-08-17 20:26] LABS: Glucose,Whole Blood 126 mg/dL (75-99)
[2019-08-17] MEDS: INSULIN DETEMIR (LEVEMIR) 100 UNIT/ML SYR SQ SCH (20:56)
[2019-08-17] MEDS: SODIUM CHLORIDE 0.9% 1,000 ML IV SCH (21:17)
[2019-08-18] MEDS: diphenhydrAMINE 50 MG/ML 1 ML VIAL IVP SCH ×3 (00:06→13:03)
[2019-08-18 07:04] LABS: Glucose,Whole Blood 57 mg/dL (75-99)
[2019-08-18] MEDS ORDERED: PANTOPRAZOLE 40 MG TABLET PO SCH (07:30)
[2019-08-18] MEDS: INSULIN ASPART (NovoLOG) 100 UNIT/ML VIAL SQ SCH ×2 (07:31→12:36)
[2019-08-18 07:38] LABS: Glucose,Whole Blood 78 mg/dL (75-99)
[2019-08-18] MEDS: ISOSORBIDE MONONITRATE ER 60 MG TAB.ER.24H PO SCH (08:43)
[2019-08-18] MEDS: FERROUS SULFATE 325 MG TAB PO SCH (08:44)
[2019-08-18] MEDS: SPIRONOLACTONE 25 MG TAB PO SCH (08:44)
[2019-08-18] MEDS: FUROSEMIDE 40 MG TAB PO SCH (08:44)
[2019-08-18] MEDS: METOPROLOL TARTRATE 25 MG TAB PO SCH (08:44)
[2019-08-18] MEDS: MENTHOL-ZINC OXIDE OINT 113 GM TUBE TOPICAL SCH ×2 (08:45→13:15)
[2019-08-18 11:00] VITALS: BMI 21.9
[2019-08-18 11:57] LABS: Glucose,Whole Blood 97 mg/dL (75-99)
--- NOTE | 2019-08-18 12:27 | P.DS ---
Providers Date of admission: 08/13/19 22:45 Expected date of discharge: 08/18/19 Attending physician: Mj Lara Consults: 08/13/19 22:42 Consult Physician Routine Consulting Provider: Lukas Chow Consult Reason/Comments: Gross hematuria, hemorrhagic cystitis Do you want consulting provider notified?: Already Contacted Primary care physician: [facility] Course: Chief Complaint: Blood in the diaper Interval history: This is a pleasant 74 year patient was a resident of [facility]. Chronic stable medical conditions include coronary artery disease with prior bypass, COPD, diabetes mellitus type 2, hypertension, hyperlipidemia, congestive heart failure with EF less than 20%, ascending aortic aneurysm 4.2 cm, AICD, chronic kidney disease stage III,. Patient was here in the hospital in April of this year with severe hematuria. Blood clots were present. Did undergo cystoscopy by Dr. Hutson. Found to have hemorrhagic cystitis. Cytology came back to be negative. Patient now presents with blood clot in the Wood catheter. And in the diaper. Blood pressure was found to be low by the EMS. 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 Empirically started on antibiotics for possible UTI. Patient also had some lower abdominal pain. Urine culture did come back growing enterococcus D. Antibiotic was switched to amoxicillin. Patient's urine is completely clear. Wood catheter was discontinued. Patient is making urine. Patient did have a skin reaction that is improving. Patient tolerated diet. Consultation: Dr. Hutson from urology Physical examination: VITAL SIGNS: 97.6, 82, 16, 120/59, 98% room air at GENERAL: Sitting on bed comfortable EYES: [Pupils equal. Conjunctiva pale. HEENT: External appearance of nose and ears normal, oral cavity grossly normal. NECK: JVD not raised; masses not palpable. HEART: First and second heart sounds are normal; no edema. LUNGS: Respiratory rate normal; decreased breath sounds. ABDOMEN: Soft, mild suprapubic tenderness no guarding rigidity, liver spleen not palpable, no masses palpable. PSYCH: Answering questions DERMATOLOGICAL: superficial rash on the back-much improved with these combination INVESTIGATIONS, reviewed in the clinical context: White count 16.5 hemoglobin 9.3 Previous testing White count 7.6 hemoglobin 8.6 platelets 46 potassium 5.9 BUN 68 creatinine 2.16 BUNs 68 creatinine 2.16 Patient's bun was 84 creatinine 1.85 on July 31 EKG tracing personally reviewed by me shows-sinus rhythm with some ST segment depression in inferolateral leads CT [id number] hydronephrosis and hydroureter, with improvement of the same on the right from the previous exam. Numerous diverticula of the sigmoid colon. L1 vertebra anterior wedging 20% Chest x-ray film personally reviewed by me-no infiltrates urine culture-group D enterococcus Assessment: -Acute hematuria in a patient with known hemorrhagic cystitis,. Bladder cytology being negative for malignancy in March of this year. 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, secondary to radiation received during adenocarcinoma treatment -UTI from cystitis, urine culture -group D enterococcus -Chronic left-sided hydroureter and hydronephrosis -Coronary artery disease with prior bypass -COPD in an ex-smoker -Diabetes mellitus type 2 -Essential hypertension -Hyperlipidemia -Chronic congestive heart failure from ischemic cardio myopathy EF is 20% -Ascending aortic aneurysm 4.2 cm -AICD -Chronic kidney disease stage III from diabetic nephropathy and hypertensive nephrosclerosis Code status-DO NOT RESUSCITATE - Disposition: [facility] Patient Condition at Discharge: Stable Plan - Discharge Summary Discharge Rx Participant: No New Discharge Prescriptions: New Amoxicillin 1,000 mg PO Q12H #20 cap INSULIN ASPART (NovoLOG) [NovoLOG (formulary)] 0 unit SQ ACHS vial Continue Metoprolol Tartrate [Lopressor] 25 mg PO BID@0800,1700 Isosorbide Mononitrate ER [Imdur] 60 mg PO DAILY #30 tab.er.24h Nitroglycerin Sl Tabs [Nitrostat] 0.4 mg SUBLINGUAL Q5M PRN #25 tab PRN Reason: Chest Pain Aspirin EC [Ecotrin Low Dose] 81 mg PO DAILY@1700 Famotidine [Pepcid] 20 mg PO DAILY tab Spironolactone [Aldactone] 25 mg PO DAILY tab Multivitamins, Thera [Multivitamin (formulary)] 1 tab PO DAILY@1700 Magnesium Hydroxide [Milk of Magnesia Concentrate] 7,200 mg PO DAILY PRN PRN Reason: Constipation Mag Hydrox/Al Hydrox/Simeth [Maalox] 30 ml PO Q6H PRN PRN Reason: Nausea Ferrous Sulfate [Iron (65 MG Elemental)] 325 mg PO BID@0800,1700 Menthol-Zinc Oxide Oint [Calmoseptine Oint] 1 applic TOPICAL TID@0800,1200,1700 Bisacodyl [Dulcolax] 10 mg RECTAL DAILY PRN PRN Reason: Constipation Acetaminophen Tab [Tylenol] 650 mg PO Q4H PRN PRN Reason: Fever And/ Or Pain Glucerna Shake 120 ml PO AC-BID@1200,1700 Glucerna Shake 237 ml PO AC-BRKFST@0800 Na Phos,M-B/Na Phos,Di-Ba [Fleet Adult] 133 ml RECTAL ONCE PRN PRN Reason: Constipation Loperamide HCl [Imodium A-D] 2 - 4 mg PO QID PRN PRN Reason: Diarrhea Menthol/Zinc Oxide [Calmoseptine Ointment] 1 applic TOPICAL Q6H PRN PRN Reason: EXCORIATION Furosemide [Lasix] 40 mg PO BID@0800,1700 Acetaminophen-Codeine 300-30mg [Tylenol w/codeine #3] 1 tab PO Q8H PRN #7 tab PRN Reason: Pain Lidocaine 2% Gel [Xylocaine Jelly 2%] 1 applic TOPICAL DAILY PRN #3 dose PRN Reason: BLE HEELS BEFORE PROCEDURE Changed INSULIN ASPART (NovoLOG) [NovoLOG (formulary)] 3 unit SQ AC-TID #0 Discontinued INSULIN ASPART (NovoLOG) [NovoLOG (formulary)] 8 unit SQ AC-SUPPER@1730 Insulin Detemir (Levemir) [Levemir] 10 unit SQ HS Discharge Medication List Metoprolol Tartrate [Lopressor] 25 mg PO BID@0800,1700 07/21/15 [History] Isosorbide Mononitrate ER [Imdur] 60 mg PO DAILY #30 tab.er.24h 01/17/17 [Rx] Nitroglycerin Sl Tabs [Nitrostat] 0.4 mg SUBLINGUAL Q5M PRN #25 tab 12/04/17 [Rx] Aspirin EC [Ecotrin Low Dose] 81 mg PO DAILY@1700 11/22/18 [History] Famotidine [Pepcid] 20 mg PO DAILY tab 11/25/18 [Rx] Spironolactone [Aldactone] 25 mg PO DAILY tab 11/25/18 [Rx] Bisacodyl [Dulcolax] 10 mg RECTAL DAILY PRN 04/27/19 [History] Ferrous Sulfate [Iron (65 MG Elemental)] 325 mg PO BID@0800,1700 04/27/19 [History] Mag Hydrox/Al Hydrox/Simeth [Maalox] 30 ml PO Q6H PRN 04/27/19 [History] Magnesium Hydroxide [Milk of Magnesia Concentrate] 7,200 mg PO DAILY PRN 04/27/19 [History] Menthol-Zinc Oxide Oint [Calmoseptine Oint] 1 applic TOPICAL TID@0800,1200,1700 04/27/19 [History] Multivitamins, Thera [Multivitamin (formulary)] 1 tab PO DAILY@1700 04/27/19 [History] Acetaminophen Tab [Tylenol] 650 mg PO Q4H PRN 08/13/19 [History] Furosemide [Lasix] 40 mg PO BID@0800,1700 08/13/19 [History] Glucerna Shake 120 ml PO AC-BID@1200,1700 08/13/19 [History] Glucerna Shake 237 ml PO AC-BRKFST@0800 08/13/19 [History] Loperamide HCl [Imodium A-D] 2 - 4 mg PO QID PRN 08/13/19 [History] Menthol/Zinc Oxide [Calmoseptine Ointment] 1 applic TOPICAL Q6H PRN 08/13/19 [History] Na Phos,M-B/Na Phos,Di-Ba [Fleet Adult] 133 ml RECTAL ONCE PRN 08/13/19 [History] Acetaminophen-Codeine 300-30mg [Tylenol w/codeine #3] 1 tab PO Q8H PRN #7 tab 08/18/19 [Rx] Amoxicillin 1,000 mg PO Q12H #20 cap 08/18/19 [Rx] INSULIN ASPART (NovoLOG) [NovoLOG (formulary)] 0 unit SQ ACHS vial 08/18/19 [Rx] INSULIN ASPART (NovoLOG) [NovoLOG (formulary)] 3 unit SQ AC-TID #0 08/18/19 [Rx] Lidocaine 2% Gel [Xylocaine Jelly 2%] 1 applic TOPICAL DAILY PRN #3 dose 08/18/19 [Rx] Follow up Appointment(s)/Referral(s): Parish Vasquez MD [Primary Care Provider] - 1-2 days Shruthi Claire, [NON-STAFF] - As Needed
[2019-08-18] MEDS: AMOXICILLIN 500 MG CAP PO SCH (13:14)
[2019-08-18 14:13] VITALS: BP 92/48; PULSE 88; RESP 16; TEMP 97.7
== END 2019-08-18 14:15 | DRG 699 ==
LOC: EC 18:37 → 4SSUR 22:45
PROVIDERS: ADMIT Hospitalist; ATTEND Hospitalist
PROC: 05HB33Z Insertion of Infusion Device into Right Basilic Vein, Percutaneous Approach (ICD-10-PCS; principal; 2019-08-16 12:40)
DX: N30.41 Irradiation cystitis with hematuria (principal); I13.0 Hypertensive heart and chronic kidney disease with heart failure and stage 1 through stage 4 chronic kidney disease, or unspecified chronic kidney disease; N13.6 Pyonephrosis; Y84.2 Radiological procedure and radiotherapy as the cause of abnormal reaction of the patient, or of later complication, without mention of misadventure at the time of the procedure; Y82.8 Other medical devices associated with adverse incidents; B95.2 Enterococcus as the cause of diseases classified elsewhere; D64.9 Anemia, unspecified; E11.21 Type 2 diabetes mellitus with diabetic nephropathy; E11.22 Type 2 diabetes mellitus with diabetic chronic kidney disease; E78.5 Hyperlipidemia, unspecified; Z87.891 Personal history of nicotine dependence; I25.10 Atherosclerotic heart disease of native coronary artery without angina pectoris; I25.2 Old myocardial infarction; I25.5 Ischemic cardiomyopathy; I48.91 Unspecified atrial fibrillation; I50.9 Heart failure, unspecified; I71.2 Thoracic aortic aneurysm, without rupture; J44.9 Chronic obstructive pulmonary disease, unspecified; N18.3 Chronic kidney disease, stage 3 (moderate); Z66 Do not resuscitate; Z79.4 Long term (current) use of insulin; Z79.82 Long term (current) use of aspirin; Z79.899 Other long term (current) drug therapy; Z80.0 Family history of malignant neoplasm of digestive organs; Z82.49 Family history of ischemic heart disease and other diseases of the circulatory system; Z85.048 Personal history of other malignant neoplasm of rectum, rectosigmoid junction, and anus; Z85.828 Personal history of other malignant neoplasm of skin; Z87.440 Personal history of urinary (tract) infections; Z90.710 Acquired absence of both cervix and uterus; Z92.3 Personal history of irradiation; Z95.1 Presence of aortocoronary bypass graft; Z98.84 Bariatric surgery status; Z95.810 Presence of automatic (implantable) cardiac defibrillator
CPT/HCPCS: 36410; 36415; 51702; 71045; 74176; 76937; 80048; 80053; 81001; 82272; 82550; 83036; 83605; 83690; 83735; 84484; 85025; 85027; 85347; 85610; 85730; 86850; 86900; 86901; 86920; 87040; 87077; 87086; 87186; 93005; 96361; 96374; 99291

== ENCOUNTER 2019-09-23 17:15 | Inpatient (IN) | payer MEDICARE, OTHER ==
[2019-09-23] MEDS ORDERED: SODIUM CHLORIDE 0.9% 1,000 ML IV STA (17:31)
[2019-09-23] MEDS ORDERED: SODIUM CHLORIDE 0.9% 500 ML 500 ML IV STA (17:31)
--- NOTE | 2019-09-23 18:19 | XR ---
EXAMINATION TYPE: XR KUB DATE OF EXAM: 09/23/2019 COMPARISON: None HISTORY: Vaginal bleeding. Abdominal pain TECHNIQUE: 2 views supine FINDINGS: There is no sign of intestinal obstruction or pneumoperitoneum. There are some gas filled l oops of small bowel in the mid abdomen. Abdominal aorta is atheromatous. Lung bases are clear. IMPRESSION: There is some gas in small bowel and could relate to mild ileus. No free air. I do not se e evidence for mechanical bowel obstruction.
[2019-09-23 19:11] LABS: Basophils # (A) 0.1 k/uL (0-0.2); Basophils % (A) 0 %; Eosinophils % (A) 0 %; HCT 24.6 % (34.0-46.0); HGB 8.2 gm/dL (11.4-16.0); Lymphocytes # (A) 1.1 k/uL (1.0-4.8); Lymphocytes % (A) 8 %; MCH 31.2 pg (25.0-35.0); MCHC 33.1 g/dL (31.0-37.0); MCV 94.2 fL (80.0-100.0); Mean Platelet Volume 6.7; Monocytes # (A) 0.6 k/uL (0-1.0); Monocytes % (A) 5 %; Neutrophils # (A) 11.7 k/uL (1.3-7.7); Neutrophils % (A) 85 %; Platelet Count 326 k/uL (150-450); RBC 2.61 m/uL (3.80-5.40); RDW 15.6 % (11.5-15.5); WBC 13.7 k/uL (3.8-10.6)
[2019-09-23 19:16] LABS: ALT 22 U/L (9-52); AST 24 U/L (14-36); African American GFR (CKD) 30 (>60 ml/min/1.73 sqM); Albumin 3.3 g/dL (3.5-5.0); Alkaline Phosphatase 126 U/L (38-126); Anion Gap 13 mmol/L; Blood Urea Nitrogen 67 mg/dL (7-17); Calcium 9.2 mg/dL (8.4-10.2); Carbon Dioxide 16 mmol/L (22-30); Chloride 102 mmol/L (98-107); Creatine Kinase <20 U/L (30-135); Glucose 146 mg/dL (74-99); Magnesium 1.7 mg/dL (1.6-2.3); Non-African American GFR(CKD) 26 (>60 ml/min/1.73 sqM); Potassium 4.8 mmol/L (3.5-5.1); Sodium 131 mmol/L (137-145); Total Bilirubin 0.6 mg/dL (0.2-1.3); Total Protein 6.7 g/dL (6.3-8.2)
[2019-09-23] MEDS ORDERED: NALOXONE 0.4 MG/ML 1 ML VIAL IV PRN ×2 (20:13→21:14)
[2019-09-23] MEDS ORDERED: NITROGLYCERIN SL TABS 0.4 MG TAB SUBLINGUAL PRN (20:20)
[2019-09-23] MEDS ORDERED: NICOTINE 21MG/24HR PATCH TRANSDERM STA (20:22)
[2019-09-23] MEDS ORDERED: SODIUM CHLORIDE 0.9% 1,000 ML with MVI, ADULT NO.4 WITH VIT K 10 ML, THIAMINE 100 MG, F... IV ONE ×4 (20:45)
[2019-09-23] MEDS ORDERED: INSULIN ASPART (NovoLOG) 100 UNIT/ML VIAL SQ SCH (21:00)
[2019-09-23] MEDS ORDERED: PANTOPRAZOLE 40 MG/10 ML VIAL IV SCH (21:00)
--- NOTE | 2019-09-23 21:10 | ED ---
Female Urogenital HPI - General Chief complaint: Vaginal Bleeding Stated complaint: BLEEDING Time Seen by Provider: 09/23/19 17:15 Source: patient, family, RN notes reviewed, old records reviewed Mode of arrival: EMS Limitations: no limitations - History of Present Illness Initial comments: This is a 74-year-old female with a history of multiple medical problems including rectal cancer status post resection history of ROSANNE/BSO and radiation hemorrhagic cystitis who presents from her longterm with recurrent bleeding believed to be from vaginal origin. Complains of localized discomfort to her perineal area. No overt fevers chills nausea vomiting sweats or other symptoms at this time. She does have a prior history of cystitis. MD Complaint: vaginal bleeding - Related Data Home Medications Medication Instructions Recorded Confirmed Metoprolol Tartrate [Lopressor] 25 mg PO BID@0800,1700 07/21/15 09/23/19 Aspirin EC [Ecotrin Low Dose] 81 mg PO DAILY@0800 11/22/18 09/23/19 Bisacodyl [Dulcolax] 10 mg RECTAL DAILY PRN 04/27/19 09/23/19 Ferrous Sulfate [Iron (65 MG 325 mg PO BID@0800,1700 04/27/19 09/23/19 Elemental)] Mag Hydrox/Al Hydrox/Simeth 30 ml PO Q6H PRN 04/27/19 09/23/19 [Maalox] Magnesium Hydroxide [Milk of 7,200 mg PO DAILY PRN 04/27/19 09/23/19 Magnesia Concentrate] Menthol-Zinc Oxide Oint 1 applic TOPICAL TID@0800,1200,1700 04/27/19 09/23/19 [Calmoseptine Oint] Multivitamins, Thera [Multivitamin 1 tab PO DAILY@0800 04/27/19 09/23/19 (formulary)] Acetaminophen Tab [Tylenol] 650 mg PO Q4H PRN 08/13/19 09/23/19 Furosemide [Lasix] 40 mg PO BID@0800,1700 08/13/19 09/23/19 Loperamide HCl [Imodium A-D] 2 - 4 mg PO QID PRN 08/13/19 09/23/19 Menthol/Zinc Oxide [Calmoseptine 1 applic TOPICAL Q6H PRN 08/13/19 09/23/19 Ointment] Na Phos,M-B/Na Phos,Di-Ba [Fleet 133 ml RECTAL ONCE PRN 08/13/19 09/23/19 Adult] Famotidine [Pepcid] 20 mg PO DAILY@0800 09/23/19 09/23/19 INSULIN ASPART (NovoLOG) [NovoLOG See Protocol SQ ACHS 09/23/19 09/23/19 (formulary)] Insulin Degludec [Tresiba 12 units SQ HS@2100 09/23/19 09/23/19 Flextouch U-100] Isosorbide Mononitrate ER [Imdur] 60 mg PO DAILY@0800 09/23/19 09/23/19 Spironolactone [Aldactone] 25 mg PO DAILY@0800 09/23/19 09/23/19 Previous Rx's Medication Instructions Recorded Nitroglycerin Sl Tabs [Nitrostat] 0.4 mg SUBLINGUAL Q5M PRN #25 tab 12/04/17 Acetaminophen-Codeine 300-30mg 1 tab PO Q8H PRN #7 tab 08/18/19 [Tylenol w/codeine #3] INSULIN ASPART (NovoLOG) [NovoLOG 3 unit SQ AC-TID #0 08/18/19 (formulary)] Allergies Allergy/AdvReac Type Severity Reaction Status Date / Time ceftriaxone [From Rocephin] Allergy Unknown Verified 09/23/19 18:04 Review of Systems ROS Statement: Those systems with pertinent positive or pertinent negative responses have been documented in the HPI. ROS Other: All systems not noted in ROS Statement are negative. Past Medical History Past Medical History: Atrial Fibrillation, Coronary Artery Disease (CAD), Cancer, Heart Failure, COPD, Diabetes Mellitus, Hyperlipidemia, Hypertension, Myocardial Infarction ([place]) Additional Past Medical History / Comment(s): Coronary artery disease, previous bypass surgery, ischemic cardiomyopathy with an ejection fraction of less than 20%, history of mitral valve repair, history of chronic kidney disease, ascending aortic aneurysm measuring 4.2 cm, squamous cell carcinoma of the skin resected, insulin-dependent diabetes mellitus, previous history of UTI with subsequent on pneumoniae, history of fall, hyperlipidemia, hypertension Last Myocardial Infarction Date:: 01/16/17 History of Any Multi-Drug Resistant Organisms: MRSA Date of last positivie culture/infection: 12/06/18 MDRO Source:: LEG Past Surgical History: AICD, Appendectomy, Bariatric Surgery, Cholecystectomy, Coronary Bypass/CABG, Heart Catheterization, Hysterectomy, Tonsillectomy Additional Past Surgical History / Comment(s): 04/11/15 cardiac cath- tx medically, 02/03/2006 CABG-5 vessel with MVR, AICD 07/16/15, port-a-cath insertion and removal, colonoscopies, gastric bypass, skin cancer removal. Past Anesthesia/Blood Transfusion Reactions: No Reported Reaction Type of Cardiac Device: AICD Device Placement Date:: 2014 Past Psychological History: No Psychological Hx Reported Smoking Status: Never smoker Past Alcohol Use History: None Reported Past Drug Use History: None Reported - Past Family History Father Family Medical History: Cancer Additional Family Medical History / Comment(s): ?stomach cancer. Mother Family Medical History: Congestive Heart Failure (CHF), Coronary Artery Disease (CAD) General Exam - General Exam Comments Initial Comments: Is a well-developed asthenic appearing female who is awake alert oriented 3 Limitations: no limitations General appearance: alert, anxious Head exam: Present: atraumatic, normocephalic, normal inspection Eye exam: Present: normal appearance, PERRL, EOMI. Absent: scleral icterus, conjunctival injection, periorbital swelling ENT exam: Present: normal exam, mucous membranes moist Neck exam: Present: normal inspection. Absent: tenderness, meningismus, lymphadenopathy Respiratory exam: Present: normal lung sounds bilaterally. Absent: respiratory distress, wheezes, rales, rhonchi, stridor Cardiovascular Exam: Present: regular rate, normal rhythm, normal heart sounds. Absent: systolic murmur, diastolic murmur, rubs, gallop, clicks GI/Abdominal exam: Present: soft, normal bowel sounds. Absent: distended, tenderness, guarding, rebound, rigid, bruit, pulsatile mass Rectal exam: Present: normal inspection, other (Stool no evidence of any blood) External exam: Present: other (Labia are edematous and somewhat erythematous and tender to palpation evidence of vaginal bleeding with clots speculum exam revealed clots in the vaginal vault which were cleared) Extremities exam: Present: normal inspection, full ROM, normal capillary refill. Absent: tenderness, pedal edema, joint swelling, calf tenderness Back exam: Present: normal inspection Neurological exam: Present: alert, oriented X3, CN II-XII intact Psychiatric exam: Present: normal affect, normal mood Skin exam: Present: warm, dry, intact, normal color. Absent: rash Course Vital Signs 09/23/19 09/23/19 17:21 18:00 Temperature 98.4 F Pulse Rate 90 90 Respiratory 16 20 Rate Blood Pressure 115/61 102/56 O2 Sat by Pulse 98 98 Oximetry Medical Decision Making - Medical Decision Making I did discuss the findings with the patient and her daughter. Patient will be admitted the case is discussed with Dr. Lara and with Dr. Hudson. Patient is to also be no code with supportive care as per the family's request. This is also the patient's request - Lab Data Result diagrams: 09/23/19 17:34 09/23/19 17:34 Lab Results 09/23/19 09/23/19 Range/Units 17:34 17:34 WBC 13.7 H (3.8-10.6) k/uL RBC 2.61 L (3.80-5.40) m/uL Hgb 8.2 L (11.4-16.0) gm/dL Hct 24.6 L (34.0-46.0) % MCV 94.2 (80.0-100.0) fL MCH 31.2 (25.0-35.0) pg MCHC 33.1 (31.0-37.0) g/dL RDW 15.6 H (11.5-15.5) % Plt Count 326 (150-450) k/uL Neutrophils % 85 % Lymphocytes % 8 % Monocytes % 5 % Eosinophils % 0 % Basophils % 0 % Neutrophils # 11.7 H (1.3-7.7) k/uL Lymphocytes # 1.1 (1.0-4.8) k/uL Monocytes # 0.6 (0-1.0) k/uL Eosinophils # 0.0 (0-0.7) k/uL Basophils # 0.1 (0-0.2) k/uL Sodium 131 L (137-145) mmol/L Potassium 4.8 (3.5-5.1) mmol/L Chloride 102 (98-107) mmol/L Carbon Dioxide 16 L (22-30) mmol/L Anion Gap 13 mmol/L BUN 67 H (7-17) mg/dL Creatinine 1.85 H (0.52-1.04) mg/dL Est GFR (CKD-EPI)AfAm 30 (>60 ml/min/1.73 sqM) Est GFR (CKD-EPI)NonAf 26 (>60 ml/min/1.73 sqM) Glucose 146 H (74-99) mg/dL Calcium 9.2 (8.4-10.2) mg/dL Magnesium 1.7 (1.6-2.3) mg/dL Total Bilirubin 0.6 (0.2-1.3) mg/dL AST 24 (14-36) U/L ALT 22 (9-52) U/L Alkaline Phosphatase 126 (38-126) U/L Creatine Kinase <20 L (30-135) U/L Total Protein 6.7 (6.3-8.2) g/dL Albumin 3.3 L (3.5-5.0) g/dL Lipase 75 (23-300) U/L - Radiology Data Interpreted by me: I did review the imaging and report increased bowel gas questionable early ileus Disposition Clinical Impression: Acute hemorrhagic cystitis, Anemia, History of rectal cancer Disposition: ADMITTED IP TO THIS [facility] Condition: Fair Referrals: Parish Vasquez MD [Primary Care Provider] - 1-2 days
[2019-09-23] MEDS ORDERED: ONDANSETRON 4 MG/2 ML VIAL IVP PRN (21:14)
[2019-09-23] MEDS ORDERED: ACETAMINOPHEN TAB 325 MG TAB PO PRN (22:00)
[2019-09-23] MEDS ORDERED: Acetaminophen-Codeine 300-30mg TAB PO PRN (22:00)
[2019-09-23] MEDS: SODIUM CHLORIDE 0.9% 1,000 ML IV SCH (22:50)
[2019-09-24] MEDS ORDERED: IPRATROPIUM-ALBUTEROL 3 ML NEB INHALATION SCH
[2019-09-24] MEDS ORDERED: MAG HYDROX/AL HYDROX/SIMETH 30 ML CUP PO PRN
[2019-09-24] MEDS ORDERED: MENTHOL-ZINC OXIDE OINT 113 GM TUBE TOPICAL PRN
[2019-09-24 06:58] LABS: Glucose,Whole Blood 164 mg/dL (75-99)
[2019-09-24] MEDS: SPIRONOLACTONE 25 MG TAB PO SCH (08:12)
[2019-09-24] MEDS: ASPIRIN 81 MG PO SCH (08:12)
[2019-09-24] MEDS: MULTIVITAMINS, THERA 1 EACH TAB PO SCH (08:12)
[2019-09-24] MEDS: ISOSORBIDE MONONITRATE ER 60 MG TAB.ER.24H PO SCH (08:12)
[2019-09-24] MEDS: FUROSEMIDE 40 MG TAB PO SCH ×2 (08:12→17:07)
[2019-09-24] MEDS: METOPROLOL TARTRATE 25 MG TAB PO SCH ×2 (08:12→17:07)
[2019-09-24] MEDS: FERROUS SULFATE 325 MG TAB PO SCH ×2 (08:12→17:07)
[2019-09-24] MEDS: MENTHOL-ZINC OXIDE OINT 113 GM TUBE TOPICAL SCH ×3 (08:13→18:09)
[2019-09-24] MEDS: INSULIN ASPART (NovoLOG) 100 UNIT/ML VIAL SQ SCH ×3 (08:13→17:07)
[2019-09-24] MEDS: SODIUM CHLORIDE 0.9% 1,000 ML IV SCH ×2 (08:13→18:09)
[2019-09-24] MEDS ORDERED: MAGNESIUM HYDROXIDE 2,400 MG/10 ML CUP PO PRN (09:00)
[2019-09-24] MEDS ORDERED: NA PHOS,M-B/NA PHOS,DI-BA 133 ML ENEMA RECTAL PRN (09:00)
[2019-09-24] MEDS ORDERED: PANTOPRAZOLE 40 MG/10 ML VIAL IV SCH (09:00)
[2019-09-24] MEDS ORDERED: BISACODYL 10 MG SUPP RECTAL PRN (09:00)
[2019-09-24 11:42] LABS: Glucose,Whole Blood 113 mg/dL (75-99)
--- NOTE | 2019-09-24 16:55 | P.GSCN ---
History of Present Illness Consult date: 09/24/19 Reason for Consult: gross hematuria History of present illness: Ms. Hernandez is a 74-year-old female that admitted to the hospital with gross he maturia associated with clots. she has a history of radiation therapy for anal cancer. Of note she was admitted in July for gross hematuria. She was previously taken to the OR by Dr. 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 during her last admission did has a positive urine culture. She is a poor historian, but she denies any urinary symptoms. She is unsure if she's had hematuria since last discharge. Review of Systems - Constitutional Denies chills, Denies fever - Cardiovascular Denies chest pain, Denies shortness of breath - Respiratory Denies cough, Denies dyspnea - Gastrointestinal Denies abdominal pain, Denies nausea, Denies vomiting - Psychiatric Denies confusion Past Medical History Past Medical History: Atrial Fibrillation, Coronary Artery Disease (CAD), Cancer, Heart Failure, COPD, Diabetes Mellitus, Hyperlipidemia, Hypertension, Myocardial Infarction ([place]) Additional Past Medical History / Comment(s): Coronary artery disease, previous bypass surgery, ischemic cardiomyopathy with an ejection fraction of less than 20%, history of mitral valve repair, history of chronic kidney disease, a scending aortic aneurysm measuring 4.2 cm, squamous cell carcinoma of the skin resected, insulin-dependent diabetes mellitus, previous history of UTI with subsequent on pneumoniae, history of fall, hyperlipidemia, hypertension Last Myocardial Infarction Date:: 01/16/17 History of Any Multi-Drug Resistant Organisms: MRSA Year Discovered:: 12/06/18 MDRO Source:: LEG Past Surgical History: AICD, Appendectomy, Bariatric Surgery, Cholecystectomy, Coronary Bypass/CABG, Heart Catheterization, Hysterectomy, Tonsillectomy Additional Past Surgical History / Comment(s): 04/11/15 cardiac cath- tx medically, 02/03/2006 CABG-5 vessel with MVR, AICD 07/16/15, port-a-cath insertion and removal, colonoscopies, gastric bypass, skin cancer removal. Past Anesthesia/Blood Transfusion Reactions: No Reported Reaction Type of Cardiac Device: AICD Device Placement Date:: 2014 Past Psychological History: No Psychological Hx Reported Additional Psychological History / Comment(s): Pt's son lives with her in her home. Patient reports that she no longer moves around. Patient used a walker. She has a glucose monitor at home. Patient has been at [facility] previously hospital stay. Smoking Status: Never smoker Past Alcohol Use History: None Reported Additional Past Alcohol Use History / Comment(s): Pt states she started smoking around 1960 and quit in 2012. Past Drug Use History: None Reported - Past Family History Father Family Medical History: Cancer Additional Family Medical History / Comment(s): ?stomach cancer. Mother Family Medical History: Congestive Heart Failure (CHF), Coronary Artery Disease (CAD) Medications and Allergies Home Medications Medication Instructions Recorded Confirmed Type Metoprolol Tartrate [Lopressor] 25 mg PO BID@0800,1700 07/21/15 09/23/19 History Nitroglycerin Sl Tabs [Nitrostat] 0.4 mg SUBLINGUAL Q5M PRN #25 tab 12/04/17 09/23/19 Rx Aspirin EC [Ecotrin Low Dose] 81 mg PO DAILY@0800 11/22/18 09/23/19 History Bisacodyl [Dulcolax] 10 mg RECTAL DAILY PRN 04/27/19 09/23/19 History Ferrous Sulfate [Iron (65 MG 325 mg PO BID@0800,1700 04/27/19 09/23/19 History Elemental)] Mag Hydrox/Al Hydrox/Simeth 30 ml PO Q6H PRN 04/27/19 09/23/19 History [Maalox] Magnesium Hydroxide [Milk of 7,200 mg PO DAILY PRN 04/27/19 09/23/19 History Magnesia Concentrate] Menthol-Zinc Oxide Oint 1 applic TOPICAL TID@0800,1200,1700 04/27/19 09/23/19 History [Calmoseptine Oint] Multivitamins, Thera [Multivitamin 1 tab PO DAILY@0800 04/27/19 09/23/19 History (formulary)] Acetaminophen Tab [Tylenol] 650 mg PO Q4H PRN 08/13/19 09/23/19 History Furosemide [Lasix] 40 mg PO BID@0800,1700 08/13/19 09/23/19 History Loperamide HCl [Imodium A-D] 2 - 4 mg PO QID PRN 08/13/19 09/23/19 History Menthol/Zinc Oxide [Calmoseptine 1 applic TOPICAL Q6H PRN 08/13/19 09/23/19 History Ointment] Na Phos,M-B/Na Phos,Di-Ba [Fleet 133 ml RECTAL ONCE PRN 08/13/19 09/23/19 History Adult] Acetaminophen-Codeine 300-30mg 1 tab PO Q8H PRN #7 tab 08/18/19 09/23/19 Rx [Tylenol w/codeine #3] INSULIN ASPART (NovoLOG) [NovoLOG 3 unit SQ AC-TID #0 08/18/19 09/23/19 Rx (formulary)] Famotidine [Pepcid] 20 mg PO DAILY@0800 09/23/19 09/23/19 History INSULIN ASPART (NovoLOG) [NovoLOG See Protocol SQ ACHS 09/23/19 09/23/19 History (formulary)] Insulin Degludec [Tresiba 12 units SQ HS@2100 09/23/19 09/23/19 History Flextouch U-100] Isosorbide Mononitrate ER [Imdur] 60 mg PO DAILY@0800 09/23/19 09/23/19 History Spironolactone [Aldactone] 25 mg PO DAILY@0800 09/23/19 09/23/19 History Allergies Allergy/AdvReac Type Severity Reaction Status Date / Time ceftriaxone [From Rocephin] Allergy Unknown Verified 09/23/19 18:04 Surgical - Exam Vital Signs Temp Pulse Resp BP Pulse Ox 98.4 F 90 16 115/61 98 09/23/19 17:21 09/23/19 17:21 09/23/19 17:21 09/23/19 17:21 09/23/19 17:21 - General no distress, no pain - Respiratory normal expansion, normal respiratory effort - Abdomen Abdomen: soft, non tender, no distended - Genitourinary Rockwell draining, dark red urine with small old blood clots - Psychiatric oriented to time, oriented to person, speech is normal Results - Labs 09/23/19 17:34 09/23/19 17:34 Abnormal Lab Results - Last 24 Hours (Table) 09/23/19 09/23/19 09/24/19 Range/Units 17:34 17:34 06:56 WBC 13.7 H (3.8-10.6) k/uL RBC 2.61 L (3.80-5.40) m/uL Hgb 8.2 L (11.4-16.0) gm/dL Hct 24.6 L (34.0-46.0) % RDW 15.6 H (11.5-15.5) % Neutrophils # 11.7 H (1.3-7.7) k/uL Sodium 131 L (137-145) mmol/L Carbon Dioxide 16 L (22-30) mmol/L BUN 67 H (7-17) mg/dL Creatinine 1.85 H (0.52-1.04) mg/dL Glucose 146 H (74-99) mg/dL POC Glucose (mg/dL) 164 H (75-99) mg/dL Creatine Kinase <20 L (30-135) U/L Albumin 3.3 L (3.5-5.0) g/dL 09/24/19 Range/Units 11:40 WBC (3.8-10.6) k/uL RBC (3.80-5.40) m/uL Hgb (11.4-16.0) gm/dL Hct (34.0-46.0) % RDW (11.5-15.5) % Neutrophils # (1.3-7.7) k/uL Sodium (137-145) mmol/L Carbon Dioxide (22-30) mmol/L BUN (7-17) mg/dL Creatinine (0.52-1.04) mg/dL Glucose (74-99) mg/dL POC Glucose (mg/dL) 113 H (75-99) mg/dL Creatine Kinase (30-135) U/L Albumin (3.5-5.0) g/dL Diabetes panel 09/23/19 Range/Units 17:34 Sodium 131 L (137-145) mmol/L Potassium 4.8 (3.5-5.1) mmol/L Chloride 102 (98-107) mmol/L Carbon Dioxide 16 L (22-30) mmol/L BUN 67 H (7-17) mg/dL Creatinine 1.85 H (0.52-1.04) mg/dL Glucose 146 H (74-99) mg/dL Calcium 9.2 (8.4-10.2) mg/dL AST 24 (14-36) U/L ALT 22 (9-52) U/L Alkaline Phosphatase 126 (38-126) U/L Total Protein 6.7 (6.3-8.2) g/dL Albumin 3.3 L (3.5-5.0) g/dL Calcium panel 09/23/19 Range/Units 17:34 Calcium 9.2 (8.4-10.2) mg/dL Albumin 3.3 L (3.5-5.0) g/dL Pituitary panel 09/23/19 Range/Units 17:34 Sodium 131 L (137-145) mmol/L Potassium 4.8 (3.5-5.1) mmol/L Chloride 102 (98-107) mmol/L Carbon Dioxide 16 L (22-30) mmol/L BUN 67 H (7-17) mg/dL Creatinine 1.85 H (0.52-1.04) mg/dL Glucose 146 H (74-99) mg/dL Calcium 9.2 (8.4-10.2) mg/dL Adrenal panel 09/23/19 Range/Units 17:34 Sodium 131 L (137-145) mmol/L Potassium 4.8 (3.5-5.1) mmol/L Chloride 102 (98-107) mmol/L Carbon Dioxide 16 L (22-30) mmol/L BUN 67 H (7-17) mg/dL Creatinine 1.85 H (0.52-1.04) mg/dL Glucose 146 H (74-99) mg/dL Calcium 9.2 (8.4-10.2) mg/dL Total Bilirubin 0.6 (0.2-1.3) mg/dL AST 24 (14-36) U/L ALT 22 (9-52) U/L Alkaline Phosphatase 126 (38-126) U/L Total Protein 6.7 (6.3-8.2) g/dL Albumin 3.3 L (3.5-5.0) g/dL Assessment and Plan Assessment: 74-year-old female with history of radiation cystitis. Admitted for gross hematuria. Had a recent cystoscopy by Dr. Chow which showed evidence of radiation cystitis, biopsy was taken which showed inflammatory tissue. Rockwell is draining, and irrigating without any issue. Her hemoglobin is stable since admission Plan: -Irrigate rockwell PRN -Repeat CBC tonight -UA and urine culture -Will reassess tomorrow
[2019-09-24 17:02] LABS: Glucose,Whole Blood 146 mg/dL (75-99)
[2019-09-24 19:56] LABS: Glucose,Whole Blood 168 mg/dL (75-99)
--- NOTE | 2019-09-24 20:31 | P.HPIM ---
History of Present Illness H&P Date: 09/24/19 Chief Complaint: Bleeding per vagina Chief Complaint: Blood in the diaper History of presenting complaint: This is a pleasant 74 year patient was a [facility]. Chronic stable medical conditions include coronary artery disease with prior bypass, COPD, diabetes mellitus type 2, hypertension, hyperlipidemia, congestive heart failure with EF less than 20%, ascending aortic aneurysm 4.2 cm, AICD, chronic kidney disease stage III,. Patient was here in the hospital in April of this year with severe hematuria. Blood clots were present. Did undergo cystoscopy by Dr. Hutson. Found to have hemorrhagic cystitis. Cytology came back to be negative. history of radiation cystitis , treated with radiation for anal carcinoma. . Patient now presents with increasing large amounts blood clot from the vagina. Presents to the ER. Weak tired rundown. Denies any fever and chills. Had blood clots in the ER too. Review of systems: GEN.: Tired, decreased appetite EYES: None HEENT: None NECK: None RESPIRATORY: None CARDIOVASCULAR: None GASTROINTESTINAL: None GENITOURINARY: As above MUSCULOSKELETAL: Pain in the joints LYMPHATICS: None HEMATOLOGICAL: None PSYCHIATRY: Bit forgetful NEUROLOGICAL: Does use a wheelchair Social history: Patient does use a wheelchair. Lives at [facility]. Patient smoked from 89 and stopped in 2012. No alcohol. Physical examination: VITAL SIGNS: 98.4, 90, 16, 11 5/61, 98% room air GENERAL: BMI 21.1, laying in bed tired appearing EYES: Pupils equal. Conjunctiva pale. HEENT: External appearance of nose and ears normal, oral cavity grossly normal. NECK: JVD not raised; masses not palpable. HEART: First and second heart sounds are normal; no edema. LUNGS: Respiratory rate normal; decreased breath sounds. ABDOMEN: Soft, mild suprapubic tenderness, no guarding rigidity, liver spleen not palpable, no masses palpable. PSYCH: Show 3, motor affect normal NEUROLOGICAL: Cranial nerves grossly intact; no facial asymmetry, power and sensation grossly intact. LYMPHATICS: No lymph nodes palpable in the axilla and neck INVESTIGATIONS, reviewed in the clinical context: White count 13.7 hemoglobin 8.2 calcium 4.8 bun 67 creatinine 1.85 Renal function and August 21-bun 57 creatinine 2.17 Assessment: -Acute severe hematuria in a patient with known hemorrhagic cystitis,. Bladder cytology being negative for malignancy in March of this year. 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 Hematuria is present. Options are limited. Urology was consulted. CBC will be followed. Care was discussed with the patient. Home medications resumed. Past Medical History Past Medical History: Atrial Fibrillation, Coronary Artery Disease (CAD), Canc er, Heart Failure, COPD, Diabetes Mellitus, Hyperlipidemia, Hypertension, Myocardial Infarction ([place]) Additional Past Medical History / Comment(s): Coronary artery disease, previous bypass surgery, ischemic cardiomyopathy with an ejection fraction of less than 20%, history of mitral valve repair, history of chronic kidney disease, ascending aortic aneurysm measuring 4.2 cm, squamous cell carcinoma of the skin resected, insulin-dependent diabetes mellitus, previous history of UTI with subsequent on pneumoniae, history of fall, hyperlipidemia, hypertension Last Myocardial Infarction Date:: 01/16/17 History of Any Multi-Drug Resistant Organisms: MRSA Date of last positivie culture/infection: 12/06/18 MDRO Source:: LEG Past Surgical History: AICD, Appendectomy, Bariatric Surgery, Cholecystectomy, Coronary Bypass/CABG, Heart Catheterization, Hysterectomy, Tonsillectomy Additional Past Surgical History / Comment(s): 04/11/15 cardiac cath- tx medically, 02/03/2006 CABG-5 vessel with MVR, AICD 07/16/15, port-a-cath inser tion and removal, colonoscopies, gastric bypass, skin cancer removal. Past Anesthesia/Blood Transfusion Reactions: No Reported Reaction Type of Cardiac Device: AICD Device Placement Date:: 2014 Past Psychological History: No Psychological Hx Reported Additional Psychological History / Comment(s): Pt's son lives with her in her home. Patient reports that she no longer moves around. Patient used a walker. She has a glucose monitor at home. Patient has been at [facility] previously hospital stay. Smoking Status: Never smoker Past Alcohol Use History: None Reported Additional Past Alcohol Use History / Comment(s): Pt states she started smoking around 1961 and quit in 2012. Past Drug Use History: None Reported - Past Family History Father Family Medical History: Cancer Additional Family Medical History / Comment(s): ?stomach cancer. Mother Family Medical History: Congestive Heart Failure (CHF), Coronary Artery Disease (CAD) Medications and Allergies Home Medications Medication Instructions Recorded Confirmed Type Metoprolol Tartrate [Lopressor] 25 mg PO BID@0800,1700 07/21/15 09/23/19 History Nitroglycerin Sl Tabs [Nitrostat] 0.4 mg SUBLINGUAL Q5M PRN #25 tab 12/04/17 09/23/19 Rx Aspirin EC [Ecotrin Low Dose] 81 mg PO DAILY@0800 11/22/18 09/23/19 History Bisacodyl [Dulcolax] 10 mg RECTAL DAILY PRN 04/27/19 09/23/19 History Ferrous Sulfate [Iron (65 MG 325 mg PO BID@0800,1700 04/27/19 09/23/19 History Elemental)] Mag Hydrox/Al Hydrox/Simeth 30 ml PO Q6H PRN 04/27/19 09/23/19 History [Maalox] Magnesium Hydroxide [Milk of 7,200 mg PO DAILY PRN 04/27/19 09/23/19 History Magnesia Concentrate] Menthol-Zinc Oxide Oint 1 applic TOPICAL TID@0800,1200,1700 04/27/19 09/23/19 History [Calmoseptine Oint] Multivitamins, Thera [Multivitamin 1 tab PO DAILY@0800 04/27/19 09/23/19 History (formulary)] Acetaminophen Tab [Tylenol] 650 mg PO Q4H PRN 08/13/19 09/23/19 History Furosemide [Lasix] 40 mg PO BID@0800,1700 08/13/19 09/23/19 History Loperamide HCl [Imodium A-D] 2 - 4 mg PO QID PRN 08/13/19 09/23/19 History Menthol/Zinc Oxide [Calmoseptine 1 applic TOPICAL Q6H PRN 08/13/19 09/23/19 History Ointment] Na Phos,M-B/Na Phos,Di-Ba [Fleet 133 ml RECTAL ONCE PRN 08/13/19 09/23/19 History Adult] Acetaminophen-Codeine 300-30mg 1 tab PO Q8H PRN #7 tab 08/18/19 09/23/19 Rx [Tylenol w/codeine #3] INSULIN ASPART (NovoLOG) [NovoLOG 3 unit SQ AC-TID #0 08/18/19 09/23/19 Rx (formulary)] Famotidine [Pepcid] 20 mg PO DAILY@0800 09/23/19 09/23/19 History INSULIN ASPART (NovoLOG) [NovoLOG See Protocol SQ ACHS 09/23/19 09/23/19 History (formulary)] Insulin Degludec [Tresiba 12 units SQ HS@2100 09/23/19 09/23/19 History Flextouch U-100] Isosorbide Mononitrate ER [Imdur] 60 mg PO DAILY@0800 09/23/19 09/23/19 History Spironolactone [Aldactone] 25 mg PO DAILY@0800 09/23/19 09/23/19 History Allergies Allergy/AdvReac Type Severity Reaction Status Date / Time [facility]ri[facility] [[facility]] Allergy Unknown Verified 09/23/19 18:04 Physical Exam Vitals: Vital Signs Temp Pulse Pulse Resp BP BP Pulse Ox 09/24/19 07:00 98.1 F 96 16 90/52 97 09/24/19 03:51 18 09/24/19 02:00 98.1 F 100 18 93/51 98 09/23/19 23:16 18 09/23/19 22:17 97.7 F 95 18 98/52 100 09/23/19 21:00 92 16 94/49 99 09/23/19 20:00 100 14 108/57 100 09/23/19 19:00 97 16 118/51 100 09/23/19 18:00 90 20 102/56 98 09/23/19 17:21 98.4 F 90 16 115/61 98 Intake and Output 09/23/19 09/24/19 09/24/19 22:59 06:59 14:59 Intake Total 50 Output Total 1550 Balance -1500 Intake: Oral 50 Output: Urine 1550 Coude 550 Other: Voiding Method Indwelling Catheter Indwelling Catheter Weight 57.606 kg Results CBC & Chem 7: 09/23/19 17:34 09/23/19 17:34 Labs: Abnormal Lab Results - Last 24 Hours (Table) 09/23/19 09/23/19 09/24/19 Range/Units 17:34 17:34 06:56 WBC 13.7 H (3.8-10.6) k/uL RBC 2.61 L (3.80-5.40) m/uL Hgb 8.2 L (11.4-16.0) gm/dL Hct 24.6 L (34.0-46.0) % RDW 15.6 H (11.5-15.5) % Neutrophils # 11.7 H (1.3-7.7) k/uL Sodium 131 L (137-145) mmol/L Carbon Dioxide 16 L (22-30) mmol/L BUN 67 H (7-17) mg/dL Creatinine 1.85 H (0.52-1.04) mg/dL Glucose 146 H (74-99) mg/dL POC Glucose (mg/dL) 164 H (75-99) mg/dL Creatine Kinase <20 L (30-135) U/L Albumin 3.3 L (3.5-5.0) g/dL Thrombosis Risk Factor Assmnt - Choose All That Apply Each Risk Factor Represents 2 Points: Age 61-74 years Each Risk Factor Represents 3 Points: History of DVT/PE Thrombosis Risk Factor Assessment Total Risk Factor Score: 5 Thrombosis Risk Factor Assessment Level: High Risk
[2019-09-24] MEDS: INSULIN DETEMIR (LEVEMIR) 100 UNIT/ML SYR SQ SCH (20:46)
[2019-09-24 20:47] LABS: Appearance,Urine Turbid (Clear); Bacteria,Urine Many /hpf; Bilirubin,Urine Negative (Negative); Blood,Urine Large (Negative); Color,Urine Red; Glucose,Urine (UA) Negative (Negative); Hyaline Casts,Urine 15 /lpf (0-2); Ketones,Urine Negative (Negative); Leukocyte Esterase,Urine Large (Negative); Nitrite,Urine Negative (Negative); Protein,Urine 2+ (Negative); RBC,Urine >182 /hpf (0-5); Specific Gravity,Urine 1.016 (1.001-1.035); Urobilinogen,Urine <2.0 mg/dL (<2.0)
[2019-09-25 07:10] LABS: Glucose,Whole Blood 209 mg/dL (75-99)
[2019-09-25 07:12] LABS: Basophils # (A) 0.1 k/uL (0-0.2); Basophils % (A) 1 %; Eosinophils # (A) 0.1 k/uL (0-0.7); Eosinophils % (A) 1 %; HCT 20.4 % (34.0-46.0); Lymphocytes # (A) 1.1 k/uL (1.0-4.8); Lymphocytes % (A) 12 %; MCH 31.9 pg (25.0-35.0); MCHC 33.5 g/dL (31.0-37.0); MCV 95.3 fL (80.0-100.0); Mean Platelet Volume 5.7; Monocytes # (A) 0.5 k/uL (0-1.0); Monocytes % (A) 5 %; Neutrophils # (A) 7.1 k/uL (1.3-7.7); Neutrophils % (A) 80 %; Platelet Count 284 k/uL (150-450); RBC 2.15 m/uL (3.80-5.40); RDW 15.7 % (11.5-15.5)
[2019-09-25 07:16] LABS: HGB 6.8 gm/dL (11.4-16.0)
[2019-09-25 07:23] LABS: Calcium 9.2 mg/dL (8.4-10.2); Potassium 3.9 mmol/L (3.5-5.1)
[2019-09-25] MEDS: FERROUS SULFATE 325 MG TAB PO SCH ×2 (08:18→17:51)
[2019-09-25] MEDS: FUROSEMIDE 40 MG TAB PO SCH ×2 (08:18→17:15)
[2019-09-25] MEDS: MENTHOL-ZINC OXIDE OINT 113 GM TUBE TOPICAL SCH ×3 (08:18→17:51)
[2019-09-25] MEDS: METOPROLOL TARTRATE 25 MG TAB PO SCH ×2 (08:18→17:51)
[2019-09-25] MEDS: ASPIRIN 81 MG PO SCH (08:18)
[2019-09-25] MEDS: ISOSORBIDE MONONITRATE ER 60 MG TAB.ER.24H PO SCH (08:18)
[2019-09-25] MEDS: SPIRONOLACTONE 25 MG TAB PO SCH (08:18)
[2019-09-25] MEDS: MULTIVITAMINS, THERA 1 EACH TAB PO SCH (08:18)
[2019-09-25] MEDS: INSULIN ASPART (NovoLOG) 100 UNIT/ML VIAL SQ SCH ×3 (08:18→17:51)
[2019-09-25 11:28] LABS: Glucose,Whole Blood 199 mg/dL (75-99)
--- NOTE | 2019-09-25 12:54 | CDI ---
Documentation Clarification Form Date: 09/25/2019 12:22:45 PM From: Pati Durán RN, CCDS Admit Date: 09/23/2019 9:20:00 PM Patient Name: Belen Hernandez Visit Number: [id number] Discharge Date: ATTENTION: The Clinical Documentation Specialists (CDI) and [facility] Coding Staff appreciate your assistance in clarifying documentation. Please respond to the clarification below the line at the bottom and electronically sign. The CDI & [facility] Coding staff will review the response and follow-up if needed. Please note: Queries are made part of the Legal Health Record. If you have any questions, please contact the author of this message via ITS. Dr. Mj Lara Anemia is documented in the ER clinical impression. A diagnosis of anemia lacks specificity to accurately reflect your patients severity of condition and clarification is needed. History/Risk Factors: Rectal cancer, Radiation hemorrhagic cystitis, Atrial Fibrillation, Diabetes Mellitus, Heart Failure, Hypertension Clinical indicators: 74-year-old female present to the ER weak, tired, rundown. with recurrent bleeding believed to be from vaginal origin. Vaginal exam: Evidence of vaginal bleeding with clots in the vaginal vault. Vital signs 115/61 90 16 98.4, 94/49 92 16 Hemoglobin: 8.2, 6.8 Hematocrit: 24.6 20.4 Treatment: 1 units of PRBCs transfused, monitoring CBC Feosol PO BID In order to capture the severity of condition, please clarify the type of anemia and etiology if known: Acute blood loss anemia Acute on chronic blood loss anemia Chronic blood loss anemia Unable to determine Other, please specify (Last Revision: July 2017) Acute blood loss anemia from severe hematuria MTDD
--- NOTE | 2019-09-25 13:24 | CDI ---
Documentation Clarification Form Date: 09/25/2019 12:58:41 PM From: Pati Durán RN, CCDS Admit Date: 09/23/2019 9:20:00 PM Patient Name: Belen Hernandez Visit Number: [id number] Discharge Date: ATTENTION: The Clinical Documentation Specialists (CDI) and [facility] Coding Staff appreciate your assistance in clarifying documentation. Please respond to the clarification below the line at the bottom and electronically sign. The CDI & [facility] Coding staff will review the response and follow-up if needed. Please note: Queries are made part of the Legal Health Record. If you have any questions, please contact the author of this message via ITS. Dr. Mj Lara Chronic congestive heart failure from ischemic cardiomyopathy is documented in the past medical history and your History and Physical and additional clarification is needed. History/Risk Factors: Heart Failure, Hypertension, Atrial fibrillation, Diabetes Mellitus Clinical Indicators: 74-year-old female with history of congestive heart failure with EF less than 20 %. She has normal lungs sounds bilaterally. No respiratory distress. Her extremities exam reveal no pedal edema. VS/Pulse OX: 115/61 90 16 98.4 98 % RA Echocardiogram Results: (per History and Physical) EF 20 % Chest X Ray: none Treatment: Lasix 40 PO BID Lopressor PO BID Imdur PO Aldactone PO In your professional opinion, can you please clarify the type of Congestive Heart Failure if known? Chronic Systolic Heart Failure: Unable to Determine Other, please specify (Last Revision: January 2018) Chronic congestive heart failure from systolic dysfunction EF 20% from underlying ischemic heart disease MTDD
[2019-09-25] MEDS ORDERED: FUROSEMIDE 10 MG/ML 2 ML VIAL IV ONE (14:55)
--- NOTE | 2019-09-25 15:02 | P.PN ---
Subjective Progress Note Date: 09/25/19 Principal diagnosis: Gross hematuria Hematuria improving, denies any abdominal pain. Hemoglobin dropped 6.8 from we 8.2 currently receiving 1 unit of packed RBC Objective - Vital Signs Vital signs: Vital Signs Temp 98.1 F 09/25/19 14:45 Pulse 71 09/25/19 14:45 Resp 14 09/25/19 14:45 BP 105/51 09/25/19 14:45 Pulse Ox 100 09/25/19 14:37 Intake & Output 09/24/19 09/25/19 09/25/19 18:59 06:59 18:59 Intake Total 310 Output Total 600 700 425 Balance -600 -700 -115 Intake: Blood Product 310 Rc As-1 Unit 310 [id number] Output: Urine 600 700 425 Coude 600 Other: Voiding Method Indwelling Catheter Indwelling Catheter Indwelling Catheter # Voids 1 1 - Constitutional General appearance: Present: no acute distress - Gastrointestinal General gastrointestinal: Present: soft. Absent: rigid - Genitourinary Genitourinary Comment(s): Rockwell draining light red urine with old blood clots - Labs CBC & Chem 7: 09/25/19 06:15 09/25/19 06:15 Labs: Abnormal Lab Results - Last 24 Hours (Table) 09/23/19 09/24/19 09/24/19 Range/Units 17:34 17:00 19:55 RBC (3.80-5.40) m/uL Hgb (11.4-16.0) gm/dL Hct (34.0-46.0) % RDW (11.5-15.5) % Sodium (137-145) mmol/L Carbon Dioxide (22-30) mmol/L BUN (7-17) mg/dL Creatinine (0.52-1.04) mg/dL Glucose (74-99) mg/dL POC Glucose (mg/dL) 146 H 168 H (75-99) mg/dL Urine Appearance (Clear) Urine Protein (Negative) Urine Blood (Negative) Ur Leukocyte Esterase (Negative) Urine RBC (0-5) /hpf Urine WBC (0-5) /hpf Urine WBC Clumps (None) /hpf Urine Bacteria (None) /hpf Hyaline Casts (0-2) /lpf Crossmatch See Detail 09/24/19 09/25/19 09/25/19 Range/Units 20:22 06:15 06:15 RBC 2.15 L (3.80-5.40) m/uL Hgb 6.8 L* (11.4-16.0) gm/dL Hct 20.4 L (34.0-46.0) % RDW 15.7 H (11.5-15.5) % Sodium 134 L (137-145) mmol/L Carbon Dioxide 17 L (22-30) mmol/L BUN 60 H (7-17) mg/dL Creatinine 1.70 H (0.52-1.04) mg/dL Glucose 179 H (74-99) mg/dL POC Glucose (mg/dL) (75-99) mg/dL Urine Appearance Turbid H (Clear) Urine Protein 2+ H (Negative) Urine Blood Large H (Negative) Ur Leukocyte Esterase Large H (Negative) Urine RBC >182 H (0-5) /hpf Urine WBC >182 H (0-5) /hpf Urine WBC Clumps Many H (None) /hpf Urine Bacteria Many H (None) /hpf Hyaline Casts 15 H (0-2) /lpf Crossmatch 09/25/19 09/25/19 Range/Units 07:08 11:26 RBC (3.80-5.40) m/uL Hgb (11.4-16.0) gm/dL Hct (34.0-46.0) % RDW (11.5-15.5) % Sodium (137-145) mmol/L Carbon Dioxide (22-30) mmol/L BUN (7-17) mg/dL Creatinine (0.52-1.04) mg/dL Glucose (74-99) mg/dL POC Glucose (mg/dL) 209 H 199 H (75-99) mg/dL Urine Appearance (Clear) Urine Protein (Negative) Urine Blood (Negative) Ur Leukocyte Esterase (Negative) Urine RBC (0-5) /hpf Urine WBC (0-5) /hpf Urine WBC Clumps (None) /hpf Urine Bacteria (None) /hpf Hyaline Casts (0-2) /lpf Crossmatch Microbiology - Last 24 Hours (Table) 09/24/19 20:22 Urine Culture - Preliminary Urine,Clean Catch Assessment and Plan Assessment: 74-year-old female with history of radiation cystitis. Admitted for gross hematuria. Had a recent cystoscopy by Dr. Chow which showed evidence of radiation cystitis, biopsy was taken which showed inflammatory tissue. Rockwell is draining, and irrigating without any issue. Hgb 6.8 from 8.2 Plan: -Irrigate rockwell PRN -Repeat CBC tonight -F/U urine culture -If patient is having no further clots, then rockwell can be removed -Will reassess tomorrow
[2019-09-25 16:16] LABS: Glucose,Whole Blood 216 mg/dL (75-99)
[2019-09-25 21:15] LABS: Glucose,Whole Blood 170 mg/dL (75-99)
[2019-09-25] MEDS: INSULIN DETEMIR (LEVEMIR) 100 UNIT/ML SYR SQ SCH (21:28)
--- NOTE | 2019-09-26 00:10 | P.PN ---
Progress Note - Text Progress Note Date: 09/25/19 Chief Complaint: Blood in the diaper History of presenting complaint: This is a pleasant 74 year patient was a resident of [facility]. Chronic stable medical conditions include coronary artery disease with prior bypass, COPD, diabetes mellitus type 2, hypertension, hyperlipidemia, congestive heart failure with EF less than 20%, ascending aortic aneurysm 4.2 cm, AICD, chronic kidney disease stage III,. Patient was here in the hospital in April of this year with severe hematuria. Blood clots were present. Did undergo cystoscopy by Dr. Hutson. Found to have hemorrhagic cystitis. Cytology came back to be negative. history of radiation cystitis , treated with radiation for anal carcinoma. . Patient now presents with increasing large amounts blood clot from the vagina. Presents to the ER. Weak tired rundown. Denies any fever and chills. Had blood clots in the ER too. Admitted with severe hematuria from known hemorrhagic cystitis from radiation cystitis.Hb dropped to 6.8 today. tired. Review of systems: Was done for constitutional, cardiovascular, GI, pulmonary. relevant finding as above Active Medications Acetaminophen (Tylenol Tab) 650 mg PO Q4H PRN PRN Reason: Fever and/ or Pain Acetaminophen/Codeine Phosphate (Tylenol #3) 1 each PO Q8H PRN PRN Reason: Pain Al Hydroxide/Mg Hydroxide (Maalox) 30 ml PO Q6H PRN PRN Reason: Nausea Aspirin (Aspirin) 81 mg PO DAILY@0800 [facility] Last Admin: 09/25/19 08:18 Dose: 81 mg Documented by: Bisacodyl (Dulcolax) 10 mg RECTAL DAILY PRN PRN Reason: Constipation Calamine/Phenol (Calmoseptine Oint) 1 applic TOPICAL Q6H PRN PRN Reason: EXCORIATION Calamine/Phenol (Calmoseptine Oint) 1 applic TOPICAL TID@0800,1200,1700 [facility] Last Admin: 09/25/19 17:51 Dose: 1 applic Documented by: Ferrous Sulfate (Feosol) 325 mg PO BID@0800,1700 [facility] Last Admin: 09/25/19 17:51 Dose: 325 mg Documented by: Furosemide (Lasix) 40 mg PO BID@0800,1700 [facility] Last Admin: 09/25/19 17:15 Dose: Not Given Documented by: Insulin Aspart (Novolog) 3 unit SQ AC-TID [facility] Last Admin: 09/25/19 17:51 Dose: 3 unit Documented by: Insulin Detemir (Levemir) 12 unit SQ HS@2100 [facility] Last Admin: 09/25/19 21:28 Dose: 12 unit Documented by: Isosorbide Mononitrate (Imdur) 60 mg PO DAILY@0800 [facility] Last Admin: 09/25/19 08:18 Dose: 60 mg Documented by: Magnesium Hydroxide (Milk Of Magnesia) 2,400 mg PO DAILY PRN PRN Reason: Constipation Metoprolol Tartrate (Lopressor) 25 mg PO BID@0800,1700 [facility] Last Admin: 09/25/19 17:51 Dose: 25 mg Documented by: Multivitamins (Theragran) 1 each PO DAILY@0800 [facility] Last Admin: 09/25/19 08:18 Dose: 1 each Documented by: Naloxone HCl (Narcan) 0.2 mg IV Q2M PRN PRN Reason: Opioid Reversal Ondansetron HCl (Zofran) 4 mg IVP Q8HR PRN PRN Reason: Nausea And Vomiting Sodium Biphosphate/Sodium Phosphate (Fleet Adult) 133 ml RECTAL ONCE PRN PRN Reason: Constipation Spironolactone (Aldactone) 25 mg PO DAILY@0800 [facility] Last Admin: 09/25/19 08:18 Dose: 25 mg Documented by: Physical examination: VITAL SIGNS: 98,82,14,99/56,100 % GENERAL: laying in bed tired appearing EYES: Pupils equal. Conjunctiva pale. HEENT: External appearance of nose and ears normal, oral cavity grossly normal. NECK: JVD not raised; masses not palpable. HEART: First and second heart sounds are normal; no edema. LUNGS: Respiratory rate normal; decreased breath sounds. ABDOMEN: Soft, mild suprapubic tenderness, no guarding rigidity, liver spleen not palpable, no masses palpable. ; bloody urine in bag PSYCH: Show 3, motor affect normal INVESTIGATIONS, reviewed in the clinical context: hb-6.8 White count 13.7 hemoglobin 8.2 calcium 4.8 bun 67 creatinine 1.85 Renal function and August 21-bun 57 creatinine 2.17 Assessment: -Acute severe hematuria in a patient with known hemorrhagic cystitis,. Bladder cytology being negative for malignancy in March of this year.; slow to respond 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, secondary to radiation received during adenocarcinoma treatment -Possible UTI from cystitis -Chronic medical debility, using a wheelchair -Chronic left-sided hydroureter and hydronephrosis -Coronary artery disease with prior bypass -COPD in an ex-smoker -Diabetes mellitus type 2 -Essential hypertension -Hyperlipidemia -Chronic congestive heart failure from ischemic cardio myopathy EF is 20% -Ascending aortic aneurysm 4.2 cm -AICD -Chronic kidney disease stage III from diabetic nephropathy and hypertensive nephrosclerosis Code status-DO NOT RESUSCITATE - Plan: unit of blood ordered. discussed with patient. prognosis guarded.
[2019-09-26 07:10] LABS: Glucose,Whole Blood 144 mg/dL (75-99)
[2019-09-26 07:38] LABS: Calcium 9.3 mg/dL (8.4-10.2); Potassium 4.1 mmol/L (3.5-5.1)
[2019-09-26] MEDS: ISOSORBIDE MONONITRATE ER 60 MG TAB.ER.24H PO SCH (07:38)
[2019-09-26] MEDS: FUROSEMIDE 40 MG TAB PO SCH ×2 (07:38→17:04)
[2019-09-26] MEDS: FERROUS SULFATE 325 MG TAB PO SCH ×2 (07:38→17:04)
[2019-09-26] MEDS: METOPROLOL TARTRATE 25 MG TAB PO SCH ×2 (07:38→17:04)
[2019-09-26] MEDS: ASPIRIN 81 MG PO SCH (07:38)
[2019-09-26] MEDS: MULTIVITAMINS, THERA 1 EACH TAB PO SCH (07:38)
[2019-09-26] MEDS: SPIRONOLACTONE 25 MG TAB PO SCH (07:38)
[2019-09-26] MEDS: INSULIN ASPART (NovoLOG) 100 UNIT/ML VIAL SQ SCH ×3 (07:38→17:04)
[2019-09-26] MEDS: MENTHOL-ZINC OXIDE OINT 113 GM TUBE TOPICAL SCH ×3 (07:39→17:04)
[2019-09-26 07:54] LABS: Basophils # (A) 0.1 k/uL (0-0.2); Basophils % (A) 1 %; Eosinophils # (A) 0.1 k/uL (0-0.7); Eosinophils % (A) 1 %; HCT 25.9 % (34.0-46.0); Lymphocytes # (A) 1.3 k/uL (1.0-4.8); Lymphocytes % (A) 14 %; MCH 31.8 pg (25.0-35.0); MCHC 33.3 g/dL (31.0-37.0); MCV 95.4 fL (80.0-100.0); Mean Platelet Volume 5.7; Monocytes # (A) 0.5 k/uL (0-1.0); Monocytes % (A) 5 %; Neutrophils % (A) 77 %; Platelet Count 276 k/uL (150-450); Poikilocytosis Slight; RBC 2.71 m/uL (3.80-5.40); RDW 15.7 % (11.5-15.5); WBC 9.1 k/uL (3.8-10.6)
[2019-09-26 08:07] LABS: HGB 8.6 gm/dL (11.4-16.0)
[2019-09-26 11:36] LABS: Glucose,Whole Blood 193 mg/dL (75-99)
--- NOTE | 2019-09-26 13:09 | P.PN ---
Subjective Progress Note Date: 09/25/19 Principal diagnosis: Gross hematuria No acute overnight event, catheter draining hematuric urine, patient asymptomatic, hgb stable after transfusion Objective - Vital Signs Vital signs: Vital Signs Temp 97.5 F L 09/26/19 06:14 Pulse 70 09/26/19 06:14 Resp 18 09/26/19 06:14 BP 95/56 09/26/19 06:14 Pulse Ox 97 09/26/19 06:14 Intake & Output 09/25/19 09/26/19 09/26/19 18:59 06:59 18:59 Intake Total 310 480 200 Output Total 775 650 Balance -465 -170 200 Intake: Oral 480 200 Blood Product 310 Rc As-1 Unit 310 [id number] Output: Urine 775 650 Other: Voiding Method Indwelling Catheter Indwelling Catheter Indwelling Catheter - Constitutional General appearance: Present: no acute distress - Gastrointestinal General gastrointestinal: Absent: distended, rigid - Genitourinary Genitourinary Comment(s): rockwell draining hematuric urine with old small blood clots - Labs CBC & Chem 7: 09/26/19 06:39 09/26/19 06:39 Labs: Abnormal Lab Results - Last 24 Hours (Table) 09/23/19 09/25/19 09/25/19 Range/Units 17:34 16:13 21:13 RBC (3.80-5.40) m/uL Hgb (11.4-16.0) gm/dL Hct (34.0-46.0) % RDW (11.5-15.5) % Carbon Dioxide (22-30) mmol/L BUN (7-17) mg/dL Creatinine (0.52-1.04) mg/dL Glucose (74-99) mg/dL POC Glucose (mg/dL) 216 H 170 H (75-99) mg/dL Crossmatch See Detail 09/26/19 09/26/19 09/26/19 Range/Units 06:39 06:39 07:05 RBC 2.71 L (3.80-5.40) m/uL Hgb 8.6 L D (11.4-16.0) gm/dL Hct 25.9 L (34.0-46.0) % RDW 15.7 H (11.5-15.5) % Carbon Dioxide 18 L (22-30) mmol/L BUN 59 H (7-17) mg/dL Creatinine 1.59 H (0.52-1.04) mg/dL Glucose 135 H (74-99) mg/dL POC Glucose (mg/dL) 144 H (75-99) mg/dL Crossmatch 09/26/19 Range/Units 11:17 RBC (3.80-5.40) m/uL Hgb (11.4-16.0) gm/dL Hct (34.0-46.0) % RDW (11.5-15.5) % Carbon Dioxide (22-30) mmol/L BUN (7-17) mg/dL Creatinine (0.52-1.04) mg/dL Glucose (74-99) mg/dL POC Glucose (mg/dL) 193 H (75-99) mg/dL Crossmatch Microbiology - Last 24 Hours (Table) 09/24/19 20:22 Urine Culture - Preliminary Urine,Clean Catch Assessment and Plan Assessment: 74-year-old female with history of radiation cystitis. Admitted for gross hematuria. Had a recent cystoscopy by Dr. Chow which showed evidence of radiation cystitis, biopsy was taken which showed inflammatory tissue. Rockwell is draining, and irrigating without any issue. Hgb stable after transfusion Plan: -Repeat CBC tonight -F/U urine culture -given patient hx of radiation cystitis the rockwell catheter is irritating the bladder and worsening her hematuria. Additionally she is pallative care. At this time Given that she is having small blood clots, I would recommend to remove the catheter and obtaining a PVR. As long as she is voiding no need to reinsert the catheter.
[2019-09-26 16:54] LABS: Glucose,Whole Blood 155 mg/dL (75-99)
[2019-09-26 21:00] LABS: Glucose,Whole Blood 124 mg/dL (75-99)
[2019-09-26] MEDS: INSULIN DETEMIR (LEVEMIR) 100 UNIT/ML SYR SQ SCH (21:08)
--- NOTE | 2019-09-27 00:25 | P.PN ---
Progress Note - Text Progress Note Date: 09/26/19 Chief Complaint: Blood in the diaper History of presenting complaint: This is a pleasant 74 year patient was a resident of [facility]. Chronic stable medical conditions include coronary artery disease with prior bypass, COPD, diabetes mellitus type 2, hypertension, hyperlipidemia, congestive heart failure with EF less than 20%, ascending aortic aneurysm 4.2 cm, AICD, chronic kidney disease stage III,. Patient was here in the hospital in April of this year with severe hematuria. Blood clots were present. Did undergo cystoscopy by Dr. Hutson. Found to have hemorrhagic cystitis. Cytology came back to be negative. history of radiation cystitis , treated with radiation for anal carcinoma. . Patient now presents with increasing large amounts blood clot from the vagina. Presents to the ER. Weak tired rundown. Denies any fever and chills. Had blood clots in the ER too. Admitted with severe hematuria from known hemorrhagic cystitis from radiation cystitis.Hb dropped to 6.8 today. tired. Today-hematuria continues. Otherwise laying in bed. Tolerating a diet. Review of systems: Was done for constitutional, cardiovascular, GI, pulmonary. relevant finding as above Active Medications Acetaminophen (Tylenol Tab) 650 mg PO Q4H PRN PRN Reason: Fever and/ or Pain Acetaminophen/Codeine Phosphate (Tylenol #3) 1 each PO Q8H PRN PRN Reason: Pain Al Hydroxide/Mg Hydroxide (Maalox) 30 ml PO Q6H PRN PRN Reason: Nausea Aspirin (Aspirin) 81 mg PO DAILY@0800 [facility] Last Admin: 09/26/19 07:38 Dose: 81 mg Documented by: Bisacodyl (Dulcolax) 10 mg RECTAL DAILY PRN PRN Reason: Constipation Calamine/Phenol (Calmoseptine Oint) 1 applic TOPICAL Q6H PRN PRN Reason: EXCORIATION Calamine/Phenol (Calmoseptine Oint) 1 applic TOPICAL TID@0800,1200,1700 [facility] Last Admin: 09/26/19 17:04 Dose: 1 applic Documented by: Ferrous Sulfate (Feosol) 325 mg PO BID@0800,1700 [facility] Last Admin: 09/26/19 17:04 Dose: 325 mg Documented by: Furosemide (Lasix) 40 mg PO BID@0800,1700 [facility] Last Admin: 09/26/19 17:04 Dose: 40 mg Documented by: Insulin Aspart (Novolog) 3 unit SQ AC-TID [facility] Last Admin: 09/26/19 17:04 Dose: 3 unit Documented by: Insulin Detemir (Levemir) 12 unit SQ HS@2100 [facility] Last Admin: 09/26/19 21:08 Dose: 12 unit Documented by: Isosorbide Mononitrate (Imdur) 60 mg PO DAILY@0800 [facility] Last Admin: 09/26/19 07:38 Dose: 60 mg Documented by: Magnesium Hydroxide (Milk Of Magnesia) 2,400 mg PO DAILY PRN PRN Reason: Constipation Metoprolol Tartrate (Lopressor) 25 mg PO BID@0800,1700 [facility] Last Admin: 09/26/19 17:04 Dose: 25 mg Documented by: Multivitamins (Theragran) 1 each PO DAILY@0800 [facility] Last Admin: 09/26/19 07:38 Dose: 1 each Documented by: Naloxone HCl (Narcan) 0.2 mg IV Q2M PRN PRN Reason: Opioid Reversal Ondansetron HCl (Zofran) 4 mg IVP Q8HR PRN PRN Reason: Nausea And Vomiting Sodium Biphosphate/Sodium Phosphate (Fleet Adult) 133 ml RECTAL ONCE PRN PRN Reason: Constipation Spironolactone (Aldactone) 25 mg PO DAILY@0800 [facility] Last Admin: 09/26/19 07:38 Dose: 25 mg Documented by: Physical examination: VITAL SIGNS: 97.5, 70, 18, 95/56, 97% on room air GENERAL: Laying in bed, awake EYES: Pupils equal. Conjunctiva pale. HEENT: External appearance of nose and ears normal, oral cavity grossly normal. NECK: JVD not raised; masses not palpable. HEART: First and second heart sounds are normal; no edema. LUNGS: Respiratory rate normal; decreased breath sounds. ABDOMEN: Soft, mild suprapubic tenderness, no guarding rigidity, liver spleen not palpable, no masses palpable. ; bloody urine in bag PSYCH: Show 3, motor affect normal INVESTIGATIONS, reviewed in the clinical context: Hemoglobin 8.6 White count 13.7 hemoglobin 8.2 calcium 4.8 bun 67 creatinine 1.85 Renal function and August 21-bun 57 creatinine 2.17 Assessment: -Acute severe hematuria in a patient with known hemorrhagic cystitis,. 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, secondary to radiation received during adenocarcinoma treatment -Possible UTI from cystitis -Chronic medical debility, using a wheelchair -Chronic left-sided hydroureter and hydronephrosis -Coronary artery disease with prior bypass -COPD in an ex-smoker -Diabetes mellitus type 2 -Essential hypertension -Hyperlipidemia -Chronic congestive heart failure from ischemic cardio myopathy EF is 20% -Ascending aortic aneurysm 4.2 cm -AICD -Chronic kidney disease stage III from diabetic nephropathy and hypertensive nephrosclerosis Code status-DO NOT RESUSCITATE - Plan: Spoke to the nurse to start continuous bladder irrigation after talking to urology. Other medications to continue.
[2019-09-27 06:56] LABS: Glucose,Whole Blood 136 mg/dL (75-99)
[2019-09-27] MEDS: INSULIN ASPART (NovoLOG) 100 UNIT/ML VIAL SQ SCH ×2 (07:29→12:15)
[2019-09-27 07:31] LABS: HCT 25.4 % (34.0-46.0); HGB 8.5 gm/dL (11.4-16.0); MCH 31.7 pg (25.0-35.0); MCHC 33.4 g/dL (31.0-37.0); MCV 94.9 fL (80.0-100.0); Mean Platelet Volume 6.7; Platelet Count 301 k/uL (150-450); Poikilocytosis Slight; RBC 2.68 m/uL (3.80-5.40); RDW 15.9 % (11.5-15.5); WBC 9.7 k/uL (3.8-10.6)
[2019-09-27 07:54] LABS: Calcium 9.5 mg/dL (8.4-10.2); Potassium 4.4 mmol/L (3.5-5.1)
[2019-09-27] MEDS: FUROSEMIDE 40 MG TAB PO SCH (08:30)
[2019-09-27] MEDS: MULTIVITAMINS, THERA 1 EACH TAB PO SCH (08:30)
[2019-09-27] MEDS: FERROUS SULFATE 325 MG TAB PO SCH (08:30)
[2019-09-27] MEDS: METOPROLOL TARTRATE 25 MG TAB PO SCH (08:30)
[2019-09-27] MEDS: MENTHOL-ZINC OXIDE OINT 113 GM TUBE TOPICAL SCH ×2 (08:30→12:15)
[2019-09-27] MEDS: ASPIRIN 81 MG PO SCH (08:30)
[2019-09-27] MEDS: ISOSORBIDE MONONITRATE ER 60 MG TAB.ER.24H PO SCH (08:30)
[2019-09-27] MEDS: SPIRONOLACTONE 25 MG TAB PO SCH (08:30)
[2019-09-27 08:37] VITALS: BP 104/62; PULSE 83; RESP 16; TEMP 98.4
[2019-09-27 11:20] LABS: Glucose,Whole Blood 147 mg/dL (75-99)
--- NOTE | 2019-09-27 12:16 | P.PN ---
Subjective Progress Note Date: 09/27/19 Principal diagnosis: Gross hematuria No acute overnight event, she is voiding without difficulty. Urine is light pink. Objective - Vital Signs Vital signs: Vital Signs Temp 98.4 F 09/27/19 07:00 Pulse 83 09/27/19 07:00 Resp 16 09/27/19 07:00 BP 104/62 09/27/19 07:00 Pulse Ox 99 09/27/19 07:00 Intake & Output 09/26/19 09/27/19 09/27/19 18:59 06:59 18:59 Intake Total 440 120 Output Total 1100 Balance -660 120 Intake: Oral 440 120 Output: Urine 1100 [place] 400 Other: Voiding Method Indwelling Catheter Incontinent Incontinent # Voids 1 1 # Bowel Movements 1 - Constitutional General appearance: Present: no acute distress - Gastrointestinal General gastrointestinal: Present: soft. Absent: distended, rigid - Labs CBC & Chem 7: 09/27/19 07:03 09/27/19 07:03 Labs: Abnormal Lab Results - Last 24 Hours (Table) 09/26/19 09/26/19 09/27/19 Range/Units 16:52 20:59 06:54 RBC (3.80-5.40) m/uL Hgb (11.4-16.0) gm/dL Hct (34.0-46.0) % RDW (11.5-15.5) % Sodium (137-145) mmol/L Carbon Dioxide (22-30) mmol/L BUN (7-17) mg/dL Creatinine (0.52-1.04) mg/dL Glucose (74-99) mg/dL POC Glucose (mg/dL) 155 H 124 H 136 H (75-99) mg/dL 09/27/19 09/27/19 09/27/19 Range/Units 07:03 07:03 11:18 RBC 2.68 L (3.80-5.40) m/uL Hgb 8.5 L (11.4-16.0) gm/dL Hct 25.4 L (34.0-46.0) % RDW 15.9 H (11.5-15.5) % Sodium 135 L (137-145) mmol/L Carbon Dioxide 20 L (22-30) mmol/L BUN 62 H (7-17) mg/dL Creatinine 1.90 H (0.52-1.04) mg/dL Glucose 125 H (74-99) mg/dL POC Glucose (mg/dL) 147 H (75-99) mg/dL Microbiology - Last 24 Hours (Table) 09/24/19 20:22 Urine Culture - Preliminary Urine,Clean Catch Escherichia coli Assessment and Plan Assessment: 74-year-old female with history of radiation cystitis. Admitted for gross hematuria. Had a recent cystoscopy by Dr. Chow which showed evidence of radiation cystitis, biopsy was taken which showed inflammatory tissue. Hgb stable. Wood removed yesterday, patient voiding w/o difficulty pink urine Plan: -Bactrim for 7 days given her UTI -PVR -OK for discharge from urology standpoint -F/U outpatient with Dr Chow in 2-3 weeks .
--- NOTE | 2019-09-27 12:53 | P.DS ---
Providers Date of admission: 09/23/19 21:20 Expected date of discharge: 09/27/19 Attending physician: Mj Lara Consults: 09/23/19 21:16 Consult Physician Urgent Consulting Provider: Klaus Hudson Consult Reason/Comments: Hemorrhagic cystitis Do you want consulting provider notified?: Already Contacted Primary care physician: [facility] Course: Chief Complaint: Blood in the diaper History of presenting complaint: This is a pleasant 74 year patient was a resident of [facility]. Chronic stable medical conditions include coronary artery disease with prior bypass, COPD, diabetes mellitus type 2, hypertension, hyperlipidemia, congestive heart failure with EF less than 20%, ascending aortic aneurysm 4.2 cm, AICD, chronic kidney disease stage III,. Patient was here in the hospital in April of this year with severe hematuria. Did undergo cystoscopy by Dr. Hutson. Found to have hemorrhagic cystitis. Cytology came back to be negative. history of radiation cystitis ,( treated with radiation for anal carcinoma.) . Patient now presents with increasing large amounts blood clot Presents to the ER. Weak tired rundown. Denies any fever and chills. Admitted with severe hematuria from known hemorrhagic cystitis from radiation cystitis. Bladder irrigation was done. Hemoglobin dropped to 6.8. Patient did receive a unit of blood. Hemoglobin today 8.5. She did have a Wood catheter. That was discontinued yesterday. Urine is light pink. Consultation: Dr. hudson from urology Physical examination: VITAL SIGNS: 98.4, 83, 16, 104/62, 99% room air GENERAL: Laying in bed, comfortable EYES: Pupils equal. Conjunctiva pale. HEENT: External appearance of nose and ears normal, oral cavity grossly normal. NECK: JVD not raised; masses not palpable. HEART: First and second heart sounds are normal; no edema. LUNGS: Respiratory rate normal; decreased breath sounds. ABDOMEN: Soft, mild suprapubic tenderness, no guarding rigidity, liver spleen not palpable, no masses palpable. PSYCH: Show 3, motor affect normal INVESTIGATIONS, reviewed in the clinical context: Hemoglobin 8.5 creatinine 1.9 potassium 4.4 White count 13.7 hemoglobin 8.2 calcium 4.8 bun 67 creatinine 1.85 Renal function and August 21-bun 57 creatinine 2.17 Assessment: -Acute severe hematuria in a patient with known hemorrhagic cystitis,. Bladder cytology being negative for malignancy in March of this year.; Recurrent 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, (secondary to radiation received during anal adenocarcinoma treatment) -Possible UTI from cystitis -Chronic medical debility, using a wheelchair -Chronic left-sided hydroureter and hydronephrosis -Coronary artery disease with prior bypass -COPD in an ex-smoker -Diabetes mellitus type 2 -Essential hypertension -Hyperlipidemia -Chronic congestive heart failure from ischemic cardio myopathy EF is 20% -Ascending aortic aneurysm 4.2 cm -AICD -Chronic kidney disease stage III from diabetic nephropathy and hypertensive nephrosclerosis Code status-DO NOT RESUSCITATE - Disposition: F/[place] Patient Condition at Discharge: Undetermined Plan - Discharge Summary Discharge Rx Participant: No New Discharge Prescriptions: New Cefuroxime Axetil [Ceftin] 500 mg PO BID #14 tab Continue Metoprolol Tartrate [Lopressor] 25 mg PO BID@0800,1700 Nitroglycerin Sl Tabs [Nitrostat] 0.4 mg SUBLINGUAL Q5M PRN #25 tab PRN Reason: Chest Pain Aspirin EC [Ecotrin Low Dose] 81 mg PO DAILY@0800 Multivitamins, Thera [Multivitamin (formulary)] 1 tab PO DAILY@0800 Magnesium Hydroxide [Milk of Magnesia Concentrate] 7,200 mg PO DAILY PRN PRN Reason: Constipation Mag Hydrox/Al Hydrox/Simeth [Maalox] 30 ml PO Q6H PRN PRN Reason: Nausea Ferrous Sulfate [Iron (65 MG Elemental)] 325 mg PO BID@0800,1700 Menthol-Zinc Oxide Oint [Calmoseptine Oint] 1 applic TOPICAL TID@0800,1200,1700 Bisacodyl [Dulcolax] 10 mg RECTAL DAILY PRN PRN Reason: Constipation Acetaminophen Tab [Tylenol] 650 mg PO Q4H PRN PRN Reason: Fever And/ Or Pain Na Phos,M-B/Na Phos,Di-Ba [Fleet Adult] 133 ml RECTAL ONCE PRN PRN Reason: Constipation Loperamide HCl [Imodium A-D] 2 - 4 mg PO QID PRN PRN Reason: Diarrhea Menthol/Zinc Oxide [Calmoseptine Ointment] 1 applic TOPICAL Q6H PRN PRN Reason: EXCORIATION Furosemide [Lasix] 40 mg PO BID@0800,1700 INSULIN ASPART (NovoLOG) [NovoLOG (formulary)] 3 unit SQ AC-TID #0 Isosorbide Mononitrate ER [Imdur] 60 mg PO DAILY@0800 Famotidine [Pepcid] 20 mg PO DAILY@0800 Spironolactone [Aldactone] 25 mg PO DAILY@0800 Insulin Degludec [Tresiba Flextouch U-100] 12 units SQ HS@2100 INSULIN ASPART (NovoLOG) [NovoLOG (formulary)] See Protocol [facility] Acetaminophen-Codeine 300-30mg [Tylenol w/codeine #3] 1 tab PO Q8H PRN #7 tab PRN Reason: Pain Discharge Medication List Metoprolol Tartrate [Lopressor] 25 mg PO BID@0800,1700 07/21/15 [History] Nitroglycerin Sl Tabs [Nitrostat] 0.4 mg SUBLINGUAL Q5M PRN #25 tab 12/04/17 [Rx] Aspirin EC [Ecotrin Low Dose] 81 mg PO DAILY@0800 11/22/18 [History] Bisacodyl [Dulcolax] 10 mg RECTAL DAILY PRN 04/27/19 [History] Ferrous Sulfate [Iron (65 MG Elemental)] 325 mg PO BID@0800,1700 04/27/19 [History] Mag Hydrox/Al Hydrox/Simeth [Maalox] 30 ml PO Q6H PRN 04/27/19 [History] Magnesium Hydroxide [Milk of Magnesia Concentrate] 7,200 mg PO DAILY PRN 04/27/19 [History] Menthol-Zinc Oxide Oint [Calmoseptine Oint] 1 applic TOPICAL TID@0800,1200,1700 04/27/19 [History] Multivitamins, Thera [Multivitamin (formulary)] 1 tab PO DAILY@0800 04/27/19 [History] Acetaminophen Tab [Tylenol] 650 mg PO Q4H PRN 08/13/19 [History] Furosemide [Lasix] 40 mg PO BID@0800,1700 08/13/19 [History] Loperamide HCl [Imodium A-D] 2 - 4 mg PO QID PRN 08/13/19 [History] Menthol/Zinc Oxide [Calmoseptine Ointment] 1 applic TOPICAL Q6H PRN 08/13/19 [History] Na Phos,M-B/Na Phos,Di-Ba [Fleet Adult] 133 ml RECTAL ONCE PRN 08/13/19 [History] INSULIN ASPART (NovoLOG) [NovoLOG (formulary)] 3 unit SQ AC-TID #0 08/18/19 [Rx] Famotidine [Pepcid] 20 mg PO DAILY@0800 09/23/19 [History] INSULIN ASPART (NovoLOG) [NovoLOG (formulary)] See Protocol [facility] 09/23/19 [History] Insulin Degludec [Tresiba Flextouch U-100] 12 units SQ HS@2100 09/23/19 [History] Isosorbide Mononitrate ER [Imdur] 60 mg PO DAILY@0800 09/23/19 [History] Spironolactone [Aldactone] 25 mg PO DAILY@0800 09/23/19 [History] Acetaminophen-Codeine 300-30mg [Tylenol w/codeine #3] 1 tab PO Q8H PRN #7 tab 09/27/19 [Rx] Cefuroxime Axetil [Ceftin] 500 mg PO BID #14 tab 09/27/19 [Rx] Follow up Appointment(s)/Referral(s): Parish Vasquez MD [Primary Care Provider] - 1-2 days Lukas Chow MD [STAFF PHYSICIAN] - 1 Week
[2019-09-27] MEDS ORDERED: SULFAMETHOX-TMP 800-160MG 1 EACH TAB PO SCH (21:00)
== END 2019-09-27 14:30 | DRG 699 ==
LOC: EC 17:15 → 4SSUR 21:20
PROVIDERS: ADMIT Hospitalist; ATTEND Hospitalist
PROC: 30233N1 Transfusion of Nonautologous Red Blood Cells into Peripheral Vein, Percutaneous Approach (ICD-10-PCS; principal; 2019-09-25)
DX: N30.41 Irradiation cystitis with hematuria (principal); D62 Acute posthemorrhagic anemia; I13.0 Hypertensive heart and chronic kidney disease with heart failure and stage 1 through stage 4 chronic kidney disease, or unspecified chronic kidney disease; I50.22 Chronic systolic (congestive) heart failure; N13.6 Pyonephrosis; E11.22 Type 2 diabetes mellitus with diabetic chronic kidney disease; I48.91 Unspecified atrial fibrillation; I71.2 Thoracic aortic aneurysm, without rupture; J44.9 Chronic obstructive pulmonary disease, unspecified; I25.5 Ischemic cardiomyopathy; N18.3 Chronic kidney disease, stage 3 (moderate); E78.5 Hyperlipidemia, unspecified; I25.10 Atherosclerotic heart disease of native coronary artery without angina pectoris; I25.2 Old myocardial infarction; R53.81 Other malaise; R32 Unspecified urinary incontinence; Z66 Do not resuscitate; Z51.5 Encounter for palliative care; Z79.4 Long term (current) use of insulin; Z79.82 Long term (current) use of aspirin; Z79.899 Other long term (current) drug therapy; Z85.048 Personal history of other malignant neoplasm of rectum, rectosigmoid junction, and anus; Z85.828 Personal history of other malignant neoplasm of skin; Z87.440 Personal history of urinary (tract) infections; Z90.710 Acquired absence of both cervix and uterus; Z95.1 Presence of aortocoronary bypass graft; Z98.84 Bariatric surgery status; Z90.79 Acquired absence of other genital organ(s); Z90.722 Acquired absence of ovaries, bilateral; Z86.14 Personal history of Methicillin resistant Staphylococcus aureus infection; Z88.1 Allergy status to other antibiotic agents; Z95.810 Presence of automatic (implantable) cardiac defibrillator; Z90.49 Acquired absence of other specified parts of digestive tract; Z91.81 History of falling; Z87.891 Personal history of nicotine dependence; Z80.0 Family history of malignant neoplasm of digestive organs; Z82.49 Family history of ischemic heart disease and other diseases of the circulatory system; Y84.2 Radiological procedure and radiotherapy as the cause of abnormal reaction of the patient, or of later complication, without mention of misadventure at the time of the procedure
CPT/HCPCS: 36415; 51702; 74018; 80048; 80053; 81001; 82550; 83690; 83735; 85025; 85027; 86850; 86900; 86901; 86920; 87077; 87086; 87186; 96360; 96361; 99285